=== PATIENT | male | born 1945 | race Caucasian/White ===

== ENCOUNTER → 2018-02-16 09:12 | Outpatient (CLI) | payer MEDICARE, OTHER, SELFPAY ==
[2018-02-16 11:01] LABS: HEMOLYSIS < 15 (0-50)
[2018-02-16 11:15] LABS: Alanine Aminotransferase 35 IU/L (21-72); Albumin 4.1 g/dL (3.5-5.0); Albumin Globulin Ratio 1.5 (1.0-2.8); Alkaline Phosphatase 58 U/L (38-126); Aspartate Aminotransferase 28 IU/L (17-59); BUN Creatinine Ratio 22.2 (6-22); Bilirubin Total 0.6 mg/dL (0.2-1.3); Blood Urea Nitrogen 20 mg/dL (9-20); Calcium 9.2 mg/dL (8.4-10.2); Carbon Dioxide 35 mmol/L (22-32); Chloride 102 mmol/L (98-107); Cholesterol 158 mg/dL (140-199); Estimated Glomerular Filt Rate > 60.0 mL/min (>60); Globulin 2.7 g/dL (1.7-4.1); Glucose 96 mg/dL (80-110); HDL Cholesterol 54 mg/dL (40-60); LDL Cholesterol Calculated 85 mg/dL (<100); Potassium 4.1 mmol/L (3.4-5.1); Sodium 144 mmol/L (137-145); Total Protein 6.8 g/dL (6.3-8.2); Triglycerides 93 mg/dL (35-150)
[2018-02-16 11:41] LABS: Thyroid Stimulating Hormone 1.47 uIU/mL (0.47-4.68)
[2018-02-16 11:48] LABS: Prostate Specific Antigen Scrn 6.06 ng/mL (0.1-4.0)
== END ==
PROVIDERS: Visit Provider Internal Medicine
DX: E78.00 Pure hypercholesterolemia, unspecified (principal); G89.4 Chronic pain syndrome
CPT/HCPCS: 36415; 80053; 80061; 84443; G0103

== ENCOUNTER → 2018-03-08 14:29 | Outpatient (CLI) | payer MEDICARE, OTHER, SELFPAY ==
--- NOTE | 2018-03-08 14:32 | DI.RAD.S_ITS ---
PROCEDURE: XR SHOULDER RT MIN 2V INDICATIONS: SHOULDER PAIN TECHNIQUE: 3 views of the shoulder were acquired. COMPARISON: None. FINDINGS: Bones: No fractures or dislocations. No suspicious bony lesions. Visualized ribs appear intact. Mild joint narrowing with periarticular osteophyte formation. Soft tissues: No suspicious soft tissue calcifications. IMPRESSION: Mild acromioclavicular and glenohumeral joint degeneration. Dictated by: Shamar Fairbanks [facility] Interpreted: Sandy Boswell MD on 03/08/2018 at 17:22 Approved by: Sandy Boswell MD, PhD on 03/09/2018 at 11:01
--- NOTE | 2018-03-08 14:32 | DI.RAD.S_ITS ---
PROCEDURE: XR SHOULDER LT MIN 2V INDICATIONS: SHOULDER PAIN TECHNIQUE: 3 views of the shoulder were acquired. COMPARISON: None. FINDINGS: Bones: No fractures or dislocations. No suspicious bony lesions. Visualized ribs appear intact. Mild joint narrowing with periarticular osteophyte formation of the acromioclavicular and glenohumeral joints. Soft tissues: No suspicious soft tissue calcifications. Surgical clips project over the left upper quadrant. IMPRESSION: Mild acromioclavicular and glenohumeral joint degeneration. Dictated by: Shamar Fairbanks [facility] Interpreted: Sandy Boswell MD on 03/08/2018 at 17:21 Approved by: Sandy Boswell MD, PhD on 03/09/2018 at 11:01
== END ==
PROVIDERS: Visit Provider Internal Medicine
DX: M25.511 Pain in right shoulder (principal); M25.512 Pain in left shoulder; M19.012 Primary osteoarthritis, left shoulder; M19.011 Primary osteoarthritis, right shoulder
CPT/HCPCS: 73030

== ENCOUNTER 2019-01-31 09:00 | Outpatient (RCR) | payer MEDICARE, OTHER, SELFPAY ==
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
== END 2019-02-23 16:56 ==
LOC: PHYS 09:00
PROVIDERS: PCP Family Medicine; Visit Provider Family Medicine
DX: G89.29 Other chronic pain (principal); V89.2XXA Person injured in unspecified motor-vehicle accident, traffic, initial encounter
CPT/HCPCS: 97014; 97110; 97140; 97161; 97535; G0283

== ENCOUNTER → 2019-04-10 09:32 | Outpatient (CLI) | payer MEDICARE, OTHER, SELFPAY ==
[2019-04-10 10:27] LABS: Alanine Aminotransferase 35 IU/L (21-72); Albumin 4.3 g/dL (3.5-5.0); Albumin Globulin Ratio 1.4 (1.0-2.8); Alkaline Phosphatase 65 U/L (38-126); Aspartate Aminotransferase 27 IU/L (17-59); BUN Creatinine Ratio 17.8 (6-22); Bilirubin Total 0.7 mg/dL (0.2-1.3); Blood Urea Nitrogen 16 mg/dL (9-20); Calcium 9.4 mg/dL (8.4-10.2); Carbon Dioxide 30 mmol/L (22-32); Chloride 103 mmol/L (98-107); Cholesterol 206 mg/dL (140-199); Estimated Glomerular Filt Rate > 60.0 mL/min (>60); Glucose 104 mg/dL (80-110); HDL Cholesterol 50 mg/dL (40-60); HEMOLYSIS < 15 (0-50); LDL Cholesterol Calculated 134 mg/dL (<100); Potassium 4.6 mmol/L (3.4-5.1); Sodium 141 mmol/L (137-145); Total Protein 7.3 g/dL (6.3-8.2); Triglycerides 111 mg/dL (35-150)
[2019-04-10 10:44] LABS: Creatinine Urine Random 145.6 mg/dL
[2019-04-10 10:48] LABS: Microalbumi Creatinin Ratio Ur 17.1 ug/mg CR (<30); Microalbumin Urine Random 2.5 mg/dL (0-1.6)
== END ==
PROVIDERS: PCP Family Medicine; Visit Provider Family Medicine
DX: I10 Essential (primary) hypertension (principal)
CPT/HCPCS: 36415; 80053; 80061; 82043; 82570

== ENCOUNTER 2019-06-01 11:46 | Emergency (ER) | payer MEDICARE, OTHER, SELFPAY ==
[2019-06-01 12:03] VITALS: BP 123/88; PULSE 51; RESP 20; TEMP 36.4; O2SAT 97; BMI 34.0
[2019-06-01 13:00] VITALS: BP 155/76; PULSE 53; RESP 9; O2SAT 96
[2019-06-01 13:02] LABS: Add Manual Diff / Slide Review NO; Basophils Absolute Auto 100 /uL (0-100); Basophils Percent Auto 0.7 % (0-2); Eosinophils Absolute Auto 300 /uL (0-450); Eosinophils Percent Auto 3.8 % (2-4); Hematocrit 41.5 % (41-53); Hemoglobin 14.2 g/dL (13.5-17.5); Lymphocytes Absolute Auto 1900 /uL (1100-4500); Mean Corpuscular HGB Conc 34.2 % (30-36); Mean Corpuscular Hemoglobin 31.1 PG (26-34); Mean Corpuscular Volume 91.1 fL (80-100); Monocytes Absolute Auto 1000 /uL (0-900); Monocytes Percent Auto 10.8 % (3-14); Neutrophils Absolute Auto 5600 /uL (1500-7000); Neutrophils Percent Auto 63.7 % (50-75); Platelet Count 244 X10^3/uL (150-400); Red Blood Cell Count 4.56 X10^6/uL (4.5-5.9); Red Cell Distribution Width 13.4 % (11.6-14.8); White Blood Cell Count 8.8 X10^3/uL (4.5-11.0)
[2019-06-01] MEDS: SODIUM CHLORIDE 0.9% 1,000 ML 1000 ML IV (13:02)
[2019-06-01] MEDS: diazePAM 10 MG/2 ML SYRINGE 5 MG IV (13:02)
[2019-06-01] MEDS: ONDANSETRON 4 MG/2 ML INJ IV (13:02)
[2019-06-01 13:20] LABS: Alanine Aminotransferase 25 IU/L (<50); Albumin 4.1 g/dL (3.5-5.0); Albumin Globulin Ratio 1.6 (1.0-2.8); Alkaline Phosphatase 65 U/L (38-126); Aspartate Aminotransferase 27 IU/L (17-59); Bilirubin Total 0.7 mg/dL (0.2-1.3); Blood Urea Nitrogen 18 mg/dL (9-20); Calcium 9.5 mg/dL (8.4-10.2); Carbon Dioxide 28 mmol/L (22-32); Chloride 104 mmol/L (98-107); Estimated Glomerular Filt Rate > 60.0 mL/min (>60); Globulin 2.6 g/dL (1.7-4.1); Glucose 106 mg/dL (80-110); HEMOLYSIS < 15 (0-50); Potassium 3.7 mmol/L (3.4-5.1); Sodium 139 mmol/L (137-145); Total Protein 6.7 g/dL (6.3-8.2)
--- NOTE | 2019-06-01 14:41 | ED_ITS ---
HPI - Dizziness General Chief Complaint: Dizziness Stated Complaint: dizzy, dehyrdration Time Seen by Provider: 06/01/19 11:49 Source: patient Mode of arrival: Wheelchair Limitations: no limitations History of Present Illness HPI Narrative: Patient comes emergency department complaining of vertigo for the last 3 days. He states that it is the worst when he tries to stand up, but also occurs when he turns his head certain ways. Patient states that in between, the degree of vertigo will go down to 1/10, but when his doctor did the Farwell-Hallpike maneuver in the office today, it went up to ?11/10?. Patient states that he has not had any neurologic deficits otherwise. He states that if he is not trying to walk, he is coordinated in the use of his extremities. He states that he has been able to walk, but sometimes he stumbles around due to the dizzy sensation in his head. Patient states that he has been nauseated only since seen his doctor this afternoon. He denies any chest pain, shortness breath, or palpitations. He denies any headache. He has not been ill with anything recently. Patient states that he is not known to have ever had a stroke. No other complaints at this time. Related Data Home Medications Medication Instructions Recorded Confirmed TENS unit electrodes #0 05/19/17 06/01/19 albuterol sulfate [Ventolin HFA] #0 05/19/17 06/01/19 aspirin 81 mg PO QDAY #0 05/19/17 06/01/19 cholecalciferol (vitamin D3) 2,500 iu #0 05/19/17 06/01/19 [Vitamin D3] desonide [DesOwen] #0 05/19/17 06/01/19 diclofenac sodium [Voltaren] #0 05/19/17 06/01/19 fluticasone propionate [Flonase #0 05/19/17 06/01/19 Allergy Relief] ibuprofen #0 05/19/17 06/01/19 multivitamin [Multiple Vitamins] #0 05/19/17 06/01/19 atorvastatin [Lipitor] 40 mg PO BEDTIME 06/01/19 06/01/19 bupropion HCl 150 mg PO DAILY 06/01/19 06/01/19 Previous Rx's Medication Instructions Recorded hydrochlorothiazide 12.5 mg capsule 12.5 mg PO DAILY #90 cap 01/31/19 budesonide-formoterol HFA 80 2 puff INHALATION BID #10.2 gram 04/26/19 mcg-4.5 mcg/actuation aerosol inhaler meclizine 25 mg PO TID PRN #30 tab 06/01/19 Allergies Allergy/AdvReac Type Severity Reaction Status Date / Time Penicillins [PENICILLINS] Allergy Intermediate rash, Verified 06/01/19 10:44 blows up Review of Systems Review of Systems ROS Unobtainable: All systems reviewed & are unremarkable except as noted in HPI and below Constitutional Constitutional: Denies chills, Denies fatigue, Denies fever(s), Denies frequent falls, Denies lethargy and Denies weakness Eyes Eyes: Denies change in vision, Denies eye discharge, Denies irritation and Denies loss of vision ENT Ears, Nose, Mouth, and Throat: Denies change in voice, Reports dizziness, Denies neck pain, Denies sore throat and Denies throat swelling Cardiovascular Cardiovascular: Denies chest pain, Denies irregular heart rhythm, Denies lightheadedness, Denies palpitations, Denies dyspnea, Denies dyspnea on exertion and Denies orthopnea Respiratory Respiratory: Denies cough, Denies dyspnea, Denies dyspnea on exertion and Denies wheezing Gastrointestinal Gastrointestinal: Denies abdominal pain, Denies change in bowel habits, Denies diarrhea, Reports nausea and Denies vomiting Genitourinary Genitourinary: Denies hematuria, Denies flank pain, Denies urinary incontinence and Denies urinary urgency Musculoskeletal Musculoskeletal: Denies back pain, Denies muscle weakness, Denies neck pain, Denies numbness and Denies tingling Integumentary/Breasts Skin/Breast: Denies pruritus, Denies erythema, Denies rash and Denies wounds Neurologic Neurologic: Denies behavioral changes, Denies confusion, Reports dizziness, Denies frequent falls, Denies loss of vision, Denies numbness, Denies tingling and Denies weakness Psychiatric Psychiatric: Denies anxiety, Denies behavioral changes, Denies confusion, Denies depression, Denies homicidal ideation and Denies suicidal ideation Endocrine Endocrine: Denies fatigue, Denies flushing and Denies palpitations Hematologic/Lymphatic Hematologic/Lymphatic: Denies easy bruising Allergic/Immunologic Allergic/Immunologic: Denies urticaria, Denies throat swelling and Denies wheezing Patient History Medical History Asthma (Chronic ~1999) BPPV (benign paroxysmal positional vertigo) (Acute) Cataracts, bilateral (Chronic ~2017) Chicken pox (Resolved) Chronic back pain (Chronic ~2011) Chronic pain (Chronic) Colon polyps (Chronic ~1994) Dehydration determined by examination (Acute) Essential hypertension (Chronic) Foot pain (Chronic) Gastric ulcer (Chronic ~1969) Hyperlipidemia (Chronic) Measles (Resolved) Mumps (Resolved) Retinal detachment (Chronic) Seasonal allergies (Chronic ~1987) Shoulder pain (Chronic ~2011) Tinnitus (Chronic) Surgical History Anesthesia (Resolved) History of appendectomy (Resolved ~1953) History of cataract removal with insertion of prosthetic lens (Resolved) History of gastric bypass (Resolved ~1977) Family History Grandmother Stroke Father High cholesterol Mother Breast cancer Sister Hyperlipidemia Grandmother No problems noted. Grandfather No problems noted. Social History marital status: number of children: 0 household members: spouse lives independently: Yes caregiver/support person: No housing: house education level: college occupational status: employed Smoking Status: Never smoker second hand exposure: No alcohol intake: current substance use type: does not use Smoking Status: Never smoker Substance Use Type: does not use Exam Initial Vital Signs Initial Vital Signs: Vital Signs Temperature 97.6 F 06/01/19 12:03 Pulse Rate 51 L 06/01/19 12:03 Respiratory Rate 20 06/01/19 12:03 Blood Pressure 123/88 06/01/19 12:03 Pulse Oximetry 97 06/01/19 12:03 Const General: cooperative and well developed Nutritional Appearance: well nourished Orientation: alert, awake, oriented x3 and not confused [facility] Head: normocephalic and atraumatic Ears: external ears normal Nose: external nose normal and No nasal discharge Face and sinus: face symmetric and No dry mucous membranes Mouth: oral mucosae normal and moist mucous membranes Teeth and gingiva: dentition normal Eyes General: appearance normal, both eyes and all related structures Eyelids: eyelids normal Conjunctivae: conjunctivae normal Sclera: sclerae normal Pupils: PERRL EOM: EOM intact bilaterally Neck Neck: normal visual inspection, trachea midline, No lymphadenopathy, No midline deformity and No JVD Lymphatic: No lymphedema Chest Chest: normal inspection of the chest Resp Effort & Inspection: normal respiratory effort, able to speak in complete sentences, no respiratory distress and no use of accessory muscles Auscultation: clear to auscultation bilaterally, no rales, no rhonchi and no wheezes Cardio Rate: regular rate Rhythm: regular rhythm Heart Sounds: no click, no gallops, no murmurs and no rubs Pulses: normal peripheral pulses GI Inspection: non-distended Palpation: soft, no hepatosplenomegaly, No guarding, No pulsatile mass and No tender Auscultation: normal bowel sounds Back/Spine/Pelvis Back: No CVA tenderness Cervical Spine: cervical ROM normal and No pain with cervical ROM Thoracic/Lumbar Spine: thoracic and lumbar spine normal to inspection Skin General: no rashes or lesions noted, No jaundice and No petechiae Neuro General: alert, oriented x3, gait normal and no focal motor deficits Speech: speech normal Extrem General: full ROM, no clubbing, cyanosis or edema, no pedal edema and no calf tenderness Psych Appearance: well kempt Mental Status: mental status grossly normal Attitude: cooperative Thought Content: normal and suicidality Judgment: judgment good Course Course Course Narrative: Patient was worked up with labs, EKG, and CT scan of the head, all which were unremarkable. The patient was given a L 0.9 normal saline and doses of Zofran and Valium, and was found to be feeling much better on re- evaluation. His symptoms sounded most consistent with peripheral etiology of vertigo. He was given a prescription for meclizine and advised to follow-up his primary care physician for further evaluation, should his symptoms continue for more than a week. We've discussed the usual indications for return. Orders Ordered: ED Orders 06/01/19 12:14 EKG-12 Lead Routine 06/01/19 12:56 Complete Blood Count AUTO DIFF Stat Comprehensive Metabolic Panel Stat 06/01/19 14:47 CT head/brain wo con Stat Discontinued Medications Diazepam (Valium) 5 mg IV NOW ONE Stop: 06/01/19 12:09 Last Admin: 06/01/19 13:02 Dose: 5 mg Documented by: GHADA Sodium Chloride (Normal Saline 0.9%) 1,000 mls @ 1,000 mls/hr IV BOLUS ONE Stop: 06/01/19 13:07 Last Infusion: 06/01/19 14:16 Dose: 0 mls/hr Documented by: Admin: 06/01/19 13:02 Dose: 1,000 mls/hr Documented by: GHADA Ondansetron HCl (Zofran) 4 mg IV NOW ONE Stop: 06/01/19 12:09 Last Admin: 06/01/19 13:02 Dose: 4 mg Documented by: GHADA Vital Signs Vital signs: Vital Signs - 8 hr 06/01/19 13:00 06/01/19 14:45 06/01/19 15:15 Pulse Rate 53 L 64 53 L Respiratory Rate 9 L 21 16 Blood Pressure [Right Arm] 155/76 H 163/84 H 152/78 H Pulse Oximetry 96 96 97 MDM - Dizziness Medical Records Attestation: I reviewed the patient's medical records. Lab Data Attestation: I reviewed the patient's lab results. Result diagrams: 06/01/19 12:56 06/01/19 12:56 Labs: Lab Results 06/01/19 06/01/19 Range/Units 12:56 12:56 WBC 8.8 (4.5-11.0) X10^3/uL RBC 4.56 (4.5-5.9) X10^6/uL Hgb 14.2 (13.5-17.5) g/dL Hct 41.5 (41-53) % MCV 91.1 (80-100) fL MCH 31.1 (26-34) PG MCHC 34.2 (30-36) % RDW 13.4 (11.6-14.8) % Plt Count 244 (150-400) X10^3/uL Neut % (Auto) 63.7 (50-75) % Lymph % (Auto) 21.0 L (25-40) % Karnes % (Auto) 10.8 (3-14) % Eos % (Auto) 3.8 (2-4) % Baso % (Auto) 0.7 (0-2) % Neut # (Auto) 5600 (3036-0154) /uL Lymph # (Auto) 1900 (7268-9534) /uL Karnes # (Auto) 1000 H (0-900) /uL Eos # (Auto) 300 (0-450) /uL Baso # (Auto) 100 (0-100) /uL Sodium 139 (137-145) mmol/L Potassium 3.7 (3.4-5.1) mmol/L Chloride 104 (98-107) mmol/L Carbon Dioxide 28 (22-32) mmol/L BUN 18 (9-20) mg/dL Creatinine 0.90 (0.66-1.25) mg/dL Estimated GFR > 60.0 (>60) mL/min BUN/Creatinine Ratio 20.0 (6-22) Glucose 106 (80-110) mg/dL Calcium 9.5 (8.4-10.2) mg/dL Total Bilirubin 0.7 (0.2-1.3) mg/dL AST 27 (17-59) IU/L ALT 25 (<50) IU/L Alkaline Phosphatase 65 (38-126) U/L Total Protein 6.7 (6.3-8.2) g/dL Albumin 4.1 (3.5-5.0) g/dL Globulin 2.6 (1.7-4.1) g/dL Albumin/Globulin Ratio 1.6 (1.0-2.8) Imaging Data CT scan - head: Radiologist's impression: PROCEDURE: CT HEAD/BRAIN WO CON INDICATIONS: vertigo TECHNIQUE: Noncontrast 4.5 mm thick angled axial sections acquired from the foramen magnum to the vertex, with coronal and sagittal reformats. For radiation dose reduction, the following was used: automated exposure control, adjustment of mA and/or kV according to patient size. COMPARISON: None. FINDINGS: Image quality: Excellent. CSF spaces: Basal cisterns are patent. No extra-axial fluid collections. The ventricles are symmetric in size and shape. Brain: No intracranial bleeds or masses. There is cerebral volume loss for age, with resultant ventricular and sulcal prominence. There are periventricular and deep white matter chronic small vessel ischemic changes. There is intracranial internal carotid artery atherosclerosis. Skull and face: Calvarium and visualized facial bones appear intact, without suspicious lesions. Sinuses: Visualized sinuses and mastoids are clear. IMPRESSION: Source of vertigo is not found. Dictated by: Pravin Chan M.D. on 06/01/2019 at 15:10 Approved by: Pravin Chan M.D. on 06/01/2019 at 15:11 ECG Data Attestation: I personally reviewed and interpreted this ECG as follows: (See below) Interpretation: Twelve lead EKG performed June 01, 2019 at 12:14 p.m., as follows: Regular ventricular rhythm with a rate of 46 beats per minute OK intervals 167 milliseconds QRS duration 116 milliseconds QTC interval [address] T wave changes Interpretation: Sinus bradycardia; moderate intraventricular conduction delay; moderate voltage criteria for LVH, consider normal variant; nonspecific T-wave abnormality; no signs of acute ischemia; borderline EKG as interpreted by ED MD. Discharge Plan Departure Patient Disposition: Home Clinical Impression: Vertigo Discharge Date/Time: 06/01/19 16:21 Instructions: DI for Vertigo Activity Restrictions/Additional Instructions: Your labs and CT scan look good. There is no evidence on EKG of a contributing cause of your vertigo. Please take the anti-vertigo medicine, as needed. Please follow up with your primary care physician if your vertigo continues for more than the next week. Prescriptions: New meclizine 25 mg tablet 25 mg PO TID PRN (Reason: dizziness) Qty: 30 RF: 0 No Action aspirin 81 MG tablet,chewable 81 mg PO QDAY Qty: 0 RF: 0 albuterol sulfate [Ventolin HFA] 90 MCG/PUFF HFA aerosol inhaler Qty: 0 RF: 0 fluticasone propionate [Flonase Allergy Relief] 9.9 ML spray,suspension Qty: 0 RF: 0 diclofenac sodium [Voltaren] 1 % gel Qty: 0 RF: 0 desonide [DesOwen] 0.05 % cream Qty: 0 RF: 0 ibuprofen 200 MG capsule Qty: 0 RF: 0 cholecalciferol (vitamin D3) [Vitamin D3] 2,000 UNIT tablet 2,500 iu Qty: 0 RF: 0 (DME) TENS unit electrodes 1 EACH pad Qty: 0 RF: 0 multivitamin [Multiple Vitamins] 1 EACH tablet Qty: 0 RF: 0 hydrochlorothiazide 12.5 mg capsule 12.5 mg PO DAILY Qty: 90 RF: 0 Symbicort 80-4.5 mcg/actuation HFA aerosol inhaler 2 puff INHALATION BID Qty: 10.2 RF: 3 bupropion HCl 150 mg tablet sustained-release 12 hr 150 mg PO DAILY RF: 0 atorvastatin [Lipitor] 40 mg tablet 40 mg PO BEDTIME RF: 0 Referrals: Vikcy Whalen MD [Primary Care Provider] -
[2019-06-01 14:45] VITALS: BP 163/84; PULSE 64; RESP 21; O2SAT 96
--- NOTE | 2019-06-01 14:47 | DI.CT.S_ITS ---
PROCEDURE: CT HEAD/BRAIN WO CON INDICATIONS: vertigo TECHNIQUE: Noncontrast 4.5 mm thick angled axial sections acquired from the foramen magnum to the vertex, with coronal and sagittal reformats. For radiation dose reduction, the following was used: automated exposure control, adjustment of mA and/or kV according to patient size. COMPARISON: None. FINDINGS: Image quality: Excellent. CSF spaces: Basal cisterns are patent. No extra-axial fluid collections. The ventricles are symmetric in size and shape. Brain: No intracranial bleeds or masses. There is cerebral volume loss for age, with resultant ventricular and sulcal prominence. There are periventricular and deep white matter chronic small vessel ischemic changes. There is intracranial internal carotid artery atherosclerosis. Skull and face: Calvarium and visualized facial bones appear intact, without suspicious lesions. Sinuses: Visualized sinuses and mastoids are clear. IMPRESSION: Source of vertigo is not found. Dictated by: Pravin Chan M.D. on 06/01/2019 at 15:10 Approved by: Pravin Chan M.D. on 06/01/2019 at 15:11
--- NOTE | 2019-06-01 15:11 | PC.NURSE ---
Pt reports feeling much better post medications. was able to stand and ambulate to the bathroom with assistance. Taken to and from head CT. tolerated well. NAD
[2019-06-01 15:15] VITALS: BP 152/78; PULSE 53; RESP 16; O2SAT 97
--- NOTE | 2019-06-01 16:48 | PC.NURSE ---
Patient stated he felt safe to drive home after walking from the ER entrance to the other side of the hospital where his car was parked by ophthalmology. Patient acknowledged to stock puller if he had any issues while driving. He stated he felt lots better to drive now.
== END 2019-06-01 16:21 | disposition home or self-care (01) ==
PROVIDERS: Emergency Provider Emergency Medicine; PCP Family Medicine
DX: R42 Dizziness and giddiness (principal)
CPT/HCPCS: 36415; 70450; 80053; 85025; 93005; 93010; 93041; 96361; 96374; 96375; 99284; 99285; J2405; J3360

== ENCOUNTER → 2019-12-04 07:39 | Outpatient (CLI) | payer MEDICARE, OTHER, SELFPAY ==
[2019-12-04 08:25] LABS: Cholesterol 180 mg/dL (140-199); HDL Cholesterol 56 mg/dL (40-60); LDL Cholesterol Calculated 106 mg/dL (<100); Triglycerides 91 mg/dL (35-150)
== END ==
PROVIDERS: PCP Family Medicine; Referring Provider Family Medicine; Visit Provider Family Medicine
DX: E78.5 Hyperlipidemia, unspecified (principal)
CPT/HCPCS: 36415; 80061

== ENCOUNTER → 2020-01-18 08:15 | Outpatient (CLI) | payer MEDICARE, OTHER, SELFPAY ==
[2020-01-19 02:17] LABS: COVID19 Sendout Not Detected (Not Detect)
== END ==
PROVIDERS: PCP Family Medicine; Visit Provider Physician Assistant
DX: Z11.59 Encounter for screening for other viral diseases (principal)
CPT/HCPCS: 87635

== ENCOUNTER → 2020-03-21 07:58 | Outpatient (CLI) | payer MEDICARE, OTHER, SELFPAY ==
[2020-03-21 09:37] LABS: Alanine Aminotransferase 36 IU/L (<50); Albumin Globulin Ratio 1.5 (1.0-2.8); Alkaline Phosphatase 78 U/L (38-126); Aspartate Aminotransferase 31 IU/L (17-59); BUN Creatinine Ratio 15.4 (6-22); Bilirubin Total 0.9 mg/dL (0.2-1.3); Blood Urea Nitrogen 14 mg/dL (9-20); Calcium 9.2 mg/dL (8.4-10.2); Carbon Dioxide 29 mmol/L (22-32); Chloride 101 mmol/L (98-107); Estimated Glomerular Filt Rate > 60.0 mL/min (>60); Globulin 2.7 g/dL (1.7-4.1); Glucose 97 mg/dL (80-110); HEMOLYSIS < 15 (0-50); Potassium 4.5 mmol/L (3.4-5.1); Sodium 139 mmol/L (137-145); Total Protein 6.7 g/dL (6.3-8.2)
[2020-03-21 09:44] LABS: Creatinine Urine Random 224.3 mg/dL
[2020-03-21 09:52] LABS: Microalbumin Urine Random < 0.6 mg/dL (0-1.6)
== END ==
PROVIDERS: PCP Family Medicine; Referring Provider Family Medicine; Visit Provider Family Medicine
DX: I10 Essential (primary) hypertension (principal)
CPT/HCPCS: 36415; 80053; 82043; 82570

== ENCOUNTER 2020-04-29 07:30 | Outpatient (RCR) | payer MEDICARE, OTHER, SELFPAY ==
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
--- NOTE | 2020-04-29 12:15 | PT.OPPOC ---
Physical, Occupational & Speech Therapy At [facility] Current Diagnoses Other chronic pain (04/29/20) Dorsalgia, unspecified (04/29/20) Visit Care Team Role Provider Type Vicky Whalen MD Attending Provider Physician Primary Care Provider Referring Provider Specialty: Family Practice Address: [address] [place] [address], [id number] Email: [email or web address] Plan Of Care PT-OP-T Assessment and Plan Start: 04/01/20 13:06 Freq: Status: Active Protocol: Document 04/29/20 07:30 MB (Rec: 04/29/20 08:33 MB [id number]) Physical Therapy Assessment Rehab Potential Rehabilitation Potential Good Evaluation Complexity Number of Personal Factors/Comorbidities 1-2 Number of Body Systems Impaired 1-2 Goals 5 Petroleum Sampler Goal (LTG) Pt will report a 80% improvement in cervical, right UE, thoracic and LBP to improve quality of life and function by 06/13/2020. 04/29/2020: Pt reports an overall 60% improvement in pain since starting PT. LTG Duration 6 weeks 4 Pet[employer] Sampler Goal (LTG) Pt will perform progressive HEP with I including postural, flexibility, relaxation, alignment and strengthening to improve overall strength and to decrease pain by 06/13/2020 . 04/29/2020: Pt reports he likes several exercises and that the Buteyko exercises interfere with his current meditation practice. LTG Duration 6 weeks Three Petroleum Sampler Goal (LTG) Pt will report a 50% improvement in sleeping related to pain factor to improve parasympathetic response and recovery by 06/13. 04/29/2020: Pt reports a 30% improvement in sleeping since starting PT. LTG Duration 6 weeks Two Pen[facility]iary Goal (LTG) Pt will present with improved active right shoulder abduction to at least 140 deg to improve functional use by 06/02/2020. LTG Duration Met 04/29/2020 One Penitentiary Goal (LTG) Pt will present with improved right shoulder strength to at least 4/5 abduction, flexion, IR and ER to improve ability to perform IADLs by 06/13/2020 . 04/29/2020: Pt presents with 3 +/5 right shoulder abduction, ER and IR strength with quick muscle fatigue. LTG Duration 6 weeks Assessment Summary Assessment Pt has progressed towards all goals since starting PT. These include pain and sleep goals, HEP, strength and ROM goals. He con't with home stressors of taking care of his and doing all house hold chores and cooking. Pt does not like Buteyko breathing or upper traps MWM with racquet ball and so d/c today. Re-ed in pelvic realignment execises so that he can use if he has LBP . Standing scaption and thoracic walks wall with elbows also discontinued. Pt will benefit from ongoing PT to improve posture and core strengthening. Pt is concerned about governor's guidelines for staying at home. Encouraged pt about current guidelines used at clinic includuing distancing and cleaning. He would like to con 't with PT and will benefit from ongoing PT for thoracic and shoulder range and core, shoulder blade and shoulder strengthening. Barriers include home stressors. Physical Therapy Plan Frequency and Duration Frequency of Treatment 2x/Week Duration of Treatment 6 weeks Plan of Care Start Date 04/29/20 Plan of Care End Date 06/13/20 Therapeutic Interventions Therapeutic Interventions Balance Training,Canalithic Repositioning,Home Exercise Program,Joint Mobilizations, Manual Therapy,Neuromuscular Re-education,Patient/Caregiver Education,Self-Care/Home Management,Soft Tissue Mobilization,Taping, Therapeutic Activities, Therapeutic Exercises Modalities Cold Pack/Ice Massage,Electric Stimulation,Hot Packs, Ultrasound Next Visit Focus/Plan Next Note Type Treatment Note Next Visit Plan Continue per PT POC: initiate strengthening for core, intrascapular muscles and shoulders, diaphragm breathing and further manual work. Plan of Care Dates Plan of Care Start Date 04/29/20 Plan of Care End Date 06/13/20 Electronically Signed by: Tiana Clemens, PT 04/29/20 [id number] Please Sign and Return: I have reviewed this Plan of Care and certify that the skilled therapy services above are required to meet the patient?s needs. Physician Signature Date Printed Name and Credentials Clinical Instructor Signature Printed Name and Credentials
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
== END 2020-05-10 08:18 | disposition home or self-care (01) ==
LOC: PHYS 07:30
PROVIDERS: PCP Family Medicine; Referring Provider Family Medicine; Visit Provider Family Medicine
DX: M54.9 Dorsalgia, unspecified (principal); G89.29 Other chronic pain
CPT/HCPCS: 97110; 97140; 97162

== ENCOUNTER 2020-06-27 14:26 | Emergency (ER) | payer MEDICARE, OTHER, SELFPAY ==
[2020-06-27] VITALS (9 sets, daily range): BP systolic 160–210; BP diastolic 75–99; PULSE 51–58; RESP 16–60; TEMP 36.9; O2SAT 92–98; BMI 36.9
--- NOTE | 2020-06-27 14:41 | DI.RAD.S_ITS ---
PROCEDURE: XR CHEST 1V INDICATIONS: chest pain TECHNIQUE: One view of the chest was acquired. COMPARISON: None. FINDINGS: Surgical changes and devices: Multiple surgical clips in the left upper quadrant of the abdomen and at the gastroesophageal junction. Lungs and pleura: Lungs are clear. No pleural effusions or pneumothorax. Mediastinum: Mediastinal contours appear normal. Heart size is normal. Bones and chest wall: No suspicious bony lesions. Overlying soft tissues appear unremarkable. IMPRESSION: No acute cardiopulmonary disease process. Dictated by: Sandy Boswell MD, PhD on 06/27/2020 at 15:29 Approved by: Sandy Boswell MD, PhD on 06/27/2020 at 15:30
[2020-06-27 15:01] LABS: COVID19 -Nasal RAPID Negative (Negative)
[2020-06-27 15:22] LABS: Prothrombin Time 11.1 SECONDS (10.1-12.7)
--- NOTE | 2020-06-27 15:23 | ED.CHESTPAIN ---
HPI - Chest Pain General Chief Complaint: Chest Pain Stated Complaint: Asthma and allergies Time Seen by Provider: 06/27/20 14:57 Source: patient Mode of arrival: Wheelchair Limitations: no limitations History of Present Illness HPI narrative: Patient is a 75-year-old male with history of asthma and allergies presenting with ongoing cough and shortness of breath. He says he usually takes and Theresa and Advair inhaler daily. He says the last night his allergies were quite bed he took Benadryl as well. Every time he lays down he coughs. Also every time he takes a deep breath he coughs. He denies any fever or chills. He does have chest tightness the center of his chest that radiates out. MD complaint: chest pain Pain location: substernal Quality: tightness Pain radiation: none Related Data Home Medications Medication Instructions Recorded Confirmed aspirin 81 mg PO QDAY #0 05/19/17 06/27/20 cholecalciferol (vitamin D3) 2,500 iu #0 05/19/17 06/27/20 [Vitamin D3] desonide [DesOwen] #0 05/19/17 06/27/20 diclofenac sodium [Voltaren] #0 05/19/17 06/27/20 ibuprofen #0 05/19/17 06/27/20 multivitamin [Multiple Vitamins] #0 05/19/17 06/27/20 atorvastatin [Lipitor] 40 mg PO BEDTIME 06/01/19 06/27/20 fluticasone propionate 50 2 spray INTRANASAL BID day 03/20/20 06/27/20 mcg/actuation nasal spray,suspension fexofenadine 180 mg tablet 180 mg PO DAILY 05/24/20 06/27/20 fluticasone 500 mcg-salmeterol 50 1 inh INHALATION BID ea 05/24/20 06/27/20 mcg/dose blistr powdr for inhalation tizaniidine PO 06/12/20 06/27/20 Previous Rx's Medication Instructions Recorded albuterol sulfate 90 mcg/actuation 2 puff INHALATION Q4-6H PRN #18 09/12/19 aerosol inhaler gram olopatadine 0.7 % eye drops 1 drop EYE-BOTH DAILY #2.5 ml 11/27/19 hydrochlorothiazide 12.5 mg capsule 12.5 mg PO DAILY #90 cap 12/04/19 gabapentin 300 mg capsule See Rx Instructions .ROUTE 06/10/20 .COMPLEX #60 cap tizanidine 6 mg capsule 6 mg PO Q6-8H PRN #30 cap 06/11/20 prednisone 40 mg PO DAILY #10 tab 06/27/20 Allergies Allergy/AdvReac Type Severity Reaction Status Date / Time Penicillins [PENICILLINS] Allergy Intermediate rash, Verified 06/27/20 14:37 blows up Review of Systems Review of Systems Narrative: GENERAL: Denies chills, fatigue, malaise, fever, sweats, travel HEENT: Denies sinus pain, ear pain, sore throat, difficulty swallowing, neck pain RESPIRATORY: See HPI CARDIOVASCULAR: See HPI GASTROINTESTINAL: Denies nausea, vomiting, abdominal pain, diarrhea, constipation, melena. : Denies dysuria, frequency, incontinence, hematuria, urinary retention, flank pain. MUSCULOSKELETAL: Denies weakness, joint pain, or bony pain SKIN: No rash, no erythema, no pruritus NEUROLOGIC: Denies weakness, dizziness, headache, numbness, change in speech, confusion PSYCHIATRIC: No concerning psychosocial issues. 12 point review of systems is negative except for those stated above and HPI Patient History Medical History (Updated 06/27/20 @ 16:21 by Stephani Montgomery DO) Asthma (~1999) BPPV (benign paroxysmal positional vertigo) Cataracts, bilateral (~2017) Chicken pox Chronic back pain (~2011) Chronic pain Colon polyps (~1994) Dehydration determined by examination Essential hypertension Foot pain Gastric ulcer (~1969) Hyperlipidemia Measles Mumps Retinal detachment Seasonal allergies (~1987) Shoulder pain (~2011) Tinnitus Surgical History Anesthesia History of appendectomy (~1953) History of cataract removal with insertion of prosthetic lens History of gastric bypass (~1977) Family History Grandmother Stroke Father High cholesterol Mother Breast cancer Sister Hyperlipidemia Grandmother No problems noted. Grandfather No problems noted. Social History marital status: number of children: 0 household members: spouse lives independently: Yes caregiver/support person: No housing: house education level: college occupational status: employed Smoking Status: Never smoker second hand exposure: No alcohol intake: current substance use type: does not use Smoking Status: Never smoker alcohol intake frequency: a few times a week Substance Use Type: does not use Exam Initial Vital Signs Initial Vital Signs: Vital Signs Temperature 98.4 F 06/27/20 14:37 Pulse Rate 55 L 06/27/20 14:37 Respiratory Rate 20 06/27/20 14:37 Blood Pressure 160/75 H 06/27/20 14:37 Pulse Oximetry 98 06/27/20 14:37 GENERAL: Alert pleasant 75-year-old male and in no acute distress. HEENT: Head atraumatic,EOMI, pupils reactive, face symmetric, moist mucous membranes CARDIOVASCULAR: Regular rate and rhythm without murmurs, rubs or gallops. RESPIRATORY: Breath sounds equal bilaterally, no wheezes rales or rhonchi. Cough with deep breath ABDOMEN: Soft, nontender. Normoactive bowel sounds all 4 quadrants. No guarding or rebound. EXTREMITIES: Normal range of motion, no clubbing or edema. Neurovascularly intact NEUROLOGICAL: Alert and oriented x4.Normal gait and speech. Cranial nerves II through XII grossly intact. SKIN: Warm, dry, no laceration, no petechiae, no rashes or lesions. Course Orders Ordered: ED Orders 06/27/20 14:41 XR chest 1V Stat COVID19 Stat 06/27/20 14:48 EKG-12 Lead Stat 06/27/20 15:04 Complete Blood Count AUTO DIFF Stat Comprehensive Metabolic Panel Stat Lipase Stat Partial Thromboplastin Time Stat Prothrombin Time INR Stat Troponin & CK Cardiac Panel Stat Discontinued Medications Albuterol (Albuterol 2.5 Mg/3 Ml Neb (Adult)) 2.5 mg INH NOW ONE Stop: 06/27/20 15:23 Last Admin: 06/27/20 15:29 Dose: 2.5 mg Documented by: JOHN Methylprednisolone (Methylprednisolone 125 Mg/2 Ml Vial) 125 mg IV NOW ONE Stop: 06/27/20 15:23 Last Admin: 06/27/20 15:40 Dose: 125 mg Documented by: BONY Vital Signs Vital signs: Vital Signs - 8 hr 06/27/20 14:37 06/27/20 14:51 06/27/20 14:52 Temperature 98.4 F Pulse Rate 55 L 58 L 56 L Respiratory Rate 20 22 21 Blood Pressure 160/75 H 200/91 H Pulse Oximetry 98 97 92 06/27/20 15:00 06/27/20 15:04 06/27/20 15:30 Temperature Pulse Rate 53 L 52 L 51 L Respiratory Rate 29 H 32 H 20 Blood Pressure 181/89 H Pulse Oximetry 97 98 94 06/27/20 15:31 06/27/20 15:38 06/27/20 16:38 Temperature Pulse Rate 53 L 53 L Respiratory Rate 18 16 60 H Blood Pressure 210/99 H 175/84 H Pulse Oximetry 93 97 96 MDM - Chest Pain Lab Data Attestation: I reviewed the patient's lab results. Result diagrams: 06/27/20 15:04 06/27/20 15:04 Labs: Lab Results 06/27/20 06/27/20 06/27/20 Range/Units 14:41 15:04 15:04 WBC 8.1 (4.5-11.0) X10^3/uL RBC 4.55 (4.5-5.9) X10^6/uL Hgb 14.0 (13.5-17.5) g/dL Hct 41.1 (41-53) % MCV 90.3 (80-100) fL MCH 30.8 (26-34) PG MCHC 34.1 (30-36) % RDW 13.6 (11.6-14.8) % Plt Count 375 (150-400) X10^3/uL Neut % (Auto) 60.9 (50-75) % Lymph % (Auto) 23.7 L (25-40) % [place] % (Auto) 11.9 (3-14) % Eos % (Auto) 2.2 (2-4) % Baso % (Auto) 1.3 (0-2) % Neut # (Auto) 4900 (8609-4476) /uL Lymph # (Auto) 1900 (4419-8923) /uL [place] # (Auto) 1000 H (0-900) /uL Eos # (Auto) 200 (0-450) /uL Baso # (Auto) 100 (0-100) /uL PT 11.1 (10.1-12.7) SECONDS INR 1.0 (0.9-1.3) APTT 32 (26.4-36.2) SECONDS Sodium (137-145) mmol/L Potassium (3.4-5.1) mmol/L Chloride (98-107) mmol/L Carbon Dioxide (22-32) mmol/L BUN (9-20) mg/dL Creatinine (0.66-1.25) mg/dL Estimated GFR (>60) mL/min BUN/Creatinine Ratio (6-22) Glucose (80-110) mg/dL Calcium (8.4-10.2) mg/dL Total Bilirubin (0.2-1.3) mg/dL AST (17-59) IU/L ALT (<50) IU/L Alkaline Phosphatase (38-126) U/L Total Creatine Kinase (55-170) U/L CK-MB (CK-2) CK-MB (CK-2) Rel Index Troponin I (0.01-0.034) ng/mL Total Protein (6.3-8.2) g/dL Albumin (3.5-5.0) g/dL Globulin (1.7-4.1) g/dL Albumin/Globulin Ratio (1.0-2.8) Lipase (23-300) U/L SARS-CoV-2 (PCR) Negative (Negative) 06/27/20 Range/Units 15:04 WBC (4.5-11.0) X10^3/uL RBC (4.5-5.9) X10^6/uL Hgb (13.5-17.5) g/dL Hct (41-53) % MCV (80-100) fL MCH (26-34) PG MCHC (30-36) % RDW (11.6-14.8) % Plt Count (150-400) X10^3/uL Neut % (Auto) (50-75) % Lymph % (Auto) (25-40) % [place] % (Auto) (3-14) % Eos % (Auto) (2-4) % Baso % (Auto) (0-2) % Neut # (Auto) (2199-4611) /uL Lymph # (Auto) (6095-6769) /uL [place] # (Auto) (0-900) /uL Eos # (Auto) (0-450) /uL Baso # (Auto) (0-100) /uL PT (10.1-12.7) SECONDS INR (0.9-1.3) APTT (26.4-36.2) SECONDS Sodium 138 (137-145) mmol/L Potassium 3.9 (3.4-5.1) mmol/L Chloride 105 (98-107) mmol/L Carbon Dioxide 30 (22-32) mmol/L BUN 14 (9-20) mg/dL Creatinine 0.94 (0.66-1.25) mg/dL Estimated GFR > 60.0 (>60) mL/min BUN/Creatinine Ratio 14.9 (6-22) Glucose 114 H (80-110) mg/dL Calcium 9.2 (8.4-10.2) mg/dL Total Bilirubin 1.1 (0.2-1.3) mg/dL AST 212 H (17-59) IU/L ALT 300 H (<50) IU/L Alkaline Phosphatase 209 H (38-126) U/L Total Creatine Kinase 38 L (55-170) U/L CK-MB (CK-2) TNP CK-MB (CK-2) Rel Index TNP Troponin I < 0.012 (0.01-0.034) ng/mL Total Protein 7.2 (6.3-8.2) g/dL Albumin 3.9 (3.5-5.0) g/dL Globulin 3.3 (1.7-4.1) g/dL Albumin/Globulin Ratio 1.2 (1.0-2.8) Lipase 110 (23-300) U/L SARS-CoV-2 (PCR) (Negative) Imaging Data Chest x-ray: Radiologist's Impression: PROCEDURE: XR CHEST 1V INDICATIONS: chest pain TECHNIQUE: One view of the chest was acquired. COMPARISON: None. FINDINGS: Surgical changes and devices: Multiple surgical clips in the left upper quadrant of the abdomen and at the gastroesophageal junction. Lungs and pleura: Lungs are clear. No pleural effusions or pneumothorax. Mediastinum: Mediastinal contours appear normal. Heart size is normal. Bones and chest wall: No suspicious bony lesions. Overlying soft tissues appear unremarkable. IMPRESSION: No acute cardiopulmonary disease process. Dictated by: Sandy Boswell MD, PhD on 06/27/2020 at 15:29 ECG Data Attestation: I personally reviewed and interpreted this ECG as follows: Prior ECG tracings: available for review Interpretation: Normal sinus rhythm rate 52 p.r. interval 156 QRS [address] changes similar to previous EKG in 2019 MDM Narrative Medical decision making narrative: Patient feels immediately better after albuterol nebulized treatment and Solu-Medrol. Inside the dentist since to be more consistent with an asthma exacerbation. Blood work and x-ray are overall reassuring. He is given spacer teaching, and prescription for prednisone. He overall feels much better and ready and able to go home. Discharge Plan Departure Patient Disposition: Home Clinical Impression: Asthma Qualifiers: Asthma severity: moderate Asthma persistence: persistent Asthma complication type: unspecified Qualified Code(s): J45.40 - Moderate persistent asthma, uncomplicated Instructions: Asthma -- Adult Activity Restrictions/Additional Instructions: *You have been diagnosed with asthma exacerbation *What to do: At this time no antibiotics are indicated, likely combination of your allergies and asthma acting up. Continue taking your allergy medications *Continue to take medications as directed Prednisone 40 mg once daily for 5 days--> WENT TO [facility] [place] Albuterol inhaler 1-2 puffs every 4 hours if needed for cough or shortness of breath *Follow up with your primary care provider in 2-3 days *Return to ER if you should have increasing shortness of breath chest pain tightness, or any new, worsening or concerning symptoms Prescriptions: New prednisone 20 mg tablet 40 mg PO DAILY Qty: 10 RF: 0 No Action fluticasone propionate [Flonase Allergy Relief] 50 mcg/actuation spray,suspension 2 spray intranasal BID RF: 0 tizaniidine 6 mg PO RF: 0 aspirin 81 MG tablet,chewable 81 mg PO QDAY Qty: 0 RF: 0 diclofenac sodium [Voltaren] 1 % gel Qty: 0 RF: 0 desonide [DesOwen] 0.05 % cream Qty: 0 RF: 0 ibuprofen 200 MG capsule Qty: 0 RF: 0 cholecalciferol (vitamin D3) [Vitamin D3] 2,000 UNIT tablet 2,500 iu Qty: 0 RF: 0 multivitamin [Multiple Vitamins] 1 EACH tablet Qty: 0 RF: 0 albuterol sulfate [ProAir HFA] 90 mcg/actuation HFA aerosol inhaler 2 puff INHALATION Q4-6H PRN (Reason: shortness of breath or wheezing) Qty: 18 RF: 3 olopatadine 0.7 % drops 1 drop EYE-BOTH DAILY Qty: 2.5 RF: 0 hydrochlorothiazide 12.5 mg capsule 12.5 mg PO DAILY Qty: 90 RF: 0 fluticasone propion-salmeterol [Advair Diskus] 500-50 mcg/dose blister with device 1 inh INHALATION BID RF: 0 fexofenadine [Theresa Allergy] 180 mg tablet 180 mg PO DAILY RF: 0 gabapentin 300 mg capsule See Rx Instructions .ROUTE .COMPLEX Qty: 60 RF: 1 tizanidine 6 mg capsule 6 mg PO Q6-8H PRN (Reason: muscle spasticity) Qty: 30 RF: 0 atorvastatin [Lipitor] 40 mg tablet 40 mg PO BEDTIME RF: 0 Referrals: Vicky Whalen MD [Primary Care Provider] -
[2020-06-27 15:25] LABS: PTT Partial Thromboplastin Tim 32 SECONDS (26.4-36.2)
[2020-06-27 15:28] LABS: Alanine Aminotransferase 300 IU/L (<50); Albumin 3.9 g/dL (3.5-5.0); Albumin Globulin Ratio 1.2 (1.0-2.8); Alkaline Phosphatase 209 U/L (38-126); Aspartate Aminotransferase 212 IU/L (17-59); BUN Creatinine Ratio 14.9 (6-22); Bilirubin Total 1.1 mg/dL (0.2-1.3); Blood Urea Nitrogen 14 mg/dL (9-20); Calcium 9.2 mg/dL (8.4-10.2); Carbon Dioxide 30 mmol/L (22-32); Chloride 105 mmol/L (98-107); Creatine Kinase 38 U/L (55-170); Estimated Glomerular Filt Rate > 60.0 mL/min (>60); Globulin 3.3 g/dL (1.7-4.1); Glucose 114 mg/dL (80-110); HEMOLYSIS < 15 (0-50); Lipase 110 U/L (23-300); Potassium 3.9 mmol/L (3.4-5.1); Sodium 138 mmol/L (137-145); Total Protein 7.2 g/dL (6.3-8.2)
[2020-06-27] MEDS: ALBUTEROL 2.5 MG/3 ML NEB (ADULT) INH (15:29)
[2020-06-27 15:30] LABS: Add Manual Diff / Slide Review NO; Basophils Absolute Auto 100 /uL (0-100); Basophils Percent Auto 1.3 % (0-2); Eosinophils Absolute Auto 200 /uL (0-450); Eosinophils Percent Auto 2.2 % (2-4); Hematocrit 41.1 % (41-53); Lymphocytes Absolute Auto 1900 /uL (1100-4500); Lymphocytes Percent Auto 23.7 % (25-40); Mean Corpuscular HGB Conc 34.1 % (30-36); Mean Corpuscular Hemoglobin 30.8 PG (26-34); Mean Corpuscular Volume 90.3 fL (80-100); Monocytes Absolute Auto 1000 /uL (0-900); Monocytes Percent Auto 11.9 % (3-14); Neutrophils Absolute Auto 4900 /uL (1500-7000); Neutrophils Percent Auto 60.9 % (50-75); Platelet Count 375 X10^3/uL (150-400); Red Blood Cell Count 4.55 X10^6/uL (4.5-5.9); Red Cell Distribution Width 13.6 % (11.6-14.8); White Blood Cell Count 8.1 X10^3/uL (4.5-11.0)
[2020-06-27 15:39] LABS: Troponin I < 0.012 ng/mL (0.01-0.034)
[2020-06-27] MEDS: methylPREDNISolone 125 MG/2 ML VIAL IV (15:40)
--- NOTE | 2020-06-27 15:49 | PC.NURSE ---
Patient reports improvement in SOB. Resting comfortably.
== END 2020-06-27 16:38 | disposition home or self-care (01) ==
PROVIDERS: Emergency Provider Emergency Medicine; PCP Family Medicine
DX: J45.40 Moderate persistent asthma, uncomplicated (principal); R05 Cough; R07.9 Chest pain, unspecified; R06.02 Shortness of breath; I10 Essential (primary) hypertension; E78.5 Hyperlipidemia, unspecified; Z20.822 Contact with and (suspected) exposure to COVID-19
CPT/HCPCS: 36415; 71045; 80053; 82550; 83690; 84484; 85025; 85610; 85730; 87635; 93005; 93010; 94640; 96374; 99281; 99284; C9803; J2930; J7613

== ENCOUNTER → 2020-07-05 14:41 | Outpatient (CLI) | payer MEDICARE, OTHER, SELFPAY ==
[2020-07-05 15:33] LABS: Alanine Aminotransferase 61 IU/L (<50); Albumin Globulin Ratio 1.4 (1.0-2.8); Alkaline Phosphatase 109 U/L (38-126); Aspartate Aminotransferase 30 IU/L (17-59); BUN Creatinine Ratio 19.8 (6-22); Blood Urea Nitrogen 17 mg/dL (9-20); Calcium 9.6 mg/dL (8.4-10.2); Carbon Dioxide 32 mmol/L (22-32); Chloride 102 mmol/L (98-107); Estimated Glomerular Filt Rate > 60.0 mL/min (>60); Globulin 2.9 g/dL (1.7-4.1); Glucose 94 mg/dL (80-110); HEMOLYSIS 20 (0-50); Potassium 4.1 mmol/L (3.4-5.1); Sodium 137 mmol/L (137-145); Total Protein 6.9 g/dL (6.3-8.2)
== END ==
PROVIDERS: PCP Family Medicine; Referring Provider Family Medicine; Visit Provider Family Medicine
DX: R74.8 Abnormal levels of other serum enzymes (principal)
CPT/HCPCS: 36415; 80053

== ENCOUNTER → 2020-11-19 10:56 | Outpatient (CLI) | payer MEDICARE, OTHER, SELFPAY ==
--- NOTE | 2020-11-19 10:58 | DI.US.S_ITS ---
PROCEDURE: US CAROTID DOPPLER BI INDICATIONS: TIA TECHNIQUE: Color and pulse Doppler interrogation was performed of both carotid systems, with image documentation and velocity measurements. COMPARISON: [facility], CT, CT HEAD/BRAIN WO CON, 06/01/2019, 14:44. FINDINGS: Stenosis calculations are based on SRU (Society of Radiologists in Ultrasound) criteria. The flow velocities and the arterial waveforms are normal within both carotid arterial systems. Atherosclerotic plaque is seen on both sides. The estimated degree of internal carotid artery stenosis is less than 50%. Antegrade flow is confirmed within both vertebral arteries. IMPRESSION: No hemodynamically significant stenosis is seen. Atherosclerotic plaque is noted bilaterally. Dictated by: Bernard Okeefe M.D. on 11/19/2020 at 11:50 Approved by: Bernard Okeefe M.D. on 11/19/2020 at 11:50
== END ==
PROVIDERS: PCP Family Medicine; Referring Provider Family Medicine; Visit Provider Family Medicine
DX: G45.9 Transient cerebral ischemic attack, unspecified (principal)
CPT/HCPCS: 93880

== ENCOUNTER → 2020-11-25 08:56 | Outpatient (CLI) | payer MEDICARE, OTHER, SELFPAY ==
--- NOTE | 2020-11-25 08:58 | DI.MRI.S_ITS ---
PROCEDURE: MR STROKE Pre- and post-contrast brain MRI, non-contrast brain MR angiogram, pre- and postcontrast neck MR angiogram INDICATIONS: TIA TECHNIQUE: Brain: Noncontrast axial T1 spin echo, axial T2 fast spin echo, sagittal and axial FLAIR, coronal T2 fast spin echo, axial gradient echo, axial diffusion and ADC through the brain. After the administration of contrast, axial 3D VIBE of the cranial vasculature and brain. Brain MRA: Non-contrast 3-D time of flight MR angiogram, with multiple jlshbny-ygiegzilf-tjcaawefhp (MIP) reformats performed. Neck MRA: Axial and sagittal TruFISP through the neck. Coronal dynamic MR angiogram during administration of contrast in the arterial and venous phases, with 3-dimenstional jvbybcp-fnhgupgzj-joatnidrpj (MIP) reformats constructed from subtraction images. COMPARISON: None. FINDINGS: BRAIN: CSF spaces: Ventricles are grossly unremarkable. Basal cisterns are patent. No extra-axial fluid collections. Brain: No midline shift. Scattered small white matter changes, probably represent chronic microvascular ischemic disease, versus statistically less likely demyelination or other infectious, inflammatory, neurodegenerative etiology, technically nonspecific. No intracranial bleeds or masses. Kim-white matter interface appears intact. No acute ischemia. No abnormal enhancement. Skull and face: Calvarium and facial bones appear intact. 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 Recommend correlation with ophthalmological examination findings. Sinuses: Sinuses and mastoids are clear. HEAD MR ANGIOGRAPHY: Anterior circulation: Intracranial internal carotid arteries (ICA): Patent. Anterior cerebral arteries (MARTINA): Patent. Diffuse red multilevel spondylosis/endplate changes. Diffuse facet arthropathy. Diffuse atretic appearance of the right A1 segment. Middle cerebral arteries (MCA): Patent. No aneurysms are seen. Posterior circulation: Visualized portions of the vertebral arteries: Patent. Basilar artery: Patent. Posterior cerebral arteries (CRM COORDINATOR): Patent. No aneurysms are seen. Incidentally noted origin of the right CRM COORDINATOR. NECK MR ANGIOGRAPHY: Carotid system: Incidentally noted bovine anatomy. Origins of the common carotid arteries (CCA) appear patent. Common carotid arteries (CCA): Patent. Internal carotid arteries (ICA): Patent. Posterior circulation: The origins of the vertebral arteries both appear widely patent. Extracranial portions of both vertebral arteries: Patent. Basilar artery: Patent. Soft tissues: Visualized neck soft tissues demonstrate no suspicious abnormalities. Bones: No suspicious bony lesions. Cervical spondylosis and facet arthropathy. IMPRESSION: BRAIN MRI: No evidence of acute ischemia. Prominent bilateral deformity of the globes, presumably incidentally noted coloboma although recommend correlation with ophthalmological examination findings as above. BRAIN MR ANGIOGRAM: No focal stenosis or occlusion identified. NECK MR ANGIOGRAM: No hemodynamically significant ICA stenosis. Dictated by: Hugh Palmer M.D. on 11/25/2020 at 11:21 Approved by: Hugh Palmer M.D. on 11/25/2020 at 11:33
== END ==
PROVIDERS: PCP Family Medicine; Referring Provider Family Medicine; Visit Provider Family Medicine
DX: G45.9 Transient cerebral ischemic attack, unspecified (principal)
CPT/HCPCS: 70548; 70553

== ENCOUNTER → 2021-07-07 11:09 | Outpatient (CLI) | payer MEDICARE, OTHER, SELFPAY ==
--- NOTE | 2021-07-07 11:10 | DI.RAD.S_ITS ---
PROCEDURE: XR KNEE LT 3V INDICATIONS: worsening left knee pain TECHNIQUE: 3 views of the knee were acquired. COMPARISON: None. FINDINGS: Bones: No fractures or dislocations. No suspicious bony lesions. Mild narrowing of the medial femorotibial joint. Sclerotic focus is present involving the medial distal femoral epicondyle with chondroid matrix, intact adjacent bony cortex and no periosteal reaction or associated soft tissue mass. Soft tissues: No joint effusion. No suspicious soft tissue calcifications. Vascular calcifications indicate atherosclerosis. IMPRESSION: 1. Mild early medial femoral tibial joint degeneration. 2. Distal femoral medial epicondylar sclerotic focus with appearance suggesting enchondroma. Recommend comparison with remote imaging studies if available and if not, follow-up plain film in 6 months is recommended. Dictated by: Shamar ARITA Interpreted: Abelardo Raymond MD on 07/07/2021 at 11:42 Transcribed by: PADMINI on 07/07/2021 at 11:44 Approved by: Abelardo Raymond M.D. on 07/07/2021 at 13:59
== END ==
PROVIDERS: PCP Family Medicine; Referring Provider Family Medicine; Visit Provider Family Medicine
DX: M25.562 Pain in left knee (principal); M17.12 Unilateral primary osteoarthritis, left knee
CPT/HCPCS: 73562

== ENCOUNTER → 2021-08-09 08:26 | Outpatient (CLI) | payer MEDICARE, OTHER, SELFPAY ==
--- NOTE | 2021-08-09 08:28 | DI.MRI.S_ITS ---
PROCEDURE: MR KNEE LT WO CON INDICATIONS: Left Knee pain, traumatic injury, and difficulty walking TECHNIQUE: Noncontrast sagittal PD fast spin echo and T2 fast spin echo with fat saturation, sagittal 3-D FLASH with fat saturation; coronal T1 spin echo and PD fast spin echo with fat saturation, and axial PD fast spin echo with fat saturation through the knee. COMPARISON: [facility], CR, XR KNEE LT 3V, 07/07/2021, 11:14. FINDINGS: Image quality: Excellent. Menisci: There is tear of the anterior root of the lateral meniscus and a meniscal cyst measuring 1.0 x 0.7 x 0.8 cm (series 10, image 15). There is tear in the peripheral aspect of the posterior horn of the medial meniscus (series 7 image 6; series 10, image 23). The meniscal root ligaments appear intact. Cruciate ligaments: The anterior cruciate ligament appears mildly thickened with striated appearance, probably secondary to mild sprain. The posterior cruciate ligament is intact. Medial structures: The medial collateral ligament appears intact. The semimembranosus tendon insertions and meniscocapsular junction appear intact. Visualized portions of the pes anserinus tendons appear normal. No abnormal bursal fluid. Lateral structures: The lateral collateral ligament, long and short heads of the biceps femoris tendon appear intact. The popliteus tendon appears normal. Iliotibial band appears normal. Anterior structures: The quadriceps and patellar tendons appear intact. Patellar alignment is normal. No femoral trochlear dysplasia or ventral trochlear prominence. No edema in the infrapatellar fat pad. Bones and cartilage: No bone marrow contusions or fractures. There is a 1.4 x 1.7 x 2.0 cm mass with chondroid matrix consistent with and enchondroma in the medial aspect of the femoral metaphysis. Tricompartmental chondral malacia. Joint space: There is fgugk-yx-fjexuolg knee joint effusion. There is trace Murphy's cyst. A 1.4 x 1.1 x 1.8 cm multilocular cyst is noted in the posterior superior knee joint at midline, probably a synovial cyst or ganglion cyst. Normal appearing synovial plicae are incidentally noted. IMPRESSION: 1. Tear of the anterior root of the lateral meniscus with a meniscal cyst. 2. Tear of the posterior horns of the medial meniscus. 3. Suspect mild sprain of ACL, uncertain chronicity. 4. Tricompartmental chondral malacia. 5. 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 6. Lbwvd-fz-umqetcur knee joint effusion. Dictated by: Levi Alvarenga M.D. on 08/11/2021 at 8:07 Approved by: Levi Alvarenga M.D. on 08/11/2021 at 9:08
== END ==
PROVIDERS: PCP Family Medicine; Referring Provider Family Medicine; Visit Provider Family Medicine
DX: S83.282A Other tear of lateral meniscus, current injury, left knee, initial encounter (principal); S83.242A Other tear of medial meniscus, current injury, left knee, initial encounter; M94.262 Chondromalacia, left knee; M25.462 Effusion, left knee; D16.22 Benign neoplasm of long bones of left lower limb; X58.XXXA Exposure to other specified factors, initial encounter; M25.562 Pain in left knee; R26.2 Difficulty in walking, not elsewhere classified
CPT/HCPCS: 73721

== ENCOUNTER → 2021-10-14 09:12 | Outpatient (CLI) | payer MEDICARE, OTHER, SELFPAY ==
[2021-10-14 10:45] LABS: Creatinine Urine Random 67.3 mg/dL
[2021-10-14 10:48] LABS: Microalbumin Urine Random < 0.6 mg/dL (0-1.6)
[2021-10-14 11:12] LABS: Add Manual Diff / Slide Review NO; Basophils Absolute Auto 100 /uL (0-100); Basophils Percent Auto 0.7 % (0-2); Eosinophils Absolute Auto 200 /uL (0-450); Eosinophils Percent Auto 2.3 % (2-4); Hematocrit 39.1 % (41-53); Hemoglobin 13.5 g/dL (13.5-17.5); Lymphocytes Absolute Auto 1800 /uL (1100-4500); Lymphocytes Percent Auto 20.1 % (25-40); Mean Corpuscular HGB Conc 34.5 % (30-36); Mean Corpuscular Hemoglobin 31.5 PG (26-34); Monocytes Absolute Auto 900 /uL (0-900); Monocytes Percent Auto 9.6 % (3-14); Neutrophils Absolute Auto 6000 /uL (1500-7000); Neutrophils Percent Auto 67.3 % (50-75); Platelet Count 211 X10^3/uL (150-400); Red Blood Cell Count 4.29 X10^6/uL (4.5-5.9); Red Cell Distribution Width 14.3 % (11.6-14.8)
[2021-10-14 11:33] LABS: Hemoglobin A1C% w Est Avg Glu 5.6 % (4.0-6.0)
[2021-10-14 11:48] LABS: Alanine Aminotransferase 22 IU/L (<50); Albumin 3.8 g/dL (3.5-5.0); Albumin Globulin Ratio 1.5 (1.0-2.8); Alkaline Phosphatase 53 U/L (38-126); Aspartate Aminotransferase 24 IU/L (17-59); BUN Creatinine Ratio 19.2 (6-22); Bilirubin Total 0.9 mg/dL (0.2-1.3); Blood Urea Nitrogen 15 mg/dL (9-20); Calcium 8.8 mg/dL (8.4-10.2); Carbon Dioxide 25 mmol/L (22-32); Chloride 104 mmol/L (98-107); Cholesterol 151 mg/dL (140-199); Estimated Glomerular Filt Rate > 60 mL/min (>60); Globulin 2.6 g/dL (1.7-4.1); Glucose 92 mg/dL (80-110); HDL Cholesterol 54 mg/dL (40-60); HEMOLYSIS < 15 (0-50); LDL Cholesterol Calculated 81 mg/dL (<100); Potassium 4.1 mmol/L (3.4-5.1); Sodium 139 mmol/L (137-145); Total Protein 6.4 g/dL (6.3-8.2); Triglycerides 82 mg/dL (35-150)
== END ==
PROVIDERS: PCP Family Medicine; Referring Provider Family Medicine; Visit Provider Family Medicine
DX: I10 Essential (primary) hypertension (principal); E66.9 Obesity, unspecified
CPT/HCPCS: 36415; 80053; 80061; 82043; 82570; 83036; 85025

== ENCOUNTER 2022-06-10 13:38 | Inpatient (IN) | payer MEDICARE, OTHER, SELFPAY ==
[2022-06-10] VITALS (22 sets, daily range): BP systolic 122–191; BP diastolic 61–86; PULSE 54–94; RESP 21–24; TEMP 38.4; O2SAT 91–98; BMI 43.7
--- NOTE | 2022-06-10 13:54 | DI.RAD.S_ITS ---
PROCEDURE: XR CHEST 1V INDICATIONS: Shortness of breath TECHNIQUE: One view of the chest was acquired. COMPARISON: [facility], CR, XR CHEST 1V, 06/27/2020, 15:12. FINDINGS: Surgical changes and devices: None. Lungs and pleura: Lungs are clear. No pleural effusions or pneumothorax. Mediastinum: Mediastinal contours appear normal. Heart size is normal. Bones and chest wall: No suspicious bony lesions. Overlying soft tissues appear unremarkable. IMPRESSION: No acute cardiopulmonary findings. Dictated by: Suzanna Alcantara M.D. on 06/10/2022 at 15:30 Approved by: Suzanna Alcantara M.D. on 06/10/2022 at 15:31
[2022-06-10 14:42] LABS: Influenza A - CEPHEID Flu A NEGATIVE (NEGATIVE); Influenza B - CEPHEID Flu B NEGATIVE (NEGATIVE); Respiratory Syncytial Virus Negative (Negative)
[2022-06-10 14:51] LABS: COVID-19 CEPHEID 4-PLEX PCR Negative (Negative)
[2022-06-10 15:02] LABS: Add Manual Diff / Slide Review NO; Basophils Absolute Auto 0 /uL (0-100); Basophils Percent Auto 0.4 % (0-2); Eosinophils Absolute Auto 100 /uL (0-450); Eosinophils Percent Auto 0.6 % (2-4); Hematocrit 41.4 % (41-53); Hemoglobin 13.9 g/dL (13.5-17.5); Lymphocytes Absolute Auto 500 /uL (1100-4500); Lymphocytes Percent Auto 6.3 % (25-40); Mean Corpuscular HGB Conc 33.5 % (30-36); Mean Corpuscular Hemoglobin 30.5 PG (26-34); Mean Corpuscular Volume 91.1 fL (80-100); Monocytes Absolute Auto 700 /uL (0-900); Monocytes Percent Auto 9.1 % (3-14); Neutrophils Absolute Auto 6500 /uL (1500-7000); Neutrophils Percent Auto 83.6 % (50-75); Platelet Count 190 X10^3/uL (150-400); Red Blood Cell Count 4.54 X10^6/uL (4.5-5.9); Red Cell Distribution Width 13.9 % (11.6-14.8); White Blood Cell Count 7.8 X10^3/uL (4.5-11.0)
[2022-06-10 15:11] LABS: INR 1.2 (0.9-1.3); Prothrombin Time 13.8 SECONDS (10.1-12.7)
[2022-06-10 15:25] LABS: Lactate (Lactic Acid) 1.7 mmol/L (0.7-2.1)
[2022-06-10 15:26] LABS: Alanine Aminotransferase 530 IU/L (<50); Albumin 4.1 g/dL (3.5-5.0); Albumin Globulin Ratio 1.2 (1.0-2.8); Alkaline Phosphatase 323 U/L (38-126); Aspartate Aminotransferase 284 IU/L (17-59); BUN Creatinine Ratio 22.1 (6-22); Bilirubin Total 4.3 mg/dL (0.2-1.3); Blood Urea Nitrogen 17 mg/dL (9-20); Calcium 9.2 mg/dL (8.4-10.2); Carbon Dioxide 25 mmol/L (22-32); Chloride 100 mmol/L (98-107); Estimated Glomerular Filt Rate > 60 mL/min (>60); Globulin 3.3 g/dL (1.7-4.1); Glucose 129 mg/dL (80-110); HEMOLYSIS < 15 (0-50); Potassium 4.1 mmol/L (3.4-5.1); Sodium 137 mmol/L (137-145); Total Protein 7.4 g/dL (6.3-8.2)
[2022-06-10 15:37] LABS: NT-proBNP (BNP-Adult 18+) 154 pg/mL (<450); Troponin I < 0.012 ng/mL (0.01-0.034)
--- NOTE | 2022-06-10 16:10 | PC.NURSE ---
patient called asking about update. Advised patient to stay to complete evaluation.
--- NOTE | 2022-06-10 16:54 | DI.US.S_ITS ---
PROCEDURE: US ABDOMEN LIMITED INDICATIONS: ELEVATED BILIRUBIN TECHNIQUE: Real-time focused scanning was performed of the abdomen, with image documentation. COMPARISON: None. FINDINGS: Examination is limited by body habitus. Liver is grossly unremarkable. Multiple calculi within the gallbladder lumen. No gallbladder wall thickening. Gallbladder is distended measuring 13.8 cm. Pancreas is not well seen. Biliary tree is not well seen. IMPRESSION: 1. Cholelithiasis. 2. Marked gallbladder distension. No evidence of gallbladder wall thickening to indicate cholecystitis. Dictated by: Abelardo Raymond M.D. on 06/10/2022 at 18:04 Approved by: Abelardo Raymond M.D. on 06/10/2022 at 18:05
[2022-06-10 19:10] LABS: Lipase 60 U/L (23-300)
[2022-06-10] MEDS: ALBUTEROL/IPRATROPIUM 3 ML AMPUL INH (19:18)
[2022-06-10] MEDS: SODIUM CHLORIDE 0.9% 1,000 ML 1000 ML IV (19:33)
[2022-06-10] MEDS: cefTRIAXone 1,000 MG in SODIUM CHLORIDE 0.9% 100 ML 200 MG IV (19:34)
[2022-06-10] MEDS: metroNIDAZOLE 500 MG/100 ML PIGGYBACK 100 MG IV (19:34)
--- NOTE | 2022-06-10 19:38 | ED_ITS ---
HPI - General Adult <Ricardo Barry DO - Last Filed: 06/13/22 21:14> General Chief complaint: Shortness of Breath/Dyspnea Stated complaint: Extreme chills Time Seen by Provider: 06/10/22 18:05 Source: patient Mode of arrival: Wheelchair History of Present Illness HPI narrative: 77-year-old male who is here for evaluation of an episode that occurred this morning where he states that he had a fairly sudden onset of chills and body aches. He denies chest pain. No shortness of breath. No abdominal pain. No urinary symptoms. No rashes. No headache. No upper respiratory tract infection like symptoms. No nausea or vomiting. No skin rashes. Currently. He states yesterday he did have a cough and some shortness of breath but that is resolved. He also had a headache earlier today but that is better. He did take some ibuprofen. He did have a gastric bypass many years ago. Related Data Home Medications Medication Instructions Recorded Confirmed aspirin 81 mg chewable tablet 81 mg PO QDAY ##0 05/19/17 06/13/22 cholecalciferol (vitamin D3) 50 2,500 iu PO DAILY ##0 05/19/17 06/13/22 mcg (2,000 unit) tablet (Vitamin D3) diclofenac sodium 1 % topical gel 1 ea topical PRN PRN Pain (Scale 05/19/17 06/13/22 (Voltaren) Score 1-3) ##0 ibuprofen 200 mg capsule 200 mg PO Q4-6H PRN Pain (Scale 05/19/17 06/13/22 Score 1-3) ##0 multivitamin (Multiple Vitamins 1 tab PO DAILY ##0 05/19/17 06/13/22 tablet) fexofenadine 180 mg tablet 180 mg PO DAILY 05/24/20 06/13/22 (Theresa Allergy) montelukast 10 mg tablet 10 mg PO DAILY 11/18/20 06/13/22 (Singulair) Previous Rx's Medication Instructions Recorded olopatadine 0.7 % eye drops 1 drop EYE-BOTH DAILY #2.5 mL 11/27/19 fluticasone propionate 50 See Rx Instructions .Route 10/23/20 mcg/actuation nasal .COMPLEX #1,440 grams spray,suspension disabled parking permit #1 ea 12/21/21 atorvastatin 40 mg tablet See Rx Instructions .Route 08/18/21 .COMPLEX #90 tabs gabapentin 300 mg capsule See Rx Instructions .Route 08/18/21 .COMPLEX #180 caps tizanidine 4 mg tablet See Rx Instructions .Route 08/18/21 .COMPLEX #90 tabs hydrochlorothiazide 12.5 mg capsule See Rx Instructions .Route 10/07/21 .COMPLEX #90 caps albuterol sulfate 90 mcg/actuation See Rx Instructions .Route 03/09/22 aerosol inhaler .COMPLEX #17 grams Allergies Allergy/AdvReac Type Severity Reaction Status Date / Time Penicillins [PENICILLINS] Allergy Intermediate rash, Verified 06/15/22 12:30 blows up Review of Systems <Ricardo Barry DO - Last Filed: 06/13/22 21:14> Review of Systems ROS Unobtainable: All systems reviewed & are unremarkable except as noted in HPI and below Patient History <Ricardo Barry DO - Last Filed: 06/13/22 21:14> Medical History Asthma (~1999) BPPV (benign paroxysmal positional vertigo) Cataracts, bilateral (~2017) Chicken pox Chronic back pain (~2011) Chronic pain Colon polyps (~1994) Essential hypertension Foot pain Gastric ulcer (~1969) Hyperlipidemia Measles Mumps Retinal detachment Seasonal allergies (~1987) Shoulder pain (~2011) Tinnitus Surgical History Anesthesia History of appendectomy (~1953) History of cataract removal with insertion of prosthetic lens History of gastric bypass (~1977) Family History Grandmother Stroke Father High cholesterol Mother Breast cancer Sister Hyperlipidemia Grandmother No problems noted. Grandfather No problems noted. Social History marital status: number of children: 0 household members: spouse lives independently: Yes caregiver/support person: No housing: house education level: college occupational status: employed Smoking Status: Never smoker second hand exposure: No alcohol intake: current substance use type: does not use Smoking Status: Never smoker alcohol intake frequency: a few times a week Substance Use Type: does not use Exam <Ricardo Barry, DO - Last Filed: 06/13/22 21:14> Initial Vital Signs Initial Vital Signs: Vital Signs Temperature 101.2 F H 06/10/22 13:43 Pulse Rate 85 06/10/22 13:43 Respiratory Rate 24 06/10/22 13:43 Blood Pressure 162/76 H 06/10/22 13:43 Pulse Oximetry 95 06/10/22 13:43 Oxygen Delivery Method 06/10/22 13:43 Const General: cooperative, comfortable and No ill appearing HENMT Head: normal to inspection and normocephalic Chest Chest: No crepitus Resp Effort & Inspection: normal respiratory effort Auscultation: clear to auscultation bilaterally Cardio Rate: regular rate Rhythm: regular rhythm GI Inspection: normal to inspection Palpation: soft and No tender Skin General: no rashes or lesions noted Neuro General: patient alert, patient awake, patient oriented x3 and moves all extremities Speech: speech normal Extrem General: normal to inspection and capillary refill normal Psych Appearance: grossly normal and well kempt <Shelli Berkowitz, DO - Last Filed: 06/15/22 00:09> Initial Vital Signs Initial Vital Signs: Vital Signs Temperature 101.2 F H 06/10/22 13:43 Pulse Rate 85 06/10/22 13:43 Respiratory Rate 24 06/10/22 13:43 Blood Pressure 162/76 H 06/10/22 13:43 Pulse Oximetry 95 06/10/22 13:43 Oxygen Delivery Method 06/10/22 13:43 <Selvin Andrade, DO - Last Filed: 06/16/22 09:15> Initial Vital Signs Initial Vital Signs: Vital Signs Temperature 101.2 F H 06/10/22 13:43 Pulse Rate 85 06/10/22 13:43 Respiratory Rate 24 06/10/22 13:43 Blood Pressure 162/76 H 06/10/22 13:43 Pulse Oximetry 95 06/10/22 13:43 Oxygen Delivery Method 06/10/22 13:43 <Stephani Montgomery, DO - Last Filed: 06/13/22 19:37> Initial Vital Signs Initial Vital Signs: Vital Signs Temperature 101.2 F H 06/10/22 13:43 Pulse Rate 85 06/10/22 13:43 Respiratory Rate 24 06/10/22 13:43 Blood Pressure 162/76 H 06/10/22 13:43 Pulse Oximetry 95 06/10/22 13:43 Oxygen Delivery Method 06/10/22 13:43 Scores <Ricardo Barry, DO - Last Filed: 06/13/22 21:14> GCS Angélica coma scale eye opening: Spontaneous Angélica coma scale verbal response: Orientated [place] coma scale motor response: Obey commands Angélica coma scale total score: 15 <Shelli Berkowitz, DO - Last Filed: 06/15/22 00:09> GCS Angélica coma scale total score: 15 <Selvin Raymond, DO - Last Filed: 06/16/22 09:15> GCS [place] coma scale total score: 15 <Stephani Montgomery, DO - Last Filed: 06/13/22 19:37> GCS [place] coma scale total score: 15 Course <Ricardo Barry, DO - Last Filed: 06/13/22 21:14> Orders Ordered: Albuterol (Albuterol 2.5 Mg/3 Ml Neb (Adult)) 2.5 mg INH Q4H PRN PRN Reason: Shortness Of Breath Or Wheezing Gabapentin (Gabapentin 300 Mg Capsule) 900 mg PO TID PRN PRN Reason: Pain, Moderate (4-6) Last Admin: 06/16/22 04:11 Dose: 900 mg Documented By: Admin: 06/14/22 21:37 Dose: 900 mg Documented By: Admin: 06/14/22 00:50 Dose: 900 mg Documented By: Hydromorphone HCl (Hydromorphone 0.5 Mg Inj) 0.5 mg IV Q3H PRN PRN Reason: Pain, Moderate (4-6) Last Admin: 06/16/22 05:07 Dose: 0.5 mg Documented By: Admin: 06/16/22 01:54 Dose: 0.5 mg Documented By: Admin: 06/15/22 21:36 Dose: 0.5 mg Documented By: Metronidazole (Flagyl) 500 mg in 100 mls @ 100 mls/hr IV Q8H DANIEL Last Admin: 06/16/22 06:33 Dose: 100 mls/hr Documented By: Infusion: 06/15/22 23:29 Dose: 0 mls/hr Documented By: Admin: 06/15/22 22:29 Dose: 100 mls/hr Documented By: Admin: 06/15/22 18:33 Dose: Not Given Documented By: Infusion: 06/15/22 06:05 Dose: 100 mls/hr Documented By: Admin: 06/15/22 05:05 Dose: 100 mls/hr Documented By: Infusion: 06/14/22 22:36 Dose: 0 mls/hr Documented By: Admin: 06/14/22 21:36 Dose: 100 mls/hr Documented By: Infusion: 06/14/22 15:20 Dose: 100 mls/hr Documented By: Admin: 06/14/22 14:20 Dose: 100 mls/hr Documented By: Infusion: 06/14/22 06:55 Dose: 100 mls/hr Documented By: Admin: 06/14/22 05:55 Dose: 100 mls/hr Documented By: Infusion: 06/14/22 05:55 Dose: 0 mls/hr Documented By: Infusion: 06/13/22 22:41 Dose: 0 mls/hr Documented By: Infusion: 06/13/22 21:42 Dose: 0 mls/hr Documented By: Admin: 06/13/22 21:42 Dose: 100 mls/hr Documented By: SANDRA Ceftriaxone Sodium 2,000 mg/ (Sodium Chloride) 100 mls @ 200 mls/hr IV DAILY DANIEL Last Infusion: 06/15/22 10:08 Dose: 0 mls/hr Documented By: Admin: 06/15/22 09:08 Dose: 100 mls/hr Documented By: Infusion: 06/14/22 09:20 Dose: 0 mls/hr Documented By: Admin: 06/14/22 08:50 Dose: 200 mls/hr Documented By: BR Lactated Ringer's (Lactated Ringers) 1,000 mls @ 100 mls/hr IV CONT DANIEL Last Admin: 06/15/22 19:54 Dose: 100 mls/hr Documented By: Infusion: 06/15/22 19:54 Dose: 100 mls/hr Documented By: Admin: 06/15/22 18:46 Dose: 100 mls/hr Documented By: Infusion: 06/15/22 18:46 Dose: 100 mls/hr Documented By: Admin: 06/15/22 14:04 Dose: 100 mls/hr Documented By: Infusion: 06/15/22 14:04 Dose: 100 mls/hr Documented By: Admin: 06/15/22 12:43 Dose: 100 mls/hr Documented By: Infusion: 06/15/22 12:43 Dose: 100 mls/hr Documented By: Admin: 06/15/22 05:06 Dose: 100 mls/hr Documented By: Infusion: 06/15/22 00:24 Dose: 100 mls/hr Documented By: Admin: 06/14/22 14:24 Dose: 100 mls/hr Documented By: Infusion: 06/14/22 07:08 Dose: 100 mls/hr Documented By: Admin: 06/13/22 21:08 Dose: 100 mls/hr Documented By: SANDRA Lorazepam (Lorazepam 2 Mg/Ml Inj) 0.5 mg IV Q4HR PRN PRN Reason: Anxiety Last Admin: 06/14/22 22:43 Dose: 0.5 mg Documented By: Admin: 06/14/22 01:32 Dose: 0.5 mg Documented By: Ondansetron HCl (Ondansetron 4 Mg/2 Ml Inj) 4 mg IV Q4HR PRN PRN Reason: Nausea And Vomiting Last Admin: 06/16/22 05:07 Dose: 4 mg Documented By: Admin: 06/15/22 21:36 Dose: 4 mg Documented By: Ondansetron HCl (Ondansetron 4 Mg/2 Ml Inj) 4 mg IV NOW PRN PRN Reason: Nausea And Vomiting Last Admin: 06/15/22 18:49 Dose: 4 mg Documented By: PAU Tizanidine HCl (Tizanidine 4 Mg Tablet) 4 mg PO BEDTIME PRN PRN Reason: Muscle Spasm Trazodone HCl (Trazodone 50 Mg Tablet) 25 mg PO BEDTIME PRN PRN Reason: Insomnia Last Admin: 06/14/22 21:37 Dose: 25 mg Documented By: Admin: 06/14/22 00:50 Dose: 25 mg Documented By: Discontinued Medications Acetaminophen (Acetaminophen 325 Mg Tablet) 650 mg PO NOW ONE Stop: 06/10/22 22:51 Last Admin: 06/10/22 22:56 Dose: 650 mg Documented By: RB Acetaminophen (Acetaminophen 325 Mg Tablet) 650 mg PO Q6H PRN PRN Reason: Fever/Mild Pain (1-3) Hydrocodone Bitart/Acetaminophen (Hydrocodone/Acet 5/325 Tablet) 1 tab PO Q4H PRN PRN Reason: Pain, Moderate (4-6) Albuterol (Albuterol 2.5 Mg/3 Ml Neb (Adult)) 2.5 mg INH [id number] [facility] Last Admin: 06/11/22 10:02 Dose: 2.5 mg Documented By: CARLA Albuterol (Albuterol 2.5 Mg/3 Ml Neb (Adult)) 2.5 mg INH [id number] PRN PRN Reason: Shortness Of Breath Or Wheezing Albuterol/Ipratropium (Albuterol/Ipratropium 3 Ml Ampul) 3 ml INH NOW ONE Stop: 06/10/22 19:15 Last Admin: 06/10/22 19:18 Dose: 3 ml Documented By: BRI Budesonide (Budesonide 0.5 Mg/2 Ml Neb) 0.5 mg INH RTBID [facility] Last Admin: 06/13/22 09:31 Dose: 0.5 mg Documented By: Admin: 06/12/22 19:19 Dose: 0.5 mg Documented By: Admin: 06/12/22 09:21 Dose: 0.5 mg Documented By: Admin: 06/11/22 10:02 Dose: 0.5 mg Documented By: CARLA Bupivacaine HCl/Epinephrine Bitart (Bupivacaine 0.5% W/ Epi (Pf) 30 Ml Vial) 30 ml INJ NOW ONE Stop: 06/15/22 13:34 Last Admin: 06/15/22 13:33 Dose: 30 ml Documented By: Diphenhydramine HCl (Diphenhydramine 25 Mg Tablet) 25 mg PO NOW ONE Stop: 06/10/22 22:51 Last Admin: 06/10/22 22:56 Dose: 25 mg Documented By: JOAQUINA Fentanyl (Fentanyl 100 Mcg/2 Ml Inj) 0 mcg IV Q5M PRN PRN Reason: Pain, Moderate (4-6) Gabapentin (Gabapentin 300 Mg Capsule) 900 mg PO TID PRN PRN Reason: Pain, Mild (1-3) Last Admin: 06/12/22 21:53 Dose: 900 mg Documented By: Admin: 06/11/22 20:54 Dose: 900 mg Documented By: JORGE Gabapentin (Gabapentin 300 Mg Capsule) 900 mg PO TID [facility] Last Admin: 06/14/22 02:16 Dose: Not Given Documented By: Glucagon (Glucagon,Human Recombinant 1 Mg/Ml Vial) 1 mg IV NOW ONE Stop: 06/15/22 16:26 Last Admin: 06/15/22 16:25 Dose: 1 mg Documented By: Hydrochlorothiazide (Hydrochlorothiazide 25 Mg Tablet) 12.5 mg PO DAILY [facility] Last Admin: 06/13/22 09:39 Dose: 12.5 mg Documented By: Admin: 06/12/22 09:25 Dose: 12.5 mg Documented By: Admin: 06/11/22 20:56 Dose: 12.5 mg Documented By: JORGE Hydromorphone HCl (Hydromorphone 1 Mg Inj) 0.5 mg IV Q3HR PRN PRN Reason: Pain, Severe (7-10) Hydromorphone HCl (Hydromorphone 2 Mg Inj) 0 mg IV Q5M PRN PRN Reason: Pain, Moderate (4-6) Last Admin: 06/15/22 18:49 Dose: 0.5 mg Documented By: PAU Sodium Chloride (Normal Saline 0.9%) 1,000 mls @ 1,000 mls/hr IV BOLUS ONE Stop: 06/10/22 19:04 Last Infusion: 06/10/22 21:00 Dose: 0 mls/hr Documented By: Admin: 06/10/22 19:33 Dose: 1,000 mls/hr Documented By: RB Ceftriaxone Sodium 1,000 mg/ (Sodium Chloride) 100 mls @ 200 mls/hr IV NOW ONE Stop: 06/10/22 18:06 Last Infusion: 06/10/22 20:35 Dose: 0 mls/hr Documented By: Admin: 06/10/22 19:34 Dose: 200 mls/hr Documented By: RB Metronidazole (Flagyl) 500 mg in 100 mls @ 100 mls/hr IV NOW ONE Stop: 06/10/22 19:04 Last Infusion: 06/10/22 20:45 Dose: 0 mls/hr Documented By: Admin: 06/10/22 19:34 Dose: 100 mls/hr Documented By: RB Metronidazole (Flagyl) 500 mg in 100 mls @ 100 mls/hr IV Q8H DANIEL Last Infusion: 06/13/22 15:25 Dose: 0 mls/hr Documented By: Admin: 06/13/22 14:22 Dose: 100 mls/hr Documented By: Infusion: 06/13/22 06:50 Dose: 0 mls/hr Documented By: Admin: 06/13/22 05:45 Dose: 100 mls/hr Documented By: Infusion: 06/12/22 23:06 Dose: 0 mls/hr Documented By: Admin: 06/12/22 22:04 Dose: 100 mls/hr Documented By: Infusion: 06/12/22 15:22 Dose: 0 mls/hr Documented By: Admin: 06/12/22 14:05 Dose: 100 mls/hr Documented By: Infusion: 06/12/22 07:26 Dose: 0 mls/hr Documented By: JULIO CESAR Admin: 06/12/22 06:24 Dose: 100 mls/hr Documented By: Infusion: 06/11/22 23:35 Dose: 0 mls/hr Documented By: Admin: 06/11/22 22:36 Dose: 100 mls/hr Documented By: Infusion: 06/11/22 15:20 Dose: 0 mls/hr Documented By: Admin: 06/11/22 14:18 Dose: 100 mls/hr Documented By: Infusion: 06/11/22 08:58 Dose: 0 mls/hr Documented By: JUAN JOSE Admin: 06/11/22 06:15 Dose: 100 mls/hr Documented By: ALAINA Sodium Chloride (Normal Saline 0.9%) 1,000 mls @ 125 mls/hr IV CONT DANIEL Last Admin: 06/13/22 14:24 Dose: 125 mls/hr Documented By: Infusion: 06/13/22 00:28 Dose: 0 mls/hr Documented By: Admin: 06/12/22 14:59 Dose: 125 mls/hr Documented By: Infusion: 06/12/22 14:58 Dose: 0 mls/hr Documented By: Admin: 06/12/22 06:24 Dose: 125 mls/hr Documented By: Infusion: 06/12/22 05:54 Dose: 125 mls/hr Documented By: Infusion: 06/11/22 23:35 Dose: 125 mls/hr Documented By: Infusion: 06/11/22 22:35 Dose: 0 mls/hr Documented By: Admin: 06/11/22 20:54 Dose: 125 mls/hr Documented By: Infusion: 06/11/22 14:13 Dose: 125 mls/hr Documented By: Admin: 06/11/22 06:13 Dose: 125 mls/hr Documented By: ALAINA Ceftriaxone Sodium 1,000 mg/ (Sodium Chloride) 100 mls @ 200 mls/hr IV DAILY DANIEL Ceftriaxone Sodium 2,000 mg/ (Sodium Chloride) 100 mls @ 200 mls/hr IV DAILY DANIEL Last Infusion: 06/13/22 10:40 Dose: 0 mls/hr Documented By: Admin: 06/13/22 09:32 Dose: 100 mls/hr Documented By: Infusion: 06/12/22 10:32 Dose: 0 mls/hr Documented By: Admin: 06/12/22 09:26 Dose: 200 mls/hr Documented By: Infusion: 06/11/22 11:27 Dose: 0 mls/hr Documented By: JUAN JOSE(2) Admin: 06/11/22 10:24 Dose: 200 mls/hr Documented By: JUAN JOSE(2) Lactated Ringer's (Lactated Ringers) 1,000 mls @ 100 mls/hr IV CONT DANIEL Last Admin: 06/13/22 21:37 Dose: Not Given Documented By: SANDRA POTASSIUM CHLORIDE IN WATER (Potassium Cl 10 Meq/100 Ml Yana) 10 meq in 100 mls @ 100 mls/hr IV Q1H DANIEL Stop: 06/15/22 01:14 Last Admin: 06/15/22 00:40 Dose: 100 mls/hr Documented By: Infusion: 06/15/22 00:40 Dose: 100 mls/hr Documented By: Admin: 06/14/22 23:56 Dose: 100 mls/hr Documented By: Infusion: 06/14/22 23:44 Dose: 100 mls/hr Documented By: Admin: 06/14/22 22:44 Dose: 100 mls/hr Documented By: Clindamycin Phosphate (Cleocin) 900 mg in 50 mls @ 50 mls/hr IV NOW ONE Stop: 06/15/22 14:30 Last Infusion: 06/15/22 13:05 Dose: 0 mls/hr Documented By: Admin: 06/15/22 12:55 Dose: 50 mls/hr Documented By: POTASSIUM CHLORIDE IN WATER (Potassium Cl 10 Meq/100 Ml Yana) 10 meq in 100 mls @ 100 mls/hr IV Q1H DANIEL Stop: 06/16/22 00:14 Last Admin: 06/16/22 05:14 Dose: Not Given Documented By: Admin: 06/16/22 01:57 Dose: 50 mls/hr Documented By: Infusion: 06/16/22 01:41 Dose: 50 mls/hr Documented By: Admin: 06/15/22 23:41 Dose: 50 mls/hr Documented By: Infusion: 06/15/22 21:39 Dose: 100 mls/hr Documented By: Admin: 06/15/22 20:39 Dose: 100 mls/hr Documented By: POTASSIUM CHLORIDE IN WATER (Potassium Cl 10 Meq/100 Ml Yana) 10 meq in 100 mls @ 50 mls/hr IV Q1H DANIEL Stop: 06/16/22 05:59 Last Admin: 06/16/22 05:00 Dose: 50 mls/hr Documented By: Ibuprofen (Ibuprofen 400 Mg Tablet) 800 mg PO TID PRN PRN Reason: Pain, Mild (1-3) Last Admin: 06/12/22 21:54 Dose: 800 mg Documented By: Admin: 06/11/22 20:55 Dose: 800 mg Documented By: JORGE Ibuprofen (Ibuprofen 600 Mg Tablet) 600 mg PO Q6H PRN PRN Reason: Fever/Mild Pain (1-3) Iopamidol (Iopamidol 50 Ml Vial) 50 ml INJ NOW ONE Stop: 06/15/22 13:34 Last Admin: 06/15/22 16:09 Dose: 50 ml Documented By: Admin: 06/15/22 13:34 Dose: 50 ml Documented By: Lisinopril (Lisinopril 10 Mg Tablet) 10 mg PO NOW ONE Stop: 06/14/22 22:05 Last Admin: 06/14/22 22:43 Dose: 10 mg Documented By: Lorazepam (Lorazepam 2 Mg/Ml Inj) 0.5 mg IV NOW ONE Stop: 06/12/22 14:43 Last Admin: 06/12/22 14:51 Dose: 0.5 mg Documented By: MARSHALL Lorazepam (Lorazepam 2 Mg/Ml Inj) 1 mg IV NOW ONE Stop: 06/12/22 21:52 Last Admin: 06/12/22 22:00 Dose: 1 mg Documented By: JORGE Lorazepam (Lorazepam 2 Mg/Ml Inj) 0.5 mg IV Q6H [facility] Last Admin: 06/14/22 02:16 Dose: Not Given Documented By: Morphine Sulfate (Morphine 4 Mg/Ml Inj) 4 mg IV NOW ONE Stop: 06/12/22 18:18 Last Admin: 06/12/22 18:26 Dose: 4 mg Documented By: VIPIN Naloxone HCl (Naloxone 0.4 Mg/Ml Vial) 0.2 mg IV Q2MIN PRN PRN Reason: Opiate Reversal Ondansetron HCl (Ondansetron 4 Mg/2 Ml Inj) 4 mg IV NOW ONE Stop: 06/12/22 12:06 Last Admin: 06/12/22 12:12 Dose: 4 mg Documented By: MARSHALL Ondansetron HCl (Ondansetron 4 Mg/2 Ml Inj) 4 mg IV Q8HR PRN PRN Reason: Nausea And Vomiting Oxycodone/Acetaminophen (Oxycodone/Acetaminophen 5/325 Tablet) 1 tab PO PACUNOW PRN PRN Reason: Mild or Moderate Pain Potassium Chloride (Potassium Chloride 20 Meq Tab) 40 meq PO Q6H [facility] Stop: 06/15/22 18:01 Last Admin: 06/15/22 20:54 Dose: Not Given Documented By: Admin: 06/15/22 12:22 Dose: Not Given Documented By: HEBER Trazodone HCl (Trazodone 50 Mg Tablet) 25 mg PO BEDTIME PRN PRN Reason: Insomnia Last Admin: 06/12/22 21:54 Dose: 25 mg Documented By: Admin: 06/11/22 20:55 Dose: 25 mg Documented By: JORGE Trazodone HCl (Trazodone 50 Mg Tablet) 25 mg PO BEDTIME [facility] Last Admin: 06/14/22 02:16 Dose: Not Given Documented By: Vital Signs Vital signs: Vital Signs - 8 hr 06/13/22 13:30 06/13/22 14:00 06/13/22 14:30 Pulse Rate 55 L 46 L 45 L Blood Pressure Pulse Oximetry 95 96 96 06/13/22 15:00 06/13/22 15:30 06/13/22 16:00 Pulse Rate 47 L 46 L 45 L Blood Pressure Pulse Oximetry 96 96 96 06/13/22 16:01 06/13/22 16:01 06/13/22 16:30 Pulse Rate 44 L 47 L Blood Pressure 189/81 H Pulse Oximetry 96 94 06/13/22 17:14 06/13/22 17:30 06/13/22 18:00 Pulse Rate 60 54 L 51 L Blood Pressure Pulse Oximetry 98 96 95 06/13/22 18:01 06/13/22 18:01 Pulse Rate 51 L Blood Pressure 185/81 H Pulse Oximetry 96 <Shelli Berkowitz DO - Last Filed: 06/15/22 00:09> Orders Ordered: Albuterol (Albuterol 2.5 Mg/3 Ml Neb (Adult)) 2.5 mg INH Q4H PRN PRN Reason: Shortness Of Breath Or Wheezing Gabapentin (Gabapentin 300 Mg Capsule) 900 mg PO TID PRN PRN Reason: Pain, Moderate (4-6) Last Admin: 06/16/22 04:11 Dose: 900 mg Documented By: Admin: 06/14/22 21:37 Dose: 900 mg Documented By: Admin: 06/14/22 00:50 Dose: 900 mg Documented By: Hydromorphone HCl (Hydromorphone 0.5 Mg Inj) 0.5 mg IV Q3H PRN PRN Reason: Pain, Moderate (4-6) Last Admin: 06/16/22 05:07 Dose: 0.5 mg Documented By: Admin: 06/16/22 01:54 Dose: 0.5 mg Documented By: Admin: 06/15/22 21:36 Dose: 0.5 mg Documented By: Metronidazole (Flagyl) 500 mg in 100 mls @ 100 mls/hr IV Q8H DANIEL Last Admin: 06/16/22 06:33 Dose: 100 mls/hr Documented By: Infusion: 06/15/22 23:29 Dose: 0 mls/hr Documented By: Admin: 06/15/22 22:29 Dose: 100 mls/hr Documented By: Admin: 06/15/22 18:33 Dose: Not Given Documented By: Infusion: 06/15/22 06:05 Dose: 100 mls/hr Documented By: Admin: 06/15/22 05:05 Dose: 100 mls/hr Documented By: Infusion: 06/14/22 22:36 Dose: 0 mls/hr Documented By: Admin: 06/14/22 21:36 Dose: 100 mls/hr Documented By: Infusion: 06/14/22 15:20 Dose: 100 mls/hr Documented By: Admin: 06/14/22 14:20 Dose: 100 mls/hr Documented By: Infusion: 06/14/22 06:55 Dose: 100 mls/hr Documented By: Admin: 06/14/22 05:55 Dose: 100 mls/hr Documented By: Infusion: 06/14/22 05:55 Dose: 0 mls/hr Documented By: Infusion: 06/13/22 22:41 Dose: 0 mls/hr Documented By: Infusion: 06/13/22 21:42 Dose: 0 mls/hr Documented By: Admin: 06/13/22 21:42 Dose: 100 mls/hr Documented By: SANDRA Ceftriaxone Sodium 2,000 mg/ (Sodium Chloride) 100 mls @ 200 mls/hr IV DAILY DANIEL Last Infusion: 06/15/22 10:08 Dose: 0 mls/hr Documented By: Admin: 06/15/22 09:08 Dose: 100 mls/hr Documented By: Infusion: 06/14/22 09:20 Dose: 0 mls/hr Documented By: Admin: 06/14/22 08:50 Dose: 200 mls/hr Documented By: BR Lactated Ringer's (Lactated Ringers) 1,000 mls @ 100 mls/hr IV CONT DANIEL Last Admin: 06/15/22 19:54 Dose: 100 mls/hr Documented By: Infusion: 06/15/22 19:54 Dose: 100 mls/hr Documented By: Admin: 06/15/22 18:46 Dose: 100 mls/hr Documented By: Infusion: 06/15/22 18:46 Dose: 100 mls/hr Documented By: Admin: 06/15/22 14:04 Dose: 100 mls/hr Documented By: Infusion: 06/15/22 14:04 Dose: 100 mls/hr Documented By: Admin: 06/15/22 12:43 Dose: 100 mls/hr Documented By: Infusion: 06/15/22 12:43 Dose: 100 mls/hr Documented By: Admin: 06/15/22 05:06 Dose: 100 mls/hr Documented By: Infusion: 06/15/22 00:24 Dose: 100 mls/hr Documented By: Admin: 06/14/22 14:24 Dose: 100 mls/hr Documented By: Infusion: 06/14/22 07:08 Dose: 100 mls/hr Documented By: Admin: 06/13/22 21:08 Dose: 100 mls/hr Documented By: SANDRA Lorazepam (Lorazepam 2 Mg/Ml Inj) 0.5 mg IV Q4HR PRN PRN Reason: Anxiety Last Admin: 06/14/22 22:43 Dose: 0.5 mg Documented By: Admin: 06/14/22 01:32 Dose: 0.5 mg Documented By: Ondansetron HCl (Ondansetron 4 Mg/2 Ml Inj) 4 mg IV Q4HR PRN PRN Reason: Nausea And Vomiting Last Admin: 06/16/22 05:07 Dose: 4 mg Documented By: Admin: 06/15/22 21:36 Dose: 4 mg Documented By: Ondansetron HCl (Ondansetron 4 Mg/2 Ml Inj) 4 mg IV NOW PRN PRN Reason: Nausea And Vomiting Last Admin: 06/15/22 18:49 Dose: 4 mg Documented By: PAU Tizanidine HCl (Tizanidine 4 Mg Tablet) 4 mg PO BEDTIME PRN PRN Reason: Muscle Spasm Trazodone HCl (Trazodone 50 Mg Tablet) 25 mg PO BEDTIME PRN PRN Reason: Insomnia Last Admin: 06/14/22 21:37 Dose: 25 mg Documented By: Admin: 06/14/22 00:50 Dose: 25 mg Documented By: Discontinued Medications Acetaminophen (Acetaminophen 325 Mg Tablet) 650 mg PO NOW ONE Stop: 06/10/22 22:51 Last Admin: 12/28/22 22:56 Dose: 650 mg Documented By: RB Acetaminophen (Acetaminophen 325 Mg Tablet) 650 mg PO Q6H PRN PRN Reason: Fever/Mild Pain (1-3) Hydrocodone Bitart/Acetaminophen (Hydrocodone/Acet 5/325 Tablet) 1 tab PO Q4H PRN PRN Reason: Pain, Moderate (4-6) Albuterol (Albuterol 2.5 Mg/3 Ml Neb (Adult)) 2.5 mg INH [id number] [facility] Last Admin: 06/11/22 10:02 Dose: 2.5 mg Documented By: CARLA Albuterol (Albuterol 2.5 Mg/3 Ml Neb (Adult)) 2.5 mg INH [id number] PRN PRN Reason: Shortness Of Breath Or Wheezing Albuterol/Ipratropium (Albuterol/Ipratropium 3 Ml Ampul) 3 ml INH NOW ONE Stop: 06/10/22 19:15 Last Admin: 06/10/22 19:18 Dose: 3 ml Documented By: BRI Budesonide (Budesonide 0.5 Mg/2 Ml Neb) 0.5 mg INH RTBID [facility] Last Admin: 06/13/22 09:31 Dose: 0.5 mg Documented By: Admin: 06/12/22 19:19 Dose: 0.5 mg Documented By: Admin: 06/12/22 09:21 Dose: 0.5 mg Documented By: Admin: 06/11/22 10:02 Dose: 0.5 mg Documented By: CARLA Bupivacaine HCl/Epinephrine Bitart (Bupivacaine 0.5% W/ Epi (Pf) 30 Ml Vial) 30 ml INJ NOW ONE Stop: 06/15/22 13:34 Last Admin: 06/15/22 13:33 Dose: 30 ml Documented By: Diphenhydramine HCl (Diphenhydramine 25 Mg Tablet) 25 mg PO NOW ONE Stop: 06/10/22 22:51 Last Admin: 06/10/22 22:56 Dose: 25 mg Documented By: RB Fentanyl (Fentanyl 100 Mcg/2 Ml Inj) 0 mcg IV Q5M PRN PRN Reason: Pain, Moderate (4-6) Gabapentin (Gabapentin 300 Mg Capsule) 900 mg PO TID PRN PRN Reason: Pain, Mild (1-3) Last Admin: 06/12/22 21:53 Dose: 900 mg Documented By: Admin: 06/11/22 20:54 Dose: 900 mg Documented By: JORGE Gabapentin (Gabapentin 300 Mg Capsule) 900 mg PO TID [facility] Last Admin: 06/14/22 02:16 Dose: Not Given Documented By: Glucagon (Glucagon,Human Recombinant 1 Mg/Ml Vial) 1 mg IV NOW ONE Stop: 06/15/22 16:26 Last Admin: 06/15/22 16:25 Dose: 1 mg Documented By: Hydrochlorothiazide (Hydrochlorothiazide 25 Mg Tablet) 12.5 mg PO DAILY [facility] Last Admin: 06/13/22 09:39 Dose: 12.5 mg Documented By: Admin: 06/12/22 09:25 Dose: 12.5 mg Documented By: Admin: 06/11/22 20:56 Dose: 12.5 mg Documented By: JORGE Hydromorphone HCl (Hydromorphone 1 Mg Inj) 0.5 mg IV Q3HR PRN PRN Reason: Pain, Severe (7-10) Hydromorphone HCl (Hydromorphone 2 Mg Inj) 0 mg IV Q5M PRN PRN Reason: Pain, Moderate (4-6) Last Admin: 06/15/22 18:49 Dose: 0.5 mg Documented By: PAU Sodium Chloride (Normal Saline 0.9%) 1,000 mls @ 1,000 mls/hr IV BOLUS ONE Stop: 06/10/22 19:04 Last Infusion: 06/10/22 21:00 Dose: 0 mls/hr Documented By: Admin: 06/10/22 19:33 Dose: 1,000 mls/hr Documented By: RB Ceftriaxone Sodium 1,000 mg/ (Sodium Chloride) 100 mls @ 200 mls/hr IV NOW ONE Stop: 06/10/22 18:06 Last Infusion: 06/10/22 20:35 Dose: 0 mls/hr Documented By: Admin: 06/10/22 19:34 Dose: 200 mls/hr Documented By: RB Metronidazole (Flagyl) 500 mg in 100 mls @ 100 mls/hr IV NOW ONE Stop: 06/10/22 19:04 Last Infusion: 06/10/22 20:45 Dose: 0 mls/hr Documented By: Admin: 06/10/22 19:34 Dose: 100 mls/hr Documented By: RB Metronidazole (Flagyl) 500 mg in 100 mls @ 100 mls/hr IV Q8H DANIEL Last Infusion: 06/13/22 15:25 Dose: 0 mls/hr Documented By: Admin: 06/13/22 14:22 Dose: 100 mls/hr Documented By: Infusion: 06/13/22 06:50 Dose: 0 mls/hr Documented By: Admin: 06/13/22 05:45 Dose: 100 mls/hr Documented By: Infusion: 06/12/22 23:06 Dose: 0 mls/hr Documented By: Admin: 06/12/22 22:04 Dose: 100 mls/hr Documented By: Infusion: 06/12/22 15:22 Dose: 0 mls/hr Documented By: Admin: 06/12/22 14:05 Dose: 100 mls/hr Documented By: Infusion: 06/12/22 07:26 Dose: 0 mls/hr Documented By: JULIO CESAR Admin: 06/12/22 06:24 Dose: 100 mls/hr Documented By: Infusion: 06/11/22 23:35 Dose: 0 mls/hr Documented By: Admin: 06/11/22 22:36 Dose: 100 mls/hr Documented By: Infusion: 06/11/22 15:20 Dose: 0 mls/hr Documented By: Admin: 06/11/22 14:18 Dose: 100 mls/hr Documented By: Infusion: 06/11/22 08:58 Dose: 0 mls/hr Documented By: JUAN JOSE Admin: 06/11/22 06:15 Dose: 100 mls/hr Documented By: ALAINA Sodium Chloride (Normal Saline 0.9%) 1,000 mls @ 125 mls/hr IV CONT DANIEL Last Admin: 06/13/22 14:24 Dose: 125 mls/hr Documented By: Infusion: 06/13/22 00:28 Dose: 0 mls/hr Documented By: Admin: 06/12/22 14:59 Dose: 125 mls/hr Documented By: Infusion: 06/12/22 14:58 Dose: 0 mls/hr Documented By: Admin: 06/12/22 06:24 Dose: 125 mls/hr Documented By: Infusion: 06/12/22 05:54 Dose: 125 mls/hr Documented By: Infusion: 06/11/22 23:35 Dose: 125 mls/hr Documented By: Infusion: 06/11/22 22:35 Dose: 0 mls/hr Documented By: Admin: 06/11/22 20:54 Dose: 125 mls/hr Documented By: Infusion: 06/11/22 14:13 Dose: 125 mls/hr Documented By: Admin: 06/11/22 06:13 Dose: 125 mls/hr Documented By: ALAINA Ceftriaxone Sodium 1,000 mg/ (Sodium Chloride) 100 mls @ 200 mls/hr IV DAILY DANIEL Ceftriaxone Sodium 2,000 mg/ (Sodium Chloride) 100 mls @ 200 mls/hr IV DAILY DANIEL Last Infusion: 06/13/22 10:40 Dose: 0 mls/hr Documented By: Admin: 06/13/22 09:32 Dose: 100 mls/hr Documented By: Infusion: 06/12/22 10:32 Dose: 0 mls/hr Documented By: Admin: 06/12/22 09:26 Dose: 200 mls/hr Documented By: Infusion: 06/11/22 11:27 Dose: 0 mls/hr Documented By: JUAN JOSE(2) Admin: 06/11/22 10:24 Dose: 200 mls/hr Documented By: JUAN JOSE(2) Lactated Ringer's (Lactated Ringers) 1,000 mls @ 100 mls/hr IV CONT DANIEL Last Admin: 06/13/22 21:37 Dose: Not Given Documented By: SANDRA POTASSIUM CHLORIDE IN WATER (Potassium Cl 10 Meq/100 Ml Yana) 10 meq in 100 mls @ 100 mls/hr IV Q1H [facility]ANIEL Stop: 06/15/22 01:14 Last Admin: 06/15/22 00:40 Dose: 100 mls/hr Documented By: Infusion: 06/15/22 00:40 Dose: 100 mls/hr Documented By: Admin: 06/14/22 23:56 Dose: 100 mls/hr Documented By: Infusion: 06/14/22 23:44 Dose: 100 mls/hr Documented By: Admin: 06/14/22 22:44 Dose: 100 mls/hr Documented By: Clindamycin Phosphate (Cleocin) 900 mg in 50 mls @ 50 mls/hr IV NOW ONE Stop: 06/15/22 14:30 Last Infusion: 06/15/22 13:05 Dose: 0 mls/hr Documented By: Admin: 06/15/22 12:55 Dose: 50 mls/hr Documented By: POTASSIUM CHLORIDE IN WATER (Potassium Cl 10 Meq/100 Ml Yana) 10 meq in 100 mls @ 100 mls/hr IV Q1H [facility]ANIEL Stop: 06/16/22 00:14 Last Admin: 06/16/22 05:14 Dose: Not Given Documented By: Admin: 06/16/22 01:57 Dose: 50 mls/hr Documented By: Infusion: 06/16/22 01:41 Dose: 50 mls/hr Documented By: Admin: 06/15/22 23:41 Dose: 50 mls/hr Documented By: Infusion: 06/15/22 21:39 Dose: 100 mls/hr Documented By: Admin: 06/15/22 20:39 Dose: 100 mls/hr Documented By: POTASSIUM CHLORIDE IN WATER (Potassium Cl 10 Meq/100 Ml Yana) 10 meq in 100 mls @ 50 mls/hr IV Q1H [facility] Stop: 06/16/22 05:59 Last Admin: 06/16/22 05:00 Dose: 50 mls/hr Documented By: Ibuprofen (Ibuprofen 400 Mg Tablet) 800 mg PO TID PRN PRN Reason: Pain, Mild (1-3) Last Admin: 06/12/22 21:54 Dose: 800 mg Documented By: Admin: 06/11/22 20:55 Dose: 800 mg Documented By: JORGE Ibuprofen (Ibuprofen 600 Mg Tablet) 600 mg PO Q6H PRN PRN Reason: Fever/Mild Pain (1-3) Iopamidol (Iopamidol 50 Ml Vial) 50 ml INJ NOW ONE Stop: 06/15/22 13:34 Last Admin: 06/15/22 16:09 Dose: 50 ml Documented By: Admin: 06/15/22 13:34 Dose: 50 ml Documented By: Lisinopril (Lisinopril 10 Mg Tablet) 10 mg PO NOW ONE Stop: 06/14/22 22:05 Last Admin: 06/14/22 22:43 Dose: 10 mg Documented By: Lorazepam (Lorazepam 2 Mg/Ml Inj) 0.5 mg IV NOW ONE Stop: 06/12/22 14:43 Last Admin: 06/12/22 14:51 Dose: 0.5 mg Documented By: MARSHALL Lorazepam (Lorazepam 2 Mg/Ml Inj) 1 mg IV NOW ONE Stop: 06/12/22 21:52 Last Admin: 06/12/22 22:00 Dose: 1 mg Documented By: JORGE Lorazepam (Lorazepam 2 Mg/Ml Inj) 0.5 mg IV Q6H [facility] Last Admin: 06/14/22 02:16 Dose: Not Given Documented By: Morphine Sulfate (Morphine 4 Mg/Ml Inj) 4 mg IV NOW ONE Stop: 06/12/22 18:18 Last Admin: 06/12/22 18:26 Dose: 4 mg Documented By: VIPIN Naloxone HCl (Naloxone 0.4 Mg/Ml Vial) 0.2 mg IV Q2MIN PRN PRN Reason: Opiate Reversal Ondansetron HCl (Ondansetron 4 Mg/2 Ml Inj) 4 mg IV NOW ONE Stop: 06/12/22 12:06 Last Admin: 06/12/22 12:12 Dose: 4 mg Documented By: MARSHALL Ondansetron HCl (Ondansetron 4 Mg/2 Ml Inj) 4 mg IV Q8HR PRN PRN Reason: Nausea And Vomiting Oxycodone/Acetaminophen (Oxycodone/Acetaminophen 5/325 Tablet) 1 tab PO PACUNOW PRN PRN Reason: Mild or Moderate Pain Potassium Chloride (Potassium Chloride 20 Meq Tab) 40 meq PO Q6H [facility] Stop: 06/15/22 18:01 Last Admin: 06/15/22 20:54 Dose: Not Given Documented By: Admin: 06/15/22 12:22 Dose: Not Given Documented By: HEBER Trazodone HCl (Trazodone 50 Mg Tablet) 25 mg PO BEDTIME PRN PRN Reason: Insomnia Last Admin: 06/12/22 21:54 Dose: 25 mg Documented By: Admin: 06/11/22 20:55 Dose: 25 mg Documented By: JORGE Trazodone HCl (Trazodone 50 Mg Tablet) 25 mg PO BEDTIME [facility] Last Admin: 06/14/22 02:16 Dose: Not Given Documented By: Vital Signs Vital signs: Vital Signs - 8 hr 06/13/22 13:30 06/13/22 14:00 06/13/22 14:30 Pulse Rate 55 L 46 L 45 L Blood Pressure Pulse Oximetry 95 96 96 06/13/22 15:00 06/13/22 15:30 06/13/22 16:00 Pulse Rate 47 L 46 L 45 L Blood Pressure Pulse Oximetry 96 96 96 06/13/22 16:01 06/13/22 16:01 06/13/22 16:30 Pulse Rate 44 L 47 L Blood Pressure 189/81 H Pulse Oximetry 96 94 06/13/22 17:14 06/13/22 17:30 06/13/22 18:00 Pulse Rate 60 54 L 51 L Blood Pressure Pulse Oximetry 98 96 95 06/13/22 18:01 06/13/22 18:01 Pulse Rate 51 L Blood Pressure 185/81 H Pulse Oximetry 96 <Selvin Andrade DO - Last Filed: 06/16/22 09:15> Orders Ordered: Albuterol (Albuterol 2.5 Mg/3 Ml Neb (Adult)) 2.5 mg INH Q4H PRN PRN Reason: Shortness Of Breath Or Wheezing Gabapentin (Gabapentin 300 Mg Capsule) 900 mg PO TID PRN PRN Reason: Pain, Moderate (4-6) Last Admin: 06/16/22 04:11 Dose: 900 mg Documented By: Admin: 06/14/22 21:37 Dose: 900 mg Documented By: Admin: 06/14/22 00:50 Dose: 900 mg Documented By: Hydromorphone HCl (Hydromorphone 0.5 Mg Inj) 0.5 mg IV Q3H PRN PRN Reason: Pain, Moderate (4-6) Last Admin: 06/16/22 05:07 Dose: 0.5 mg Documented By: Admin: 06/16/22 01:54 Dose: 0.5 mg Documented By: Admin: 06/15/22 21:36 Dose: 0.5 mg Documented By: MS Metronidazole (Flagyl) 500 mg in 100 mls @ 100 mls/hr IV Q8H DANIEL Last Admin: 06/16/22 06:33 Dose: 100 mls/hr Documented By: Infusion: 06/15/22 23:29 Dose: 0 mls/hr Documented By: Admin: 06/15/22 22:29 Dose: 100 mls/hr Documented By: Admin: 06/15/22 18:33 Dose: Not Given Documented By: Infusion: 06/15/22 06:05 Dose: 100 mls/hr Documented By: Admin: 06/15/22 05:05 Dose: 100 mls/hr Documented By: Infusion: 06/14/22 22:36 Dose: 0 mls/hr Documented By: Admin: 06/14/22 21:36 Dose: 100 mls/hr Documented By: Infusion: 06/14/22 15:20 Dose: 100 mls/hr Documented By: Admin: 06/14/22 14:20 Dose: 100 mls/hr Documented By: Infusion: 06/14/22 06:55 Dose: 100 mls/hr Documented By: Admin: 06/14/22 05:55 Dose: 100 mls/hr Documented By: Infusion: 06/14/22 05:55 Dose: 0 mls/hr Documented By: Infusion: 06/13/22 22:41 Dose: 0 mls/hr Documented By: Infusion: 06/13/22 21:42 Dose: 0 mls/hr Documented By: Admin: 06/13/22 21:42 Dose: 100 mls/hr Documented By: SANDRA Ceftriaxone Sodium 2,000 mg/ (Sodium Chloride) 100 mls @ 200 mls/hr IV DAILY DANIEL Last Infusion: 06/15/22 10:08 Dose: 0 mls/hr Documented By: Admin: 06/15/22 09:08 Dose: 100 mls/hr Documented By: Infusion: 06/14/22 09:20 Dose: 0 mls/hr Documented By: Admin: 06/14/22 08:50 Dose: 200 mls/hr Documented By: BR Lactated Ringer's (Lactated Ringers) 1,000 mls @ 100 mls/hr IV CONT DANIEL Last Admin: 06/15/22 19:54 Dose: 100 mls/hr Documented By: Infusion: 06/15/22 19:54 Dose: 100 mls/hr Documented By: Admin: 06/15/22 18:46 Dose: 100 mls/hr Documented By: Infusion: 06/15/22 18:46 Dose: 100 mls/hr Documented By: Admin: 06/15/22 14:04 Dose: 100 mls/hr Documented By: Infusion: 06/15/22 14:04 Dose: 100 mls/hr Documented By: Admin: 06/15/22 12:43 Dose: 100 mls/hr Documented By: Infusion: 06/15/22 12:43 Dose: 100 mls/hr Documented By: Admin: 06/15/22 05:06 Dose: 100 mls/hr Documented By: Infusion: 06/15/22 00:24 Dose: 100 mls/hr Documented By: Admin: 06/14/22 14:24 Dose: 100 mls/hr Documented By: Infusion: 06/14/22 07:08 Dose: 100 mls/hr Documented By: Admin: 06/13/22 21:08 Dose: 100 mls/hr Documented By: SANDRA Lorazepam (Lorazepam 2 Mg/Ml Inj) 0.5 mg IV Q4HR PRN PRN Reason: Anxiety Last Admin: 06/14/22 22:43 Dose: 0.5 mg Documented By: Admin: 06/14/22 01:32 Dose: 0.5 mg Documented By: Ondansetron HCl (Ondansetron 4 Mg/2 Ml Inj) 4 mg IV Q4HR PRN PRN Reason: Nausea And Vomiting Last Admin: 06/16/22 05:07 Dose: 4 mg Documented By: Admin: 06/15/22 21:36 Dose: 4 mg Documented By: Ondansetron HCl (Ondansetron 4 Mg/2 Ml Inj) 4 mg IV NOW PRN PRN Reason: Nausea And Vomiting Last Admin: 06/15/22 18:49 Dose: 4 mg Documented By: PAU Tizanidine HCl (Tizanidine 4 Mg Tablet) 4 mg PO BEDTIME PRN PRN Reason: Muscle Spasm Trazodone HCl (Trazodone 50 Mg Tablet) 25 mg PO BEDTIME PRN PRN Reason: Insomnia Last Admin: 06/14/22 21:37 Dose: 25 mg Documented By: Admin: 06/14/22 00:50 Dose: 25 mg Documented By: Discontinued Medications Acetaminophen (Acetaminophen 325 Mg Tablet) 650 mg PO NOW ONE Stop: 06/10/22 22:51 Last Admin: 06/10/22 22:56 Dose: 650 mg Documented By: RB Acetaminophen (Acetaminophen 325 Mg Tablet) 650 mg PO Q6H PRN PRN Reason: Fever/Mild Pain (1-3) Hydrocodone Bitart/Acetaminophen (Hydrocodone/Acet 5/325 Tablet) 1 tab PO Q4H PRN PRN Reason: Pain, Moderate (4-6) Albuterol (Albuterol 2.5 Mg/3 Ml Neb (Adult)) 2.5 mg INH [id number] [facility] Last Admin: 06/11/22 10:02 Dose: 2.5 mg Documented By: CARLA Albuterol (Albuterol 2.5 Mg/3 Ml Neb (Adult)) 2.5 mg INH [id number] PRN PRN Reason: Shortness Of Breath Or Wheezing Albuterol/Ipratropium (Albuterol/Ipratropium 3 Ml Ampul) 3 ml INH NOW ONE Stop: 06/10/22 19:15 Last Admin: 06/10/22 19:18 Dose: 3 ml Documented By: BRI Budesonide (Budesonide 0.5 Mg/2 Ml Neb) 0.5 mg INH RTBID [facility] Last Admin: 06/13/22 09:31 Dose: 0.5 mg Documented By: Admin: 06/12/22 19:19 Dose: 0.5 mg Documented By: Admin: 06/12/22 09:21 Dose: 0.5 mg Documented By: Admin: 06/11/22 10:02 Dose: 0.5 mg Documented By: CARLA Bupivacaine HCl/Epinephrine Bitart (Bupivacaine 0.5% W/ Epi (Pf) 30 Ml Vial) 30 ml INJ NOW ONE Stop: 06/15/22 13:34 Last Admin: 06/15/22 13:33 Dose: 30 ml Documented By: Diphenhydramine HCl (Diphenhydramine 25 Mg Tablet) 25 mg PO NOW ONE Stop: 06/10/22 22:51 Last Admin: 06/10/22 22:56 Dose: 25 mg Documented By: JOAQUINA Fentanyl (Fentanyl 100 Mcg/2 Ml Inj) 0 mcg IV Q5M PRN PRN Reason: Pain, Moderate (4-6) Gabapentin (Gabapentin 300 Mg Capsule) 900 mg PO TID PRN PRN Reason: Pain, Mild (1-3) Last Admin: 06/12/22 21:53 Dose: 900 mg Documented By: Admin: 06/11/22 20:54 Dose: 900 mg Documented By: JORGE Gabapentin (Gabapentin 300 Mg Capsule) 900 mg PO TID [facility] Last Admin: 06/14/22 02:16 Dose: Not Given Documented By: Glucagon (Glucagon,Human Recombinant 1 Mg/Ml Vial) 1 mg IV NOW ONE Stop: 06/15/22 16:26 Last Admin: 06/15/22 16:25 Dose: 1 mg Documented By: Hydrochlorothiazide (Hydrochlorothiazide 25 Mg Tablet) 12.5 mg PO DAILY [facility] Last Admin: 06/13/22 09:39 Dose: 12.5 mg Documented By: Admin: 06/12/22 09:25 Dose: 12.5 mg Documented By: Admin: 06/11/22 20:56 Dose: 12.5 mg Documented By: JORGE Hydromorphone HCl (Hydromorphone 1 Mg Inj) 0.5 mg IV Q3HR PRN PRN Reason: Pain, Severe (7-10) Hydromorphone HCl (Hydromorphone 2 Mg Inj) 0 mg IV Q5M PRN PRN Reason: Pain, Moderate (4-6) Last Admin: 06/15/22 18:49 Dose: 0.5 mg Documented By: PAU Sodium Chloride (Normal Saline 0.9%) 1,000 mls @ 1,000 mls/hr IV BOLUS ONE Stop: 06/10/22 19:04 Last Infusion: 06/10/22 21:00 Dose: 0 mls/hr Documented By: Admin: 06/10/22 19:33 Dose: 1,000 mls/hr Documented By: RB Ceftriaxone Sodium 1,000 mg/ (Sodium Chloride) 100 mls @ 200 mls/hr IV NOW ONE Stop: 06/10/22 18:06 Last Infusion: 06/10/22 20:35 Dose: 0 mls/hr Documented By: Admin: 06/10/22 19:34 Dose: 200 mls/hr Documented By: RB Metronidazole (Flagyl) 500 mg in 100 mls @ 100 mls/hr IV NOW ONE Stop: 06/10/22 19:04 Last Infusion: 06/10/22 20:45 Dose: 0 mls/hr Documented By: Admin: 06/10/22 19:34 Dose: 100 mls/hr Documented By: RB Metronidazole (Flagyl) 500 mg in 100 mls @ 100 mls/hr IV Q8H DANIEL Last Infusion: 06/13/22 15:25 Dose: 0 mls/hr Documented By: Admin: 06/13/22 14:22 Dose: 100 mls/hr Documented By: Infusion: 06/13/22 06:50 Dose: 0 mls/hr Documented By: Admin: 06/13/22 05:45 Dose: 100 mls/hr Documented By: Infusion: 06/12/22 23:06 Dose: 0 mls/hr Documented By: Admin: 06/12/22 22:04 Dose: 100 mls/hr Documented By: Infusion: 06/12/22 15:22 Dose: 0 mls/hr Documented By: Admin: 06/12/22 14:05 Dose: 100 mls/hr Documented By: Infusion: 06/12/22 07:26 Dose: 0 mls/hr Documented By: JULIO CESAR Admin: 06/12/22 06:24 Dose: 100 mls/hr Documented By: Infusion: 06/11/22 23:35 Dose: 0 mls/hr Documented By: Admin: 06/11/22 22:36 Dose: 100 mls/hr Documented By: Infusion: 06/11/22 15:20 Dose: 0 mls/hr Documented By: Admin: 06/11/22 14:18 Dose: 100 mls/hr Documented By: Infusion: 06/11/22 08:58 Dose: 0 mls/hr Documented By: JUAN JOSE Admin: 06/11/22 06:15 Dose: 100 mls/hr Documented By: ALAINA Sodium Chloride (Normal Saline 0.9%) 1,000 mls @ 125 mls/hr IV CONT DANIEL Last Admin: 06/13/22 14:24 Dose: 125 mls/hr Documented By: Infusion: 06/13/22 00:28 Dose: 0 mls/hr Documented By: Admin: 06/12/22 14:59 Dose: 125 mls/hr Documented By: Infusion: 06/12/22 14:58 Dose: 0 mls/hr Documented By: Admin: 06/12/22 06:24 Dose: 125 mls/hr Documented By: Infusion: 06/12/22 05:54 Dose: 125 mls/hr Documented By: Infusion: 06/11/22 23:35 Dose: 125 mls/hr Documented By: Infusion: 06/11/22 22:35 Dose: 0 mls/hr Documented By: Admin: 06/11/22 20:54 Dose: 125 mls/hr Documented By: Infusion: 06/11/22 14:13 Dose: 125 mls/hr Documented By: Admin: 06/11/22 06:13 Dose: 125 mls/hr Documented By: ALAINA Ceftriaxone Sodium 1,000 mg/ (Sodium Chloride) 100 mls @ 200 mls/hr IV DAILY DANIEL Ceftriaxone Sodium 2,000 mg/ (Sodium Chloride) 100 mls @ 200 mls/hr IV DAILY DANIEL Last Infusion: 06/13/22 10:40 Dose: 0 mls/hr Documented By: Admin: 06/13/22 09:32 Dose: 100 mls/hr Documented By: Infusion: 06/12/22 10:32 Dose: 0 mls/hr Documented By: Admin: 06/12/22 09:26 Dose: 200 mls/hr Documented By: Infusion: 06/11/22 11:27 Dose: 0 mls/hr Documented By: JUAN JOSE(2) Admin: 06/11/22 10:24 Dose: 200 mls/hr Documented By: JUAN JOSE(2) Lactated Ringer's (Lactated Ringers) 1,000 mls @ 100 mls/hr IV CONT DANIEL Last Admin: 06/13/22 21:37 Dose: Not Given Documented By: SANDRA POTASSIUM CHLORIDE IN WATER (Potassium Cl 10 Meq/100 Ml Yana) 10 meq in 100 mls @ 100 mls/hr IV Q1H [facility] Stop: 06/15/22 01:14 Last Admin: 06/15/22 00:40 Dose: 100 mls/hr Documented By: Infusion: 06/15/22 00:40 Dose: 100 mls/hr Documented By: Admin: 06/14/22 23:56 Dose: 100 mls/hr Documented By: Infusion: 06/14/22 23:44 Dose: 100 mls/hr Documented By: Admin: 06/14/22 22:44 Dose: 100 mls/hr Documented By: Clindamycin Phosphate (Cleocin) 900 mg in 50 mls @ 50 mls/hr IV NOW ONE Stop: 06/15/22 14:30 Last Infusion: 06/15/22 13:05 Dose: 0 mls/hr Documented By: Admin: 06/15/22 12:55 Dose: 50 mls/hr Documented By: POTASSIUM CHLORIDE IN WATER (Potassium Cl 10 Meq/100 Ml Yana) 10 meq in 100 mls @ 100 mls/hr IV Q1H [facility] Stop: 06/16/22 00:14 Last Admin: 06/16/22 05:14 Dose: Not Given Documented By: Admin: 06/16/22 01:57 Dose: 50 mls/hr Documented By: Infusion: 06/16/22 01:41 Dose: 50 mls/hr Documented By: Admin: 06/15/22 23:41 Dose: 50 mls/hr Documented By: Infusion: 06/15/22 21:39 Dose: 100 mls/hr Documented By: Admin: 06/15/22 20:39 Dose: 100 mls/hr Documented By: POTASSIUM CHLORIDE IN WATER (Potassium Cl 10 Meq/100 Ml Yana) 10 meq in 100 mls @ 50 mls/hr IV Q1H [facility] Stop: 06/16/22 05:59 Last Admin: 06/16/22 05:00 Dose: 50 mls/hr Documented By: Ibuprofen (Ibuprofen 400 Mg Tablet) 800 mg PO TID PRN PRN Reason: Pain, Mild (1-3) Last Admin: 06/12/22 21:54 Dose: 800 mg Documented By: Admin: 06/11/22 20:55 Dose: 800 mg Documented By: JORGE Ibuprofen (Ibuprofen 600 Mg Tablet) 600 mg PO Q6H PRN PRN Reason: Fever/Mild Pain (1-3) Iopamidol (Iopamidol 50 Ml Vial) 50 ml INJ NOW ONE Stop: 06/15/22 13:34 Last Admin: 06/15/22 16:09 Dose: 50 ml Documented By: Admin: 06/15/22 13:34 Dose: 50 ml Documented By: Lisinopril (Lisinopril 10 Mg Tablet) 10 mg PO NOW ONE Stop: 06/14/22 22:05 Last Admin: 06/14/22 22:43 Dose: 10 mg Documented By: Lorazepam (Lorazepam 2 Mg/Ml Inj) 0.5 mg IV NOW ONE Stop: 06/12/22 14:43 Last Admin: 06/12/22 14:51 Dose: 0.5 mg Documented By: MARSHALL Lorazepam (Lorazepam 2 Mg/Ml Inj) 1 mg IV NOW ONE Stop: 06/12/22 21:52 Last Admin: 06/12/22 22:00 Dose: 1 mg Documented By: JORGE Lorazepam (Lorazepam 2 Mg/Ml Inj) 0.5 mg IV Q6H [facility] Last Admin: 06/14/22 02:16 Dose: Not Given Documented By: Morphine Sulfate (Morphine 4 Mg/Ml Inj) 4 mg IV NOW ONE Stop: 06/12/22 18:18 Last Admin: 06/12/22 18:26 Dose: 4 mg Documented By: VIPIN Naloxone HCl (Naloxone 0.4 Mg/Ml Vial) 0.2 mg IV Q2MIN PRN PRN Reason: Opiate Reversal Ondansetron HCl (Ondansetron 4 Mg/2 Ml Inj) 4 mg IV NOW ONE Stop: 06/12/22 12:06 Last Admin: 06/12/22 12:12 Dose: 4 mg Documented By: MARSHALL Ondansetron HCl (Ondansetron 4 Mg/2 Ml Inj) 4 mg IV Q8HR PRN PRN Reason: Nausea And Vomiting Oxycodone/Acetaminophen (Oxycodone/Acetaminophen 5/325 Tablet) 1 tab PO PACUNOW PRN PRN Reason: Mild or Moderate Pain Potassium Chloride (Potassium Chloride 20 Meq Tab) 40 meq PO Q6H [facility] Stop: 06/15/22 18:01 Last Admin: 06/15/22 20:54 Dose: Not Given Documented By: Admin: 06/15/22 12:22 Dose: Not Given Documented By: HEBER Trazodone HCl (Trazodone 50 Mg Tablet) 25 mg PO BEDTIME PRN PRN Reason: Insomnia Last Admin: 06/12/22 21:54 Dose: 25 mg Documented By: Admin: 06/11/22 20:55 Dose: 25 mg Documented By: JORGE Trazodone HCl (Trazodone 50 Mg Tablet) 25 mg PO BEDTIME [facility] Last Admin: 06/14/22 02:16 Dose: Not Given Documented By: Vital Signs Vital signs: Vital Signs - 8 hr 06/13/22 13:30 06/13/22 14:00 06/13/22 14:30 Pulse Rate 55 L 46 L 45 L Blood Pressure Pulse Oximetry 95 96 96 06/13/22 15:00 06/13/22 15:30 06/13/22 16:00 Pulse Rate 47 L 46 L 45 L Blood Pressure Pulse Oximetry 96 96 96 06/13/22 16:01 06/13/22 16:01 06/13/22 16:30 Pulse Rate 44 L 47 L Blood Pressure 189/81 H Pulse Oximetry 96 94 06/13/22 17:14 06/13/22 17:30 06/13/22 18:00 Pulse Rate 60 54 L 51 L Blood Pressure Pulse Oximetry 98 96 95 06/13/22 18:01 06/13/22 18:01 Pulse Rate 51 L Blood Pressure 185/81 H Pulse Oximetry 96 <Stephani Montgomery DO - Last Filed: 06/13/22 19:37> Orders Ordered: Albuterol (Albuterol 2.5 Mg/3 Ml Neb (Adult)) 2.5 mg INH Q4H PRN PRN Reason: Shortness Of Breath Or Wheezing Gabapentin (Gabapentin 300 Mg Capsule) 900 mg PO TID PRN PRN Reason: Pain, Moderate (4-6) Last Admin: 06/16/22 04:11 Dose: 900 mg Documented By: Admin: 06/14/22 21:37 Dose: 900 mg Documented By: Admin: 06/14/22 00:50 Dose: 900 mg Documented By: Hydromorphone HCl (Hydromorphone 0.5 Mg Inj) 0.5 mg IV Q3H PRN PRN Reason: Pain, Moderate (4-6) Last Admin: 06/16/22 05:07 Dose: 0.5 mg Documented By: Admin: 06/16/22 01:54 Dose: 0.5 mg Documented By: Admin: 06/15/22 21:36 Dose: 0.5 mg Documented By: Metronidazole (Flagyl) 500 mg in 100 mls @ 100 mls/hr IV Q8H DANIEL Last Admin: 06/16/22 06:33 Dose: 100 mls/hr Documented By: Infusion: 06/15/22 23:29 Dose: 0 mls/hr Documented By: Admin: 06/15/22 22:29 Dose: 100 mls/hr Documented By: Admin: 06/15/22 18:33 Dose: Not Given Documented By: Infusion: 06/15/22 06:05 Dose: 100 mls/hr Documented By: Admin: 06/15/22 05:05 Dose: 100 mls/hr Documented By: Infusion: 06/14/22 22:36 Dose: 0 mls/hr Documented By: Admin: 06/14/22 21:36 Dose: 100 mls/hr Documented By: Infusion: 06/14/22 15:20 Dose: 100 mls/hr Documented By: Admin: 06/14/22 14:20 Dose: 100 mls/hr Documented By: Infusion: 06/14/22 06:55 Dose: 100 mls/hr Documented By: Admin: 06/14/22 05:55 Dose: 100 mls/hr Documented By: Infusion: 06/14/22 05:55 Dose: 0 mls/hr Documented By: Infusion: 06/13/22 22:41 Dose: 0 mls/hr Documented By: Infusion: 06/13/22 21:42 Dose: 0 mls/hr Documented By: Admin: 06/13/22 21:42 Dose: 100 mls/hr Documented By: SANDRA Ceftriaxone Sodium 2,000 mg/ (Sodium Chloride) 100 mls @ 200 mls/hr IV DAILY DANIEL Last Infusion: 06/15/22 10:08 Dose: 0 mls/hr Documented By: Admin: 06/15/22 09:08 Dose: 100 mls/hr Documented By: Infusion: 06/14/22 09:20 Dose: 0 mls/hr Documented By: Admin: 06/14/22 08:50 Dose: 200 mls/hr Documented By: BR Lactated Ringer's (Lactated Ringers) 1,000 mls @ 100 mls/hr IV CONT DANIEL Last Admin: 06/15/22 19:54 Dose: 100 mls/hr Documented By: Infusion: 06/15/22 19:54 Dose: 100 mls/hr Documented By: Admin: 06/15/22 18:46 Dose: 100 mls/hr Documented By: Infusion: 06/15/22 18:46 Dose: 100 mls/hr Documented By: Admin: 06/15/22 14:04 Dose: 100 mls/hr Documented By: Infusion: 06/15/22 14:04 Dose: 100 mls/hr Documented By: Admin: 06/15/22 12:43 Dose: 100 mls/hr Documented By: Infusion: 06/15/22 12:43 Dose: 100 mls/hr Documented By: Admin: 06/15/22 05:06 Dose: 100 mls/hr Documented By: Infusion: 06/15/22 00:24 Dose: 100 mls/hr Documented By: Admin: 06/14/22 14:24 Dose: 100 mls/hr Documented By: Infusion: 06/14/22 07:08 Dose: 100 mls/hr Documented By: Admin: 06/13/22 21:08 Dose: 100 mls/hr Documented By: SANDRA Lorazepam (Lorazepam 2 Mg/Ml Inj) 0.5 mg IV Q4HR PRN PRN Reason: Anxiety Last Admin: 06/14/22 22:43 Dose: 0.5 mg Documented By: Admin: 06/14/22 01:32 Dose: 0.5 mg Documented By: Ondansetron HCl (Ondansetron 4 Mg/2 Ml Inj) 4 mg IV Q4HR PRN PRN Reason: Nausea And Vomiting Last Admin: 06/16/22 05:07 Dose: 4 mg Documented By: Admin: 06/15/22 21:36 Dose: 4 mg Documented By: Ondansetron HCl (Ondansetron 4 Mg/2 Ml Inj) 4 mg IV NOW PRN PRN Reason: Nausea And Vomiting Last Admin: 06/15/22 18:49 Dose: 4 mg Documented By: PAU Tizanidine HCl (Tizanidine 4 Mg Tablet) 4 mg PO BEDTIME PRN PRN Reason: Muscle Spasm Trazodone HCl (Trazodone 50 Mg Tablet) 25 mg PO BEDTIME PRN PRN Reason: Insomnia Last Admin: 06/14/22 21:37 Dose: 25 mg Documented By: Admin: 06/14/22 00:50 Dose: 25 mg Documented By: Discontinued Medications Acetaminophen (Acetaminophen 325 Mg Tablet) 650 mg PO NOW ONE Stop: 06/10/22 22:51 Last Admin: 06/10/22 22:56 Dose: 650 mg Documented By: RB Acetaminophen (Acetaminophen 325 Mg Tablet) 650 mg PO Q6H PRN PRN Reason: Fever/Mild Pain (1-3) Hydrocodone Bitart/Acetaminophen (Hydrocodone/Acet 5/325 Tablet) 1 tab PO Q4H PRN PRN Reason: Pain, Moderate (4-6) Albuterol (Albuterol 2.5 Mg/3 Ml Neb (Adult)) 2.5 mg INH [id number] [facility] Last Admin: 06/11/22 10:02 Dose: 2.5 mg Documented By: NL Albuterol (Albuterol 2.5 Mg/3 Ml Neb (Adult)) 2.5 mg INH [id number] PRN PRN Reason: Shortness Of Breath Or Wheezing Albuterol/Ipratropium (Albuterol/Ipratropium 3 Ml Ampul) 3 ml INH NOW ONE Stop: 06/10/22 19:15 Last Admin: 06/10/22 19:18 Dose: 3 ml Documented By: BRI Budesonide (Budesonide 0.5 Mg/2 Ml Neb) 0.5 mg INH RTBID [facility] Last Admin: 06/13/22 09:31 Dose: 0.5 mg Documented By: Admin: 06/12/22 19:19 Dose: 0.5 mg Documented By: Admin: 06/12/22 09:21 Dose: 0.5 mg Documented By: Admin: 06/11/22 10:02 Dose: 0.5 mg Documented By: CARLA Bupivacaine HCl/Epinephrine Bitart (Bupivacaine 0.5% W/ Epi (Pf) 30 Ml Vial) 30 ml INJ NOW ONE Stop: 06/15/22 13:34 Last Admin: 06/15/22 13:33 Dose: 30 ml Documented By: Diphenhydramine HCl (Diphenhydramine 25 Mg Tablet) 25 mg PO NOW ONE Stop: 06/10/22 22:51 Last Admin: 06/10/22 22:56 Dose: 25 mg Documented By: RB Fentanyl (Fentanyl 100 Mcg/2 Ml Inj) 0 mcg IV Q5M PRN PRN Reason: Pain, Moderate (4-6) Gabapentin (Gabapentin 300 Mg Capsule) 900 mg PO TID PRN PRN Reason: Pain, Mild (1-3) Last Admin: 06/12/22 21:53 Dose: 900 mg Documented By: Admin: 06/11/22 20:54 Dose: 900 mg Documented By: JORGE Gabapentin (Gabapentin 300 Mg Capsule) 900 mg PO TID [facility] Last Admin: 06/14/22 02:16 Dose: Not Given Documented By: Glucagon (Glucagon,Human Recombinant 1 Mg/Ml Vial) 1 mg IV NOW ONE Stop: 06/15/22 16:26 Last Admin: 06/15/22 16:25 Dose: 1 mg Documented By: Hydrochlorothiazide (Hydrochlorothiazide 25 Mg Tablet) 12.5 mg PO DAILY [facility] Last Admin: 06/13/22 09:39 Dose: 12.5 mg Documented By: Admin: 06/12/22 09:25 Dose: 12.5 mg Documented By: Admin: 06/11/22 20:56 Dose: 12.5 mg Documented By: JORGE Hydromorphone HCl (Hydromorphone 1 Mg Inj) 0.5 mg IV Q3HR PRN PRN Reason: Pain, Severe (7-10) Hydromorphone HCl (Hydromorphone 2 Mg Inj) 0 mg IV Q5M PRN PRN Reason: Pain, Moderate (4-6) Last Admin: 06/15/22 18:49 Dose: 0.5 mg Documented By: PAU Sodium Chloride (Normal Saline 0.9%) 1,000 mls @ 1,000 mls/hr IV BOLUS ONE Stop: 06/10/22 19:04 Last Infusion: 06/10/22 21:00 Dose: 0 mls/hr Documented By: Admin: 06/10/22 19:33 Dose: 1,000 mls/hr Documented By: RB Ceftriaxone Sodium 1,000 mg/ (Sodium Chloride) 100 mls @ 200 mls/hr IV NOW ONE Stop: 06/10/22 18:06 Last Infusion: 06/10/22 20:35 Dose: 0 mls/hr Documented By: Admin: 06/10/22 19:34 Dose: 200 mls/hr Documented By: RB Metronidazole (Flagyl) 500 mg in 100 mls @ 100 mls/hr IV NOW ONE Stop: 06/10/22 19:04 Last Infusion: 06/10/22 20:45 Dose: 0 mls/hr Documented By: Admin: 06/10/22 19:34 Dose: 100 mls/hr Documented By: RB Metronidazole (Flagyl) 500 mg in 100 mls @ 100 mls/hr IV Q8H DANIEL Last Infusion: 06/13/22 15:25 Dose: 0 mls/hr Documented By: Admin: 06/13/22 14:22 Dose: 100 mls/hr Documented By: Infusion: 06/13/22 06:50 Dose: 0 mls/hr Documented By: Admin: 06/13/22 05:45 Dose: 100 mls/hr Documented By: Infusion: 06/12/22 23:06 Dose: 0 mls/hr Documented By: Admin: 06/12/22 22:04 Dose: 100 mls/hr Documented By: Infusion: 06/12/22 15:22 Dose: 0 mls/hr Documented By: Admin: 06/12/22 14:05 Dose: 100 mls/hr Documented By: Infusion: 06/12/22 07:26 Dose: 0 mls/hr Documented By: JULIO CESAR Admin: 06/12/22 06:24 Dose: 100 mls/hr Documented By: Infusion: 06/11/22 23:35 Dose: 0 mls/hr Documented By: Admin: 06/11/22 22:36 Dose: 100 mls/hr Documented By: Infusion: 06/11/22 15:20 Dose: 0 mls/hr Documented By: Admin: 06/11/22 14:18 Dose: 100 mls/hr Documented By: Infusion: 06/11/22 08:58 Dose: 0 mls/hr Documented By: JUAN JOSE Admin: 06/11/22 06:15 Dose: 100 mls/hr Documented By: ALAINA Sodium Chloride (Normal Saline 0.9%) 1,000 mls @ 125 mls/hr IV CONT DANIEL Last Admin: 06/13/22 14:24 Dose: 125 mls/hr Documented By: Infusion: 06/13/22 00:28 Dose: 0 mls/hr Documented By: Admin: 06/12/22 14:59 Dose: 125 mls/hr Documented By: Infusion: 06/12/22 14:58 Dose: 0 mls/hr Documented By: Admin: 06/12/22 06:24 Dose: 125 mls/hr Documented By: Infusion: 06/12/22 05:54 Dose: 125 mls/hr Documented By: Infusion: 06/11/22 23:35 Dose: 125 mls/hr Documented By: Infusion: 06/11/22 22:35 Dose: 0 mls/hr Documented By: Admin: 06/11/22 20:54 Dose: 125 mls/hr Documented By: Infusion: 06/11/22 14:13 Dose: 125 mls/hr Documented By: Admin: 06/11/22 06:13 Dose: 125 mls/hr Documented By: ALAINA Ceftriaxone Sodium 1,000 mg/ (Sodium Chloride) 100 mls @ 200 mls/hr IV DAILY DANIEL Ceftriaxone Sodium 2,000 mg/ (Sodium Chloride) 100 mls @ 200 mls/hr IV DAILY DANIEL Last Infusion: 06/13/22 10:40 Dose: 0 mls/hr Documented By: Admin: 06/13/22 09:32 Dose: 100 mls/hr Documented By: Infusion: 06/12/22 10:32 Dose: 0 mls/hr Documented By: Admin: 06/12/22 09:26 Dose: 200 mls/hr Documented By: Infusion: 06/11/22 11:27 Dose: 0 mls/hr Documented By: JUAN JOSE(2) Admin: 06/11/22 10:24 Dose: 200 mls/hr Documented By: JUAN JOSE(2) Lactated Ringer's (Lactated Ringers) 1,000 mls @ 100 mls/hr IV CONT DANIEL Last Admin: 06/13/22 21:37 Dose: Not Given Documented By: SANDRA POTASSIUM CHLORIDE IN WATER (Potassium Cl 10 Meq/100 Ml Yana) 10 meq in 100 mls @ 100 mls/hr IV Q1H DANIEL Stop: 06/15/22 01:14 Last Admin: 06/15/22 00:40 Dose: 100 mls/hr Documented By: Infusion: 06/15/22 00:40 Dose: 100 mls/hr Documented By: Admin: 06/14/22 23:56 Dose: 100 mls/hr Documented By: Infusion: 06/14/22 23:44 Dose: 100 mls/hr Documented By: Admin: 06/14/22 22:44 Dose: 100 mls/hr Documented By: Clindamycin Phosphate (Cleocin) 900 mg in 50 mls @ 50 mls/hr IV NOW ONE Stop: 06/15/22 14:30 Last Infusion: 06/15/22 13:05 Dose: 0 mls/hr Documented By: Admin: 06/15/22 12:55 Dose: 50 mls/hr Documented By: POTASSIUM CHLORIDE IN WATER (Potassium Cl 10 Meq/100 Ml Yana) 10 meq in 100 mls @ 100 mls/hr IV Q1H DANIEL Stop: 06/16/22 00:14 Last Admin: 06/16/22 05:14 Dose: Not Given Documented By: Admin: 06/16/22 01:57 Dose: 50 mls/hr Documented By: Infusion: 06/16/22 01:41 Dose: 50 mls/hr Documented By: Admin: 06/15/22 23:41 Dose: 50 mls/hr Documented By: Infusion: 06/15/22 21:39 Dose: 100 mls/hr Documented By: Admin: 06/15/22 20:39 Dose: 100 mls/hr Documented By: POTASSIUM CHLORIDE IN WATER (Potassium Cl 10 Meq/100 Ml Yana) 10 meq in 100 mls @ 50 mls/hr IV Q1H DANIEL Stop: 06/16/22 05:59 Last Admin: 06/16/22 05:00 Dose: 50 mls/hr Documented By: Ibuprofen (Ibuprofen 400 Mg Tablet) 800 mg PO TID PRN PRN Reason: Pain, Mild (1-3) Last Admin: 06/12/22 21:54 Dose: 800 mg Documented By: Admin: 06/11/22 20:55 Dose: 800 mg Documented By: JORGE Ibuprofen (Ibuprofen 600 Mg Tablet) 600 mg PO Q6H PRN PRN Reason: Fever/Mild Pain (1-3) Iopamidol (Iopamidol 50 Ml Vial) 50 ml INJ NOW ONE Stop: 06/15/22 13:34 Last Admin: 06/15/22 16:09 Dose: 50 ml Documented By: Admin: 06/15/22 13:34 Dose: 50 ml Documented By: Lisinopril (Lisinopril 10 Mg Tablet) 10 mg PO NOW ONE Stop: 06/14/22 22:05 Last Admin: 06/14/22 22:43 Dose: 10 mg Documented By: MS Lorazepam (Lorazepam 2 Mg/Ml Inj) 0.5 mg IV NOW ONE Stop: 06/12/22 14:43 Last Admin: 06/12/22 14:51 Dose: 0.5 mg Documented By: MARSHALL Lorazepam (Lorazepam 2 Mg/Ml Inj) 1 mg IV NOW ONE Stop: 06/12/22 21:52 Last Admin: 06/12/22 22:00 Dose: 1 mg Documented By: JORGE Lorazepam (Lorazepam 2 Mg/Ml Inj) 0.5 mg IV Q6H [facility] Last Admin: 06/14/22 02:16 Dose: Not Given Documented By: Morphine Sulfate (Morphine 4 Mg/Ml Inj) 4 mg IV NOW ONE Stop: 06/12/22 18:18 Last Admin: 06/12/22 18:26 Dose: 4 mg Documented By: VIPIN Naloxone HCl (Naloxone 0.4 Mg/Ml Vial) 0.2 mg IV Q2MIN PRN PRN Reason: Opiate Reversal Ondansetron HCl (Ondansetron 4 Mg/2 Ml Inj) 4 mg IV NOW ONE Stop: 06/12/22 12:06 Last Admin: 06/12/22 12:12 Dose: 4 mg Documented By: MARSHALL Ondansetron HCl (Ondansetron 4 Mg/2 Ml Inj) 4 mg IV Q8HR PRN PRN Reason: Nausea And Vomiting Oxycodone/Acetaminophen (Oxycodone/Acetaminophen 5/325 Tablet) 1 tab PO PACUNOW PRN PRN Reason: Mild or Moderate Pain Potassium Chloride (Potassium Chloride 20 Meq Tab) 40 meq PO Q6H [facility] Stop: 06/15/22 18:01 Last Admin: 06/15/22 20:54 Dose: Not Given Documented By: Admin: 06/15/22 12:22 Dose: Not Given Documented By: HEBER Trazodone HCl (Trazodone 50 Mg Tablet) 25 mg PO BEDTIME PRN PRN Reason: Insomnia Last Admin: 06/12/22 21:54 Dose: 25 mg Documented By: Admin: 06/11/22 20:55 Dose: 25 mg Documented By: JORGE Trazodone HCl (Trazodone 50 Mg Tablet) 25 mg PO BEDTIME [facility] Last Admin: 06/14/22 02:16 Dose: Not Given Documented By: Vital Signs Vital signs: Vital Signs - 8 hr 06/13/22 13:30 06/13/22 14:00 06/13/22 14:30 Pulse Rate 55 L 46 L 45 L Blood Pressure Pulse Oximetry 95 96 96 06/13/22 15:00 06/13/22 15:30 06/13/22 16:00 Pulse Rate 47 L 46 L 45 L Blood Pressure Pulse Oximetry 96 96 96 06/13/22 16:01 06/13/22 16:01 06/13/22 16:30 Pulse Rate 44 L 47 L Blood Pressure 189/81 H Pulse Oximetry 96 94 06/13/22 17:14 06/13/22 17:30 06/13/22 18:00 Pulse Rate 60 54 L 51 L Blood Pressure Pulse Oximetry 98 96 95 06/13/22 18:01 06/13/22 18:01 Pulse Rate 51 L Blood Pressure 185/81 H Pulse Oximetry 96 Medical Decision Making <Ricardo Barry DO - Last Filed: 06/13/22 21:14> Lab Data Lab results reviewed: Yes I reviewed the patient's lab results. Result diagrams: 06/16/22 05:50 06/16/22 05:50 Labs: Lab Results 06/10/22 06/10/22 06/10/22 Range/Units 13:55 14:45 14:45 WBC 7.8 (4.5-11.0) X10^3/uL RBC 4.54 (4.5-5.9) X10^6/uL Hgb 13.9 (13.5-17.5) g/dL Hct 41.4 (41-53) % MCV 91.1 (80-100) fL MCH 30.5 (26-34) PG MCHC 33.5 (30-36) % RDW 13.9 (11.6-14.8) % Plt Count 190 (150-400) X10^3/uL Neut % (Auto) 83.6 H (50-75) % Lymph % (Auto) 6.3 L (25-40) % Crook % (Auto) 9.1 (3-14) % Eos % (Auto) 0.6 L (2-4) % Baso % (Auto) 0.4 (0-2) % Neut # (Auto) 6500 (4387-8959) /uL Lymph # (Auto) 500 L (1274-0804) /uL Crook # (Auto) 700 (0-900) /uL Eos # (Auto) 100 (0-450) /uL Baso # (Auto) 0 (0-100) /uL PT 13.8 H (10.1-12.7) SECONDS INR 1.2 (0.9-1.3) Sodium (137-145) mmol/L Potassium (3.4-5.1) mmol/L Chloride (98-107) mmol/L Carbon Dioxide (22-32) mmol/L BUN (9-20) mg/dL Creatinine (0.66-1.25) mg/dL Estimated GFR (>60) mL/min BUN/Creatinine Ratio (6-22) Glucose (80-110) mg/dL Lactate (0.7-2.1) mmol/L Calcium (8.4-10.2) mg/dL Total Bilirubin (0.2-1.3) mg/dL AST (17-59) IU/L ALT (<50) IU/L Alkaline Phosphatase (38-126) U/L Total Creatine Kinase (55-170) U/L CK-MB (CK-2) CK-MB (CK-2) Rel Index Troponin I (0.01-0.034) ng/mL NT-Pro-B Natriuret Pep (<450) pg/mL Total Protein (6.3-8.2) g/dL Albumin (3.5-5.0) g/dL Globulin (1.7-4.1) g/dL Albumin/Globulin Ratio (1.0-2.8) Lipase (23-300) U/L SARS-CoV-2 (PCR) Negative (Negative) Influenza A (RT-PCR) Flu a negative (NEGATIVE) Influenza B (RT-PCR) Flu b negative (NEGATIVE) RSV (PCR) Negative (Negative) 06/10/22 06/10/22 06/10/22 Range/Units 14:45 14:45 14:45 WBC (4.5-11.0) X10^3/uL RBC (4.5-5.9) X10^6/uL Hgb (13.5-17.5) g/dL Hct (41-53) % MCV (80-100) fL MCH (26-34) PG MCHC (30-36) % RDW (11.6-14.8) % Plt Count (150-400) X10^3/uL Neut % (Auto) (50-75) % Lymph % (Auto) (25-40) % Crook % (Auto) (3-14) % Eos % (Auto) (2-4) % Baso % (Auto) (0-2) % Neut # (Auto) (3400-4876) /uL Lymph # (Auto) (9491-1219) /uL Crook # (Auto) (0-900) /uL Eos # (Auto) (0-450) /uL Baso # (Auto) (0-100) /uL PT (10.1-12.7) SECONDS INR (0.9-1.3) Sodium 137 (137-145) mmol/L Potassium 4.1 (3.4-5.1) mmol/L Chloride 100 (98-107) mmol/L Carbon Dioxide 25 (22-32) mmol/L BUN 17 (9-20) mg/dL Creatinine 0.77 (0.66-1.25) mg/dL Estimated GFR > 60 (>60) mL/min BUN/Creatinine Ratio 22.1 H (6-22) Glucose 129 H (80-110) mg/dL Lactate 1.7 (0.7-2.1) mmol/L Calcium 9.2 (8.4-10.2) mg/dL Total Bilirubin 4.3 H (0.2-1.3) mg/dL AST 284 H (17-59) IU/L ALT 530 H (<50) IU/L Alkaline Phosphatase 323 H (38-126) U/L Total Creatine Kinase (55-170) U/L CK-MB (CK-2) CK-MB (CK-2) Rel Index Troponin I < 0.012 (0.01-0.034) ng/mL NT-Pro-B Natriuret Pep 154 (<450) pg/mL Total Protein 7.4 (6.3-8.2) g/dL Albumin 4.1 (3.5-5.0) g/dL Globulin 3.3 (1.7-4.1) g/dL Albumin/Globulin Ratio 1.2 (1.0-2.8) Lipase 60 (23-300) U/L SARS-CoV-2 (PCR) (Negative) Influenza A (RT-PCR) (NEGATIVE) Influenza B (RT-PCR) (NEGATIVE) RSV (PCR) (Negative) 06/11/22 06/11/22 06/12/22 Range/Units 06:25 06:25 06:53 WBC 8.4 7.0 (4.5-11.0) X10^3/uL RBC 4.03 L 4.06 L (4.5-5.9) X10^6/uL Hgb 12.6 L 12.4 L (13.5-17.5) g/dL Hct 36.4 L 36.8 L (41-53) % MCV 90.4 90.7 (80-100) fL MCH 31.3 30.6 (26-34) PG MCHC 34.6 33.8 (30-36) % RDW 14.0 13.7 (11.6-14.8) % Plt Count 185 192 (150-400) X10^3/uL Neut % (Auto) 77.1 H 72.3 (50-75) % Lymph % (Auto) 10.1 L 12.1 L (25-40) % Crook % (Auto) 12.1 12.7 (3-14) % Eos % (Auto) 0.5 L 2.4 (2-4) % Baso % (Auto) 0.2 0.5 (0-2) % Neut # (Auto) 6500 5100 (9357-3765) /uL Lymph # (Auto) 900 L 900 L (2627-6452) /uL Crook # (Auto) 1000 H 900 (0-900) /uL Eos # (Auto) 0 200 (0-450) /uL Baso # (Auto) 0 0 (0-100) /uL PT (10.1-12.7) SECONDS INR (0.9-1.3) Sodium 137 (137-145) mmol/L Potassium 3.6 (3.4-5.1) mmol/L Chloride 102 (98-107) mmol/L Carbon Dioxide 24 (22-32) mmol/L BUN 14 (9-20) mg/dL Creatinine 0.81 (0.66-1.25) mg/dL Estimated GFR > 60 (>60) mL/min BUN/Creatinine Ratio 17.3 (6-22) Glucose 96 (80-110) mg/dL Lactate (0.7-2.1) mmol/L Calcium 8.7 (8.4-10.2) mg/dL Total Bilirubin 4.5 H (0.2-1.3) mg/dL AST 134 H (17-59) IU/L ALT 372 H (<50) IU/L Alkaline Phosphatase 276 H (38-126) U/L Total Creatine Kinase (55-170) U/L CK-MB (CK-2) CK-MB (CK-2) Rel Index Troponin I (0.01-0.034) ng/mL NT-Pro-B Natriuret Pep (<450) pg/mL Total Protein 6.7 (6.3-8.2) g/dL Albumin 3.6 (3.5-5.0) g/dL Globulin 3.1 (1.7-4.1) g/dL Albumin/Globulin Ratio 1.2 (1.0-2.8) Lipase 37 (23-300) U/L SARS-CoV-2 (PCR) (Negative) Influenza A (RT-PCR) (NEGATIVE) Influenza B (RT-PCR) (NEGATIVE) RSV (PCR) (Negative) 06/12/22 06/12/22 06/12/22 Range/Units 06:53 16:10 16:10 WBC 9.4 (4.5-11.0) X10^3/uL RBC 4.22 L (4.5-5.9) X10^6/uL Hgb 13.0 L (13.5-17.5) g/dL Hct 38.5 L (41-53) % MCV 91.2 (80-100) fL MCH 30.9 (26-34) PG MCHC 33.8 (30-36) % RDW 13.9 (11.6-14.8) % Plt Count 198 (150-400) X10^3/uL Neut % (Auto) 77.8 H (50-75) % Lymph % (Auto) 8.3 L (25-40) % Crook % (Auto) 12.0 (3-14) % Eos % (Auto) 1.6 L (2-4) % Baso % (Auto) 0.3 (0-2) % Neut # (Auto) 7300 H (1825-0822) /uL Lymph # (Auto) 800 L (9030-7216) /uL Crook # (Auto) 1100 H (0-900) /uL Eos # (Auto) 200 (0-450) /uL Baso # (Auto) 0 (0-100) /uL PT (10.1-12.7) SECONDS INR (0.9-1.3) Sodium 141 139 (137-145) mmol/L Potassium 3.5 3.4 (3.4-5.1) mmol/L Chloride 106 107 (98-107) mmol/L Carbon Dioxide 22 23 (22-32) mmol/L BUN 15 14 (9-20) mg/dL Creatinine 0.70 0.64 L (0.66-1.25) mg/dL Estimated GFR > 60 > 60 (>60) mL/min BUN/Creatinine Ratio 21.4 21.9 (6-22) Glucose 80 95 (80-110) mg/dL Lactate (0.7-2.1) mmol/L Calcium 8.2 L 8.5 (8.4-10.2) mg/dL Total Bilirubin 2.4 H 3.7 H (0.2-1.3) mg/dL AST 66 H 90 H (17-59) IU/L ALT 261 H 260 H (<50) IU/L Alkaline Phosphatase 280 H 346 H (38-126) U/L Total Creatine Kinase 83 (55-170) U/L CK-MB (CK-2) TNP CK-MB (CK-2) Rel Index TNP Troponin I < 0.012 (0.01-0.034) ng/mL NT-Pro-B Natriuret Pep (<450) pg/mL Total Protein 6.4 6.7 (6.3-8.2) g/dL Albumin 3.3 L 3.5 (3.5-5.0) g/dL Globulin 3.1 3.2 (1.7-4.1) g/dL Albumin/Globulin Ratio 1.1 1.1 (1.0-2.8) Lipase 33 (23-300) U/L SARS-CoV-2 (PCR) (Negative) Influenza A (RT-PCR) (NEGATIVE) Influenza B (RT-PCR) (NEGATIVE) RSV (PCR) (Negative) 06/12/22 06/12/22 06/13/22 Range/Units 16:10 16:10 08:45 WBC 6.2 (4.5-11.0) X10^3/uL RBC 3.87 L (4.5-5.9) X10^6/uL Hgb 12.0 L (13.5-17.5) g/dL Hct 35.1 L (41-53) % MCV 90.7 (80-100) fL MCH 30.9 (26-34) PG MCHC 34.1 (30-36) % RDW 14.2 (11.6-14.8) % Plt Count 203 (150-400) X10^3/uL Neut % (Auto) 69.0 (50-75) % Lymph % (Auto) 14.6 L (25-40) % Crook % (Auto) 13.5 (3-14) % Eos % (Auto) 2.2 (2-4) % Baso % (Auto) 0.7 (0-2) % Neut # (Auto) 4300 (3981-3635) /uL Lymph # (Auto) 900 L (3219-3388) /uL Crook # (Auto) 800 (0-900) /uL Eos # (Auto) 100 (0-450) /uL Baso # (Auto) 0 (0-100) /uL PT (10.1-12.7) SECONDS INR (0.9-1.3) Sodium (137-145) mmol/L Potassium (3.4-5.1) mmol/L Chloride (98-107) mmol/L Carbon Dioxide (22-32) mmol/L BUN (9-20) mg/dL Creatinine (0.66-1.25) mg/dL Estimated GFR (>60) mL/min BUN/Creatinine Ratio (6-22) Glucose (80-110) mg/dL Lactate 0.9 (0.7-2.1) mmol/L Calcium (8.4-10.2) mg/dL Total Bilirubin (0.2-1.3) mg/dL AST (17-59) IU/L ALT (<50) IU/L Alkaline Phosphatase (38-126) U/L Total Creatine Kinase (55-170) U/L CK-MB (CK-2) CK-MB (CK-2) Rel Index Troponin I (0.01-0.034) ng/mL NT-Pro-B Natriuret Pep (<450) pg/mL Total Protein (6.3-8.2) g/dL Albumin (3.5-5.0) g/dL Globulin (1.7-4.1) g/dL Albumin/Globulin Ratio (1.0-2.8) Lipase 96 D (23-300) U/L SARS-CoV-2 (PCR) (Negative) Influenza A (RT-PCR) (NEGATIVE) Influenza B (RT-PCR) (NEGATIVE) RSV (PCR) (Negative) 06/13/22 Range/Units 08:45 WBC (4.5-11.0) X10^3/uL RBC (4.5-5.9) X10^6/uL Hgb (13.5-17.5) g/dL Hct (41-53) % MCV (80-100) fL MCH (26-34) PG MCHC (30-36) % RDW (11.6-14.8) % Plt Count (150-400) X10^3/uL Neut % (Auto) (50-75) % Lymph % (Auto) (25-40) % Crook % (Auto) (3-14) % Eos % (Auto) (2-4) % Baso % (Auto) (0-2) % Neut # (Auto) (0749-1108) /uL Lymph # (Auto) (9818-0996) /uL Crook # (Auto) (0-900) /uL Eos # (Auto) (0-450) /uL Baso # (Auto) (0-100) /uL PT (10.1-12.7) SECONDS INR (0.9-1.3) Sodium 138 (137-145) mmol/L Potassium 3.2 L (3.4-5.1) mmol/L Chloride 104 (98-107) mmol/L Carbon Dioxide 23 (22-32) mmol/L BUN 12 (9-20) mg/dL Creatinine 0.64 L (0.66-1.25) mg/dL Estimated GFR > 60 (>60) mL/min BUN/Creatinine Ratio 18.8 (6-22) Glucose 87 (80-110) mg/dL Lactate (0.7-2.1) mmol/L Calcium 8.2 L (8.4-10.2) mg/dL Total Bilirubin 4.6 H (0.2-1.3) mg/dL AST 113 H (17-59) IU/L ALT 230 H (<50) IU/L Alkaline Phosphatase 385 H (38-126) U/L Total Creatine Kinase (55-170) U/L CK-MB (CK-2) CK-MB (CK-2) Rel Index Troponin I (0.01-0.034) ng/mL NT-Pro-B Natriuret Pep (<450) pg/mL Total Protein 6.0 L (6.3-8.2) g/dL Albumin 3.0 L (3.5-5.0) g/dL Globulin 3.0 (1.7-4.1) g/dL Albumin/Globulin Ratio 1.0 (1.0-2.8) Lipase 40 D (23-300) U/L SARS-CoV-2 (PCR) (Negative) Influenza A (RT-PCR) (NEGATIVE) Influenza B (RT-PCR) (NEGATIVE) RSV (PCR) (Negative) Point of Care Testing Glucose POC 90 Urine Dip Bedside Urine Glucose Negative Bedside Urine Bilirubin - Negative Bedside Urine Ketone - Negative Urine Specific [place] 1.015 Bedside Urine Occult Blood - Negative Bedside Urine pH 6.0 Bedside Urine Protein - Negative Bedside Urine Urobilinogen 2+ 4mg Bedside Urine Nitrite - Negative Bedside Urine Leukocytes - Negative Esterase Point of care testing: Point of Care Testing Glucose POC 90 Urine Dip Bedside Urine Glucose Negative Bedside Urine Bilirubin - Negative Bedside Urine Ketone - Negative Urine Specific [place] 1.015 Bedside Urine Occult Blood - Negative Bedside Urine pH 6.0 Bedside Urine Protein - Negative Bedside Urine Urobilinogen 2+ 4mg Bedside Urine Nitrite - Negative Bedside Urine Leukocytes - Negative Esterase Imaging Data Chest x-ray: Radiologist's Impression: [address] [address] XRay Report Signed Patient: Jasmeet Inman MR#: [id number] : 1945 Acct:[id number] Age/Sex: 77 / M Date of Service: 06/10/22 Loc: ED Accession Number: [id number] ?? Procedure: XR chest 1V Ordering Provider: Stephani Montgomery D.O. PROCEDURE:? XR CHEST 1V ? INDICATIONS:? Shortness of breath ? TECHNIQUE:? One view of the chest was acquired.? ? COMPARISON:? [facility], CR, XR CHEST 1V, 06/27/2020, 15:12. ? FINDINGS:? ? Surgical changes and devices:? None.? ? Lungs and pleura:? Lungs are clear.? No pleural effusions or pneumothorax.? ? Mediastinum:? Mediastinal contours appear normal.? Heart size is normal.? ? Bones and chest wall:? No suspicious bony lesions.? Overlying soft tissues appear unremarkable.? ? IMPRESSION:? No acute cardiopulmonary findings. ? ? Dictated by: Suzanna Alcantara M.D. on 06/10/2022 at 15:30 ? ? Approved by: Suzanna Alcantara M.D. on 06/10/2022 at 15:31?? US - abdomen: Radiologist's Impression: [place] [address] Ultrasound Report Signed Patient: Jasmeet Inman MR#: [id number] : 1945 Acct:[id number] Age/Sex: 77 / M Date of Service: 06/10/22 Loc: ED Accession Number: [id number] ?? Procedure: US abdomen limited Ordering Provider: Stephani Montgomery D.O. PROCEDURE: US ABDOMEN LIMITED ? INDICATIONS:? ELEVATED BILIRUBIN ? TECHNIQUE:? Real-time focused scanning was performed of the abdomen, with image documentation.? ? COMPARISON:? None. ? FINDINGS:? Examination is limited by body habitus.? Liver is grossly unremarkable.? Multiple calculi within the gallbladder lumen.? No gallbladder wall thickening.? Gallbladder is distended measuring 13.8 cm. Pancreas is not well seen.? Biliary tree is not well seen. ? IMPRESSION:? 1. Cholelithiasis. 2. Marked gallbladder distension.? No evidence of gallbladder wall thickening to indicate cholecystitis.? ? ? Dictated by: Abelardo Raymond M.D. on 06/10/2022 at 18:04 ? ? Approved by: Abelardo Raymond M.D. on 06/10/2022 at 18:05?? MDM Narrative Medical decision making narrative: Antibiotics were ordered upon my assumption of care which was several hours after the patient had checked into the emergency department. Was febrile. Was not tachycardic. Does not have a leukocytosis. Lactate negative. Sudden onset of chills this have some concern about bacteremia. No signs of pneumonia. No signs of urinary tract infection. He is no abdominal pain. No skin changes concerning for shingles. Low suspicion for central nervous system infection given his presentation is he is no meningeal signs. He does have an elevation in his LFTs and also elevation in his bilirubin. He is no right upper quadrant tenderness. Right upper quadrant ultrasound does have concern for gallbladder pathology. I did discuss the case with Dr. Zamarripa on-call for General surgery. Given his elevated bilirubin there is concern about CBD stone. She recommended MRCP which we are unable to get at this time of day/night. He was given antibiotics. Blood cultures were obtained. Will stay in the emergency department overnight and obtain an MRCP in the morning and then disposition following. Care turned over to Dr. Berkowitz to follow-up with MRCP and disposition. 06/11/22 Woo: Patient signed out to myself by Dr. Barry, seen and apparently evaluated by myself. Patient has history of asthma, BPPV, chronic back pain, hypertension, prior gastric ulcer and dyslipidemia with prior gastric bypass, appendectomy and cataract removal, no tobacco, alcohol or illicit. 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 Patient was scheduled to have MRCP this morning was obtained he does have elevation in bilirubin, AST ALT and alk-phos febrile last night and is receiving IV antibiotics in the form of Rocephin and Flagyl MRCP does show a distal common bile duct stone, stone is relatively small and does not show any biliary ductal dilation, gallbladder is distended contains multiple stones which were free layering no thickening of the wall, spleen, kidneys are normal with no other changes besides a focal wedge- shaped infiltrate in the right lung at the level of the right main pulmonary artery, no pancreatic mass appreciated. Patient labs were repeated today white count is 8.4, hemoglobin is 12, leftward shift no bandemia. Patient's CMP shows persistently elevated bilirubin and LFTs, renal function normal normal electrolytes, lipase is negative. Patient is influenza, covid and RSV negative. General surgery had been consulted and asked for callback with results. They do recommend transfer for ERCP patient does not have white count but very suspicious for ascending cholangitis, continuing antibiotics if patient becomes unstable these recontact our general surgery service for possible open common bile duct exploration. Patient states he feels little short of breath he states it is not any worse than his typical asthma flares. He is on Advair daily, was noted to have a little bit of focal infiltrate on his imaging as well but less likely the source of his infection today with his sudden change in LFTs. On exa m, lungs are clear no tachycardia, some mild tachypnea but patient speaks easily and states his breathing is not any worse than his normal. Abdominal exam patient is nontender, currently afebrile. Not hypotensive in the room, heart rate is in the 40s. 0916 Dr. Vasquez, general surgery recommends transfer for ERCP. If patient becomes acutely unstable and unable to transfer please call back as they could potentially take for open common bile duct exploration although this is not something that is commonly done these days. Patient today has been stable. Patient signed out to Dr. Barry. Dr barry: 06/11-06/12 assumed care. Reviewed patient's events of the day. He continues to be stable. Is continuing to receive antibiotics. MRCP does show common bile duct stone. General surgery recommends transfer for ERCP. Patient is aware this. Care turned over to Dr. Andrade to continue to observe until disposition. [0700] (Raymond) Patient received in sign out from [Jhonny]. I have reviewed the clinical course and performed an independent history and physical exam. Patient currently resting relatively comfortably, he understands diagnosis and plan, no current questions or requests Dr barry: overnight 06/12-06/13 received sign-out from Dr. Andrade. Assumed care of patient. Reviewed patient's daily events. He continues to be stable. We are still waiting for transfer for ERCP. Still receiving antibiotics. Morning labs ordered. SCD devices ordered. Care turned over to Dr. Montgomery to continue to observe until disposition can be made. <Shelli Berkowitz, DO - Last Filed: 06/15/22 00:09> Lab Data Labs: Lab Results 06/10/22 06/10/22 06/10/22 Range/Units 13:55 14:45 14:45 WBC 7.8 (4.5-11.0) X10^3/uL RBC 4.54 (4.5-5.9) X10^6/uL Hgb 13.9 (13.5-17.5) g/dL Hct 41.4 (41-53) % MCV 91.1 (80-100) fL MCH 30.5 (26-34) PG MCHC 33.5 (30-36) % RDW 13.9 (11.6-14.8) % Plt Count 190 (150-400) X10^3/uL Neut % (Auto) 83.6 H (50-75) % Lymph % (Auto) 6.3 L (25-40) % Crook % (Auto) 9.1 (3-14) % Eos % (Auto) 0.6 L (2-4) % Baso % (Auto) 0.4 (0-2) % Neut # (Auto) 6500 (1636-2212) /uL Lymph # (Auto) 500 L (1220-6845) /uL Crook # (Auto) 700 (0-900) /uL Eos # (Auto) 100 (0-450) /uL Baso # (Auto) 0 (0-100) /uL PT 13.8 H (10.1-12.7) SECONDS INR 1.2 (0.9-1.3) Sodium (137-145) mmol/L Potassium (3.4-5.1) mmol/L Chloride (98-107) mmol/L Carbon Dioxide (22-32) mmol/L BUN (9-20) mg/dL Creatinine (0.66-1.25) mg/dL Estimated GFR (>60) mL/min BUN/Creatinine Ratio (6-22) Glucose (80-110) mg/dL Lactate (0.7-2.1) mmol/L Calcium (8.4-10.2) mg/dL Total Bilirubin (0.2-1.3) mg/dL AST (17-59) IU/L ALT (<50) IU/L Alkaline Phosphatase (38-126) U/L Total Creatine Kinase (55-170) U/L CK-MB (CK-2) CK-MB (CK-2) Rel Index Troponin I (0.01-0.034) ng/mL NT-Pro-B Natriuret Pep (<450) pg/mL Total Protein (6.3-8.2) g/dL Albumin (3.5-5.0) g/dL Globulin (1.7-4.1) g/dL Albumin/Globulin Ratio (1.0-2.8) Lipase (23-300) U/L SARS-CoV-2 (PCR) Negative (Negative) Influenza A (RT-PCR) Flu a negative (NEGATIVE) Influenza B (RT-PCR) Flu b negative (NEGATIVE) RSV (PCR) Negative (Negative) 06/10/22 06/10/22 06/10/22 Range/Units 14:45 14:45 14:45 WBC (4.5-11.0) X10^3/uL RBC (4.5-5.9) X10^6/uL Hgb (13.5-17.5) g/dL Hct (41-53) % MCV (80-100) fL MCH (26-34) PG MCHC (30-36) % RDW (11.6-14.8) % Plt Count (150-400) X10^3/uL Neut % (Auto) (50-75) % Lymph % (Auto) (25-40) % Crook % (Auto) (3-14) % Eos % (Auto) (2-4) % Baso % (Auto) (0-2) % Neut # (Auto) (8446-3913) /uL Lymph # (Auto) (3469-7266) /uL Crook # (Auto) (0-900) /uL Eos # (Auto) (0-450) /uL Baso # (Auto) (0-100) /uL PT (10.1-12.7) SECONDS INR (0.9-1.3) Sodium 137 (137-145) mmol/L Potassium 4.1 (3.4-5.1) mmol/L Chloride 100 (98-107) mmol/L Carbon Dioxide 25 (22-32) mmol/L BUN 17 (9-20) mg/dL Creatinine 0.77 (0.66-1.25) mg/dL Estimated GFR > 60 (>60) mL/min BUN/Creatinine Ratio 22.1 H (6-22) Glucose 129 H (80-110) mg/dL Lactate 1.7 (0.7-2.1) mmol/L Calcium 9.2 (8.4-10.2) mg/dL Total Bilirubin 4.3 H (0.2-1.3) mg/dL AST 284 H (17-59) IU/L ALT 530 H (<50) IU/L Alkaline Phosphatase 323 H (38-126) U/L Total Creatine Kinase (55-170) U/L CK-MB (CK-2) CK-MB (CK-2) Rel Index Troponin I < 0.012 (0.01-0.034) ng/mL NT-Pro-B Natriuret Pep 154 (<450) pg/mL Total Protein 7.4 (6.3-8.2) g/dL Albumin 4.1 (3.5-5.0) g/dL Globulin 3.3 (1.7-4.1) g/dL Albumin/Globulin Ratio 1.2 (1.0-2.8) Lipase 60 (23-300) U/L SARS-CoV-2 (PCR) (Negative) Influenza A (RT-PCR) (NEGATIVE) Influenza B (RT-PCR) (NEGATIVE) RSV (PCR) (Negative) 06/11/22 06/11/22 06/12/22 Range/Units 06:25 06:25 06:53 WBC 8.4 7.0 (4.5-11.0) X10^3/uL RBC 4.03 L 4.06 L (4.5-5.9) X10^6/uL Hgb 12.6 L 12.4 L (13.5-17.5) g/dL Hct 36.4 L 36.8 L (41-53) % MCV 90.4 90.7 (80-100) fL MCH 31.3 30.6 (26-34) PG MCHC 34.6 33.8 (30-36) % RDW 14.0 13.7 (11.6-14.8) % Plt Count 185 192 (150-400) X10^3/uL Neut % (Auto) 77.1 H 72.3 (50-75) % Lymph % (Auto) 10.1 L 12.1 L (25-40) % Crook % (Auto) 12.1 12.7 (3-14) % Eos % (Auto) 0.5 L 2.4 (2-4) % Baso % (Auto) 0.2 0.5 (0-2) % Neut # (Auto) 6500 5100 (4342-0174) /uL Lymph # (Auto) 900 L 900 L (9152-3102) /uL Crook # (Auto) 1000 H 900 (0-900) /uL Eos # (Auto) 0 200 (0-450) /uL Baso # (Auto) 0 0 (0-100) /uL PT (10.1-12.7) SECONDS INR (0.9-1.3) Sodium 137 (137-145) mmol/L Potassium 3.6 (3.4-5.1) mmol/L Chloride 102 (98-107) mmol/L Carbon Dioxide 24 (22-32) mmol/L BUN 14 (9-20) mg/dL Creatinine 0.81 (0.66-1.25) mg/dL Estimated GFR > 60 (>60) mL/min BUN/Creatinine Ratio 17.3 (6-22) Glucose 96 (80-110) mg/dL Lactate (0.7-2.1) mmol/L Calcium 8.7 (8.4-10.2) mg/dL Total Bilirubin 4.5 H (0.2-1.3) mg/dL AST 134 H (17-59) IU/L ALT 372 H (<50) IU/L Alkaline Phosphatase 276 H (38-126) U/L Total Creatine Kinase (55-170) U/L CK-MB (CK-2) CK-MB (CK-2) Rel Index Troponin I (0.01-0.034) ng/mL NT-Pro-B Natriuret Pep (<450) pg/mL Total Protein 6.7 (6.3-8.2) g/dL Albumin 3.6 (3.5-5.0) g/dL Globulin 3.1 (1.7-4.1) g/dL Albumin/Globulin Ratio 1.2 (1.0-2.8) Lipase 37 (23-300) U/L SARS-CoV-2 (PCR) (Negative) Influenza A (RT-PCR) (NEGATIVE) Influenza B (RT-PCR) (NEGATIVE) RSV (PCR) (Negative) 06/12/22 06/12/22 06/12/22 Range/Units 06:53 16:10 16:10 WBC 9.4 (4.5-11.0) X10^3/uL RBC 4.22 L (4.5-5.9) X10^6/uL Hgb 13.0 L (13.5-17.5) g/dL Hct 38.5 L (41-53) % MCV 91.2 (80-100) fL MCH 30.9 (26-34) PG MCHC 33.8 (30-36) % RDW 13.9 (11.6-14.8) % Plt Count 198 (150-400) X10^3/uL Neut % (Auto) 77.8 H (50-75) % Lymph % (Auto) 8.3 L (25-40) % Crook % (Auto) 12.0 (3-14) % Eos % (Auto) 1.6 L (2-4) % Baso % (Auto) 0.3 (0-2) % Neut # (Auto) 7300 H (1572-5786) /uL Lymph # (Auto) 800 L (5002-7231) /uL Crook # (Auto) 1100 H (0-900) /uL Eos # (Auto) 200 (0-450) /uL Baso # (Auto) 0 (0-100) /uL PT (10.1-12.7) SECONDS INR (0.9-1.3) Sodium 141 139 (137-145) mmol/L Potassium 3.5 3.4 (3.4-5.1) mmol/L Chloride 106 107 (98-107) mmol/L Carbon Dioxide 22 23 (22-32) mmol/L BUN 15 14 (9-20) mg/dL Creatinine 0.70 0.64 L (0.66-1.25) mg/dL Estimated GFR > 60 > 60 (>60) mL/min BUN/Creatinine Ratio 21.4 21.9 (6-22) Glucose 80 95 (80-110) mg/dL Lactate (0.7-2.1) mmol/L Calcium 8.2 L 8.5 (8.4-10.2) mg/dL Total Bilirubin 2.4 H 3.7 H (0.2-1.3) mg/dL AST 66 H 90 H (17-59) IU/L ALT 261 H 260 H (<50) IU/L Alkaline Phosphatase 280 H 346 H (38-126) U/L Total Creatine Kinase 83 (55-170) U/L CK-MB (CK-2) TNP CK-MB (CK-2) Rel Index TNP Troponin I < 0.012 (0.01-0.034) ng/mL NT-Pro-B Natriuret Pep (<450) pg/mL Total Protein 6.4 6.7 (6.3-8.2) g/dL Albumin 3.3 L 3.5 (3.5-5.0) g/dL Globulin 3.1 3.2 (1.7-4.1) g/dL Albumin/Globulin Ratio 1.1 1.1 (1.0-2.8) Lipase 33 (23-300) U/L SARS-CoV-2 (PCR) (Negative) Influenza A (RT-PCR) (NEGATIVE) Influenza B (RT-PCR) (NEGATIVE) RSV (PCR) (Negative) 06/12/22 06/12/22 06/13/22 Range/Units 16:10 16:10 08:45 WBC 6.2 (4.5-11.0) X10^3/uL RBC 3.87 L (4.5-5.9) X10^6/uL Hgb 12.0 L (13.5-17.5) g/dL Hct 35.1 L (41-53) % MCV 90.7 (80-100) fL MCH 30.9 (26-34) PG MCHC 34.1 (30-36) % RDW 14.2 (11.6-14.8) % Plt Count 203 (150-400) X10^3/uL Neut % (Auto) 69.0 (50-75) % Lymph % (Auto) 14.6 L (25-40) % Crook % (Auto) 13.5 (3-14) % Eos % (Auto) 2.2 (2-4) % Baso % (Auto) 0.7 (0-2) % Neut # (Auto) 4300 (6631-7665) /uL Lymph # (Auto) 900 L (5225-5060) /uL Crook # (Auto) 800 (0-900) /uL Eos # (Auto) 100 (0-450) /uL Baso # (Auto) 0 (0-100) /uL PT (10.1-12.7) SECONDS INR (0.9-1.3) Sodium (137-145) mmol/L Potassium (3.4-5.1) mmol/L Chloride (98-107) mmol/L Carbon Dioxide (22-32) mmol/L BUN (9-20) mg/dL Creatinine (0.66-1.25) mg/dL Estimated GFR (>60) mL/min BUN/Creatinine Ratio (6-22) Glucose (80-110) mg/dL Lactate 0.9 (0.7-2.1) mmol/L Calcium (8.4-10.2) mg/dL Total Bilirubin (0.2-1.3) mg/dL AST (17-59) IU/L ALT (<50) IU/L Alkaline Phosphatase (38-126) U/L Total Creatine Kinase (55-170) U/L CK-MB (CK-2) CK-MB (CK-2) Rel Index Troponin I (0.01-0.034) ng/mL NT-Pro-B Natriuret Pep (<450) pg/mL Total Protein (6.3-8.2) g/dL Albumin (3.5-5.0) g/dL Globulin (1.7-4.1) g/dL Albumin/Globulin Ratio (1.0-2.8) Lipase 96 D (23-300) U/L SARS-CoV-2 (PCR) (Negative) Influenza A (RT-PCR) (NEGATIVE) Influenza B (RT-PCR) (NEGATIVE) RSV (PCR) (Negative) 06/13/22 Range/Units 08:45 WBC (4.5-11.0) X10^3/uL RBC (4.5-5.9) X10^6/uL Hgb (13.5-17.5) g/dL Hct (41-53) % MCV (80-100) fL MCH (26-34) PG MCHC (30-36) % RDW (11.6-14.8) % Plt Count (150-400) X10^3/uL Neut % (Auto) (50-75) % Lymph % (Auto) (25-40) % Crook % (Auto) (3-14) % Eos % (Auto) (2-4) % Baso % (Auto) (0-2) % Neut # (Auto) (1186-2429) /uL Lymph # (Auto) (1011-7162) /uL Crook # (Auto) (0-900) /uL Eos # (Auto) (0-450) /uL Baso # (Auto) (0-100) /uL PT (10.1-12.7) SECONDS INR (0.9-1.3) Sodium 138 (137-145) mmol/L Potassium 3.2 L (3.4-5.1) mmol/L Chloride 104 (98-107) mmol/L Carbon Dioxide 23 (22-32) mmol/L BUN 12 (9-20) mg/dL Creatinine 0.64 L (0.66-1.25) mg/dL Estimated GFR > 60 (>60) mL/min BUN/Creatinine Ratio 18.8 (6-22) Glucose 87 (80-110) mg/dL Lactate (0.7-2.1) mmol/L Calcium 8.2 L (8.4-10.2) mg/dL Total Bilirubin 4.6 H (0.2-1.3) mg/dL AST 113 H (17-59) IU/L ALT 230 H (<50) IU/L Alkaline Phosphatase 385 H (38-126) U/L Total Creatine Kinase (55-170) U/L CK-MB (CK-2) CK-MB (CK-2) Rel Index Troponin I (0.01-0.034) ng/mL NT-Pro-B Natriuret Pep (<450) pg/mL Total Protein 6.0 L (6.3-8.2) g/dL Albumin 3.0 L (3.5-5.0) g/dL Globulin 3.0 (1.7-4.1) g/dL Albumin/Globulin Ratio 1.0 (1.0-2.8) Lipase 40 D (23-300) U/L SARS-CoV-2 (PCR) (Negative) Influenza A (RT-PCR) (NEGATIVE) Influenza B (RT-PCR) (NEGATIVE) RSV (PCR) (Negative) Point of Care Testing Glucose POC 90 Urine Dip Bedside Urine Glucose Negative Bedside Urine Bilirubin - Negative Bedside Urine Ketone - Negative Urine Specific [place] 1.015 Bedside Urine Occult Blood - Negative Bedside Urine pH 6.0 Bedside Urine Protein - Negative Bedside Urine Urobilinogen 2+ 4mg Bedside Urine Nitrite - Negative Bedside Urine Leukocytes - Negative Esterase Point of care testing: Point of Care Testing Glucose POC 90 Urine Dip Bedside Urine Glucose Negative Bedside Urine Bilirubin - Negative Bedside Urine Ketone - Negative Urine Specific [place] 1.015 Bedside Urine Occult Blood - Negative Bedside Urine pH 6.0 Bedside Urine Protein - Negative Bedside Urine Urobilinogen 2+ 4mg Bedside Urine Nitrite - Negative Bedside Urine Leukocytes - Negative Esterase Imaging Data MRCP: Radiologist's Impression: Close Abdomen MRI (Signed) Riaz Kaur - 06/10/22 Abdomen Ultrasound (Signed) Abelardo Raymond - 06/10/22 Chest X-Ray (Signed) Suzanna Alcantara - 06/10/22 Knee MRI (Signed) Jeannette Alvarenga - 08/09/21 Knee X-Ray (Signed) Abelardo Raymond - 07/07/21 Brain MRI (Signed) Hugh Palmer - 11/25/20 Carotid Doppler Study (Signed) Bernard Okeefe - 11/19/20 Chest X-Ray (Signed) Sandy Boswell - 06/27/[address] (Signed) Pravin Chan - 06/01/19 Shoulder X-Ray (Signed) Sandy Boswell - 03/08/18 Shoulder X-Ray (Signed) Sandy Boswell - 03/08/18 Launch?[place] [id number] Magnetic Resonance Report Signed Patient: Jasmeet Inman MR#: [id number] : 1945 Acct:[id number] Age/Sex: 77 / M Date of Service: 06/10/22 Loc: ED Accession Number: [id number] ?? Procedure: MR abdomen wo/w con Ordering Provider: Ricardo Barry D.O. PROCEDURE:? MR ABDOMEN WO/W CON ? INDICATIONS:? eval for CBD stone ? TECHNIQUE:? Coronal HASTE, axial 2D FLASH in- and [id number]; axial breath-hold T2 FSE with fat saturation from the hepatic dome to the iliac crests.? Oblique coronal thin- slice and radial thick slab HASTE through the biliary system.? Dynamic axial VIBE during administration of contrast.? Post-contrast coronal VIBE or 2D FLASH with fat saturation from the hepatic dome to the iliac crests.? Optional diffusion weighted imaging and ADC may be performed.? ? COMPARISON:? [facility], , US ABDOMEN LIMITED, 06/10/2022, 17:19. ? FINDINGS:? Image quality:? Excellent.? ? Pancreas and biliary system:? No pancreatic masses.? There is a distal common duct stone present.? This stone is rather small, and does not resultant biliary ductal dilatation. ? Solid organs:? Liver is normal in size and enhancement.? Gallbladder is distended.? It contains multiple stones which are freely layering.? No gallbladder wall thickening.? Spleen is normal in size and enhancement.? No adrenal nodules.? Kidneys are normal in size and enhancement, without hydronephrosis.? ? Nodes and vessels:? No retroperitoneal or mesenteric adenopathy by size criteria.? Aorta and inferior vena cava are normal in size.? ? Bowel and peritoneum:? Unenhanced bowel loops are normal in caliber throughout.? No free fluid.? ? Lung bases:? No basal pleural effusions.? There is a focal wedge-shaped infiltrate present in the right lung at the level of the right main pulmonary artery.? Heart size is normal.? ? Bones and soft tissues:? No ventral hernias.? Bone marrow is normal in overall signal.? ? ? IMPRESSION:? ? 1. There is a distal common duct stone which does not result in biliary ductal dilatation. ? 2. Distended gallbladder with stones.? No gallbladder wall thickening or fluid around the gallbladder. ? 3. Focal small infiltrate, right lung. ? 4. No pancreatic mass.? Dictated by: Riaz Kaur M.D. on 06/11/2022 at 8:37 ? ? Approved by: Riaz Kaur M.D. on 06/11/2022 at 8:44?? [facility] Narrative Medical decision making narrative: Antibiotics were ordered upon my assumption of care which was several hours after the patient had checked into the emergency department. Was febrile. Was not tachycardic. Does not have a leukocytosis. Lactate negative. Sudden onset of chills this have some concern about bacteremia. No signs of pneumonia. No signs of urinary tract infection. He is no abdominal pain. No skin changes concerning for shingles. Low suspicion for central nervous system infection given his presentation is he is no meningeal signs. He does have an elevation in his LFTs and also elevation in his bilirubin. He is no right upper quadrant tenderness. Right upper quadrant ultrasound does have concern for gallbladder pathology. I did discuss the case with Dr. Zamarripa on-call for General surgery. Given his elevated bilirubin there is concern about CBD stone. She recommended MRCP which we are unable to get at this time of day/night. He was given antibiotics. Blood cultures were obtained. Will stay in the emergency department overnight and obtain an MRCP in the morning and then disposition following. Care turned over to Dr. Berkowitz to follow-up with MRCP and disposition. 06/11/22 Woo: Patient signed out to myself by Dr. Barry, seen and apparently evaluated by myself. Patient has history of asthma, BPPV, chronic back pain, hypertension, prior gastric ulcer and dyslipidemia with prior gastric bypass, appendectomy and cataract removal, no tobacco, alcohol or illicit. 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 Patient was scheduled to have MRCP this morning was obtained he does have elevation in bilirubin, AST ALT and alk-phos febrile last night and is receiving IV antibiotics in the form of Rocephin and Flagyl MRCP does show a distal common bile duct stone, stone is relatively small and does not show any biliary ductal dilation, gallbladder is distended contains multiple stones which were free layering no thickening of the wall, spleen, kidneys are normal with no other changes besides a focal wedge- shaped infiltrate in the right lung at the level of the right main pulmonary artery, no pancreatic mass appreciated. Patient labs were repeated today white count is 8.4, hemoglobin is 12, leftward shift no bandemia. Patient's CMP shows persistently elevated bilirubin and LFTs, renal function normal normal electro lytes, lipase is negative. Patient is influenza, covid and RSV negative. General surgery had been consulted and asked for callback with results. They do recommend transfer for ERCP patient does not have white count but very suspicious for ascending cholangitis, continuing antibiotics if patient becomes unstable these recontact our general surgery service for possible open common bile duct exploration. Patient states he feels little short of breath he states it is not any worse than his typical asthma flares. He is on Advair daily, was noted to have a little bit of focal infiltrate on his imaging as well but less likely the source of his infection today with his sudden change in LFTs. On exam, lungs are clear no tachycardia, some mild tachypnea but patient speaks easily and states his breathing is not any worse than his normal. Abdominal exam patient is nontender, currently afebrile. Not hypotensive in the room, heart rate is in the 40s. 0916 Dr. Vasquez, general surgery recommends transfer for ERCP. If patient becomes acutely unstable and unable to transfer please call back as they could potentially take for open common bile duct exploration although this is not something that is commonly done these days. Patient today has been stable. Patient signed out to Dr. Barry. Dr barry: 06/11-06/12 assumed care. Reviewed patient's events of the day. He continues to be stable. Is continuing to receive antibiotics. MRCP does show common bile duct stone. General surgery recommends transfer for ERCP. Patient is aware this. Care turned over to Dr. Andrade to continue to observe until disposition. [0700] (Raymond) Patient received in sign out from [Jhonny]. I have reviewed the clinical course and performed an independent history and physical exam. Patient currently resting relatively comfortably, he understands diagnosis and plan, no current questions or requests Dr barry: overnight 06/12-06/13 received sign-out from Dr. Andrade. Assumed care of patient. Reviewed patient's daily events. He continues to be stable. We are still waiting for transfer for ERCP. Still receiving antibiotics. Morning labs ordered. SCD devices ordered. Care turned over to Dr. Montgomery to continue to observe until disposition can be made. 06/13/22 Ulises-patient seen evaluated by myself this morning. Awake alert oriented talking on the phone appears well. He is absolutely no pain. Confirmed common bile duct stone needing transfer for ERCP. Presented with chills only. Blood work today appears stable. Persistently elevated and rising bilirubin 4.6 and elevated AST ALT. He is tolerating clear liquids. He has been getting Rocephin and Flagyl. Dr. Vasquez call to check on patient. At this time he kindly accepts patient, request that patient be kept on all list in case if surgery is unsuccessful. But is happy to try. <Selvin Andrade, DO - Last Filed: 06/16/22 09:15> Lab Data Labs: Lab Results 06/10/22 06/10/22 06/10/22 Range/Units 13:55 14:45 14:45 WBC 7.8 (4.5-11.0) X10^3/uL RBC 4.54 (4.5-5.9) X10^6/uL Hgb 13.9 (13.5-17.5) g/dL Hct 41.4 (41-53) % MCV 91.1 (80-100) fL MCH 30.5 (26-34) PG MCHC 33.5 (30-36) % RDW 13.9 (11.6-14.8) % Plt Count 190 (150-400) X10^3/uL Neut % (Auto) 83.6 H (50-75) % Lymph % (Auto) 6.3 L (25-40) % Crook % (Auto) 9.1 (3-14) % Eos % (Auto) 0.6 L (2-4) % Baso % (Auto) 0.4 (0-2) % Neut # (Auto) 6500 (9084-7467) /uL Lymph # (Auto) 500 L (5410-1612) /uL Crook # (Auto) 700 (0-900) /uL Eos # (Auto) 100 (0-450) /uL Baso # (Auto) 0 (0-100) /uL PT 13.8 H (10.1-12.7) SECONDS INR 1.2 (0.9-1.3) Sodium (137-145) mmol/L Potassium (3.4-5.1) mmol/L Chloride (98-107) mmol/L Carbon Dioxide (22-32) mmol/L BUN (9-20) mg/dL Creatinine (0.66-1.25) mg/dL Estimated GFR (>60) mL/min BUN/Creatinine Ratio (6-22) Glucose (80-110) mg/dL Lactate (0.7-2.1) mmol/L Calcium (8.4-10.2) mg/dL Total Bilirubin (0.2-1.3) mg/dL AST (17-59) IU/L ALT (<50) IU/L Alkaline Phosphatase (38-126) U/L Total Creatine Kinase (55-170) U/L CK-MB (CK-2) CK-MB (CK-2) Rel Index Troponin I (0.01-0.034) ng/mL NT-Pro-B Natriuret Pep (<450) pg/mL Total Protein (6.3-8.2) g/dL Albumin (3.5-5.0) g/dL Globulin (1.7-4.1) g/dL Albumin/Globulin Ratio (1.0-2.8) Lipase (23-300) U/L SARS-CoV-2 (PCR) Negative (Negative) Influenza A (RT-PCR) Flu a negative (NEGATIVE) Influenza B (RT-PCR) Flu b negative (NEGATIVE) RSV (PCR) Negative (Negative) 06/10/22 06/10/22 06/10/22 Range/Units 14:45 14:45 14:45 WBC (4.5-11.0) X10^3/uL RBC (4.5-5.9) X10^6/uL Hgb (13.5-17.5) g/dL Hct (41-53) % MCV (80-100) fL MCH (26-34) PG MCHC (30-36) % RDW (11.6-14.8) % Plt Count (150-400) X10^3/uL Neut % (Auto) (50-75) % Lymph % (Auto) (25-40) % [place] % (Auto) (3-14) % Eos % (Auto) (2-4) % Baso % (Auto) (0-2) % Neut # (Auto) (0014-3807) /uL Lymph # (Auto) (0501-3546) /uL [place] # (Auto) (0-900) /uL Eos # (Auto) (0-450) /uL Baso # (Auto) (0-100) /uL PT (10.1-12.7) SECONDS INR (0.9-1.3) Sodium 137 (137-145) mmol/L Potassium 4.1 (3.4-5.1) mmol/L Chloride 100 (98-107) mmol/L Carbon Dioxide 25 (22-32) mmol/L BUN 17 (9-20) mg/dL Creatinine 0.77 (0.66-1.25) mg/dL Estimated GFR > 60 (>60) mL/min BUN/Creatinine Ratio 22.1 H (6-22) Glucose 129 H (80-110) mg/dL Lactate 1.7 (0.7-2.1) mmol/L Calcium 9.2 (8.4-10.2) mg/dL Total Bilirubin 4.3 H (0.2-1.3) mg/dL AST 284 H (17-59) IU/L ALT 530 H (<50) IU/L Alkaline Phosphatase 323 H (38-126) U/L Total Creatine Kinase (55-170) U/L CK-MB (CK-2) CK-MB (CK-2) Rel Index Troponin I < 0.012 (0.01-0.034) ng/mL NT-Pro-B Natriuret Pep 154 (<450) pg/mL Total Protein 7.4 (6.3-8.2) g/dL Albumin 4.1 (3.5-5.0) g/dL Globulin 3.3 (1.7-4.1) g/dL Albumin/Globulin Ratio 1.2 (1.0-2.8) Lipase 60 (23-300) U/L SARS-CoV-2 (PCR) (Negative) Influenza A (RT-PCR) (NEGATIVE) Influenza B (RT-PCR) (NEGATIVE) RSV (PCR) (Negative) 06/11/22 06/11/22 06/12/22 Range/Units 06:25 06:25 06:53 WBC 8.4 7.0 (4.5-11.0) X10^3/uL RBC 4.03 L 4.06 L (4.5-5.9) X10^6/uL Hgb 12.6 L 12.4 L (13.5-17.5) g/dL Hct 36.4 L 36.8 L (41-53) % MCV 90.4 90.7 (80-100) fL MCH 31.3 30.6 (26-34) PG MCHC 34.6 33.8 (30-36) % RDW 14.0 13.7 (11.6-14.8) % Plt Count 185 192 (150-400) X10^3/uL Neut % (Auto) 77.1 H 72.3 (50-75) % Lymph % (Auto) 10.1 L 12.1 L (25-40) % Crook % (Auto) 12.1 12.7 (3-14) % Eos % (Auto) 0.5 L 2.4 (2-4) % Baso % (Auto) 0.2 0.5 (0-2) % Neut # (Auto) 6500 5100 (9937-0435) /uL Lymph # (Auto) 900 L 900 L (0469-2939) /uL Crook # (Auto) 1000 H 900 (0-900) /uL Eos # (Auto) 0 200 (0-450) /uL Baso # (Auto) 0 0 (0-100) /uL PT (10.1-12.7) SECONDS INR (0.9-1.3) Sodium 137 (137-145) mmol/L Potassium 3.6 (3.4-5.1) mmol/L Chloride 102 (98-107) mmol/L Carbon Dioxide 24 (22-32) mmol/L BUN 14 (9-20) mg/dL Creatinine 0.81 (0.66-1.25) mg/dL Estimated GFR > 60 (>60) mL/min BUN/Creatinine Ratio 17.3 (6-22) Glucose 96 (80-110) mg/dL Lactate (0.7-2.1) mmol/L Calcium 8.7 (8.4-10.2) mg/dL Total Bilirubin 4.5 H (0.2-1.3) mg/dL AST 134 H (17-59) IU/L ALT 372 H (<50) IU/L Alkaline Phosphatase 276 H (38-126) U/L Total Creatine Kinase (55-170) U/L CK-MB (CK-2) CK-MB (CK-2) Rel Index Troponin I (0.01-0.034) ng/mL NT-Pro-B Natriuret Pep (<450) pg/mL Total Protein 6.7 (6.3-8.2) g/dL Albumin 3.6 (3.5-5.0) g/dL Globulin 3.1 (1.7-4.1) g/dL Albumin/Globulin Ratio 1.2 (1.0-2.8) Lipase 37 (23-300) U/L SARS-CoV-2 (PCR) (Negative) Influenza A (RT-PCR) (NEGATIVE) Influenza B (RT-PCR) (NEGATIVE) RSV (PCR) (Negative) 06/12/22 06/12/22 06/12/22 Range/Units 06:53 16:10 16:10 WBC 9.4 (4.5-11.0) X10^3/uL RBC 4.22 L (4.5-5.9) X10^6/uL Hgb 13.0 L (13.5-17.5) g/dL Hct 38.5 L (41-53) % MCV 91.2 (80-100) fL MCH 30.9 (26-34) PG MCHC 33.8 (30-36) % RDW 13.9 (11.6-14.8) % Plt Count 198 (150-400) X10^3/uL Neut % (Auto) 77.8 H (50-75) % Lymph % (Auto) 8.3 L (25-40) % Crook % (Auto) 12.0 (3-14) % Eos % (Auto) 1.6 L (2-4) % Baso % (Auto) 0.3 (0-2) % Neut # (Auto) 7300 H (3699-9841) /uL Lymph # (Auto) 800 L (9656-9039) /uL Crook # (Auto) 1100 H (0-900) /uL Eos # (Auto) 200 (0-450) /uL Baso # (Auto) 0 (0-100) /uL PT (10.1-12.7) SECONDS INR (0.9-1.3) Sodium 141 139 (137-145) mmol/L Potassium 3.5 3.4 (3.4-5.1) mmol/L Chloride 106 107 (98-107) mmol/L Carbon Dioxide 22 23 (22-32) mmol/L BUN 15 14 (9-20) mg/dL Creatinine 0.70 0.64 L (0.66-1.25) mg/dL Estimated GFR > 60 > 60 (>60) mL/min BUN/Creatinine Ratio 21.4 21.9 (6-22) Glucose 80 95 (80-110) mg/dL Lactate (0.7-2.1) mmol/L Calcium 8.2 L 8.5 (8.4-10.2) mg/dL Total Bilirubin 2.4 H 3.7 H (0.2-1.3) mg/dL AST 66 H 90 H (17-59) IU/L ALT 261 H 260 H (<50) IU/L Alkaline Phosphatase 280 H 346 H (38-126) U/L Total Creatine Kinase 83 (55-170) U/L CK-MB (CK-2) TNP CK-MB (CK-2) Rel Index TNP Troponin I < 0.012 (0.01-0.034) ng/mL NT-Pro-B Natriuret Pep (<450) pg/mL Total Protein 6.4 6.7 (6.3-8.2) g/dL Albumin 3.3 L 3.5 (3.5-5.0) g/dL Globulin 3.1 3.2 (1.7-4.1) g/dL Albumin/Globulin Ratio 1.1 1.1 (1.0-2.8) Lipase 33 (23-300) U/L SARS-CoV-2 (PCR) (Negative) Influenza A (RT-PCR) (NEGATIVE) Influenza B (RT-PCR) (NEGATIVE) RSV (PCR) (Negative) 06/12/22 06/12/22 06/13/22 Range/Units 16:10 16:10 08:45 WBC 6.2 (4.5-11.0) X10^3/uL RBC 3.87 L (4.5-5.9) X10^6/uL Hgb 12.0 L (13.5-17.5) g/dL Hct 35.1 L (41-53) % MCV 90.7 (80-100) fL MCH 30.9 (26-34) PG MCHC 34.1 (30-36) % RDW 14.2 (11.6-14.8) % Plt Count 203 (150-400) X10^3/uL Neut % (Auto) 69.0 (50-75) % Lymph % (Auto) 14.6 L (25-40) % Crook % (Auto) 13.5 (3-14) % Eos % (Auto) 2.2 (2-4) % Baso % (Auto) 0.7 (0-2) % Neut # (Auto) 4300 (2156-1384) /uL Lymph # (Auto) 900 L (0929-7757) /uL Cro[place] # (Auto) 800 (0-900) /uL Eos # (Auto) 100 (0-450) /uL Baso # (Auto) 0 (0-100) /uL PT (10.1-12.7) SECONDS INR (0.9-1.3) Sodium (137-145) mmol/L Potassium (3.4-5.1) mmol/L Chloride (98-107) mmol/L Carbon Dioxide (22-32) mmol/L BUN (9-20) mg/dL Creatinine (0.66-1.25) mg/dL Estimated GFR (>60) mL/min BUN/Creatinine Ratio (6-22) Glucose (80-110) mg/dL Lactate 0.9 (0.7-2.1) mmol/L Calcium (8.4-10.2) mg/dL Total Bilirubin (0.2-1.3) mg/dL AST (17-59) IU/L ALT (<50) IU/L Alkaline Phosphatase (38-126) U/L Total Creatine Kinase (55-170) U/L CK-MB (CK-2) CK-MB (CK-2) Rel Index Troponin I (0.01-0.034) ng/mL NT-Pro-B Natriuret Pep (<450) pg/mL Total Protein (6.3-8.2) g/dL Albumin (3.5-5.0) g/dL Globulin (1.7-4.1) g/dL Albumin/Globulin Ratio (1.0-2.8) Lipase 96 D (23-300) U/L SARS-CoV-2 (PCR) (Negative) Influenza A (RT-PCR) (NEGATIVE) Influenza B (RT-PCR) (NEGATIVE) RSV (PCR) (Negative) 06/13/22 Range/Units 08:45 WBC (4.5-11.0) X10^3/uL RBC (4.5-5.9) X10^6/uL Hgb (13.5-17.5) g/dL Hct (41-53) % MCV (80-100) fL MCH (26-34) PG MCHC (30-36) % RDW (11.6-14.8) % Plt Count (150-400) X10^3/uL Neut % (Auto) (50-75) % Lymph % (Auto) (25-40) % Crook % (Auto) (3-14) % Eos % (Auto) (2-4) % Baso % (Auto) (0-2) % Neut # (Auto) (9217-0260) /uL Lymph # (Auto) (7380-4140) /uL Crook # (Auto) (0-900) /uL Eos # (Auto) (0-450) /uL Baso # (Auto) (0-100) /uL PT (10.1-12.7) SECONDS INR (0.9-1.3) Sodium 138 (137-145) mmol/L Potassium 3.2 L (3.4-5.1) mmol/L Chloride 104 (98-107) mmol/L Carbon Dioxide 23 (22-32) mmol/L BUN 12 (9-20) mg/dL Creatinine 0.64 L (0.66-1.25) mg/dL Estimated GFR > 60 (>60) mL/min BUN/Creatinine Ratio 18.8 (6-22) Glucose 87 (80-110) mg/dL Lactate (0.7-2.1) mmol/L Calcium 8.2 L (8.4-10.2) mg/dL Total Bilirubin 4.6 H (0.2-1.3) mg/dL AST 113 H (17-59) IU/L ALT 230 H (<50) IU/L Alkaline Phosphatase 385 H (38-126) U/L Total Creatine Kinase (55-170) U/L CK-MB (CK-2) CK-MB (CK-2) Rel Index Troponin I (0.01-0.034) ng/mL NT-Pro-B Natriuret Pep (<450) pg/mL Total Protein 6.0 L (6.3-8.2) g/dL Albumin 3.0 L (3.5-5.0) g/dL Globulin 3.0 (1.7-4.1) g/dL Albumin/Globulin Ratio 1.0 (1.0-2.8) Lipase 40 D (23-300) U/L SARS-CoV-2 (PCR) (Negative) Influenza A (RT-PCR) (NEGATIVE) Influenza B (RT-PCR) (NEGATIVE) RSV (PCR) (Negative) Point of Care Testing Glucose POC 90 Urine Dip Bedside Urine Glucose Negative Bedside Urine Bilirubin - Negative Bedside Urine Ketone - Negative Urine Specific [place] 1.015 Bedside Urine Occult Blood - Negative Bedside Urine pH 6.0 Bedside Urine Protein - Negative Bedside Urine Urobilinogen 2+ 4mg Bedside Urine Nitrite - Negative Bedside Urine Leukocytes - Negative Esterase Point of care testing: Point of Care Testing Glucose POC 90 Urine Dip Bedside Urine Glucose Negative Bedside Urine Bilirubin - Negative Bedside Urine Ketone - Negative Urine Specific [place] 1.015 Bedside Urine Occult Blood - Negative Bedside Urine pH 6.0 Bedside Urine Protein - Negative Bedside Urine Urobilinogen 2+ 4mg Bedside Urine Nitrite - Negative Bedside Urine Leukocytes - Negative Esterase MDM Narrative Medical decision making narrative: Antibiotics were ordered upon my assumption of care which was several hours after the patient had checked into the emergency department. Was febrile. Was not tachycardic. Does not have a leukocytosis. Lactate negative. Sudden onset of chills this have some concern about bacteremia. No signs of pneumonia. No signs of urinary tract infection. He is no abdominal pain. No skin changes concerning for shingles. Low suspicion for central nervous system infection given his presentation is he is no meningeal signs. He does have an elevation in his LFTs and also elevation in his bilirubin. He is no right upper quadrant tenderness. Right upper quadrant ultrasound does have concern for gallbladder pathology. I did discuss the case with Dr. Zamarripa on-call for General surgery. Given his elevated bilirubin there is concern about CBD stone. She recommended MRCP which we are unable to get at this time of day/night. He was given antibiotics. Blood cultures were obtained. Will stay in the emergency department overnight and obtain an MRCP in the morning and then disposition following. Care turned over to Dr. Berkowitz to follow-up with MRCP and disposition. 06/11/22 Woo: Patient signed out to myself by Dr. Barry, seen and apparently evaluated by myself. Patient has history of asthma, BPPV, chronic back pain, hypertension, prior gastric ulcer and dyslipidemia with prior gastric bypass, appendectomy and cataract removal, no tobacco, alcohol or illicit. 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 Patient was scheduled to have MRCP this morning was obtained he does have elevation in bilirubin, AST ALT and alk-phos febrile last night and is receiving IV antibiotics in the form of Rocephin and Flagyl MRCP does show a distal common bile duct stone, stone is relatively small and does not show any biliary ductal dilation, gallbladder is distended contains multiple stones which were free layering no thickening of the wall, spleen, kidneys are normal with no other changes besides a focal wedge- shaped infiltrate in the right lung at the level of the right main pulmonary artery, no pancreatic mass appreciated. Patient labs were repeated today white count is 8.4, hemoglobin is 12, leftward shift no bandemia. Patient's CMP shows persistently elevated bilirubin and LFTs, renal function normal normal electrolytes, lipase is negative. Patient is influenza, covid and RSV negative. General surgery had been consulted and asked for callback with results. They do recommend transfer for ERCP patient does not have white count but very suspicious for ascending cholangitis, continuing antibiotics if patient becomes unstable these recontact our general surgery service for possible open common bile duct exploration. Patient states he feels little short of breath he states it is not any worse than his typical asthma flares. He is on Advair daily, was noted to have a little bit of focal infiltrate on his imaging as well but less likely the source of his infection today with his sudden change in LFTs. On exam, lungs are clear no tachycardia, some mild tachypnea but patient speaks easily and states his breathing is not any worse than his normal. Abdominal exam patient is nontender, currently afebrile. Not hypotensive in the room, heart rate is in the 40s. 0916 Dr. Vasquez, general surgery recommends transfer for ERCP. If patient becomes acutely unstable and unable to transfer please call back as they could potentially take for open common bile duct exploration although this is not something that is commonly done these days. Patient today has been stable. Pablito murdock signed out to Dr. Barry. Dr barry: 06/11-06/12 assumed care. Reviewed patient's events of the day. He continues to be stable. Is continuing to receive antibiotics. MRCP does show common bile duct stone. General surgery recommends transfer for ERCP. Patient is aware this. Care turned over to Dr. Andrade to continue to observe until disposition. [0700] (Raymond) Patient received in sign out from [Jhonny]. I have reviewed the clinical course and performed an independent history and physical exam. Patient currently resting relatively comfortably, he understands diagnosis and plan, no current questions or requests <Stephani Montgomery, - Last Filed: 06/13/22 19:37> Lab Data Labs: Lab Results 06/10/22 06/10/22 06/10/22 Range/Units 13:55 14:45 14:45 WBC 7.8 (4.5-11.0) X10^3/uL RBC 4.54 (4.5-5.9) X10^6/uL Hgb 13.9 (13.5-17.5) g/dL Hct 41.4 (41-53) % MCV 91.1 (80-100) fL MCH 30.5 (26-34) PG MCHC 33.5 (30-36) % RDW 13.9 (11.6-14.8) % Plt Count 190 (150-400) X10^3/uL Neut % (Auto) 83.6 H (50-75) % Lymph % (Auto) 6.3 L (25-40) % Crook % (Auto) 9.1 (3-14) % Eos % (Auto) 0.6 L (2-4) % Baso % (Auto) 0.4 (0-2) % Neut # (Auto) 6500 (8282-1415) /uL Lymph # (Auto) 500 L (4729-8255) /uL Crook # (Auto) 700 (0-900) /uL Eos # (Auto) 100 (0-450) /uL Baso # (Auto) 0 (0-100) /uL PT 13.8 H (10.1-12.7) SECONDS INR 1.2 (0.9-1.3) Sodium (137-145) mmol/L Potassium (3.4-5.1) mmol/L Chloride (98-107) mmol/L Carbon Dioxide (22-32) mmol/L BUN (9-20) mg/dL Creatinine (0.66-1.25) mg/dL Estimated GFR (>60) mL/min BUN/Creatinine Ratio (6-22) Glucose (80-110) mg/dL Lactate (0.7-2.1) mmol/L Calcium (8.4-10.2) mg/dL Total Bilirubin (0.2-1.3) mg/dL AST (17-59) IU/L ALT (<50) IU/L Alkaline Phosphatase (38-126) U/L Total Creatine Kinase (55-170) U/L CK-MB (CK-2) CK-MB (CK-2) Rel Index Troponin I (0.01-0.034) ng/mL NT-Pro-B Natriuret Pep (<450) pg/mL Total Protein (6.3-8.2) g/dL Albumin (3.5-5.0) g/dL Globulin (1.7-4.1) g/dL Albumin/Globulin Ratio (1.0-2.8) Lipase (23-300) U/L SARS-CoV-2 (PCR) Negative (Negative) Influenza A (RT-PCR) Flu a negative (NEGATIVE) Influenza B (RT-PCR) Flu b negative (NEGATIVE) RSV (PCR) Negative (Negative) 06/10/22 06/10/22 06/10/22 Range/Units 14:45 14:45 14:45 WBC (4.5-11.0) X10^3/uL RBC (4.5-5.9) X10^6/uL Hgb (13.5-17.5) g/dL Hct (41-53) % MCV (80-100) fL MCH (26-34) PG MCHC (30-36) % RDW (11.6-14.8) % Plt Count (150-400) X10^3/uL Neut % (Auto) (50-75) % Lymph % (Auto) (25-40) % Crook % (Auto) (3-14) % Eos % (Auto) (2-4) % Baso % (Auto) (0-2) % Neut # (Auto) (5482-2332) /uL Lymph # (Auto) (0242-8999) /uL [place] # (Auto) (0-900) /uL Eos # (Auto) (0-450) /uL Baso # (Auto) (0-100) /uL PT (10.1-12.7) SECONDS INR (0.9-1.3) Sodium 137 (137-145) mmol/L Potassium 4.1 (3.4-5.1) mmol/L Chloride 100 (98-107) mmol/L Carbon Dioxide 25 (22-32) mmol/L BUN 17 (9-20) mg/dL Creatinine 0.77 (0.66-1.25) mg/dL Estimated GFR > 60 (>60) mL/min BUN/Creatinine Ratio 22.1 H (6-22) Glucose 129 H (80-110) mg/dL Lactate 1.7 (0.7-2.1) mmol/L Calcium 9.2 (8.4-10.2) mg/dL Total Bilirubin 4.3 H (0.2-1.3) mg/dL AST 284 H (17-59) IU/L ALT 530 H (<50) IU/L Alkaline Phosphatase 323 H (38-126) U/L Total Creatine Kinase (55-170) U/L CK-MB (CK-2) CK-MB (CK-2) Rel Index Troponin I < 0.012 (0.01-0.034) ng/mL NT-Pro-B Natriuret Pep 154 (<450) pg/mL Total Protein 7.4 (6.3-8.2) g/dL Albumin 4.1 (3.5-5.0) g/dL Globulin 3.3 (1.7-4.1) g/dL Albumin/Globulin Ratio 1.2 (1.0-2.8) Lipase 60 (23-300) U/L SARS-CoV-2 (PCR) (Negative) Influenza A (RT-PCR) (NEGATIVE) Influenza B (RT-PCR) (NEGATIVE) RSV (PCR) (Negative) 06/11/22 06/11/22 06/12/22 Range/Units 06:25 06:25 06:53 WBC 8.4 7.0 (4.5-11.0) X10^3/uL RBC 4.03 L 4.06 L (4.5-5.9) X10^6/uL Hgb 12.6 L 12.4 L (13.5-17.5) g/dL Hct 36.4 L 36.8 L (41-53) % MCV 90.4 90.7 (80-100) fL MCH 31.3 30.6 (26-34) PG MCHC 34.6 33.8 (30-36) % RDW 14.0 13.7 (11.6-14.8) % Plt Count 185 192 (150-400) X10^3/uL Neut % (Auto) 77.1 H 72.3 (50-75) % Lymph % (Auto) 10.1 L 12.1 L (25-40) % [place] % (Auto) 12.1 12.7 (3-14) % Eos % (Auto) 0.5 L 2.4 (2-4) % Baso % (Auto) 0.2 0.5 (0-2) % Neut # (Auto) 6500 5100 (4751-7863) /uL Lymph # (Auto) 900 L 900 L (8053-0182) /uL [place] # (Auto) 1000 H 900 (0-900) /uL Eos # (Auto) 0 200 (0-450) /uL Baso # (Auto) 0 0 (0-100) /uL PT (10.1-12.7) SECONDS INR (0.9-1.3) Sodium 137 (137-145) mmol/L Potassium 3.6 (3.4-5.1) mmol/L Chloride 102 (98-107) mmol/L Carbon Dioxide 24 (22-32) mmol/L BUN 14 (9-20) mg/dL Creatinine 0.81 (0.66-1.25) mg/dL Estimated GFR > 60 (>60) mL/min BUN/Creatinine Ratio 17.3 (6-22) Glucose 96 (80-110) mg/dL Lactate (0.7-2.1) mmol/L Calcium 8.7 (8.4-10.2) mg/dL Total Bilirubin 4.5 H (0.2-1.3) mg/dL AST 134 H (17-59) IU/L ALT 372 H (<50) IU/L Alkaline Phosphatase 276 H (38-126) U/L Total Creatine Kinase (55-170) U/L CK-MB (CK-2) CK-MB (CK-2) Rel Index Troponin I (0.01-0.034) ng/mL NT-Pro-B Natriuret Pep (<450) pg/mL Total Protein 6.7 (6.3-8.2) g/dL Albumin 3.6 (3.5-5.0) g/dL Globulin 3.1 (1.7-4.1) g/dL Albumin/Globulin Ratio 1.2 (1.0-2.8) Lipase 37 (23-300) U/L SARS-CoV-2 (PCR) (Negative) Influenza A (RT-PCR) (NEGATIVE) Influenza B (RT-PCR) (NEGATIVE) RSV (PCR) (Negative) 06/12/22 06/12/22 06/12/22 Range/Units 06:53 16:10 16:10 WBC 9.4 (4.5-11.0) X10^3/uL RBC 4.22 L (4.5-5.9) X10^6/uL Hgb 13.0 L (13.5-17.5) g/dL Hct 38.5 L (41-53) % MCV 91.2 (80-100) fL MCH 30.9 (26-34) PG MCHC 33.8 (30-36) % RDW 13.9 (11.6-14.8) % Plt Count 198 (150-400) X10^3/uL Neut % (Auto) 77.8 H (50-75) % Lymph % (Auto) 8.3 L (25-40) % [place] % (Auto) 12.0 (3-14) % Eos % (Auto) 1.6 L (2-4) % Baso % (Auto) 0.3 (0-2) % Neut # (Auto) 7300 H (7205-1126) /uL Lymph # (Auto) 800 L (5227-4284) /uL [place] # (Auto) 1100 H (0-900) /uL Eos # (Auto) 200 (0-450) /uL Baso # (Auto) 0 (0-100) /uL PT (10.1-12.7) SECONDS INR (0.9-1.3) Sodium 141 139 (137-145) mmol/L Potassium 3.5 3.4 (3.4-5.1) mmol/L Chloride 106 107 (98-107) mmol/L Carbon Dioxide 22 23 (22-32) mmol/L BUN 15 14 (9-20) mg/dL Creatinine 0.70 0.64 L (0.66-1.25) mg/dL Estimated GFR > 60 > 60 (>60) mL/min BUN/Creatinine Ratio 21.4 21.9 (6-22) Glucose 80 95 (80-110) mg/dL Lactate (0.7-2.1) mmol/L Calcium 8.2 L 8.5 (8.4-10.2) mg/dL Total Bilirubin 2.4 H 3.7 H (0.2-1.3) mg/dL AST 66 H 90 H (17-59) IU/L ALT 261 H 260 H (<50) IU/L Alkaline Phosphatase 280 H 346 H (38-126) U/L Total Creatine Kinase 83 (55-170) U/L CK-MB (CK-2) TNP CK-MB (CK-2) Rel Index TNP Troponin I < 0.012 (0.01-0.034) ng/mL NT-Pro-B Natriuret Pep (<450) pg/mL Total Protein 6.4 6.7 (6.3-8.2) g/dL Albumin 3.3 L 3.5 (3.5-5.0) g/dL Globulin 3.1 3.2 (1.7-4.1) g/dL Albumin/Globulin Ratio 1.1 1.1 (1.0-2.8) Lipase 33 (23-300) U/L SARS-CoV-2 (PCR) (Negative) Influenza A (RT-PCR) (NEGATIVE) Influenza B (RT-PCR) (NEGATIVE) RSV (PCR) (Negative) 06/12/22 06/12/22 06/13/22 Range/Units 16:10 16:10 08:45 WBC 6.2 (4.5-11.0) X10^3/uL RBC 3.87 L (4.5-5.9) X10^6/uL Hgb 12.0 L (13.5-17.5) g/dL Hct 35.1 L (41-53) % MCV 90.7 (80-100) fL MCH 30.9 (26-34) PG MCHC 34.1 (30-36) % RDW 14.2 (11.6-14.8) % Plt Count 203 (150-400) X10^3/uL Neut % (Auto) 69.0 (50-75) % Lymph % (Auto) 14.6 L (25-40) % [place] % (Auto) 13.5 (3-14) % Eos % (Auto) 2.2 (2-4) % Baso % (Auto) 0.7 (0-2) % Neut # (Auto) 4300 (2499-0638) /uL Lymph # (Auto) 900 L (0397-0976) /uL [place] # (Auto) 800 (0-900) /uL Eos # (Auto) 100 (0-450) /uL Baso # (Auto) 0 (0-100) /uL PT (10.1-12.7) SECONDS INR (0.9-1.3) Sodium (137-145) mmol/L Potassium (3.4-5.1) mmol/L Chloride (98-107) mmol/L Carbon Dioxide (22-32) mmol/L BUN (9-20) mg/dL Creatinine (0.66-1.25) mg/dL Estimated GFR (>60) mL/min BUN/Creatinine Ratio (6-22) Glucose (80-110) mg/dL Lactate 0.9 (0.7-2.1) mmol/L Calcium (8.4-10.2) mg/dL Total Bilirubin (0.2-1.3) mg/dL AST (17-59) IU/L ALT (<50) IU/L Alkaline Phosphatase (38-126) U/L Total Creatine Kinase (55-170) U/L CK-MB (CK-2) CK-MB (CK-2) Rel Index Troponin I (0.01-0.034) ng/mL NT-Pro-B Natriuret Pep (<450) pg/mL Total Protein (6.3-8.2) g/dL Albumin (3.5-5.0) g/dL Globulin (1.7-4.1) g/dL Albumin/Globulin Ratio (1.0-2.8) Lipase 96 D (23-300) U/L SARS-CoV-2 (PCR) (Negative) Influenza A (RT-PCR) (NEGATIVE) Influenza B (RT-PCR) (NEGATIVE) RSV (PCR) (Negative) 06/13/22 Range/Units 08:45 WBC (4.5-11.0) X10^3/uL RBC (4.5-5.9) X10^6/uL Hgb (13.5-17.5) g/dL Hct (41-53) % MCV (80-100) fL MCH (26-34) PG MCHC (30-36) % RDW (11.6-14.8) % Plt Count (150-400) X10^3/uL Neut % (Auto) (50-75) % Lymph % (Auto) (25-40) % [place] % (Auto) (3-14) % Eos % (Auto) (2-4) % Baso % (Auto) (0-2) % Neut # (Auto) (3874-9503) /uL Lymph # (Auto) (6172-8362) /uL [place] # (Auto) (0-900) /uL Eos # (Auto) (0-450) /uL Baso # (Auto) (0-100) /uL PT (10.1-12.7) SECONDS INR (0.9-1.3) Sodium 138 (137-145) mmol/L Potassium 3.2 L (3.4-5.1) mmol/L Chloride 104 (98-107) mmol/L Carbon Dioxide 23 (22-32) mmol/L BUN 12 (9-20) mg/dL Creatinine 0.64 L (0.66-1.25) mg/dL Estimated GFR > 60 (>60) mL/min BUN/Creatinine Ratio 18.8 (6-22) Glucose 87 (80-110) mg/dL Lactate (0.7-2.1) mmol/L Calcium 8.2 L (8.4-10.2) mg/dL Total Bilirubin 4.6 H (0.2-1.3) mg/dL AST 113 H (17-59) IU/L ALT 230 H (<50) IU/L Alkaline Phosphatase 385 H (38-126) U/L Total Creatine Kinase (55-170) U/L CK-MB (CK-2) CK-MB (CK-2) Rel Index Troponin I (0.01-0.034) ng/mL NT-Pro-B Natriuret Pep (<450) pg/mL Total Protein 6.0 L (6.3-8.2) g/dL Albumin 3.0 L (3.5-5.0) g/dL Globulin 3.0 (1.7-4.1) g/dL Albumin/Globulin Ratio 1.0 (1.0-2.8) Lipase 40 D (23-300) U/L SARS-CoV-2 (PCR) (Negative) Influenza A (RT-PCR) (NEGATIVE) Influenza B (RT-PCR) (NEGATIVE) RSV (PCR) (Negative) Point of Care Testing Glucose POC 90 Urine Dip Bedside Urine Glucose Negative Bedside Urine Bilirubin - Negative Bedside Urine Ketone - Negative Urine Specific [place] 1.015 Bedside Urine Occult Blood - Negative Bedside Urine pH 6.0 Bedside Urine Protein - Negative Bedside Urine Urobilinogen 2+ 4mg Bedside Urine Nitrite - Negative Bedside Urine Leukocytes - Negative Esterase Point of care testing: Point of Care Testing Glucose POC 90 Urine Dip Bedside Urine Glucose Negative Bedside Urine Bilirubin - Negative Bedside Urine Ketone - Negative Urine Specific [place] 1.015 Bedside Urine Occult Blood - Negative Bedside Urine pH 6.0 Bedside Urine Protein - Negative Bedside Urine Urobilinogen 2+ 4mg Bedside Urine Nitrite - Negative Bedside Urine Leukocytes - Negative Esterase MDM Narrative Medical decision making narrative: Antibiotics were ordered upon my assumption of care which was several hours after the patient had checked into the emergency department. Was febrile. Was not tachycardic. Does not have a leukocytosis. Lactate negative. Sudden onset of chills this have some concern about bacteremia. No signs of pneumonia. No signs of urinary tract infection. He is no abdominal pain. No skin changes concerning for shingles. Low suspicion for central nervous system infection given his presentation is he is no meningeal signs. He does have an elevation in his LFTs and also elevation in his bilirubin. He is no right upper quadrant tenderness. Right upper quadrant ultrasound does have concern for gallbladder pathology. I did discuss the case with Dr. Zamarripa on-call for General surgery. Given his elevated bilirubin there is concern about CBD stone. She recommended MRCP which we are unable to get at this time of day/night. He was given antibiotics. Blood cultures were obtained. Will stay in the emergency department overnight and obtain an MRCP in the morning and then disposition following. Care turned over to Dr. Berkowitz to follow-up with MRCP and disposition. 06/11/22 Woo: Patient signed out to myself by Dr. Barry, seen and apparently evaluated by myself. Patient has history of asthma, BPPV, chronic back pain, hypertension, prior gastric ulcer and dyslipidemia with prior gastric bypass, appendectomy and cataract removal, no tobacco, alcohol or illicit. 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 Patient was scheduled to have MRCP this morning was obtained he does have elevation in bilirubin, AST ALT and alk-phos febrile last night and is receiving IV antibiotics in the form of Rocephin and Flagyl MRCP does show a distal common bile duct stone, stone is relatively small and does not show any biliary ductal dilation, gallbladder is distended contains multiple stones which were free layering no thickening of the wall, spleen, kidneys are normal with no other changes besides a focal wedge- shaped infiltrate in the right lung at the level of the right main pulmonary artery, no pancreatic mass appreciated. Patient labs were repeated today white count is 8.4, hemoglobin is 12, leftward shift no bandemia. Patient's CMP shows persistently elevated bilirubin and LFTs, renal function normal normal electrolytes, lipase is negative. Patient is influenza, covid and RSV negative. General surgery had been consulted and asked for callback with results. They do recommend transfer for ERCP patient does not have white count but very suspicious for ascending cholangitis, continuing antibiotics if patient becomes unstable these recontact our general surgery service for possible open common bile duct exploration. Patient states he feels little short of breath he states it is not any worse than his typical asthma flares. He is on Advair daily, was noted to have a little bit of focal infiltrate on his imaging as well but less likely the source of his infection today with his sudden change in LFTs. On exam, lungs are clear no tachycardia, some mild tachypnea but patient speaks easily and states his breathing is not any worse than his normal. Abdominal exam patient is nontender, currently afebrile. Not hypotensive in the room, heart rate is in the 40s. 0916 Dr. Vasquez, general surgery recommends transfer for ERCP. If patient becomes acutely unstable and unable to transfer please call back as they could potentially take for open common bile duct exploration although this is not something that is commonly done these days. Patient today has been stable. Patient signed out to Dr. Barry. Dr barry: 06/11-06/12 assumed care. Reviewed patient's events of the day. He continues to be stable. Is continuing to receive antibiotics. MRCP does show common bile duct stone. General surgery recommends transfer for ERCP. Patient is aware this. Care turned over to Dr. Andrade to continue to observe until disposition. [0700] (Raymond) Patient received in sign out from Dr. Burris]. I have reviewed the clinical course and performed an independent history and physical exam. Patient currently resting relatively comfortably, he understands diagnosis and plan, no current questions or requests Dr barry: overnight 06/12-06/13 received sign-out from Dr. Andrade. Assumed care of patient. Reviewed patient's daily events. He continues to be stable. We are still waiting for transfer for ERCP. Still receiving antibiotics. Morning labs ordered. SCD devices ordered. Care turned over to Dr. Montgomery to continue to observe until disposition can be made. 06/13/22 Ulises-patient seen evaluated by myself this morning. Awake alert oriented talking on the phone appears well. He is absolutely no pain. Confirmed common bile duct stone needing transfer for ERCP. Presented with ch ills only. Blood work today appears stable. Persistently elevated and rising bilirubin 4.6 and elevated AST ALT. He is tolerating clear liquids. He has been getting Rocephin and Flagyl. Dr. Vasquez call to check on patient. At this time he kindly accepts patient, request that patient be kept on all list in case if surgery is unsuccessful. But is happy to try <Shelli Berkowitz, - Last Filed: 06/15/22 00:09> Critical Care Time Attestation: The high probability of a clinically significant, sudden or life threatening deterioration of the [cardiac,pulm, infectious] system(s) required my full and direct attention, intervention and personal management. The aggregate critical care time was [] minutes. This time is in addition to time spent performing reported procedures but includes the following: [x] Data Review and interpretation [x] Patient assessment and monitoring of vital signs [x] Documentation [x] Medication orders and management Discharge Plan Departure Patient Disposition: Admitted As Inpatient Clinical Impression: Biliary calculi, common bile duct, Fever, Hepatitis, Cholangitis Admit Date/Time: 06/13/22 18:27 Admit Provider: Vasyl Vasquez
--- NOTE | 2022-06-10 20:45 | DI.MRI.S_ITS ---
PROCEDURE: MR ABDOMEN WO/W CON INDICATIONS: eval for CBD stone TECHNIQUE: Coronal HASTE, axial 2D FLASH in- and [id number]; axial breath-hold T2 FSE with fat saturation from the hepatic dome to the iliac crests. Oblique coronal thin-slice and radial thick slab HASTE through the biliary system. Dynamic axial VIBE during administration of contrast. Post-contrast coronal VIBE or 2D FLASH with fat saturation from the hepatic dome to the iliac crests. Optional diffusion weighted imaging and ADC may be performed. COMPARISON: [facility], US, US ABDOMEN LIMITED, 06/10/2022, 17:19. FINDINGS: Image quality: Excellent. Pancreas and biliary system: No pancreatic masses. There is a distal common duct stone present. This stone is rather small, and does not resultant biliary ductal dilatation. Solid organs: Liver is normal in size and enhancement. Gallbladder is distended. It contains multiple stones which are freely layering. No gallbladder wall thickening. Spleen is normal in size and enhancement. No adrenal nodules. Kidneys are normal in size and enhancement, without hydronephrosis. Nodes and vessels: No retroperitoneal or mesenteric adenopathy by size criteria. Aorta and inferior vena cava are normal in size. Bowel and peritoneum: Unenhanced bowel loops are normal in caliber throughout. No free fluid. Lung bases: No basal pleural effusions. There is a focal wedge-shaped infiltrate present in the right lung at the level of the right main pulmonary artery. Heart size is normal. Bones and soft tissues: No ventral hernias. Bone marrow is normal in overall signal. IMPRESSION: 1. There is a distal common duct stone which does not result in biliary ductal dilatation. 2. Distended gallbladder with stones. No gallbladder wall thickening or fluid around the gallbladder. 3. Focal small infiltrate, right lung. 4. No pancreatic mass. Dictated by: Riaz Kaur M.D. on 06/11/2022 at 8:37 Approved by: Riaz Kaur M.D. on 06/11/2022 at 8:44
[2022-06-10] MEDS: diphenhydrAMINE 25 MG TABLET PO (22:56)
[2022-06-10] MEDS: ACETAMINOPHEN 325 MG TABLET 650 MG PO (22:56)
[2022-06-11] VITALS (83 sets, daily range): BP systolic 132–218; BP diastolic 66–137; PULSE 44–68; RESP 15–33; TEMP 36.7; O2SAT 91–99
[2022-06-11] MEDS: SODIUM CHLORIDE 0.9% 1,000 ML 125 ML IV ×2 (06:13→20:54)
[2022-06-11] MEDS: metroNIDAZOLE 500 MG/100 ML PIGGYBACK 100 MG IV ×3 (06:15→22:36)
[2022-06-11 06:43] LABS: Add Manual Diff / Slide Review NO; Basophils Absolute Auto 0 /uL (0-100); Basophils Percent Auto 0.2 % (0-2); Eosinophils Absolute Auto 0 /uL (0-450); Eosinophils Percent Auto 0.5 % (2-4); Hematocrit 36.4 % (41-53); Hemoglobin 12.6 g/dL (13.5-17.5); Lymphocytes Absolute Auto 900 /uL (1100-4500); Lymphocytes Percent Auto 10.1 % (25-40); Mean Corpuscular HGB Conc 34.6 % (30-36); Mean Corpuscular Hemoglobin 31.3 PG (26-34); Mean Corpuscular Volume 90.4 fL (80-100); Monocytes Absolute Auto 1000 /uL (0-900); Monocytes Percent Auto 12.1 % (3-14); Neutrophils Absolute Auto 6500 /uL (1500-7000); Neutrophils Percent Auto 77.1 % (50-75); Platelet Count 185 X10^3/uL (150-400); Red Blood Cell Count 4.03 X10^6/uL (4.5-5.9); White Blood Cell Count 8.4 X10^3/uL (4.5-11.0)
[2022-06-11 06:57] LABS: Alanine Aminotransferase 372 IU/L (<50); Albumin 3.6 g/dL (3.5-5.0); Albumin Globulin Ratio 1.2 (1.0-2.8); Alkaline Phosphatase 276 U/L (38-126); Aspartate Aminotransferase 134 IU/L (17-59); BUN Creatinine Ratio 17.3 (6-22); Bilirubin Total 4.5 mg/dL (0.2-1.3); Blood Urea Nitrogen 14 mg/dL (9-20); Calcium 8.7 mg/dL (8.4-10.2); Carbon Dioxide 24 mmol/L (22-32); Chloride 102 mmol/L (98-107); Estimated Glomerular Filt Rate > 60 mL/min (>60); Globulin 3.1 g/dL (1.7-4.1); Glucose 96 mg/dL (80-110); HEMOLYSIS < 15 (0-50); Lipase 37 U/L (23-300); Potassium 3.6 mmol/L (3.4-5.1); Sodium 137 mmol/L (137-145); Total Protein 6.7 g/dL (6.3-8.2)
[2022-06-11] MEDS: BUDESONIDE 0.5 MG/2 ML NEB INH (10:02)
[2022-06-11] MEDS: ALBUTEROL 2.5 MG/3 ML NEB (ADULT) INH (10:02)
--- NOTE | 2022-06-11 10:07 | RT ---
pt erick burk well, on room air with no distress noted
[2022-06-11] MEDS: cefTRIAXone 2,000 MG in SODIUM CHLORIDE 0.9% 100 ML 200 MG IV (10:24)
--- NOTE | 2022-06-11 13:51 | PC.NURSE ---
Patient resting in room reading on cell phone, breathing even and unlabored. Alert and oriented x4. Capillary refill <2, skin warm and dry. Patient moving all extremities without difficulty or restriction. Denies pain at this time. Call light in reach.
--- NOTE | 2022-06-11 16:27 | PC.NURSE ---
Assisted pt to use saline eye drops per request. Pt states he feels shakey, slight tremors felt in hands. Dr. Berkowitz notified and glucose obtained.
--- NOTE | 2022-06-11 18:21 | CM.SWNOTE ---
DCP/BIBLICAL LANGUAGES PROFESSOR Note Patient is 77 y/o male who presents to due to concern for Biliary calculi. Patient is in need of transfer to another hospital for surgery with possible surgery consult from Surgeon Dr. Vasquez if appropriate. Patient's PCP is Dr. Whalen, Patient has [facility]. ED provider requests BIBLICAL LANGUAGES PROFESSOR consult as patient is the primary caregiver for his who is disabled, patient is concerned for his spouses care while he is in the hospital. BIBLICAL LANGUAGES PROFESSOR meets with patient who reports concern for his spouse due to her loss of balance, short term memory loss, need for FWW, & assistance with ADLs. BIBLICAL LANGUAGES PROFESSOR encourages patient to reach out to natural supports to see if they are able to be with spouse during this time. Patient reports that he has found friends that can be with her through Wednesday. BIBLICAL LANGUAGES PROFESSOR discusses community hospital admissions officer Kirill Maldonado and patient reports that he is familiar with services and support from [facility] and Kirill Maldonado and provides consent for referral. BIBLICAL LANGUAGES PROFESSOR calls Kirill and leaves requesting referral for community hospital admissions officer services. Kirill comes to ED and meets with patient and provides list of local private pay caregivers in [facility]. BIBLICAL LANGUAGES PROFESSOR provides patient with Senior resource guide and shows lists of caregivers in booklet. BIBLICAL LANGUAGES PROFESSOR discusses that patient will need to provide information about how long caregiver will be needed, patient endorses need for caregiving at night for his spouse. Plan: Patient awaiting transfer for surgery vs. Surgery performed by Dr. Vasquez. Patient setting up natural supports and caregiver for spouse. BIBLICAL LANGUAGES PROFESSOR to continue to assist as needed. REENA GuerraSW
[2022-06-11] MEDS: GABAPENTIN 300 MG CAPSULE 900 MG PO (20:54)
[2022-06-11] MEDS: TRAZODONE 50 MG TABLET 25 MG PO (20:55)
[2022-06-11] MEDS: IBUPROFEN 400 MG TABLET 800 MG PO (20:55)
[2022-06-11] MEDS: hydroCHLOROthiazide 25 MG TABLET 12.5 MG PO (20:56)
--- NOTE | 2022-06-11 21:09 | PC.NURSE ---
Addendum entered by Racquel Garsia CNA 06/11/22 22:39: JAVA SOFTWARE ENGINEER note: updated patient about how I'm trying to find him a hospital bed at another hospital and a more comfortable bed. We also talked baking. Original Note: KP note: Attempting to find placement for patient. Called the following places w/ the following responses: [facility]: 2005- [facility]- no beds. 50 patients in their ER. Call back in AM. [facility]: 2009- Renny. No beds. 8 pts boarding. Very long waiting list. [place]: 2011- Анна- Wait list, but with a slim chance. [facility]: 2018- Ronal will reopen case. They called back. Can't safely accommodate pt at this time. [facility]: 2020- Gwend[facility]yn. At capacity. Very long wait list. Call back in the morning. [facility]: 2045- Geno- at capacity [facility]: 2047- Valeriano- 0 beds. [facility]- 2051- left a message- 2104 Irene called. Wait listed everywhere.
[2022-06-12] VITALS (74 sets, daily range): BP systolic 129–198; BP diastolic 63–93; PULSE 43–122; RESP 15–37; TEMP 36.7–37.5; O2SAT 93–98
[2022-06-12] MEDS: metroNIDAZOLE 500 MG/100 ML PIGGYBACK 100 MG IV ×3 (06:24→22:04)
[2022-06-12] MEDS: SODIUM CHLORIDE 0.9% 1,000 ML 125 ML IV ×2 (06:24→14:59)
[2022-06-12 07:07] LABS: Add Manual Diff / Slide Review NO; Basophils Absolute Auto 0 /uL (0-100); Basophils Percent Auto 0.5 % (0-2); Eosinophils Absolute Auto 200 /uL (0-450); Eosinophils Percent Auto 2.4 % (2-4); Hematocrit 36.8 % (41-53); Hemoglobin 12.4 g/dL (13.5-17.5); Lymphocytes Absolute Auto 900 /uL (1100-4500); Lymphocytes Percent Auto 12.1 % (25-40); Mean Corpuscular HGB Conc 33.8 % (30-36); Mean Corpuscular Hemoglobin 30.6 PG (26-34); Mean Corpuscular Volume 90.7 fL (80-100); Monocytes Absolute Auto 900 /uL (0-900); Monocytes Percent Auto 12.7 % (3-14); Neutrophils Absolute Auto 5100 /uL (1500-7000); Neutrophils Percent Auto 72.3 % (50-75); Platelet Count 192 X10^3/uL (150-400); Red Blood Cell Count 4.06 X10^6/uL (4.5-5.9); Red Cell Distribution Width 13.7 % (11.6-14.8)
[2022-06-12 07:26] LABS: Alanine Aminotransferase 261 IU/L (<50); Albumin 3.3 g/dL (3.5-5.0); Albumin Globulin Ratio 1.1 (1.0-2.8); Alkaline Phosphatase 280 U/L (38-126); Aspartate Aminotransferase 66 IU/L (17-59); BUN Creatinine Ratio 21.4 (6-22); Bilirubin Total 2.4 mg/dL (0.2-1.3); Blood Urea Nitrogen 15 mg/dL (9-20); Calcium 8.2 mg/dL (8.4-10.2); Carbon Dioxide 22 mmol/L (22-32); Chloride 106 mmol/L (98-107); Estimated Glomerular Filt Rate > 60 mL/min (>60); Globulin 3.1 g/dL (1.7-4.1); Glucose 80 mg/dL (80-110); HEMOLYSIS < 15 (0-50); Lipase 33 U/L (23-300); Potassium 3.5 mmol/L (3.4-5.1); Sodium 141 mmol/L (137-145); Total Protein 6.4 g/dL (6.3-8.2)
[2022-06-12] MEDS: BUDESONIDE 0.5 MG/2 ML NEB INH ×2 (09:21→19:19)
[2022-06-12] MEDS: hydroCHLOROthiazide 25 MG TABLET 12.5 MG PO (09:25)
--- NOTE | 2022-06-12 09:25 | RT ---
pt erick lisa tx well, no distress noted and on room air
[2022-06-12] MEDS: cefTRIAXone 2,000 MG in SODIUM CHLORIDE 0.9% 100 ML 200 MG IV (09:26)
[2022-06-12] MEDS: ONDANSETRON 4 MG/2 ML INJ IV (12:12)
--- NOTE | 2022-06-12 13:45 | PC.NURSE ---
Patient c/o dizziness, belching I just don't feel right Patient reports some visual hallucinations on the wall. At time of complaints patient NSR at 41-44. Dr Andrade notified of change in patient. Repeat EKG ordered. Patient baseline heart rate in 50's.
--- NOTE | 2022-06-12 14:08 | PC.NURSE ---
Patient requesting to get up to bedside. Increase belching but reports more comfortable position.
[2022-06-12] MEDS: LORazepam 2 MG/ML INJ 0.5 MG IV (14:51)
[2022-06-12 16:17] LABS: Add Manual Diff / Slide Review NO; Basophils Absolute Auto 0 /uL (0-100); Basophils Percent Auto 0.3 % (0-2); Eosinophils Absolute Auto 200 /uL (0-450); Eosinophils Percent Auto 1.6 % (2-4); Hematocrit 38.5 % (41-53); Lymphocytes Absolute Auto 800 /uL (1100-4500); Lymphocytes Percent Auto 8.3 % (25-40); Mean Corpuscular HGB Conc 33.8 % (30-36); Mean Corpuscular Hemoglobin 30.9 PG (26-34); Mean Corpuscular Volume 91.2 fL (80-100); Monocytes Absolute Auto 1100 /uL (0-900); Neutrophils Absolute Auto 7300 /uL (1500-7000); Neutrophils Percent Auto 77.8 % (50-75); Platelet Count 198 X10^3/uL (150-400); Red Blood Cell Count 4.22 X10^6/uL (4.5-5.9); Red Cell Distribution Width 13.9 % (11.6-14.8); White Blood Cell Count 9.4 X10^3/uL (4.5-11.0)
[2022-06-12 16:36] LABS: Lactate (Lactic Acid) 0.9 mmol/L (0.7-2.1)
[2022-06-12 16:40] LABS: Alanine Aminotransferase 260 IU/L (<50); Albumin 3.5 g/dL (3.5-5.0); Albumin Globulin Ratio 1.1 (1.0-2.8); Alkaline Phosphatase 346 U/L (38-126); Aspartate Aminotransferase 90 IU/L (17-59); BUN Creatinine Ratio 21.9 (6-22); Bilirubin Total 3.7 mg/dL (0.2-1.3); Blood Urea Nitrogen 14 mg/dL (9-20); Calcium 8.5 mg/dL (8.4-10.2); Carbon Dioxide 23 mmol/L (22-32); Chloride 107 mmol/L (98-107); Creatine Kinase 83 U/L (55-170); Estimated Glomerular Filt Rate > 60 mL/min (>60); Globulin 3.2 g/dL (1.7-4.1); Glucose 95 mg/dL (80-110); HEMOLYSIS < 15 (0-50); Lipase 96 U/L (23-300); Potassium 3.4 mmol/L (3.4-5.1); Sodium 139 mmol/L (137-145); Total Protein 6.7 g/dL (6.3-8.2)
[2022-06-12 16:49] LABS: Troponin I < 0.012 ng/mL (0.01-0.034)
[2022-06-12] MEDS: MORPHINE 4 MG/ML INJ IV (18:26)
--- NOTE | 2022-06-12 18:29 | PC.NURSE ---
patient chilled, temp 99.5 oral.
[2022-06-12] MEDS: GABAPENTIN 300 MG CAPSULE 900 MG PO (21:53)
[2022-06-12] MEDS: IBUPROFEN 400 MG TABLET 800 MG PO (21:54)
[2022-06-12] MEDS: TRAZODONE 50 MG TABLET 25 MG PO (21:54)
[2022-06-12] MEDS: LORazepam 2 MG/ML INJ 1 MG IV (22:00)
--- NOTE | 2022-06-12 22:55 | PC.NURSE ---
Addendum entered by Racquel Garsia CNA 06/12/22 23:40: [place]: 2324- spoke to a male salt operator. He gave a message to the enginehouse brakeman. Ketty called back approximately 10 minutes later. They have 18 boarding in their ER. [place]: 0 spoke to Margot, who spoke to their nursing supervisor counseling and guidance, Sully. Sully said they are over full, and couldn't take patients. But wished us luck. Original Note: STAMP CLASSIFIER note: Attempting to transfer patient. Called the following places with the following response: [facility]: 2053- [facility]- No beds. Slammed. Sent over facesheet for waitlist [facility]'s: 2099- Анна called us. They have no beds. Still on waitlist. [place]: 2102- Edwina- still on wait list. [facility]- 2126- Keith and then [facility]- No space [facility]: 2148- left message- [facility] called me back at 2218- they called back and are at capacity. [facility]: 2226 Reg[facility]- at capacity. [facility]: 2239 rang 10 times. Zero pickling grader. Will call back.
[2022-06-13] VITALS (52 sets, daily range): BP systolic 108–189; BP diastolic 56–84; PULSE 42–61; RESP 14–32; TEMP 36.4–37.1; O2SAT 92–98; BMI 43.7
[2022-06-13] MEDS: metroNIDAZOLE 500 MG/100 ML PIGGYBACK 100 MG IV ×3 (05:45→21:42)
[2022-06-13 09:04] LABS: Add Manual Diff / Slide Review NO; Basophils Absolute Auto 0 /uL (0-100); Basophils Percent Auto 0.7 % (0-2); Eosinophils Absolute Auto 100 /uL (0-450); Eosinophils Percent Auto 2.2 % (2-4); Hematocrit 35.1 % (41-53); Lymphocytes Absolute Auto 900 /uL (1100-4500); Lymphocytes Percent Auto 14.6 % (25-40); Mean Corpuscular HGB Conc 34.1 % (30-36); Mean Corpuscular Hemoglobin 30.9 PG (26-34); Mean Corpuscular Volume 90.7 fL (80-100); Monocytes Absolute Auto 800 /uL (0-900); Monocytes Percent Auto 13.5 % (3-14); Neutrophils Absolute Auto 4300 /uL (1500-7000); Platelet Count 203 X10^3/uL (150-400); Red Blood Cell Count 3.87 X10^6/uL (4.5-5.9); Red Cell Distribution Width 14.2 % (11.6-14.8); White Blood Cell Count 6.2 X10^3/uL (4.5-11.0)
[2022-06-13 09:15] LABS: Alanine Aminotransferase 230 IU/L (<50); Alkaline Phosphatase 385 U/L (38-126); Aspartate Aminotransferase 113 IU/L (17-59); BUN Creatinine Ratio 18.8 (6-22); Bilirubin Total 4.6 mg/dL (0.2-1.3); Blood Urea Nitrogen 12 mg/dL (9-20); Calcium 8.2 mg/dL (8.4-10.2); Carbon Dioxide 23 mmol/L (22-32); Chloride 104 mmol/L (98-107); Estimated Glomerular Filt Rate > 60 mL/min (>60); Glucose 87 mg/dL (80-110); HEMOLYSIS < 15 (0-50); Lipase 40 U/L (23-300); Potassium 3.2 mmol/L (3.4-5.1); Sodium 138 mmol/L (137-145)
[2022-06-13] MEDS: BUDESONIDE 0.5 MG/2 ML NEB INH (09:31)
[2022-06-13] MEDS: cefTRIAXone 2,000 MG in SODIUM CHLORIDE 0.9% 100 ML 100 MG IV (09:32)
[2022-06-13] MEDS: hydroCHLOROthiazide 25 MG TABLET 12.5 MG PO (09:39)
--- NOTE | 2022-06-13 10:43 | PC.NURSE ---
pt was given a shower by eduardo mccarty pt tolerated shower well pt happy in bed
--- NOTE | 2022-06-13 12:36 | PC.NURSE ---
pt used a walker and ambulated to bathroom. brushed teeth in his room. pt was able to take a shower. feels better. pt a little weak walking. standby assist
[2022-06-13] MEDS: SODIUM CHLORIDE 0.9% 1,000 ML 125 ML IV (14:24)
--- NOTE | 2022-06-13 14:55 | PC.NURSE ---
Assisted pt to stand and use urinal, steady on feet. SCD's placed on pt bilaterally with education provided.
--- NOTE | 2022-06-13 15:11 | PC.NURSE ---
Pt alert and oriented x4, speaking in clear and coherent sentences. Breathing even and unlabored, no acute distress noted, breath sounds clear in all lobes. Denies abdominal pain at this time, reports poor tolerance of PO intake, educated on small sips with time in between. Skin pink, warm, and dry. Face symmetric, upper and lower extremities equal strength and movement bilaterally.
--- NOTE | 2022-06-13 18:20 | P.HP_ITS ---
History of Present Illness History of Present Illness Date Patient Seen: 06/13/22 Time Patient Seen: 18:20 Chief complaint: Extreme chills Narrative: Jasmeet is a 77-year-old man who presented to the emergency department about 3 days ago for chills and was found to have a distended gallbladder and elevated LFTs. He underwent an MRCP which showed a common bile duct stone in the distal CBD. His bilirubin has remained relatively flat at around 4 since he has been here. He is a past history of a open gastric bypass with some sort of complication that required a return to the operating room for what sounds like a bowel obstruction. He denies right upper quadrant pain. He has received antibiotics since he has been here in the ER. He has been on the wait list for transfer to a facility that can perform a laparoscopically assisted ERCP however no beds are available at any facility with this capability at this time. Patient History Medical History Asthma (~1999) BPPV (benign paroxysmal positional vertigo) Cataracts, bilateral (~2017) Chicken pox Chronic back pain (~2011) Chronic pain Colon polyps (~1994) Essential hypertension Foot pain Gastric ulcer (~1969) Hyperlipidemia Measles Mumps Retinal detachment Seasonal allergies (~1987) Shoulder pain (~2011) Tinnitus Surgical History Anesthesia History of appendectomy (~1953) History of cataract removal with insertion of prosthetic lens History of gastric bypass (~1977) Family & Social History Family History Grandmother Stroke Father High cholesterol Mother Breast cancer Sister Hyperlipidemia Grandmother No problems noted. Grandfather No problems noted. Social History: household members spouse lives independently Yes caregiver/support person No Safety & Behavioral: Feels Safe in Current Yes Environment Been Physically Hurt or No Threatened By a Person Tobacco & Substance use: Smoking Status Never smoker alcohol intake current alcohol intake frequency a few times a week Substance Use Type does not use Meds Home Medications and Allergies Home Medications Medication Instructions Recorded Confirmed Type aspirin 81 mg chewable tablet 81 mg PO QDAY ##0 05/19/17 10/06/21 History cholecalciferol (vitamin D3) 50 2,500 iu ##0 05/19/17 10/06/21 History mcg (2,000 unit) tablet (Vitamin D3) desonide 0.05 % topical cream ##0 05/19/17 10/06/21 History (DesOwen) diclofenac sodium 1 % topical gel ##0 05/19/17 10/06/21 History (Voltaren) ibuprofen 200 mg capsule ##0 05/19/17 10/06/21 History multivitamin (Multiple Vitamins ##0 05/19/17 10/06/21 History tablet) olopatadine 0.7 % eye drops 1 drop EYE-BOTH DAILY #2.5 mL 11/27/19 10/06/21 Rx fexofenadine 180 mg tablet 180 mg PO DAILY 05/24/20 10/06/21 History (Theresa Allergy) fluticasone 500 mcg-salmeterol 50 1 inh inhalation BID 05/24/20 10/06/21 History mcg/dose blistr powdr for inhalation (Advair Diskus) fluticasone propionate 50 See Rx Instructions .Route 10/23/20 10/06/21 Rx mcg/actuation nasal .COMPLEX #1,440 grams spray,suspension montelukast 10 mg tablet 10 mg PO DAILY 11/18/20 10/06/21 History (Singulair) disabled parking permit #1 ea 06/03/21 10/06/21 Rx atorvastatin 40 mg tablet See Rx Instructions .Route 08/18/21 10/06/21 Rx .COMPLEX #90 tabs gabapentin 300 mg capsule See Rx Instructions .Route 08/18/21 10/06/21 Rx .COMPLEX #180 caps tizanidine 4 mg tablet See Rx Instructions .Route 08/18/21 10/06/21 Rx .COMPLEX #90 tabs hydrochlorothiazide 12.5 mg capsule See Rx Instructions .Route 10/07/21 Rx .COMPLEX #90 caps albuterol sulfate 90 mcg/actuation See Rx Instructions .Route 03/09/22 Rx aerosol inhaler .COMPLEX #17 grams Allergies Allergy/AdvReac Type Severity Reaction Status Date / Time Penicillins [PENICILLINS] Allergy Intermediate rash, Verified 10/06/21 10:59 blows up Exam Vital Signs (past 8 hours): - 06/13/22 10:36 06/13/22 10:38 06/13/22 10:38 Pulse Rate 59 L Blood Pressure 165/72 H Pulse Oximetry 92 98 Oxygen Delivery Method 06/13/22 11:00 06/13/22 11:30 06/13/22 12:00 Pulse Rate 48 L 48 L 48 L Blood Pressure Pulse Oximetry 97 95 95 Oxygen Delivery Method 06/13/22 12:01 06/13/22 12:01 06/13/22 12:30 Pulse Rate 48 L 48 L Blood Pressure 154/83 H Pulse Oximetry 96 95 Oxygen Delivery Method Room Air Room Air Fraction of Inspired Oxygen 21 SaO2/FiO2 Ratio 466 Oxygen Delivery Method Room Air Oxygen Flow Rate 0 Narrative Exam Narrative: Abdomen soft, nontender There is an upper midline surgical scar Objective Labs Result Diagrams: 06/13/22 08:45 06/13/22 08:45 Labs: Laboratory Results - last 24 hr 06/13/22 06/13/22 08:45 08:45 WBC 6.2 RBC 3.87 L Hgb 12.0 L Hct 35.1 L MCV 90.7 MCH 30.9 MCHC 34.1 RDW 14.2 Plt Count 203 Neut % (Auto) 69.0 Lymph % (Auto) 14.6 L [place] % (Auto) 13.5 Eos % (Auto) 2.2 Baso % (Auto) 0.7 Neut # (Auto) 4300 Lymph # (Auto) 900 L [place] # (Auto) 800 Eos # (Auto) 100 Baso # (Auto) 0 Sodium 138 Potassium 3.2 L Chloride 104 Carbon Dioxide 23 BUN 12 Creatinine 0.64 L Estimated GFR > 60 BUN/Creatinine Ratio 18.8 Glucose 87 Calcium 8.2 L Total Bilirubin 4.6 H AST 113 H ALT 230 H Alkaline Phosphatase 385 H Total Protein 6.0 L Albumin 3.0 L Globulin 3.0 Albumin/Globulin Ratio 1.0 Lipase 40 D Assessment & Plan Assessment and plan (1) Biliary calculi, common bile duct: Status: Acute Plan I discussed the possibility of performing a laparoscopic cholecystectomy with intraoperative cholangiogram and laparoscopic common bile duct exploration tomorrow. I told Jasmeet there is a reasonable chance that I would be able to extract the common bile duct stone using a ureteroscope through his gallbladder. If I was unable to remove the common bile duct stone we would have 2 options. One option would be to complete the cholecystectomy and continue to attempt to transfer him to another facility that can perform the laparoscopically assisted ERCP or we could perform an open common bile duct exploration through a right upper quadrant subcostal incision. He would like to avoid the open incision if possible and would rather we continue to try to transfer him to another facility with ERCP capabilities. He understands that there is still a risk of requiring a an open incision when we perform the laparoscopic cholecystectomy with laparoscopic common bile duct exploration if he has significant adhesions or if there is another complication that comes up from the laparoscopic portion of the procedure. He would like to proceed with plan for laparoscopic cholecystectomy with intraoperative cholangiogram and laparoscopic common bile duct exploration tomorrow but we will not perform an open common bile duct exploration if the laparoscopic common bile duct exploration is unsuccessful. I will place orders for him to go upstairs for tonight and be NPO at midnight. Time Spent With Patient Critical Care time: I spent a total of [] minutes of critical care time on this patient's care today; this time is exclusive of procedural time.
[2022-06-13] MEDS: LACTATED RINGERS 1,000 ML 100 ML IV (21:08)
[2022-06-14] MEDS: GABAPENTIN 300 MG CAPSULE 900 MG PO ×2 (00:50→21:37)
[2022-06-14] MEDS: TRAZODONE 50 MG TABLET 25 MG PO ×2 (00:50→21:37)
[2022-06-14] MEDS: LORazepam 2 MG/ML INJ 0.5 MG IV ×2 (01:32→22:43)
[2022-06-14 04:40] VITALS: BP 166/75; PULSE 54; RESP 18; TEMP 36.9; O2SAT 96
[2022-06-14] MEDS: metroNIDAZOLE 500 MG/100 ML PIGGYBACK 100 MG IV ×3 (05:55→21:36)
[2022-06-14 06:27] LABS: Add Manual Diff / Slide Review NO; Basophils Absolute Auto 100 /uL (0-100); Basophils Percent Auto 0.9 % (0-2); Eosinophils Absolute Auto 200 /uL (0-450); Eosinophils Percent Auto 3.7 % (2-4); Hematocrit 34.9 % (41-53); Lymphocytes Absolute Auto 1000 /uL (1100-4500); Lymphocytes Percent Auto 17.3 % (25-40); Mean Corpuscular HGB Conc 34.3 % (30-36); Mean Corpuscular Hemoglobin 30.9 PG (26-34); Mean Corpuscular Volume 90.3 fL (80-100); Monocytes Absolute Auto 800 /uL (0-900); Neutrophils Absolute Auto 3900 /uL (1500-7000); Neutrophils Percent Auto 65.1 % (50-75); Platelet Count 213 X10^3/uL (150-400); Red Blood Cell Count 3.87 X10^6/uL (4.5-5.9); Red Cell Distribution Width 13.9 % (11.6-14.8)
[2022-06-14 06:38] LABS: Alanine Aminotransferase 211 IU/L (<50); Alkaline Phosphatase 404 U/L (38-126); Aspartate Aminotransferase 106 IU/L (17-59); BUN Creatinine Ratio 14.3 (6-22); Bilirubin Total 3.9 mg/dL (0.2-1.3); Blood Urea Nitrogen 9 mg/dL (9-20); Calcium 8.3 mg/dL (8.4-10.2); Carbon Dioxide 25 mmol/L (22-32); Chloride 104 mmol/L (98-107); Estimated Glomerular Filt Rate > 60 mL/min (>60); Globulin 2.9 g/dL (1.7-4.1); Glucose 90 mg/dL (80-110); HEMOLYSIS < 15 (0-50); Potassium 3.1 mmol/L (3.4-5.1); Sodium 139 mmol/L (137-145); Total Protein 5.9 g/dL (6.3-8.2)
[2022-06-14 08:00] VITALS: BP 156/67; PULSE 55; RESP 16; TEMP 36.8; O2SAT 94
[2022-06-14] MEDS: cefTRIAXone 2,000 MG in SODIUM CHLORIDE 0.9% 100 ML 200 MG IV (08:50)
--- NOTE | 2022-06-14 08:59 | CM.DANOTE ---
Addendum entered by LIZ Ravi 06/14/22 09:00: ADD: Initial encounter and narrative below completed by ER LIZ Miner. Patient is scheduled for lap hyacinth with intraoperative cholangiogram and lap common bile duct exploration w/ Dr Vasquez today. Attempted bedside visit with patient this morning and he was speaking w/spouse by phone. Friends available to disabled spouse as needed CM team following closely as medical POC unfolds. Likely return home, r/o JW Original Note: DCP/COMMUNICATIONS CLERK Note Patient is 77 y/o male who presents to due to concern for Biliary calculi. Patient is in need of transfer to another hospital for surgery with possible surgery consult from Surgeon Dr. Vasquez if appropriate. Patient's PCP is Dr. Whalen, Patient has [facility]. ED provider requests COMMUNICATIONS CLERK consult as patient is the primary caregiver for his who is disabled, patient is concerned for his spouses care while he is in the hospital. COMMUNICATIONS CLERK meets with patient who reports concern for his spouse due to her loss of balance, short term memory loss, need for FWW, & assistance with ADLs. COMMUNICATIONS CLERK encourages patient to reach out to natural supports to see if they are able to be with spouse during this time. Patient reports that he has found friends that can be with her through Wednesday. COMMUNICATIONS CLERK discusses community hog room supervisor Kirill Maldonado and patient reports that he is familiar with services and support from [facility] and Kirill Maldonado and provides consent for referral. COMMUNICATIONS CLERK calls Kirill and leaves requesting referral for community hog room supervisor services. Kirill comes to ED and meets with patient and provides list of local private pay caregivers in [facility]. COMMUNICATIONS CLERK provides patient with Senior resource guide and shows lists of caregivers in booklet. COMMUNICATIONS CLERK discusses that patient will need to provide information about how long caregiver will be needed, patient endorses need for caregiving at night for his spouse. Plan: Patient awaiting transfer for surgery vs. Surgery performed by Dr. Vasquez. Patient setting up natural supports and caregiver for spouse. COMMUNICATIONS CLERK to continue to assist as needed. Isidra Brannon [facility] Discharge Planning/Care Management CM Discharge Assessment Start: 06/14/22 08:51 Freq: Status: Active Protocol: Document 06/14/22 08:51 PRO (Rec: 06/14/22 08:59 PRO [id number]) Discharge Planning Assessment Assigned Harvest Worker Field Crop LIZ Epps DPOA/Assigned Designee Name Cyndi Inman, spouse Contact Information [phone], Advance Directives? No History Provided By Patient,Medical Record Has Patient been admitted in last 30 No days? Comment Patient seen by the ER provider [id number] Prior Living Arrangements House Household Members spouse Type of transporation used prior to Drives own vehicle admit Comment Spouse is disabled and patient is her primary caregiver Independent with ADL's Yes Is patient alert and oriented? Yes Caregiver for Another Yes: Spouse Cyndi Barriers to Discharge No Comment Anticipate patient will return home upon discharge, r/o need for HH Transportation Arrangement Family or friend Additional Comment CM team following closely as medical POC unfolds
[2022-06-14 12:00] VITALS: BP 164/80; PULSE 50; RESP 16; TEMP 36.8; O2SAT 96
[2022-06-14] MEDS: LACTATED RINGERS 1,000 ML 100 ML IV (14:24)
[2022-06-14 16:00] VITALS: BP 177/71; PULSE 52; RESP 18; TEMP 36.9; O2SAT 97
--- NOTE | 2022-06-14 17:54 | PM.PN.1 ---
Subjective Subjective Date Patient Seen: 06/14/22 Time Patient Seen: 17:54 Interval history: No changes today. Exam Vital Signs (past 8 hours): - 06/14/22 12:00 Temperature 98.2 F Pulse Rate 50 L Respiratory Rate 16 Blood Pressure 164/80 H Pulse Oximetry 96 Oxygen Flow Rate 0 Fraction of Inspired Oxygen 21 SaO2/FiO2 Ratio 466 Oxygen Delivery Method Room Air Oxygen Flow Rate 0 Resp Effort & Inspection: normal respiratory effort GI Palpation: soft Objective Labs Result Diagrams: 06/14/22 06:07 06/14/22 06:07 Labs: Laboratory Results - last 24 hr 06/14/22 06/14/22 06:07 06:07 WBC 6.0 RBC 3.87 L Hgb 12.0 L Hct 34.9 L MCV 90.3 MCH 30.9 MCHC 34.3 RDW 13.9 Plt Count 213 Neut % (Auto) 65.1 Lymph % (Auto) 17.3 L [place] % (Auto) 13.0 Eos % (Auto) 3.7 Baso % (Auto) 0.9 Neut # (Auto) 3900 Lymph # (Auto) 1000 L [place] # (Auto) 800 Eos # (Auto) 200 Baso # (Auto) 100 Sodium 139 Potassium 3.1 L Chloride 104 Carbon Dioxide 25 BUN 9 Creatinine 0.63 L Estimated GFR > 60 BUN/Creatinine Ratio 14.3 Glucose 90 Calcium 8.3 L Total Bilirubin 3.9 H AST 106 H ALT 211 H Alkaline Phosphatase 404 H Total Protein 5.9 L Albumin 3.0 L Globulin 2.9 Albumin/Globulin Ratio 1.0 PFSH Medical History Asthma (~1999) BPPV (benign paroxysmal positional vertigo) Cataracts, bilateral (~2017) Chicken pox Chronic back pain (~2011) Chronic pain Colon polyps (~1994) Essential hypertension Foot pain Gastric ulcer (~1969) Hyperlipidemia Measles Mumps Retinal detachment Seasonal allergies (~1987) Shoulder pain (~2011) Tinnitus Surgical History Anesthesia History of appendectomy (~1953) History of cataract removal with insertion of prosthetic lens History of gastric bypass (~1977) Family History Grandmother Stroke Father High cholesterol Mother Breast cancer Sister Hyperlipidemia Grandmother No problems noted. Grandfather No problems noted. Social History marital status: number of children: 0 household members: spouse lives independently: Yes caregiver/support person: No housing: house education level: college occupational status: employed Smoking Status: Never smoker second hand exposure: No alcohol intake: current substance use type: does not use Assessment & Plan Assessment and plan (1) Biliary calculi, common bile duct: Status: Acute Plan To OR tomorrow for lap hyacinth with IOC and common duct exploration Time Spent With Patient Critical Care time: I spent a total of [] minutes of critical care time on this patient's care today; this time is exclusive of procedural time. Quality VTE Deep Vein Thrombosis/Pulmonary Embolism Present on Admission: No
[2022-06-14 19:45] VITALS: BP 180/85; PULSE 55; RESP 17; TEMP 37; O2SAT 97
[2022-06-14 22:43] VITALS: BP 180/85; PULSE 55
[2022-06-14] MEDS: lisinopriL 10 MG TABLET PO (22:43)
[2022-06-14] MEDS: POTASSIUM CHLORIDE IN WATER 10 MEQ/100 ML PIGGYBACK 100 MEQ IV ×2 (22:44→23:56)
[2022-06-15] VITALS (16 sets, daily range): BP systolic 110–165; BP diastolic 48–79; PULSE 48–96; RESP 12–26; TEMP 36.1–37.2; O2SAT 91–100
--- NOTE | 2022-06-15 | PATH_ITS ---
[facility] Accession Number: [id number] . 01 Material submitted: . gallbladder - GALLBLADDER . 01 Diagnosis: Gallbladder, Cholecystectomy: Chronic active cholecystitis. No calculi identified. Negative for dysplasia and malignancy. MRV 06/17/2022 1318 Local . 01 Electronically signed: . Luz Maria Dave MD, Pathologist NPI- [id number] . 01 Gross description: . The specimen is received in formalin labeled with the patient's name, , and gallbladder, and consists of a disrupted gallbladder measuring 8.2 x 4.3 x 3.2 cm. The serosa is red-brown and roughened, and the hepatic surface is rough and insignificant for a full-thickness defect measuring 2.4 cm in greatest dimension. The cystic duct is received closed with a clamp, is inked blue, and no pericystic lymph node is identified. Opening the specimen reveals the lumen to contain a small amount of red hemorrhagic material with no calculi identified in the lumen or the container. The mucosa is red and velvety with no pinpoint yellow areas of discoloration, polyps or lesions identified. The armando range from 0.3 to 0.7 cm thick and are diffusely garcia and firm. No discrete lesions are identified. Warehouse Delivery Manager sections to include the cystic duct margin and full-thickness with area of defect are submitted in cassette A1. ([id number]) /MRV 06/16/2022 1902 Local . 01 Pathologist provided ICD-10: K81.9 . 01 CPT . 127074 Specimen Comment: A courtesy copy of this report has been sent to [phone] Specimen Comment: A duplicate report has been generated due to demographic updates. Performed at: 01 [facility] [address], [place], [place] [id number] MD Fransisco Blanco MD Phone: [phone]
[2022-06-15] MEDS: POTASSIUM CHLORIDE IN WATER 10 MEQ/100 ML PIGGYBACK 100 MEQ IV ×2 (00:40→20:39)
--- NOTE | 2022-06-15 01:20 | PC.NURSE ---
Pt has been hypertensive with systolic b/p greater than 154 and up to 180 and HR 45-55. According to pt he doesn't take anything at home for high bp but on his medication list there is hydrochlorothiazide listed. Pt kcl was 3.1. Dr. Vasquez notified and received orders for 3 k riders and a one dose of lisinopril 10 mg and am labs. pt states he has seasonal allergies and would like to take alegra. He also has nasal spray included in his medication list.
[2022-06-15] MEDS: metroNIDAZOLE 500 MG/100 ML PIGGYBACK 100 MG IV ×2 (05:05→22:29)
[2022-06-15] MEDS: LACTATED RINGERS 1,000 ML 100 ML IV ×5 (05:06→19:54)
[2022-06-15 06:34] LABS: Add Manual Diff / Slide Review NO; Basophils Absolute Auto 100 /uL (0-100); Eosinophils Absolute Auto 200 /uL (0-450); Eosinophils Percent Auto 3.3 % (2-4); Hematocrit 35.9 % (41-53); Hemoglobin 12.2 g/dL (13.5-17.5); Lymphocytes Absolute Auto 1200 /uL (1100-4500); Lymphocytes Percent Auto 18.8 % (25-40); Mean Corpuscular Hemoglobin 30.9 PG (26-34); Mean Corpuscular Volume 90.8 fL (80-100); Monocytes Absolute Auto 800 /uL (0-900); Monocytes Percent Auto 11.8 % (3-14); Neutrophils Absolute Auto 4300 /uL (1500-7000); Neutrophils Percent Auto 65.1 % (50-75); Platelet Count 248 X10^3/uL (150-400); Red Blood Cell Count 3.96 X10^6/uL (4.5-5.9); Red Cell Distribution Width 13.8 % (11.6-14.8); White Blood Cell Count 6.6 X10^3/uL (4.5-11.0)
[2022-06-15 06:44] LABS: Alanine Aminotransferase 197 IU/L (<50); Albumin 3.1 g/dL (3.5-5.0); Albumin Globulin Ratio 1.1 (1.0-2.8); Alkaline Phosphatase 363 U/L (38-126); Aspartate Aminotransferase 98 IU/L (17-59); BUN Creatinine Ratio 18.5 (6-22); Bilirubin Total 1.7 mg/dL (0.2-1.3); Blood Urea Nitrogen 12 mg/dL (9-20); Calcium 8.3 mg/dL (8.4-10.2); Carbon Dioxide 23 mmol/L (22-32); Chloride 104 mmol/L (98-107); Estimated Glomerular Filt Rate > 60 mL/min (>60); Globulin 2.9 g/dL (1.7-4.1); Glucose 81 mg/dL (80-110); HEMOLYSIS < 15 (0-50); Potassium 3.3 mmol/L (3.4-5.1); Sodium 137 mmol/L (137-145)
[2022-06-15] MEDS: cefTRIAXone 2,000 MG in SODIUM CHLORIDE 0.9% 100 ML 100 MG IV (09:08)
--- NOTE | 2022-06-15 09:31 | CM.DPNOTE ---
Discharge Planning Note: Per nurse, plan is for patient to go for lap exploration surgery at 10 am today. 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 Apparently friends are assisting the spouse. Plan: Home when medically stable, r/o need for HH. Stephanie Haskins RN/DCP
--- NOTE | 2022-06-15 12:22 | PC.NURSE ---
12:19 Pt off unit with LABOR REPRESENTATIVE.
[2022-06-15 12:43] LABS: COVID19 -Nasal RAPID Negative (Negative)
[2022-06-15] MEDS: CLINDAMYCIN 900 MG/50 ML PIGGYBACK 50 MG IV (12:55)
--- NOTE | 2022-06-15 13:21 | SUR.OPER ---
Supine on padded OR bed, head on pillow, safety belt at thigh, left arm padded and tucked at side. Right arm secured on padded arm board <90 degrees abduction. Legs uncrossed. Padded footboard in place. Tape over blanket to secure lower legs.
[2022-06-15] MEDS: BUPIVACAINE 0.5% W/ EPI (PF) 30 ML VIAL INJ (13:33)
[2022-06-15] MEDS: IOPAMIDOL 50 ML VIAL INJ ×2 (13:34→16:09)
[2022-06-15] MEDS: GLUCAGON,HUMAN RECOMBINANT 1 MG/ML VIAL IV (16:25)
--- NOTE | 2022-06-15 18:26 | PM.OP.1 ---
Operative Date/Time/Diagnoses Date of procedure: 06/15/22 Time of procedure: 18:26 Pre-op diagnosis: Cholelithiasis and choledocholithiasis Post-op diagnosis: same Procedure & Clinicians Same procedure as scheduled: Yes Operative Notes Procedure in detail: Procedure & Clinicians Procedure: 1. Laparoscopic cholecystectomy 2. Intraoperative cholangiogrm 3. Common bile duct exploration 4. Extensive lysis of adhesions Same procedure as scheduled: Yes Surgeon: Vasyl Vasquez Wearing Apparel Assembler: Tameka Maki Operative Notes Procedure in detail: The patient was on preoperative antibiotic.? The patient was brought to the operating room, placed on the table in the supine position.? General endotracheal anesthesia was induced.? The abdomen was prepped and draped.? A time-out was performed.? We made a 1 cm infraumbilical incision.? We dissected down to the base of the umbilical stalk using cautery.? We grasped the umbilical stalk with a Roxie clamp to elevate the abdominal wall.? We scored the fascia in the midline with cautery 1 cm.? We pierced the peritoneum with a Peon clamp.? A finger was inserted and swept normal directions.? There were adhesions palpated.? The Rhonda port was placed and the abdomen was insufflated on low-flow the pressure was high indicating that not in the peritoneal cavity.? We then moved over to the right upper quadrant and performed a cut down.? We scored the anterior sheath and divided the rectus muscle fibers with a beyond clamp.? The posterior sheath was grasped, elevated between clamps and divided with Metzenbaum scissors.? A 5 mm port was placed and the abdomen was insufflated.? A camera was inserted.? We could see adhesions including loops of small bowel near the umbilicus.? We then added 2 additional 5 mm ports in the right side and started to perform a lysis of adhesions to take down the loops of bowel around the umbilical incision.? There was no evidence of any bowel injury.? We also took down loops of bowel in the subxiphoid position to create space for a subxiphoid port. The patient was then positioned in reverse Trendelenburg and the table was tilted to the left.? The gallbladder was encased in dense adhesions of omentum.? We slowly started to dissect the omentum off the gallbladder dome.? We never encountered a clean plane of dissection around the gallbladder but we could still visualize the size and shape of the gallbladder.? We then dissected the cystic structures with a combination of hook cautery and blunt dissection.? A cholangiogram was performed using the 6 [place] ureteral catheter.? Cholangiogram demonstrated good flow down the cystic duct into the common and hepatic ducts however there was a cutoff in the distal common bile duct with no flow into the duodenum.? We then attempted common bile duct exploration.? We could not advance the wire beyond the obstruction however we were able to advance the catheter with the wire inside beyond the obstruction and into the duodenum.? We hoped at this point that we had pushed the stone into the duodenum however when we performed a completion cholangiogram there was still a complete obstruction in the distal common bile duct.? We reinserted the catheter and wire beyond the obstruction and in to the duodenum and removed the catheter.? We attempted to insert a flexible ureteroscope over the wire however we were unable to obtain a split screen view and camera could not be adequately guided into the common bile duct visualize the obstruction.? At this point we aborted and removed the camera and wire.? We then clipped the cystic duct stump with 2 clips.? Next, we clipped the cystic artery and dissected the gallbladder off the liver bed.? Again, the tissue planes were essentially obliterated due to the dense adhesions.? The gallbladder and a few large stones were placed in an Endo-Catch bag and the right upper quadrant was irrigated until it was dry.? There was some oozing in the gallbladder fossa and Surgicel was applied with good effect. We then removed the 5 mm ports under direct vision we removed the Rhonda port.? Because there were many loops of small bowel adherent to the umbilical scar and there was a risk of a bowel injury we extended the umbilical incision to about 10 cm and exposed the loops of bowel that were adherent to the abdominal wall around the umbilicus.? There was no obvious bowel injury however there were 2 superficial serosal tears which were closed with? interrupted 2-0 silk sutures in a seromuscular fashion.? The skin incisions were closed with 4 Monocryl and Steri-Strips were applied.? Band-Aids were applied over the Steri-Strips. Dr. Maki provided assistance with retraction and intraoperative decision-making that was essential for the safe completion of the case. EBL: 100 mL Specimen: Gallbladder Post-operative Condition: stable Post-operative Disposition: PACU
--- NOTE | 2022-06-15 18:45 | SUR.PHASEI ---
Patient drowsy but arousable to verbal commands; c/o mild pain but no nausea; states that his lower back hurts; Repositioned patient to left side for comfort and placed pillows between legs and behind lower back area. VSS.
[2022-06-15] MEDS: HYDROMORPHONE 2 MG INJ IV (18:49)
[2022-06-15] MEDS: ONDANSETRON 4 MG/2 ML INJ IV ×2 (18:49→21:36)
--- NOTE | 2022-06-15 20:01 | PC.NURSE ---
pt came back from surgery around 1940. pt alert and oriented but still a bit drowsy, laying on the left side of the bed. pt has 3 stab wounds to the right side of the abdomen and another one by his umbilicus.pt resting.
[2022-06-15] MEDS: HYDROMORPHONE 0.5 MG INJ IV (21:36)
[2022-06-15] MEDS: POTASSIUM CHLORIDE IN WATER 10 MEQ/100 ML PIGGYBACK 50 MEQ IV (23:41)
[2022-06-16] MEDS: HYDROMORPHONE 0.5 MG INJ IV ×5 (01:54→23:33)
[2022-06-16] MEDS: POTASSIUM CHLORIDE IN WATER 10 MEQ/100 ML PIGGYBACK 50 MEQ IV ×2 (01:57→05:00)
[2022-06-16 01:59] VITALS: BP 172/79; PULSE 65; RESP 20; TEMP 36.9; O2SAT 96
[2022-06-16] MEDS: GABAPENTIN 300 MG CAPSULE 900 MG PO ×3 (04:11→21:29)
[2022-06-16] MEDS: ONDANSETRON 4 MG/2 ML INJ IV (05:07)
[2022-06-16 06:30] LABS: Hematocrit 38.1 % (41-53); Hemoglobin 12.7 g/dL (13.5-17.5); Mean Corpuscular HGB Conc 33.5 % (30-36); Mean Corpuscular Hemoglobin 30.5 PG (26-34); Mean Corpuscular Volume 91.1 fL (80-100); Platelet Count 270 X10^3/uL (150-400); Red Blood Cell Count 4.18 X10^6/uL (4.5-5.9); Red Cell Distribution Width 14.2 % (11.6-14.8); White Blood Cell Count 16.5 X10^3/uL (4.5-11.0)
[2022-06-16] MEDS: metroNIDAZOLE 500 MG/100 ML PIGGYBACK 100 MG IV ×3 (06:33→21:28)
[2022-06-16 06:43] LABS: Alanine Aminotransferase 239 IU/L (<50); Albumin 3.2 g/dL (3.5-5.0); Alkaline Phosphatase 318 U/L (38-126); Aspartate Aminotransferase 184 IU/L (17-59); BUN Creatinine Ratio 24.3 (6-22); Bilirubin Total 1.4 mg/dL (0.2-1.3); Blood Urea Nitrogen 17 mg/dL (9-20); Calcium 8.2 mg/dL (8.4-10.2); Carbon Dioxide 22 mmol/L (22-32); Chloride 105 mmol/L (98-107); Estimated Glomerular Filt Rate > 60 mL/min (>60); Globulin 3.1 g/dL (1.7-4.1); Glucose 122 mg/dL (80-110); HEMOLYSIS 16 (0-50); Potassium 4.4 mmol/L (3.4-5.1); Sodium 137 mmol/L (137-145); Total Protein 6.3 g/dL (6.3-8.2)
[2022-06-16 07:15] LABS: Neutrophils Absolute Manual 14850 /uL (3000-5900); RBC Morphology Normal Morphology; Total Cells Counted 100
[2022-06-16 08:01] VITALS: BP 147/64; PULSE 56; RESP 18; TEMP 36.9; O2SAT 97
[2022-06-16] MEDS: cefTRIAXone 2,000 MG in SODIUM CHLORIDE 0.9% 100 ML 200 MG IV (10:14)
[2022-06-16 12:30] VITALS: BP 144/88; PULSE 66; RESP 18; TEMP 36.4; O2SAT 96
--- NOTE | 2022-06-16 15:37 | P.PN_ITS ---
Subjective Subjective Date Patient Seen: 06/16/22 Time Patient Seen: 15:37 Exam Vital Signs (past 8 hours): - 06/16/22 08:01 06/16/22 12:30 Temperature 98.5 F 97.5 F L Pulse Rate 56 L 66 Respiratory Rate 18 18 Blood Pressure 147/64 H 144/88 H Pulse Oximetry 97 96 Oxygen Flow Rate 0 0 Fraction of Inspired Oxygen 21 SaO2/FiO2 Ratio 466 Oxygen Delivery Method Nasal Cannula Oxygen Flow Rate 0 Narrative Exam Narrative: Jasmeet complaints of right upper quadrant discomfort and nausea Resp Effort & Inspection: normal respiratory effort GI Palpation: soft Objective Labs Result Diagrams: 06/16/22 05:50 06/16/22 05:50 Labs: Laboratory Results - last 24 hr 06/16/22 06/16/22 05:50 05:50 WBC 16.5 H D RBC 4.18 L Hgb 12.7 L Hct 38.1 L MCV 91.1 MCH 30.5 MCHC 33.5 RDW 14.2 Plt Count 270 Total Counted 100 Seg Neutrophils % 89.0 H Band Neutrophils % 1.0 L Lymphocytes % (Manual) 6.0 L Monocytes % (Manual) 4.0 Neutrophils # (Manual) 25475 H RBC Morphology Normal morphology Sodium 137 Potassium 4.4 Chloride 105 Carbon Dioxide 22 BUN 17 Creatinine 0.70 Estimated GFR > 60 BUN/Creatinine Ratio 24.3 H Glucose 122 H Calcium 8.2 L Total Bilirubin 1.4 H AST 184 H ALT 239 H Alkaline Phosphatase 318 H Total Protein 6.3 Albumin 3.2 L Globulin 3.1 Albumin/Globulin Ratio 1.0 PFSH Medical History Asthma (~1999) BPPV (benign paroxysmal positional vertigo) Cataracts, bilateral (~2017) Chicken pox Chronic back pain (~2011) Chronic pain Colon polyps (~1994) Essential hypertension Foot pain Gastric ulcer (~1969) Hyperlipidemia Measles Mumps Retinal detachment Seasonal allergies (~1987) Shoulder pain (~2011) Tinnitus Surgical History Anesthesia History of appendectomy (~1953) History of cataract removal with insertion of prosthetic lens History of gastric bypass (~1977) Family History Grandmother Stroke Father High cholesterol Mother Breast cancer Sister Hyperlipidemia Grandmother No problems noted. Grandfather No problems noted. Social History marital status: number of children: 0 household members: spouse lives independently: Yes caregiver/support person: No housing: house education level: college occupational status: employed Smoking Status: Never smoker second hand exposure: No alcohol intake: current substance use type: does not use Assessment & Plan Assessment and plan (1) Biliary calculi, common bile duct: Status: Acute Plan 77-year-old man who is postop day 1 following laparoscopic cholecystectomy, intraoperative cholangiogram and common bile duct exploration with attempted rem oval of common duct stone. We did not definitively remove the common duct stone however his bilirubin is down this morning, almost normal. We will wait for him to be able to tolerate a diet and check labs again tomorrow morning. If his bilirubin is normal we could recheck an MRCP to see if the stone has passed. If the stone has not passed we will need to work on getting him to a facility that can perform ERCP. Time Spent With Patient Critical Care time: I spent a total of [] minutes of critical care time on this patient's care today; this time is exclusive of procedural time. Quality VTE Deep Vein Thrombosis/Pulmonary Embolism Present on Admission: No
[2022-06-16 16:00] VITALS: BP 144/67; PULSE 56; RESP 18; TEMP 36.7; O2SAT 97
[2022-06-16] MEDS: LACTATED RINGERS 1,000 ML 100 ML IV (16:51)
--- NOTE | 2022-06-16 18:41 | PC.NURSE ---
Pt alert and oriented. sleeping well off and on throughout the shift. Pain management of good effect. Pt able to make needs known. Conversant. Voiding.
[2022-06-16 20:00] VITALS: BP 149/67; PULSE 68; RESP 18; TEMP 36.9; O2SAT 96
[2022-06-16] MEDS: TIZANIDINE 4 MG TABLET PO (20:09)
[2022-06-17] VITALS (8 sets, daily range): BP systolic 122–153; BP diastolic 59–74; PULSE 57–68; RESP 16–21; TEMP 36.6–37.1; O2SAT 94–98
[2022-06-17] MEDS: LORazepam 2 MG/ML INJ 0.5 MG IV ×2 (00:32→22:20)
[2022-06-17] MEDS: LACTATED RINGERS 1,000 ML 100 ML IV ×2 (02:56→14:10)
[2022-06-17] MEDS: HYDROMORPHONE 0.5 MG INJ IV ×5 (03:01→20:58)
[2022-06-17] MEDS: metroNIDAZOLE 500 MG/100 ML PIGGYBACK 100 MG IV ×3 (05:23→20:58)
[2022-06-17 06:09] LABS: Add Manual Diff / Slide Review NO; Basophils Absolute Auto 100 /uL (0-100); Basophils Percent Auto 0.4 % (0-2); Eosinophils Absolute Auto 100 /uL (0-450); Eosinophils Percent Auto 0.7 % (2-4); Hematocrit 33.4 % (41-53); Hemoglobin 11.1 g/dL (13.5-17.5); Lymphocytes Absolute Auto 1200 /uL (1100-4500); Lymphocytes Percent Auto 9.3 % (25-40); Mean Corpuscular HGB Conc 33.3 % (30-36); Mean Corpuscular Hemoglobin 30.4 PG (26-34); Mean Corpuscular Volume 91.2 fL (80-100); Monocytes Absolute Auto 1400 /uL (0-900); Neutrophils Absolute Auto 10000 /uL (1500-7000); Neutrophils Percent Auto 78.6 % (50-75); Platelet Count 246 X10^3/uL (150-400); Red Blood Cell Count 3.66 X10^6/uL (4.5-5.9); White Blood Cell Count 12.8 X10^3/uL (4.5-11.0)
[2022-06-17] MEDS: ENOXAPARIN 40 MG/0.4 ML SYRINGE SUBCUT ×2 (08:39→20:57)
[2022-06-17] MEDS: cefTRIAXone 2,000 MG in SODIUM CHLORIDE 0.9% 100 ML 200 MG IV (08:39)
--- NOTE | 2022-06-17 11:01 | P.PN_ITS ---
Subjective Subjective Date Patient Seen: 06/17/22 Time Patient Seen: 11:01 Interval history: Jasmeet feels quite fatigued today. He is had some pain in the right upper quadrant at times and it radiates to his right shoulder. White blood cell count is down today. Comprehensive metabolic panel was not drawn this morning and has been reordered Exam Vital Signs (past 8 hours): - 06/17/22 03:56 06/17/22 08:00 06/17/22 10:20 Temperature 97.8 F 97.8 F Pulse Rate 65 57 L Respiratory Rate 18 18 Blood Pressure 122/59 L 132/66 Pulse Oximetry 96 97 96 Oxygen Flow Rate 4 4 4 Fraction of Inspired Oxygen 21 SaO2/FiO2 Ratio 466 Oxygen Delivery Method Nasal Cannula Oxygen Flow Rate 4 Const General: frail appearing Resp Effort & Inspection: normal respiratory effort Objective Labs Result Diagrams: 06/17/22 05:45 06/16/22 05:50 Labs: Laboratory Results - last 24 hr 06/17/22 05:45 WBC 12.8 H RBC 3.66 L Hgb 11.1 L Hct 33.4 L MCV 91.2 MCH 30.4 MCHC 33.3 RDW 14.0 Plt Count 246 Neut % (Auto) 78.6 H Lymph % (Auto) 9.3 L [place] % (Auto) 11.0 Eos % (Auto) 0.7 L Baso % (Auto) 0.4 Neut # (Auto) 58619 H Lymph # (Auto) 1200 [place] # (Auto) 1400 H Eos # (Auto) 100 Baso # (Auto) 100 PFSH Medical History Asthma (~1999) BPPV (benign paroxysmal positional vertigo) Cataracts, bilateral (~2017) Chicken pox Chronic back pain (~2011) Chronic pain Colon polyps (~1994) Essential hypertension Foot pain Gastric ulcer (~1969) Hyperlipidemia Measles Mumps Retinal detachment Seasonal allergies (~1987) Shoulder pain (~2011) Tinnitus Surgical History Anesthesia History of appendectomy (~1953) History of cataract removal with insertion of prosthetic lens History of gastric bypass (~1977) Family History Grandmother Stroke Father High cholesterol Mother Breast cancer Sister Hyperlipidemia Grandmother No problems noted. Grandfather No problems noted. Social History marital status: number of children: 0 household members: spouse lives independently: Yes caregiver/support person: No housing: house education level: college occupational status: employed Smoking Status: Never smoker second hand exposure: No alcohol intake: current substance use type: does not use Assessment & Plan Assessment and plan (1) Biliary calculi, common bile duct: Status: Acute Plan We will recheck CMP today and will repeat MRI to see if he still has any common bile duct obstruction Time Spent With Patient Critical Care time: I spent a total of [] minutes of critical care time on this patient's care today; this time is exclusive of procedural time. Quality VTE Deep Vein Thrombosis/Pulmonary Embolism Present on Admission: No
[2022-06-17 12:28] LABS: Alanine Aminotransferase 171 IU/L (<50); Albumin 2.6 g/dL (3.5-5.0); Albumin Globulin Ratio 1.1 (1.0-2.8); Alkaline Phosphatase 240 U/L (38-126); Aspartate Aminotransferase 88 IU/L (17-59); BUN Creatinine Ratio 24.2 (6-22); Bilirubin Total 1.2 mg/dL (0.2-1.3); Blood Urea Nitrogen 15 mg/dL (9-20); Carbon Dioxide 27 mmol/L (22-32); Chloride 104 mmol/L (98-107); Estimated Glomerular Filt Rate > 60 mL/min (>60); Globulin 2.3 g/dL (1.7-4.1); Glucose 90 mg/dL (80-110); HEMOLYSIS < 15 (0-50); Potassium 3.9 mmol/L (3.4-5.1); Sodium 136 mmol/L (137-145); Total Protein 4.9 g/dL (6.3-8.2)
[2022-06-17] MEDS: GABAPENTIN 300 MG CAPSULE 900 MG PO ×2 (14:11→20:59)
--- NOTE | 2022-06-17 14:31 | PC.NURSE ---
Assumed care of pt at 1330, A&Ox4, c/o 10 pain to R shoulder and abdomen. 4 bandaids to abdomen c/d/i, gauze dressing to mid abdomen with small amount of dry drainage. C/o SOB, saturating well on 3L O2, lung sounds diminished. CMS intact, bowel sounds present, passing flatus. Painful IV to R wrist: removed. LR to IV ioL forearm at 100mL/hr
--- NOTE | 2022-06-17 16:09 | DI.MRI.S_ITS ---
PROCEDURE: MR ABDOMEN WO/W CON INDICATIONS: common bile duct stone TECHNIQUE: Coronal HASTE, axial 2D FLASH in- and [id number]; axial breath-hold T2 FSE with fat saturation from the hepatic dome to the iliac crests. Oblique coronal thin-slice and radial thick slab HASTE through the biliary system. Dynamic axial VIBE during administration of contrast. Post-contrast coronal VIBE or 2D FLASH with fat saturation from the hepatic dome to the iliac crests. Optional diffusion weighted imaging and ADC may be performed. COMPARISON: [facility], CR, XR CHOLANGIOGRAM OPERATIVE, 06/15/2022, 16:38. [facility], MR, MR ABDOMEN WO/W CON, 06/11/2022, 7:50. FINDINGS: Image quality: Excellent. Pancreas and biliary system: Fluid collection in the gallbladder fossa measuring 8.9 x 4.8 x 4.4 cm, estimated volume of 98 cc. (11/19 and 10/31). There are is heterogeneous T2 signal. Punctate focus of signal dropout which likely represent gas. Contrast is seen at this site on the intraoperative cholangiogram 06/15/2022. It is uncertain if this collection is due to leakage of contrast at the time of injection or if there is ongoing bile leak. There is an obstructing calculus in the distal CBD measuring 0.4 cm, (3/15), unchanged. CBD measures 0.5 cm. Minimal prominence of the intrahepatic biliary ducts. No pancreatic ductal dilatation. Solid organs: Liver is normal in size and enhancement. Small amount of fluid tracking along the inferior liver margin. Spleen is normal in size and enhancement. No adrenal nodules. Kidneys are normal in size and enhancement, without hydronephrosis. Small T2 hyperintense renal cysts. Nodes and vessels: No retroperitoneal or mesenteric adenopathy by size criteria. Aorta and inferior vena cava are normal in size. Bowel and peritoneum: Unenhanced bowel loops are normal in caliber throughout. No free fluid. Lung bases: Trace pleural effusions. Right basilar atelectasis. Bones and soft tissues: No ventral hernias. Bone marrow is normal in overall signal. Susceptibility artifact at the abdominal wall. IMPRESSION: 1. Choledocholithiasis. Stone in the distal CBD measuring 0.4 cm is unchanged in position. 2. Post cholecystectomy. Fluid collection in the gallbladder fossa measuring 8.9 cm and approximately 98 cc. Contrast is seen at this site in the intraoperative cholangiogram. It is uncertain if this collection is due to leakage of contrast at the time of injection or if there is ongoing bile leak. HIDA scan may be helpful for further evaluation. 3. Trace pleural effusions. Right basilar atelectasis. Comment: Findings were discussed with Dr. Garcia at 4:44 p.m. Dictated by: Yanick Baxter M.D. on 06/17/2022 at 16:29 Approved by: Yanick Baxter M.D. on 06/17/2022 at 16:51
--- NOTE | 2022-06-17 16:41 | PC.NURSE ---
Received phone call from Dr. Baxter @ [facility] [phone] w/ stat results for Dr. Vasquez. Dr. Bravo is not automation consultant so I confirmed that Dr. Garcia would take the call via his cell.
[2022-06-18] MEDS: LACTATED RINGERS 1,000 ML 100 ML IV ×2 (02:31→18:56)
[2022-06-18 02:51] VITALS: BP 154/73; PULSE 63; RESP 16; TEMP 36.9; O2SAT 96
[2022-06-18] MEDS: metroNIDAZOLE 500 MG/100 ML PIGGYBACK 100 MG IV ×3 (06:01→21:57)
[2022-06-18 07:40] VITALS: BP 139/68; PULSE 69; RESP 18; TEMP 37.4; O2SAT 95
[2022-06-18] MEDS: cefTRIAXone 2,000 MG in SODIUM CHLORIDE 0.9% 100 ML 200 MG IV (08:29)
[2022-06-18] MEDS: ENOXAPARIN 40 MG/0.4 ML SYRINGE SUBCUT ×2 (08:32→20:06)
[2022-06-18] MEDS: HYDROMORPHONE 0.5 MG INJ IV ×4 (08:32→21:57)
--- NOTE | 2022-06-18 11:08 | DIET.CONS2 ---
Dietary Inpatient Consultation Note Admission Date: 06/13/2022 18:27 Pt started on clear liquid diet today by Dr. Vasquez. Kitchen sending ONS Ensure Clear on all meal trays to better support nutrition status. Diet: 06/18/22 Lunch Clear Liquid Diet Diet Modifications: Nutrition Percent Meal Consumed 0% 06/17/22 18:00 Electronically Signed by: Margot Ashley 06/18/22 11:08 Clinical Dietitian [address] [address]
[2022-06-18 12:00] VITALS: BP 161/75; PULSE 64; RESP 18; TEMP 36.8; O2SAT 98
[2022-06-18] MEDS: HYDROCODONE/ACET 5/325 TABLET 1 TAB PO (12:40)
--- NOTE | 2022-06-18 12:54 | P.PN_ITS ---
Subjective Subjective Date Patient Seen: 06/18/22 Time Patient Seen: 12:54 Interval history: Jasmeet feels somewhat better today. He has passed some gas but he is still burping. Today was a lab holiday. He had an MRCP yesterday which confirmed a still has a common bile duct stone. Exam Vital Signs (past 8 hours): - 06/18/22 07:40 06/18/22 12:00 Temperature 99.3 F 98.3 F Pulse Rate 69 64 Respiratory Rate 18 18 Blood Pressure 139/68 161/75 H Pulse Oximetry 95 98 Oxygen Flow Rate 3 3 Fraction of Inspired Oxygen 32 SaO2/FiO2 Ratio 306 Oxygen Delivery Method Nasal Cannula Oxygen Flow Rate 3 Const General: No acute distress Resp Effort & Inspection: normal respiratory effort GI Palpation: soft Objective Labs Result Diagrams: 06/17/22 05:45 06/17/22 05:45 [facility] Medical History Asthma (~1999) BPPV (benign paroxysmal positional vertigo) Cataracts, bilateral (~2017) Chicken pox Chronic back pain (~2011) Chronic pain Colon polyps (~1994) Essential hypertension Foot pain Gastric ulcer (~1969) Hyperlipidemia Measles Mumps Retinal detachment Seasonal allergies (~1987) Shoulder pain (~2011) Tinnitus Surgical History Anesthesia History of appendectomy (~1953) History of cataract removal with insertion of prosthetic lens History of gastric bypass (~1977) Family History Grandmother Stroke Father High cholesterol Mother Breast cancer Sister Hyperlipidemia Grandmother No problems noted. Grandfather No problems noted. Social History marital status: number of children: 0 household members: spouse lives independently: Yes caregiver/support person: No housing: house education level: college occupational status: employed Smoking Status: Never smoker second hand exposure: No alcohol intake: current substance use type: does not use Assessment & Plan Assessment and plan (1) Biliary calculi, common bile duct: Status: Acute Plan I informed Jasmeet that he still has a common bile duct stone despite his improving labs. We again discussed the possibility of performing an open common bile duct exploration but he would prefer to keep trying to get transferred to a facility where he can have a minimally invasive procedure. We will continue to attempt a transfer to a facility that can perform a combined laparoscopic assisted ERCP or Interventional Radiology. Time Spent With Patient Critical Care time: I spent a total of [] minutes of critical care time on this patient's care today; this time is exclusive of procedural time. Quality VTE Deep Vein Thrombosis/Pulmonary Embolism Present on Admission: No
--- NOTE | 2022-06-18 13:55 | PT.IIE ---
Current Diagnoses Insomnia, unspecified (06/13/22) Other chronic pain (06/13/22) Calculus of bile duct without cholangitis or cholecystitis without obstruction (06/13/22) Retention of urine, unspecified (06/13/22) Surgery Performed Operation Date: 06/14/22 14:30 <No data on this case meets the specified criteria> Operation Date: 06/15/22 14:00 Actual Procedures p Laparoscopic Cholecystectomy(Not Applicable) - Vasyl Vasquez MD Surgical History (Last Reviewed 01/13/22 @ 08:49 by Aspen Silva PA-C) Anesthesia History of appendectomy (~1953) History of cataract removal with insertion of prosthetic lens History of gastric bypass (~1977) Medical History (Last Reviewed 06/11/22 @ 02:53 by Ricardo Barry DO) Asthma (~1999) BPPV (benign paroxysmal positional vertigo) Cataracts, bilateral (~2017) Chicken pox Chronic back pain (~2011) Chronic pain Colon polyps (~1994) Essential hypertension Foot pain Gastric ulcer (~1969) Hyperlipidemia Measles Mumps Retinal detachment Seasonal allergies (~1987) Shoulder pain (~2011) Tinnitus Physical Therapy Inpatient Evaluation/Re-Eval M1 PT/OT-IP Prior Functional Status Start: 06/18/22 13:41 Freq: Status: Active Protocol: Document 06/18/22 13:41 (Rec: 06/18/22 13:55 [id number]) Medical Review Prior Functional Status Medical History Reviewed Yes Mobility and Gait Independent Activities of Daily Living and IADL's Independent Prior Functional Level (Other details) Exercises 3x/wk; 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 Home is two story with gym/office upstairs, able to live on main floor. M2 PT-IP Current Condition Start: 06/18/22 13:41 Freq: Status: Active Protocol: Document 06/18/22 13:41 BC (Rec: 06/18/22 13:55 [id number]) Physical Therapy Current Condition Current Condition Evaluation Date 06/18/22 Treatment Diagnosis S/P cholecystectomy; difficulty with ambulation Onset Date 06/16/22 M3 PT-IP Subjective Start: 06/18/22 13:41 Freq: Status: Active Protocol: Document 06/18/22 13:41 BC (Rec: 06/18/22 13:55 [id number]) Subjective Physical Therapy Visit Type Type Initial Evaluation Visit Start Time 13:10 Visit Stop Time 13:40 Total Visit Minutes 30 Physical Therapy Visit Comments Patient Comments I can't get over how weak I am . Patient Goals To get his strength back Therapy Pain Assessment Pain When Pain Assessed At Rest Pain Present Pain Present Pain Reported Location abdomen Intensity 5 Scale Used Numeric (0 - 10) Description Acute Pain Management Techniques Re-positioning,Timing of Activity with Medications M4 PT-IP Mobility and Gait Start: 06/18/22 13:41 Freq: Status: Active Protocol: Document 06/18/22 13:41 BC (Rec: 06/18/22 13:55 [id number]) PT-Bed Mobility Assessment Rolling Type of Rolling Log Rolling,Roll to Left Level of Assist Standby Assistance Supine to Sit Supine to Sit Standby Assistance,Bedrails Sit to Supine Sit to Supine Minimal Assistance,Bedrails Scooting Scooting to Edge of Bed Standby Assistance PT-Transfer Assessment Sit to and From Stand Sit to and from Stand Standby Assistance,Contact Guard Assistance Equipment Transfer Assistive Device Gait Belt,Front Wheeled Walker Transfers Transfer Destination Bed Transfer Technique Stand Pivot Transfer Ability Level of Assist Standby Assistance Comments Mobility Comments Pt reports dizziness upon sitting up. BP seated at EOB was 164/80, HR 65 bpm, O2 on room air 99% Gait Assessment Gait Gait Assistance Required: Standby Assistance,Contact Guard Assist Distance (Feet) 30 Assistive Devices Assistive Device Gait Belt,Front Wheeled Walker Gait Deviations General Gait Pattern Decreased Stride Length,Flexed Trunk Factors Limiting Gait Function Factors Limiting Gait Function Decreased Strength,Pain,Poor Balance Comments Gait Comments Pt continues to have dizziness with ambulation. Denies feelings of passing out. Gait is slow and guarded due to pain and dizziness per Pt report. Ambulating with forward flexed trunk. Two standing rest breaks with ~35' of gait. No physical support for ambulation needed, just SBA to CGA for safety. Stair Climbing Assessment Comments Stair Climbing Comments Not assessed due to pain/ weakness PT-Balance Assessment Sitting Balance and Reactions Static Sitting Balance Ability Good Dynamic Sitting Balance Ability Good Standing Balance and Reactions Static Standing Balance Ability Fair Dynamic Standing Balance Ability Fair Device Used FWW M5 PT-IP Objective Assessments Start: 06/18/22 13:41 Freq: Status: Active Protocol: Document 06/18/22 13:41 BC (Rec: 06/18/22 13:55 [id number]) Orientation Orientation/Cognition Level of Alertness Alert Orientation Name,Date,Place,Situation Language Function Ability No Deficits Noted Safety Awareness Understands Safety Issues Gross Range of Motion Upper Extremity ROM Assessment Within Functional Limits Lower Extremity ROM Assessment Within Functional Limits Strength Upper Extremity Strength Assessment Within Functional Limits Lower Extremity Strength Assessment Within Functional Limits Comments Strength Comments Pt demonstrates with functional strength for basic transfers/ambulation. He fatigues quickly, needing frequent rest breaks. Sensation Assessment Sensation Gross Sensation WNL Light Touch Intact Proprioception (Position) Intact M6 PT-IP Treatment Start: 06/18/22 13:41 Freq: Status: Active Protocol: Document 06/18/22 13:41 BC (Rec: 06/18/22 13:55 [id number]) Physical Therapy Treatment Education Education Provided Safety Other Treatments Other Treatment Performed Discussed role of PT in acute care setting, including d/c recommendations. M7 PT-IP Assessment and Plan Start: 06/18/22 13:41 Freq: Status: Active Protocol: Document 06/18/22 13:41 BC (Rec: 06/18/22 13:55 [id number]) PT Summary Assessment and Plan Potential Rehabilitation Potential Excellent Status of Condition at Evaluation Evolving Summary Impairments Pain,Strength,Bed Mobility, Transfers,Gait,Activity Tolerance Progress Towards Goals Progressing Toward Goals Assessment Summary Pt admitted with fever/chills diagnosed with distended gallbladder and stones. He is s/p laproscopic cholecystectomy. Pt states they are still waiting for placement at a hospital to perform laproscopic ERCP. He reports not being OOB for ~1 week. Pt's PLOF is fully independent and caregiver to his spouse. CLOF: He is requiring close SBA to CGA for mobility. All mobility is slow and guarded due to pain and fatigue. He does report dizziness upon sitting EOB ( vitals stable) and dizziness that continued with ambulation . Does not appear to be orthostatic. No noticeable nystagmus at rest or with transfers; regardless he could not tolerate BPPV testing at this juncture. IPPT to progress mobility and strength for return to PLOF. D/C recommendations are TBD given he is likely transferring for further surgery. Goals Bed Mobility Goal Independent Transfer Goal Independent Gait Goal Standby Assistance Gait Distance 150 Other Goals Ascend/descend 2 steps with SBA Days to Meet Goals 3 Frequency of Treatment Frequency Of Treatment Once a Day Treatment Plan Physical Therapy Treatment Plan Bed Mobility Training,Transfer Training,Gait Training, Therapeutic Exercise,Balance Retraining,Discharge Planning, Neuromuscular Re-ed Discharge Recommendations PT Discharge Recommendations Home vs SNF Other Discharge Recommendations D/C plan to be further determined given he is likely pending additional surgeries.
--- NOTE | 2022-06-18 14:07 | CM.DPNOTE ---
DCP Note According to conversation in multidisciplinary rounds; patient awaiting transfer for ERCP PT states home vs SNF, recs pending based on patient's need for transfer Patient is cg to his spouse and plans to return home when medically stable CM team will continue to follow closely as medical POC unfolds JW
[2022-06-18 16:00] VITALS: BP 157/70; PULSE 61; RESP 18; TEMP 36.6; O2SAT 97
[2022-06-18 20:00] VITALS: BP 161/71; PULSE 70; RESP 21; TEMP 37.1; O2SAT 94
[2022-06-18] MEDS: GABAPENTIN 300 MG CAPSULE 900 MG PO (23:57)
[2022-06-18] MEDS: LORazepam 2 MG/ML INJ 0.5 MG IV (23:57)
[2022-06-19] VITALS (8 sets, daily range): BP systolic 149–186; BP diastolic 66–86; PULSE 57–71; RESP 17–18; TEMP 36.8–38.1; O2SAT 91–95
[2022-06-19] MEDS: TRAZODONE 50 MG TABLET 25 MG PO ×2 (00:02→21:37)
[2022-06-19] MEDS: HYDROMORPHONE 0.5 MG INJ IV ×4 (02:38→22:52)
[2022-06-19] MEDS: LACTATED RINGERS 1,000 ML 100 ML IV ×2 (05:36→14:47)
[2022-06-19] MEDS: metroNIDAZOLE 500 MG/100 ML PIGGYBACK 100 MG IV ×3 (05:37→21:37)
[2022-06-19 06:32] LABS: Alanine Aminotransferase 165 IU/L (<50); Albumin 2.8 g/dL (3.5-5.0); Alkaline Phosphatase 706 U/L (38-126); Aspartate Aminotransferase 105 IU/L (17-59); BUN Creatinine Ratio 16.9 (6-22); Bilirubin Total 1.2 mg/dL (0.2-1.3); Blood Urea Nitrogen 10 mg/dL (9-20); Carbon Dioxide 28 mmol/L (22-32); Chloride 101 mmol/L (98-107); Estimated Glomerular Filt Rate > 60 mL/min (>60); Globulin 2.9 g/dL (1.7-4.1); Glucose 87 mg/dL (80-110); HEMOLYSIS < 15 (0-50); Potassium 3.4 mmol/L (3.4-5.1); Sodium 134 mmol/L (137-145); Total Protein 5.7 g/dL (6.3-8.2)
[2022-06-19 06:34] LABS: Add Manual Diff / Slide Review NO; Basophils Absolute Auto 100 /uL (0-100); Basophils Percent Auto 0.9 % (0-2); Eosinophils Absolute Auto 200 /uL (0-450); Eosinophils Percent Auto 2.7 % (2-4); Hematocrit 32.5 % (41-53); Lymphocytes Absolute Auto 1200 /uL (1100-4500); Lymphocytes Percent Auto 13.7 % (25-40); Mean Corpuscular HGB Conc 33.9 % (30-36); Mean Corpuscular Volume 91.5 fL (80-100); Monocytes Absolute Auto 900 /uL (0-900); Monocytes Percent Auto 10.7 % (3-14); Neutrophils Absolute Auto 6300 /uL (1500-7000); Platelet Count 319 X10^3/uL (150-400); Red Blood Cell Count 3.55 X10^6/uL (4.5-5.9); Red Cell Distribution Width 14.1 % (11.6-14.8); White Blood Cell Count 8.8 X10^3/uL (4.5-11.0)
[2022-06-19] MEDS: ENOXAPARIN 40 MG/0.4 ML SYRINGE SUBCUT ×2 (08:36→19:51)
[2022-06-19] MEDS: cefTRIAXone 2,000 MG in SODIUM CHLORIDE 0.9% 100 ML 200 MG IV (08:36)
--- NOTE | 2022-06-19 10:14 | PT.IPTN ---
Current Diagnoses Insomnia, unspecified (06/13/22) Other chronic pain (06/13/22) Calculus of bile duct without cholangitis or cholecystitis without obstruction (06/13/22) Retention of urine, unspecified (06/13/22) Surgery Performed Operation Date: 06/14/22 14:30 <No data on this case meets the specified criteria> Operation Date: 06/15/22 14:00 Actual Procedures p Laparoscopic Cholecystectomy(Not Applicable) - Vasyl Vasquez MD Physical Therapy Treatment Note M2 PT-IP Current Condition Start: 06/18/22 13:41 Freq: Status: Active Protocol: Document 06/19/22 09:50 DCW (Rec: 06/19/22 10:29 [id number] [id number]) Physical Therapy Current Condition Current Condition Evaluation Date 06/18/22 Treatment Diagnosis S/P cholecystectomy; difficulty with ambulation Onset Date 06/16/22 M3 PT-IP Subjective Start: 06/18/22 13:41 Freq: Status: Active Protocol: Document 06/19/22 09:50 DCW (Rec: 06/19/22 10:29 [email or web address] [id number]) Subjective Physical Therapy Visit Type Type Treatment Note Visit Start Time 09:50 Visit Stop Time 10:14 Total Visit Minutes 24 Physical Therapy Visit Comments Patient Comments I think I'm doing better this morning. Therapy Pain Assessment Pain When Pain Assessed At Rest Pain Present Pain Present Pain Reported Location abdomen Intensity 3 Scale Used Numeric (0 - 10) Description Acute Pain Management Techniques Re-positioning M4 PT-IP Mobility and Gait Start: 06/18/22 13:41 Freq: Status: Active Protocol: Document 06/19/22 09:50 DCW (Rec: 06/19/22 10:29 [id number] [id number]) PT-Bed Mobility Assessment Rolling Type of Rolling Log Rolling,Roll to Left Level of Assist Standby Assistance Supine to Sit Supine to Sit Standby Assistance,Bedrails PT-Transfer Assessment Sit to and From Stand Sit to and from Stand Standby Assistance,Contact Guard Assistance Equipment Transfer Assistive Device Gait Belt,Front Wheeled Walker Transfers Transfer Destination Bed Transfer Technique Stand Pivot Transfer Ability Level of Assist Standby Assistance Comments Mobility Comments Pt continues to report light- headedness sitting up, felt somewhat better after sitting for ~5 minutes, but still slight symptoms after standing Gait Assessment Gait Gait Assistance Required: Standby Assistance Distance (Feet) 25 Assistive Devices Assistive Device Gait Belt,Front Wheeled Walker Comments Gait Comments Therapist required for line management. Pt continues to fatigue very quickly, sat in recliner after 25' amb with FWW around room. Pt admitted he thought he would do better today, but just does not have any energy yet and feels very weak. Pt lerft in recliner with call button within reach. Stair Climbing Assessment Comments Stair Climbing Comments Not assessed due to pain/ weakness M5 PT-IP Objective Assessments Start: 06/18/22 13:41 Freq: Status: Active Protocol: Document 06/18/22 13:41 BC (Rec: 06/18/22 13:55 [id number]) Orientation Orientation/Cognition Level of Alertness Alert Orientation Name,Date,Place,Situation Language Function Ability No Deficits Noted Safety Awareness Understands Safety Issues Gross Range of Motion Upper Extremity ROM Assessment Within Functional Limits Lower Extremity ROM Assessment Within Functional Limits Strength Upper Extremity Strength Assessment Within Functional Limits Lower Extremity Strength Assessment Within Functional Limits Comments Strength Comments Pt demonstrates with functional strength for basic transfers/ambulation. He fatigues quickly, needing frequent rest breaks. Sensation Assessment Sensation Gross Sensation WNL Light Touch Intact Proprioception (Position) Intact M6 PT-IP Treatment Start: 06/18/22 13:41 Freq: Status: Active Protocol: Document 06/18/22 13:41 BC (Rec: 06/18/22 13:55 [id number]) Physical Therapy Treatment Education Education Provided Safety Other Treatments Other Treatment Performed Discussed role of PT in acute care setting, including d/c recommendations. M7 PT-IP Assessment and Plan Start: 06/18/22 13:41 Freq: Status: Active Protocol: Document 06/19/22 09:50 DCW (Rec: 06/19/22 10:29 [email or web address] [id number]) PT Summary Assessment and Plan Summary Impairments Pain,Strength,Bed Mobility, Transfers,Gait,Activity Tolerance Progress Towards Goals Progressing Toward Goals Assessment Summary Pt presenting today with minimal change in functional movement and mobility compared to yesterday. Limited with ambulation due to weakness, fatigue, and light-headedness. Pt still not able to test stairs. Ambulates with a very slow jadiel and small step length, forward flexion at trunk due to abdominal pain post-surgery. Pt still planning to transfer from in-patient to another hospital for further surgical intervention/ERCP, waiting for placement. At this time, if he were to discharge, would likely require SNF placement. Goals Bed Mobility Goal Independent Transfer Goal Independent Gait Goal Standby Assistance Gait Distance 150 Other Goals Ascend/descend 2 steps with SBA Days to Meet Goals 3 Frequency of Treatment Frequency Of Treatment Once a Day Treatment Plan Physical Therapy Treatment Plan Bed Mobility Training,Transfer Training,Gait Training, Therapeutic Exercise,Balance Retraining,Discharge Planning, Neuromuscular Re-ed Discharge Recommendations PT Discharge Recommendations Home vs SNF Other Discharge Recommendations D/C plan to be further determined given he is likely pending additional surgeries.
--- NOTE | 2022-06-19 10:22 | PC.NURSE ---
Addendum entered by Jair Craft R.N. 06/19/22 15:31: Spoke with Dr. Maki about Pt concerns. will see Pt and assess needs. Original Note: Pt A&O offers no overt complaint. Visitor in bringing some Pt items and visiting.
[2022-06-19] MEDS: GABAPENTIN 300 MG CAPSULE 900 MG PO (19:51)
--- NOTE | 2022-06-19 20:22 | PM.PN.1 ---
Subjective Subjective Interval history: Mr. Inman is feeling very painful. Every time he eats he has sharp pains in his abdomen. He really feels miserable. He is not as much nauseous as painful. He is having difficulty with sleeping and feeling anxious. 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 She has some people with her but she is anxious about him as well. Exam Vital Signs (past 8 hours): - 06/19/22 16:00 06/19/22 17:40 Temperature 100 F H 100.5 F H Pulse Rate 69 63 Respiratory Rate 18 17 Blood Pressure 180/79 H 152/77 H Pulse Oximetry 91 94 Oxygen Flow Rate 0 0 Fraction of Inspired Oxygen 28 SaO2/FiO2 Ratio 306 Oxygen Delivery Method Room Air,Nasal Cannula Oxygen Flow Rate 0 Narrative Exam Narrative: Patient is ill-appearing lying down in bed in mild distress. Oral mucous membranes are moist; breathing is nonlabored on room air His abdomen is markedly tender in all 4 quadrants the tenderness is not really localized. The wounds are clean dry and intact with billie in place Objective Labs Result Diagrams: 06/19/22 05:43 06/19/22 05:43 Labs: Laboratory Results - last 24 hr 06/19/22 06/19/22 05:43 05:43 WBC 8.8 RBC 3.55 L Hgb 11.0 L Hct 32.5 L MCV 91.5 MCH 31.0 MCHC 33.9 RDW 14.1 Plt Count 319 Neut % (Auto) 72.0 Lymph % (Auto) 13.7 L Sullivan % (Auto) 10.7 Eos % (Auto) 2.7 Baso % (Auto) 0.9 Neut # (Auto) 6300 Lymph # (Auto) 1200 Sullivan # (Auto) 900 Eos # (Auto) 200 Baso # (Auto) 100 Sodium 134 L Potassium 3.4 Chloride 101 Carbon Dioxide 28 BUN 10 Creatinine 0.59 L Estimated GFR > 60 BUN/Creatinine Ratio 16.9 Glucose 87 Calcium 8.0 L Total Bilirubin 1.2 AST 105 H ALT 165 H Alkaline Phosphatase 706 H D Total Protein 5.7 L Albumin 2.8 L Globulin 2.9 Albumin/Globulin Ratio 1.0 PFSH Medical History Asthma (~1999) BPPV (benign paroxysmal positional vertigo) Cataracts, bilateral (~2017) Chicken pox Chronic back pain (~2011) Chronic pain Colon polyps (~1994) Essential hypertension Foot pain Gastric ulcer (~1969) Hyperlipidemia Measles Mumps Retinal detachment Seasonal allergies (~1987) Shoulder pain (~2011) Tinnitus Surgical History Anesthesia History of appendectomy (~1953) History of cataract removal with insertion of prosthetic lens History of gastric bypass (~1977) Family History Grandmother Stroke Father High cholesterol Mother Breast cancer Sister Hyperlipidemia Grandmother No problems noted. Grandfather No problems noted. Social History marital status: number of children: 0 household members: spouse lives independently: Yes caregiver/support person: No housing: house education level: college occupational status: employed Smoking Status: Never smoker second hand exposure: No alcohol intake: current substance use type: does not use Assessment & Plan Assessment & Plan narrative: Postop day 4. Status post laparoscopic cholecystectomy and laparoscopic common bile duct exploration with finding of a stone and not able to remove it. The patient has had a gastric bypass and has a retained common bile duct stone. He is continuing to have pain though his labs are looking better. It seems to me that some method for removal of the stone from the common bile duct needs to be sought after; tomorrow my plan is to contact some physicians at outside facilities to get some additional advice. Otherwise I will continue DVT prophylaxis, continue clear liquid diet, restart any of the home meds that he needs, and saline lock his insert. Time Spent With Patient Critical Care time: I spent a total of [] minutes of critical care time on this patient's care today; this time is exclusive of procedural time. Quality VTE Deep Vein Thrombosis/Pulmonary Embolism Present on Admission: No
[2022-06-19] MEDS: LORazepam 2 MG/ML INJ 0.5 MG IV (21:37)
[2022-06-20] VITALS (8 sets, daily range): BP systolic 138–169; BP diastolic 65–83; PULSE 56–100; RESP 16–20; TEMP 36.3–38.2; O2SAT 90–95
--- NOTE | 2022-06-20 | DI.RAD.S_ITS ---
PROCEDURE: XR CHEST 1V INDICATIONS: tachycardia TECHNIQUE: One view of the chest was acquired. COMPARISON: [facility], CR, XR CHEST 1V, 06/10/2022, 14:23. FINDINGS: Surgical changes and devices: Surgical clips are again noted in the left upper and midline abdomen. Lungs and pleura: Lung volumes are diminished bilaterally. Patchy bibasilar opacities likely representing atelectasis. Eventration of the right hemidiaphragm accentuated secondary to diminished lung volumes. No focal consolidation seen. No pneumothorax. Mild blunting of the costophrenic angles may represent pleural thickening versus small pleural effusions. Mediastinum: Mediastinal contours appear stable. Heart size is normal. Bones and chest wall: No suspicious bony lesions. Overlying soft tissues appear unremarkable. IMPRESSION: Streaky bibasilar opacities with diminished lung volumes likely representing atelectasis. Early airspace disease/pneumonia not excluded if clinically appropriate. Dictated by: Abdiel Mueller M.D. on 06/20/2022 at 17:34 Approved by: Abdiel Mueller M.D. on 06/20/2022 at 17:36
[2022-06-20] MEDS: HYDROMORPHONE 1 MG INJ IV ×5 (00:20→21:27)
--- NOTE | 2022-06-20 01:50 | PC.NURSE ---
Pt. said if he is asleep don't wake him, he just wanted to sleep
[2022-06-20] MEDS: LORazepam 2 MG/ML INJ 0.5 MG IV ×2 (04:05→22:49)
[2022-06-20] MEDS: metroNIDAZOLE 500 MG/100 ML PIGGYBACK 100 MG IV ×2 (05:10→13:20)
[2022-06-20 06:42] LABS: Alanine Aminotransferase 169 IU/L (<50); Albumin 2.7 g/dL (3.5-5.0); Alkaline Phosphatase 1112 U/L (38-126); Aspartate Aminotransferase 147 IU/L (17-59); Bilirubin Total 1.1 mg/dL (0.2-1.3); Bilirubin Unconjugated 0.6 mg/dL (0.0-1.1); Globulin 2.7 g/dL (1.7-4.1); HEMOLYSIS < 15 (0-50); Total Protein 5.4 g/dL (6.3-8.2)
[2022-06-20] MEDS: ENOXAPARIN 40 MG/0.4 ML SYRINGE SUBCUT ×2 (08:48→20:30)
[2022-06-20] MEDS: CHOLECALCIFEROL (VITAMIN D3) 1,000 UNIT TABLET 2500 UNIT PO (08:49)
[2022-06-20] MEDS: FLUTICASONE 120 SPRAY/16 GM SPRAY.SUSP NASAL ×2 (08:50→20:30)
[2022-06-20] MEDS: hydroCHLOROthiazide 25 MG TABLET 12.5 MG PO (08:50)
[2022-06-20] MEDS: ASPIRIN 81 MG CHEW TAB PO (08:51)
[2022-06-20] MEDS: MULTIVITAMIN 1 TABLET 1 TAB PO (08:51)
[2022-06-20] MEDS: LORATADINE 10 MG TABLET PO (08:53)
[2022-06-20] MEDS: MONTELUKAST 10 MG TABLET PO (08:54)
[2022-06-20] MEDS: cefTRIAXone 2,000 MG in SODIUM CHLORIDE 0.9% 100 ML 200 MG IV (08:54)
[2022-06-20] MEDS: HYDROMORPHONE 0.5 MG INJ IV ×2 (10:19→14:45)
[2022-06-20] MEDS: OLOPATADINE 0.1% OPHTH DROPS 5 ML 1 DROPS EYE-BOTH (10:21)
--- NOTE | 2022-06-20 14:35 | PT-IP ANOTE ---
Pt refused. States he just received pain medication and is too sleepy and has no energy. Asked that he be able to wait until tomorrow between doses of pain meds so not so groggy.
[2022-06-20] MEDS: GABAPENTIN 300 MG CAPSULE 900 MG PO (14:45)
--- NOTE | 2022-06-20 16:53 | PC.NURSE ---
Contacted Dr. Maki about the pt's change in vital signs, pt's change in the breathing pattern becoming more pale, HR jumping at times, sudden spike in temperature and this RN's concern about possible sepsis starting in the pt. The pt has also been having more pain. Provider stated she is currently waiting on a call from .
[2022-06-20] MEDS: IBUPROFEN 200 MG TABLET PO (17:00)
--- NOTE | 2022-06-20 17:13 | P.PN_ITS ---
Subjective Subjective Date Patient Seen: 06/20/22 Time Patient Seen: 09:00 Interval history: Mr. Bull says that he is doing ok. He is having a little more pain, but the medication is helping. He really can't eat and isnt drinking much he says. He thinks he is urinating a normal amount, but it is dark colored. He denies nausea. Exam Vital Signs (past 8 hours): - 06/20/22 12:00 06/20/22 16:40 06/20/22 17:00 Temperature 98.2 F 100.7 F H 100.7 F H Pulse Rate 62 100 H Respiratory Rate 17 20 Blood Pressure 138/70 161/78 H Pulse Oximetry 93 93 Oxygen Flow Rate 0 0 06/20/22 17:00 Temperature 100.7 F H Pulse Rate Respiratory Rate Blood Pressure Pulse Oximetry Oxygen Flow Rate Fraction of Inspired Oxygen 28 SaO2/FiO2 Ratio 306 Oxygen Delivery Method Room Air,Nasal Cannula Oxygen Flow Rate 0 Narrative Exam Narrative: He is awake, and oriented. 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 His abdomen remains tender in a non localized pattern. The wounds are clean and dry. His oral mucous membranes are somewhat dry. His breathing is non labored on room air. Objective Labs Result Diagrams: 06/19/22 05:43 06/19/22 05:43 Labs: Laboratory Results - last 24 hr 06/20/22 06:15 Total Bilirubin 1.1 Conjugated Bilirubin 0.0 Unconjugated Bilirubin 0.6 AST 147 H ALT 169 H Alkaline Phosphatase 1112 H D Total Protein 5.4 L Albumin 2.7 L Globulin 2.7 Albumin/Globulin Ratio 1.0 PFSH Medical History Asthma (~1999) BPPV (benign paroxysmal positional vertigo) Cataracts, bilateral (~2017) Chicken pox Chronic back pain (~2011) Chronic pain Colon polyps (~1994) Essential hypertension Foot pain Gastric ulcer (~1969) Hyperlipidemia Measles Mumps Retinal detachment Seasonal allergies (~1987) Shoulder pain (~2011) Tinnitus Surgical History Anesthesia History of appendectomy (~1953) History of cataract removal with insertion of prosthetic lens History of gastric bypass (~1977) Family History Grandmother Stroke Father High cholesterol Mother Breast cancer Sister Hyperlipidemia Grandmother No problems noted. Grandfather No problems noted. Social History marital status: number of children: 0 household members: spouse lives independently: Yes caregiver/support person: No housing: house education level: college occupational status: employed Smoking Status: Never smoker second hand exposure: No alcohol intake: current substance use type: does not use Assessment & Plan Assessment & Plan narrative: T bili remains normal but AlkPhos trending up. Not tolerating clears even very well. Will restart IVFs. I discussed again the option of open surgery and patient prefers to continue to pursue transfer for minimally invasive options. Will work on this today. Cont. IV pain control as needed and DVT ppx. Time Spent With Patient Critical Care time: I spent a total of [] minutes of critical care time on this patient's care today; this time is exclusive of procedural time. Quality VTE Deep Vein Thrombosis/Pulmonary Embolism Present on Admission: No
[2022-06-20 17:33] LABS: Appearance Urine UA CLEAR; Bilirubin Urine UA NEGATIVE (NEGATIVE); Color Urine UA YELLOW; Glucose Urine UA NEGATIVE (Negative); Ketones Urine UA 1+ (NEGATIVE); Leukocyte Esterase Urine UA TRACE (NEGATIVE); Nitrite Urine UA NEGATIVE (Negative); Occult Blood Urine UA NEGATIVE (Negative); Protein Urine UA NEGATIVE (Negative); Urobilinogen Urine UA 0.2 E.U./dL (0.2)
[2022-06-20 17:40] LABS: Bacteria Urine None Seen; Culture Indicated Urine Cult Not Indicated; RBC Urine 0-1/HPF (0-5/HPF); WBC Urine 0-1/HPF (0-5/HPF)
[2022-06-20] MEDS: SODIUM CHLORIDE 0.9% 1,000 ML 1000 ML IV (17:55)
[2022-06-20 17:58] LABS: Hematocrit 34.1 % (41-53); Hemoglobin 11.7 g/dL (13.5-17.5); Mean Corpuscular HGB Conc 34.3 % (30-36); Mean Corpuscular Volume 90.3 fL (80-100); Platelet Count 382 X10^3/uL (150-400); Red Blood Cell Count 3.77 X10^6/uL (4.5-5.9); Red Cell Distribution Width 13.6 % (11.6-14.8); White Blood Cell Count 9.2 X10^3/uL (4.5-11.0)
[2022-06-20] MEDS: MEROPENEM 500 MG in SODIUM CHLORIDE 0.9% 100 ML 200 MG IV (18:00)
[2022-06-20 18:11] LABS: Lactate (Lactic Acid) 0.8 mmol/L (0.7-2.1)
[2022-06-20 18:13] LABS: Alanine Aminotransferase 205 IU/L (<50); Alkaline Phosphatase 1399 U/L (38-126); Aspartate Aminotransferase 253 IU/L (17-59); BUN Creatinine Ratio 15.8 (6-22); Bilirubin Total 1.4 mg/dL (0.2-1.3); Blood Urea Nitrogen 9 mg/dL (9-20); Calcium 8.6 mg/dL (8.4-10.2); Carbon Dioxide 29 mmol/L (22-32); Chloride 97 mmol/L (98-107); Estimated Glomerular Filt Rate > 60 mL/min (>60); Glucose 89 mg/dL (80-110); HEMOLYSIS < 15 (0-50); Magnesium 1.5 mg/dL (1.6-2.3); Phosphorous 3.4 mg/dL (2.3-3.7); Potassium 3.5 mmol/L (3.4-5.1); Sodium 135 mmol/L (137-145)
[2022-06-20] MEDS: ATORVASTATIN 20 MG TABLET PO (20:30)
[2022-06-20] MEDS: TRAZODONE 50 MG TABLET 25 MG PO (20:31)
[2022-06-20] MEDS: GABAPENTIN 300 MG CAPSULE 600 MG PO (20:31)
[2022-06-21] VITALS (7 sets, daily range): BP systolic 142–165; BP diastolic 64–77; PULSE 60–70; RESP 14–18; TEMP 36.7–37.1; O2SAT 94–100
[2022-06-21] MEDS: MEROPENEM 500 MG in SODIUM CHLORIDE 0.9% 100 ML 200 MG IV ×3 (01:23→17:40)
[2022-06-21] MEDS: HYDROMORPHONE 0.5 MG INJ IV ×2 (08:06→17:40)
[2022-06-21] MEDS: FLUTICASONE 120 SPRAY/16 GM SPRAY.SUSP NASAL ×2 (08:07→22:06)
[2022-06-21] MEDS: CHOLECALCIFEROL (VITAMIN D3) 1,000 UNIT TABLET 2500 UNIT PO (08:07)
[2022-06-21] MEDS: ENOXAPARIN 40 MG/0.4 ML SYRINGE SUBCUT ×2 (08:07→22:08)
[2022-06-21] MEDS: OLOPATADINE 0.1% OPHTH DROPS 5 ML 1 DROPS EYE-BOTH (08:07)
[2022-06-21] MEDS: MONTELUKAST 10 MG TABLET PO (08:08)
[2022-06-21] MEDS: LORATADINE 10 MG TABLET PO (08:08)
[2022-06-21] MEDS: ASPIRIN 81 MG CHEW TAB PO (08:08)
[2022-06-21] MEDS: MULTIVITAMIN 1 TABLET 1 TAB PO (08:08)
[2022-06-21] MEDS: hydroCHLOROthiazide 25 MG TABLET 12.5 MG PO (08:08)
[2022-06-21] MEDS: HYDROCODONE/ACET 5/325 TABLET 1 TAB PO ×3 (10:19→19:24)
[2022-06-21 12:16] LABS: Add Manual Diff / Slide Review NO; Basophils Absolute Auto 100 /uL (0-100); Basophils Percent Auto 0.8 % (0-2); Eosinophils Absolute Auto 200 /uL (0-450); Eosinophils Percent Auto 1.8 % (2-4); Hematocrit 32.5 % (41-53); Hemoglobin 11.1 g/dL (13.5-17.5); Lymphocytes Absolute Auto 1400 /uL (1100-4500); Lymphocytes Percent Auto 12.5 % (25-40); Mean Corpuscular HGB Conc 34.3 % (30-36); Mean Corpuscular Volume 90.3 fL (80-100); Monocytes Absolute Auto 1100 /uL (0-900); Monocytes Percent Auto 9.7 % (3-14); Neutrophils Absolute Auto 8200 /uL (1500-7000); Neutrophils Percent Auto 75.2 % (50-75); Platelet Count 369 X10^3/uL (150-400); Red Cell Distribution Width 13.6 % (11.6-14.8); White Blood Cell Count 10.9 X10^3/uL (4.5-11.0)
[2022-06-21] MEDS: MAGNESIUM CHLORIDE 64 MG TABLET 128 MG PO (12:19)
[2022-06-21] MEDS: KCL 20 MEQ IN NS 1,000 ML 84 MEQ IV (12:19)
[2022-06-21] MEDS: POTASSIUM CHLORIDE 20 MEQ TAB PO (12:19)
[2022-06-21 12:33] LABS: Alanine Aminotransferase 209 IU/L (<50); Albumin 2.6 g/dL (3.5-5.0); Albumin Globulin Ratio 1.1 (1.0-2.8); Aspartate Aminotransferase 323 IU/L (17-59); BUN Creatinine Ratio 14.8 (6-22); Bilirubin Total 2.6 mg/dL (0.2-1.3); Blood Urea Nitrogen 9 mg/dL (9-20); Calcium 8.3 mg/dL (8.4-10.2); Carbon Dioxide 29 mmol/L (22-32); Chloride 99 mmol/L (98-107); Estimated Glomerular Filt Rate > 60 mL/min (>60); Globulin 2.3 g/dL (1.7-4.1); Glucose 88 mg/dL (80-110); HEMOLYSIS < 15 (0-50); Potassium 3.6 mmol/L (3.4-5.1); Sodium 136 mmol/L (137-145); Total Protein 4.9 g/dL (6.3-8.2)
[2022-06-21 12:39] LABS: Alkaline Phosphatase 1458 U/L (38-126)
--- NOTE | 2022-06-21 13:56 | PM.PN.1 ---
Subjective Subjective Date Patient Seen: 06/21/22 Interval history: Mr. Inman is feeling pretty slow and groggy today. He is talkative. He endorses the desire to get out of bed today for a little while. He would be interested in a shower. He continues to not tolerate oral food very well. Clear liquids is all that he can take an even then just a few bites. The medication is helping for the pain. Exam Vital Signs (past 8 hours): - 06/21/22 07:00 06/21/22 11:00 Temperature 98.6 F 98.1 F Pulse Rate 64 61 Respiratory Rate 18 18 Blood Pressure 156/77 H 155/64 H Pulse Oximetry 94 95 Oxygen Flow Rate 2 2 Fraction of Inspired Oxygen 28 SaO2/FiO2 Ratio 306 Oxygen Delivery Method Room Air,Nasal Cannula Oxygen Flow Rate 2 Narrative Exam Narrative: Patient is awake alert and oriented though he appears groggy and tired He is supine in bed. His oral mucous membranes appear moist His abdomen is soft with tenderness about the same severity as yesterday, though more focused in the epigastric right upper quadrant today. His wounds are clean dry and intact. Objective Labs Result Diagrams: 06/21/22 12:10 06/21/22 12:10 Labs: Laboratory Results - last 24 hr 06/20/22 06/20/22 06/20/22 17:00 17:40 17:40 WBC 9.2 RBC 3.77 L Hgb 11.7 L Hct 34.1 L MCV 90.3 MCH 31.0 MCHC 34.3 RDW 13.6 Plt Count 382 Neut % (Auto) Lymph % (Auto) Leon % (Auto) Eos % (Auto) Baso % (Auto) Neut # (Auto) Lymph # (Auto) Leon # (Auto) Eos # (Auto) Baso # (Auto) Sodium 135 L Potassium 3.5 Chloride 97 L Carbon Dioxide 29 BUN 9 Creatinine 0.57 L Estimated GFR > 60 BUN/Creatinine Ratio 15.8 Glucose 89 Lactate Calcium 8.6 Phosphorus 3.4 Magnesium 1.5 L Total Bilirubin 1.4 H AST 253 H ALT 205 H Alkaline Phosphatase 1399 H Total Protein 6.0 L Albumin 3.0 L Globulin 3.0 Albumin/Globulin Ratio 1.0 Urine Color Yellow Urine Appearance Clear Urine pH 7.0 Ur Specific [place] 1.010 Urine Protein Negative Urine Glucose (UA) Negative Urine Ketones 1+ H Urine Occult Blood Negative Urine Nitrate Negative Urine Bilirubin Negative Urine Urobilinogen 0.2 Ur Leukocyte Esterase Trace H Urine RBC 0-1/hpf Urine WBC 0-1/hpf Urine Bacteria None seen Ur Culture Indicated? Cult not indicated 06/20/22 06/21/22 06/21/22 17:40 12:10 12:10 WBC 10.9 RBC 3.60 L Hgb 11.1 L Hct 32.5 L MCV 90.3 MCH 31.0 MCHC 34.3 RDW 13.6 Plt Count 369 Neut % (Auto) 75.2 H Lymph % (Auto) 12.5 L Leon % (Auto) 9.7 Eos % (Auto) 1.8 L Baso % (Auto) 0.8 Neut # (Auto) 8200 H Lymph # (Auto) 1400 Leon # (Auto) 1100 H Eos # (Auto) 200 Baso # (Auto) 100 Sodium 136 L Potassium 3.6 Chloride 99 Carbon Dioxide 29 BUN 9 Creatinine 0.61 L Estimated GFR > 60 BUN/Creatinine Ratio 14.8 Glucose 88 Lactate 0.8 Calcium 8.3 L Phosphorus Magnesium Total Bilirubin 2.6 H AST 323 H ALT 209 H Alkaline Phosphatase 1458 H Total Protein 4.9 L Albumin 2.6 L Globulin 2.3 Albumin/Globulin Ratio 1.1 Urine Color Urine Appearance Urine pH Ur Specific [place] Urine Protein Urine Glucose (UA) Urine Ketones Urine Occult Blood Urine Nitrate Urine Bilirubin Urine Urobilinogen Ur Leukocyte Esterase Urine RBC Urine WBC Urine Bacteria Ur Culture Indicated? FOR[facility]LY [facility], [facility] Medical History Asthma (~1999) BPPV (benign paroxysmal positional vertigo) Cataracts, bilateral (~2017) Chicken pox Chronic back pain (~2011) Chronic pain Colon polyps (~1994) Essential hypertension Foot pain Gastric ulcer (~1969) Hyperlipidemia Measles Mumps Retinal detachment Seasonal allergies (~1987) Shoulder pain (~2011) Tinnitus Surgical History Anesthesia History of appendectomy (~1953) History of cataract removal with insertion of prosthetic lens History of gastric bypass (~1977) Family History Grandmother Stroke Father High cholesterol Mother Breast cancer Sister Hyperlipidemia Grandmother No problems noted. Grandfather No problems noted. Social History marital status: number of children: 0 household members: spouse lives independently: Yes caregiver/support person: No housing: house education level: college occupational status: employed Smoking Status: Never smoker second hand exposure: No alcohol intake: current substance use type: does not use Assessment & Plan Assessment and plan (1) Biliary calculi, common bile duct: Status: Acute Assessment & Plan narrative: I have discussed his case with a general surgeon at [facility]. At this institution they routinely do laparoscopic-assisted ERCP as well as the EDGE procedure. The patient has been accepted and placed on a wait list for a bed. Additionally I spoke with [facility] and at this institution they do not have the capacity to provide an ERCP on a patient who has had a Brooks-en-Y gastric bypass. They did suggest that [facility] and [facility] would be institutions to try. I was able to speak with the automatic pattern edger on-call for [facility] this morning and we are planning to pursue a treat and transfer protocol. They do provide both laparoscopic assisted ERCP and edge procedures and would like to help care for the patient. I was told that he has a full endoscopy schedule on Wednesday but that if the patient is very ill or starts to develop worsening cholangitis picture he may be able to bump some of the scheduled cases and get this patient done as soon as tomorrow, but given the labs and vital signs and clinical picture that I provided for him he admitted that he may not be able to schedule this patient until Wednesday or Wednesday this week. However overall this prospect sounds more promising than anything else that we have encountered thus far. Therefore, by the GI doc's suggestion, I am keeping the patient NPO after midnight and I understand that we will hear back from them by no later than 11:00 a.m. if they will be able to do the procedure tomorrow so that we do not have to keep him NPO all day. Further, I have held his baby aspirin since I forgot to ask the endoscopist if a baby aspirin daily would inhibit this plan-I sincerely hope not since I routinely will do open surgery on patients who have been taking a baby aspirin! but each physician and hospital has its own protocol and unfortunately the patient did receive a baby aspirin today. They do know that he has been on DVT prophylaxis, and this was ok with the endoscopist. I discussed all this above with Marla, our nurse funds transfer clerk and she said she had spoken to [place] and they did not sound promising, but I did offer to talk to a automatic pattern edger or surgeon over there if needed. I updated Mr. Inman on all this. No other changes. Will check labs in AM, encourage him to be out of bed and to shower today. Time Spent With Patient Critical Care time: I spent a total of [] minutes of critical care time on this patient's care today; this time is exclusive of procedural time. Quality VTE Deep Vein Thrombosis/Pulmonary Embolism Present on Admission: No
--- NOTE | 2022-06-21 16:00 | PT-IP ANOTE ---
Pt was elevated in bed when arrived, looking pretty tired, not on supplimental O2 with SaO2 94% on RA and HR 64. Pt refused tx stating I really don't have the energy after just getting back in bed 15 min ago, was up in chair for 1-1.5 hrs after getting shower and walking around room with nursing and really wiped out. I might be transferred to another hospital tomorrow for my procedure then come right back afterward. Nursing confirmed. PHLEBOTOMY DIRECTOR reviewed benefits of PT and pt verbalized understanding and welcoming to PT tomorrow if haven't left for procedure. Pt not seen for tx, will continue to assess progress in mobility, may need to be reevalled by PT after returns from procedure.
[2022-06-21] MEDS: TRAZODONE 50 MG TABLET 25 MG PO (22:07)
[2022-06-21] MEDS: ATORVASTATIN 20 MG TABLET PO (22:07)
[2022-06-21] MEDS: LORazepam 2 MG/ML INJ 0.5 MG IV (22:08)
[2022-06-21] MEDS: GABAPENTIN 300 MG CAPSULE 600 MG PO (22:08)
[2022-06-22] MEDS: KCL 20 MEQ IN NS 1,000 ML 84 MEQ IV ×2 (01:16→01:26)
[2022-06-22] MEDS: MEROPENEM 500 MG in SODIUM CHLORIDE 0.9% 100 ML 200 MG IV ×3 (01:17→21:31)
[2022-06-22] MEDS: GABAPENTIN 300 MG CAPSULE 900 MG PO (01:28)
[2022-06-22] MEDS: HYDROMORPHONE 1 MG INJ IV (01:29)
[2022-06-22 02:56] VITALS: BP 149/77; PULSE 62; RESP 17; TEMP 37.2; O2SAT 95
[2022-06-22 05:57] LABS: Add Manual Diff / Slide Review NO; Basophils Absolute Auto 100 /uL (0-100); Basophils Percent Auto 0.8 % (0-2); Eosinophils Absolute Auto 200 /uL (0-450); Eosinophils Percent Auto 2.4 % (2-4); Hematocrit 32.2 % (41-53); Hemoglobin 11.1 g/dL (13.5-17.5); Lymphocytes Absolute Auto 1400 /uL (1100-4500); Lymphocytes Percent Auto 13.7 % (25-40); Mean Corpuscular HGB Conc 34.7 % (30-36); Mean Corpuscular Hemoglobin 31.4 PG (26-34); Mean Corpuscular Volume 90.6 fL (80-100); Monocytes Absolute Auto 1000 /uL (0-900); Monocytes Percent Auto 9.6 % (3-14); Neutrophils Absolute Auto 7400 /uL (1500-7000); Neutrophils Percent Auto 73.5 % (50-75); Platelet Count 390 X10^3/uL (150-400); Red Blood Cell Count 3.55 X10^6/uL (4.5-5.9); White Blood Cell Count 10.1 X10^3/uL (4.5-11.0)
[2022-06-22 06:13] LABS: Alanine Aminotransferase 174 IU/L (<50); Albumin 2.8 g/dL (3.5-5.0); Alkaline Phosphatase 1280 U/L (38-126); Aspartate Aminotransferase 144 IU/L (17-59); BUN Creatinine Ratio 10.6 (6-22); Blood Urea Nitrogen 7 mg/dL (9-20); Calcium 8.3 mg/dL (8.4-10.2); Carbon Dioxide 31 mmol/L (22-32); Chloride 98 mmol/L (98-107); Estimated Glomerular Filt Rate > 60 mL/min (>60); Globulin 2.8 g/dL (1.7-4.1); Glucose 87 mg/dL (80-110); HEMOLYSIS < 15 (0-50); Sodium 137 mmol/L (137-145); Total Protein 5.6 g/dL (6.3-8.2)
[2022-06-22 07:00] VITALS: BP 149/70; PULSE 55; RESP 16; TEMP 36.9; O2SAT 97
[2022-06-22] MEDS: OLOPATADINE 0.1% OPHTH DROPS 5 ML 1 DROPS EYE-BOTH (09:30)
[2022-06-22] MEDS: hydroCHLOROthiazide 25 MG TABLET 12.5 MG PO (09:36)
--- NOTE | 2022-06-22 10:31 | PC.NURSE ---
@ 1035 pt was loaded on to stretcher and taken via [facility] to [facility]. At this time pt is stable VSS and has no complaints of nausea or pain.
--- NOTE | 2022-06-22 10:36 | P.PN_ITS ---
Subjective Subjective Date Patient Seen: 06/22/22 Time Patient Seen: 10:00 Interval history: Mr. Inman says he is feeling all right today no significant change in his clinical symptoms. He has heard the plan for treat and transfer protocol through [facility] to have ERCP using a technique that is possible for a patient who has had a Brooks-en-Y gastric bypass. He has no questions or concerns at this time. Exam Vital Signs (past 8 hours): - 06/22/22 02:56 06/22/22 07:00 Temperature 99.0 F 98.5 F Pulse Rate 62 55 L Respiratory Rate 17 16 Blood Pressure 149/77 H 149/70 H Pulse Oximetry 95 97 Oxygen Flow Rate 0 2 Fraction of Inspired Oxygen 94 SaO2/FiO2 Ratio 306 Oxygen Delivery Method Nasal Cannula Oxygen Flow Rate 2 Narrative Exam Narrative: He is awake alert and oriented and in no acute distress. He is supine in bed. He still seems lethargic and unwell. His breathing is nonlabored on room air His abdomen is soft tender in the right upper quadrant epigastric region. His wounds are clean dry and intact. Objective Labs Result Diagrams: 06/22/22 05:15 06/22/22 05:15 Labs: Laboratory Results - last 24 hr 06/21/22 06/21/22 06/22/22 12:10 12:10 05:15 WBC 10.9 10.1 RBC 3.60 L 3.55 L Hgb 11.1 L 11.1 L Hct 32.5 L 32.2 L MCV 90.3 90.6 MCH 31.0 31.4 MCHC 34.3 34.7 RDW 13.6 14.0 Plt Count 369 390 Neut % (Auto) 75.2 H 73.5 Lymph % (Auto) 12.5 L 13.7 L [place] % (Auto) 9.7 9.6 Eos % (Auto) 1.8 L 2.4 Baso % (Auto) 0.8 0.8 Neut # (Auto) 8200 H 7400 H Lymph # (Auto) 1400 1400 [place] # (Auto) 1100 H 1000 H Eos # (Auto) 200 200 Baso # (Auto) 100 100 Sodium 136 L Potassium 3.6 Chloride 99 Carbon Dioxide 29 BUN 9 Creatinine 0.61 L Estimated GFR > 60 BUN/Creatinine Ratio 14.8 Glucose 88 Calcium 8.3 L Total Bilirubin 2.6 H AST 323 H ALT 209 H Alkaline Phosphatase 1458 H Total Protein 4.9 L Albumin 2.6 L Globulin 2.3 Albumin/Globulin Ratio 1.1 06/22/22 05:15 WBC RBC Hgb Hct MCV MCH MCHC RDW Plt Count Neut % (Auto) Lymph % (Auto) [place] % (Auto) Eos % (Auto) Baso % (Auto) Neut # (Auto) Lymph # (Auto) [place] # (Auto) Eos # (Auto) Baso # (Auto) Sodium 137 Potassium 4.0 Chloride 98 Carbon Dioxide 31 BUN 7 L Creatinine 0.66 Estimated GFR > 60 BUN/Creatinine Ratio 10.6 Glucose 87 Calcium 8.3 L Total Bilirubin 1.0 AST 144 H ALT 174 H Alkaline Phosphatase 1280 H Total Protein 5.6 L Albumin 2.8 L Globulin 2.8 Albumin/Globulin Ratio 1.0 PFSH Medical History Asthma (~1999) BPPV (benign paroxysmal positional vertigo) Cataracts, bilateral (~2017) Chicken pox Chronic back pain (~2011) Chronic pain Colon polyps (~1994) Essential hypertension Foot pain Gastric ulcer (~1969) Hyperlipidemia Measles Mumps Retinal detachment Seasonal allergies (~1987) Shoulder pain (~2011) Tinnitus Surgical History Anesthesia History of appendectomy (~1953) History of cataract removal with insertion of prosthetic lens History of gastric bypass (~1977) Family History Grandmother Stroke Father High cholesterol Mother Breast cancer Sister Hyperlipidemia Grandmother No problems noted. Grandfather No problems noted. Social History marital status: number of children: 0 household members: spouse lives independently: Yes caregiver/support person: No housing: house education level: college occupational status: employed Smoking Status: Never smoker second hand exposure: No alcohol intake: current substance use type: does not use Assessment & Plan Assessment and plan (1) Biliary calculi, common bile duct: Status: Acute (2) Fever: Status: Acute (3) Cholangitis: Status: Acute (4) Hepatitis: Status: Acute Assessment & Plan narrative: He has been NPO after midnight we held his morning Lovenox dose. Received his normal home medications with a sip this morning for blood pressure and we were advised a baby aspirin is okay for him to take as well. Plan is for him to transfer to [facility] today to have a procedure and will be coming back this evening. I anticipate that he will begin to improve clinically relatively quickly after removal of this common bile duct stone and so we will just see how he does postoperatively and possibly anticipate discharge home in the next day or 2. I would like to obtain a copy of the procedure note from [facility] if possible for my information, and I think it would be helpful to place a copy of this in his medical record here at [facility]. I will discuss this with the nurse coordinator. Time Spent With Patient Critical Care time: I spent a total of [] minutes of critical care time on this patient's care today; this time is exclusive of procedural time. Quality VTE Deep Vein Thrombosis/Pulmonary Embolism Present on Admission: No
--- NOTE | 2022-06-22 11:13 | PT-IP ANOTE ---
Pt being taken to [facility] for [facility]. Scheduled to return tonight.
[2022-06-22 20:10] VITALS: BP 171/83; PULSE 69; RESP 17; TEMP 36.4; O2SAT 96
[2022-06-22] MEDS: ENOXAPARIN 40 MG/0.4 ML SYRINGE SUBCUT (21:31)
[2022-06-22] MEDS: ATORVASTATIN 20 MG TABLET PO (21:32)
[2022-06-22] MEDS: FLUTICASONE 120 SPRAY/16 GM SPRAY.SUSP NASAL (21:33)
--- NOTE | 2022-06-22 22:16 | PC.NURSE ---
Pt arrived via EMS at 2009 in stretcher, pivoted to bed. A little dizziness noted, steady on feet. Pain 07/24.
[2022-06-22] MEDS: LORazepam 2 MG/ML INJ 0.5 MG IV (22:34)
[2022-06-22] MEDS: GABAPENTIN 300 MG CAPSULE 600 MG PO (22:34)
[2022-06-22] MEDS: TRAZODONE 50 MG TABLET 25 MG PO (22:34)
[2022-06-23] VITALS (9 sets, daily range): BP systolic 120–143; BP diastolic 55–70; PULSE 50–69; RESP 16–20; TEMP 36–36.8; O2SAT 91–96
[2022-06-23] MEDS: MEROPENEM 500 MG in SODIUM CHLORIDE 0.9% 100 ML 200 MG IV ×3 (04:14→20:15)
[2022-06-23 08:31] LABS: Hematocrit 36.4 % (41-53); Hemoglobin 11.8 g/dL (13.5-17.5); Mean Corpuscular HGB Conc 32.6 % (30-36); Mean Corpuscular Hemoglobin 30.1 PG (26-34); Mean Corpuscular Volume 92.4 fL (80-100); Platelet Count 476 X10^3/uL (150-400); Red Blood Cell Count 3.93 X10^6/uL (4.5-5.9); Red Cell Distribution Width 14.2 % (11.6-14.8); White Blood Cell Count 13.9 X10^3/uL (4.5-11.0)
[2022-06-23 08:53] LABS: HEMOLYSIS < 15 (0-50); Potassium 3.9 mmol/L (3.4-5.1)
[2022-06-23 08:54] LABS: Alanine Aminotransferase 146 IU/L (<50); Albumin 3.1 g/dL (3.5-5.0); Alkaline Phosphatase 1188 U/L (38-126); Aspartate Aminotransferase 73 IU/L (17-59); BUN Creatinine Ratio 15.6 (6-22); Bilirubin Total 0.9 mg/dL (0.2-1.3); Blood Urea Nitrogen 10 mg/dL (9-20); Calcium 8.8 mg/dL (8.4-10.2); Carbon Dioxide 31 mmol/L (22-32); Chloride 97 mmol/L (98-107); Estimated Glomerular Filt Rate > 60 mL/min (>60); Globulin 3.2 g/dL (1.7-4.1); Glucose 99 mg/dL (80-110); Sodium 138 mmol/L (137-145); Total Protein 6.3 g/dL (6.3-8.2)
--- NOTE | 2022-06-23 09:40 | PT.IPRE ---
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) Calculus of bile duct without cholangitis or cholecystitis without obstruction (06/13/22) Other cholangitis (06/13/22) Retention of urine, unspecified (06/13/22) Fever, unspecified (06/13/22) Surgery Performed Operation Date: 06/14/22 14:30 <No data on this case meets the specified criteria> Operation Date: 06/15/22 14:00 Actual Procedures p Laparoscopic Cholecystectomy(Not Applicable) - Vasyl Vasquez MD Surgical History (Last Reviewed 01/13/22 @ 08:49 by Aspen Silva PA-C) Anesthesia History of appendectomy (~1953) History of cataract removal with insertion of prosthetic lens History of gastric bypass (~1977) Medical History (Last Reviewed 06/11/22 @ 02:53 by Ricardo Barry DO) Asthma (~1999) BPPV (benign paroxysmal positional vertigo) Cataracts, bilateral (~2017) Chicken pox Chronic back pain (~2011) Chronic pain Colon polyps (~1994) Essential hypertension Foot pain Gastric ulcer (~1969) Hyperlipidemia Measles Mumps Retinal detachment Seasonal allergies (~1987) Shoulder pain (~2011) Tinnitus Physical Therapy Inpatient Evaluation/Re-Eval M1 PT/OT-IP Prior Functional Status Start: 06/18/22 13:41 Freq: Status: Active Protocol: Document 06/23/22 09:40 AB (Rec: 06/23/22 12:11 AB [id number]) Medical Review Prior Functional Status Medical History Reviewed Yes Mobility and Gait pt stated that he is independent with all mobilities and ambulation without AD Activities of Daily Living and IADL's Independent Prior Functional Level (Other details) Exercises 3x/wk; 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 Home is two story with gym/office upstairs, able to live on main floor. M2 PT-IP Current Condition Start: 06/18/22 13:41 Freq: Status: Active Protocol: Document 06/19/22 09:50 DCW (Rec: 06/19/22 10:29 DCW [id number]) Physical Therapy Current Condition Current Condition Evaluation Date 06/18/22 Treatment Diagnosis S/P cholecystectomy; difficulty with ambulation Onset Date 06/16/22 M3 PT-IP Subjective Start: 06/18/22 13:41 Freq: Status: Active Protocol: Document 06/23/22 09:40 AB (Rec: 06/23/22 12:09 AB [id number]) Subjective Physical Therapy Visit Type Type Treatment Note Visit Start Time 09:40 Visit Stop Time 10:06 Total Visit Minutes 26 Number of GARDEN MACHINERY MECHANIC Visits 0 Physical Therapy Visit Comments Patient Comments agreeable to do PT Therapy Pain Assessment Pain When Pain Assessed At Rest Pain Present Pain Present Pain Reported Location abdomen Intensity 2 Scale Used Numeric (0 - 10) Pain Management Techniques Distraction,Modification of Treatment,Re-positioning, Timing of Activity with Medications M4 PT-IP Mobility and Gait Start: 06/18/22 13:41 Freq: Status: Active Protocol: Document 06/23/22 09:40 AB (Rec: 06/23/22 12:09 AB [id number]) PT-Bed Mobility Assessment Rolling Type of Rolling Log Rolling Level of Assist Standby Assistance Supine to Sit Supine to Sit Standby Assistance PT-Transfer Assessment Sit to and From Stand Sit to and from Stand Minimal Assistance,1 Person Assistance,Use of Upper Extremities Equipment Transfer Assistive Device Gait Belt,Front Wheeled Walker Orthotic/Prosthetic Devices or Brace: No Transfers Transfer Destination Toilet Transfer Technique ambulated Transfer Ability Level of Assist Minimal Assistance,1 Person Assistance,Use of Upper Extremities Comments Mobility Comments pt went to [facility] yesterday for an abdominal procedure and admitted back afterwards to [facility]. pt aware of his abdominal precautions. completed log roll supine to sit using bed rail and HOB elevated per pt's request. pt with LOB in sitting needing to grab PT to assist. completed sit to stand min A and cues. pt requested to use the toilet. ambulated to the toilet m in A and cues. presents with unsteady gait. completed toileting needs SBA. sit to stand from the toilet min A and cues. ambulated in room ~ 75 ft using FWW min A. unsteady gait with decrease LE elevation. increase body shakiness towards end of ambulation. pt agreed to sit on the chair. positioned pt on the chair. call light and table placed within reach. Gait Assessment Gait Gait Assistance Required: Minimum Assistance Distance (Feet) 75 Able to Maintain Weight Bearing Status Yes During Gait Assistive Devices Assistive Device Gait Belt,Front Wheeled Walker Orthotic/Prosthetic Devices or Brace: No Gait Deviations General Gait Pattern Decreased Stride Length, Decreased Feet Clearance,Step- to Gait Factors Limiting Gait Function Factors Limiting Gait Function Decreased Activity Tolerance, Decreased Strength,Limited Range of Motion,Pain,Poor Balance,Poor Safety Awareness PT-Balance Assessment Sitting Balance and Reactions Static Sitting Balance Ability Fair Dynamic Sitting Balance Ability Fair Standing Balance and Reactions Static Standing Balance Ability Fair Dynamic Standing Balance Ability Fair Device Used FWW M5 PT-IP Objective Assessments Start: 06/18/22 13:41 Freq: Status: Active Protocol: Document 06/18/22 13:41 BC (Rec: 06/18/22 13:55 [id number]) Orientation Orientation/Cognition Level of Alertness Alert Orientation Name,Date,Place,Situation Language Function Ability No Deficits Noted Safety Awareness Understands Safety Issues Gross Range of Motion Upper Extremity ROM Assessment Within Functional Limits Lower Extremity ROM Assessment Within Functional Limits Strength Upper Extremity Strength Assessment Within Functional Limits Lower Extremity Strength Assessment Within Functional Limits Comments Strength Comments Pt demonstrates with functional strength for basic transfers/ambulation. He fatigues quickly, needing frequent rest breaks. Sensation Assessment Sensation Gross Sensation WNL Light Touch Intact Proprioception (Position) Intact M6 PT-IP Treatment Start: 06/18/22 13:41 Freq: Status: Active Protocol: Document 06/23/22 09:40 AB (Rec: 06/23/22 12:09 AB [id number]) Physical Therapy Treatment Education Education Provided Precautions,Safety M7 PT-IP Assessment and Plan Start: 06/18/22 13:41 Freq: Status: Active Protocol: Document 06/23/22 09:40 AB (Rec: 06/23/22 12:09 AB [email or web address]) PT Summary Assessment and Plan Potential Rehabilitation Potential Fair Summary Impairments Pain,ROM,Strength,Balance, Coordination,Bed Mobility, Transfers,Gait,Activity Tolerance Assessment Summary pt admitted to the hospital for biliary calculi s/p Laparoscopic cholecystectomy and PT evaluated 06/18/22. pt was doing well initially but continues to c/o pain and with generalized weakness. pt transferred to [facility] yesterday for further laparoscopic cholecystectomy due to pt's h/o gastic bypass needing appropriate equipement that is not available in the hospital. Pt admitted back to [facility] after procedure. PT re-eval completed. pt needing min A at this time using FWW. pt stated that his spouse has balance issues and will not be able to assist him but they have homehealth services and if needed, they can provide 24 /7 assist. pt has decrease activity tolerance affecting mobility independence. will continue to assess progress. Goals Bed Mobility Goal Independent Transfer Goal Independent Gait Goal Standby Assistance Gait Distance 150 Other Goals Ascend/descend 2 steps with SBA Days to Meet Goals 3 Frequency of Treatment Frequency Of Treatment Once a Day Treatment Plan Physical Therapy Treatment Plan Bed Mobility Training,Transfer Training,Gait Training, Therapeutic Exercise,Balance Retraining,Post Op Education, Discharge Planning, Neuromuscular Re-ed Discharge Recommendations PT Discharge Recommendations Home vs SNF Transportation Needs at Discharge Private Vehicle,Wheelchair/ Cabulance
[2022-06-23] MEDS: LORATADINE 10 MG TABLET PO (09:46)
[2022-06-23] MEDS: CHOLECALCIFEROL (VITAMIN D3) 1,000 UNIT TABLET 2500 UNIT PO (09:46)
[2022-06-23] MEDS: ENOXAPARIN 40 MG/0.4 ML SYRINGE SUBCUT ×2 (09:46→20:15)
[2022-06-23] MEDS: IBUPROFEN 200 MG TABLET PO (09:46)
[2022-06-23] MEDS: FLUTICASONE 120 SPRAY/16 GM SPRAY.SUSP NASAL ×2 (09:47→20:16)
[2022-06-23] MEDS: MULTIVITAMIN 1 TABLET 1 TAB PO (09:49)
[2022-06-23] MEDS: hydroCHLOROthiazide 25 MG TABLET 12.5 MG PO (09:49)
[2022-06-23] MEDS: MONTELUKAST 10 MG TABLET PO (13:50)
[2022-06-23] MEDS: OLOPATADINE 0.1% OPHTH DROPS 5 ML 1 DROPS EYE-BOTH (13:50)
--- NOTE | 2022-06-23 17:11 | PM.PN.1 ---
Subjective Subjective Date Patient Seen: 06/23/22 Interval history: Jasmeet had his ERCP procedure successfully completed yesterday at [facility] and a sphincterotomy and stone retrieval was performed. He is feeling a little groggy today. He is passing gas has not had a bowel movement. Exam Vital Signs (past 8 hours): - 06/23/22 11:59 Temperature 97.0 F L Pulse Rate 52 L Respiratory Rate 16 Blood Pressure 120/55 L Pulse Oximetry 91 Oxygen Flow Rate 0 Fraction of Inspired Oxygen 94 SaO2/FiO2 Ratio 306 Oxygen Delivery Method Room Air Oxygen Flow Rate 0 Narrative Exam Narrative: Abdomen soft Incision is well healed Objective Labs Result Diagrams: 06/23/22 08:15 06/23/22 08:15 Labs: Laboratory Results - last 24 hr 06/23/22 06/23/22 08:15 08:15 WBC 13.9 H RBC 3.93 L Hgb 11.8 L Hct 36.4 L MCV 92.4 MCH 30.1 MCHC 32.6 RDW 14.2 Plt Count 476 H Sodium 138 Potassium 3.9 Chloride 97 L Carbon Dioxide 31 BUN 10 Creatinine 0.64 L Estimated GFR > 60 BUN/Creatinine Ratio 15.6 Glucose 99 Calcium 8.8 Total Bilirubin 0.9 AST 73 H ALT 146 H Alkaline Phosphatase 1188 H Total Protein 6.3 Albumin 3.1 L Globulin 3.2 Albumin/Globulin Ratio 1.0 PFSH Medical History Asthma (~1999) BPPV (benign paroxysmal positional vertigo) Cataracts, bilateral (~2017) Chicken pox Chronic back pain (~2011) Chronic pain Colon polyps (~1994) Essential hypertension Foot pain Gastric ulcer (~1969) Hyperlipidemia Measles Mumps Retinal detachment Seasonal allergies (~1987) Shoulder pain (~2011) Tinnitus Surgical History Anesthesia History of appendectomy (~1953) History of cataract removal with insertion of prosthetic lens History of gastric bypass (~1977) Family History Grandmother Stroke Father High cholesterol Mother Breast cancer Sister Hyperlipidemia Grandmother No problems noted. Grandfather No problems noted. Social History marital status: number of children: 0 household members: spouse lives independently: Yes caregiver/support person: No housing: house education level: college occupational status: employed Smoking Status: Never smoker second hand exposure: No alcohol intake: current substance use type: does not use Assessment & Plan Assessment and plan (1) Biliary calculi, common bile duct: Status: Acute Plan It may take him a while to recover from the anesthetic He is also quite debilitated. He will work with PT today. We will start to consider disposition based on how he does over the next 24 hours or so. Time Spent With Patient Critical Care time: I spent a total of [] minutes of critical care time on this patient's care today; this time is exclusive of procedural time. Quality VTE Deep Vein Thrombosis/Pulmonary Embolism Present on Admission: No
[2022-06-23] MEDS: ATORVASTATIN 20 MG TABLET PO (20:16)
[2022-06-23] MEDS: TIZANIDINE 4 MG TABLET PO (20:23)
[2022-06-23] MEDS: GABAPENTIN 300 MG CAPSULE 600 MG PO (20:23)
[2022-06-23] MEDS: TRAZODONE 50 MG TABLET 25 MG PO (20:23)
[2022-06-23] MEDS: LORazepam 2 MG/ML INJ 0.5 MG IV (22:17)
[2022-06-24 03:35] VITALS: BP 139/61; PULSE 54; RESP 17; TEMP 36.3; O2SAT 90
--- NOTE | 2022-06-24 04:08 | PC.NURSE ---
Pt is AxOx4, needs 1 person assistance and cooperative. VSS, pt requested PRN Trazodone, Tizainide and Gabapentin at bedtime with good effect. Pt also requested PRN IV Ativan for anxiety. It was effective. Otherwise, pt slept well, BS x4, and pt is drinking well. Pt uses his urinal and it is clear and yellow urine output. No other change. Continue monitor.
[2022-06-24] MEDS: MEROPENEM 500 MG in SODIUM CHLORIDE 0.9% 100 ML 200 MG IV ×2 (04:30→14:08)
[2022-06-24 06:14] LABS: Hematocrit 34.7 % (41-53); Hemoglobin 11.4 g/dL (13.5-17.5); Mean Corpuscular HGB Conc 32.8 % (30-36); Mean Corpuscular Hemoglobin 30.2 PG (26-34); Mean Corpuscular Volume 92.1 fL (80-100); Platelet Count 487 X10^3/uL (150-400); Red Blood Cell Count 3.77 X10^6/uL (4.5-5.9); Red Cell Distribution Width 14.3 % (11.6-14.8); White Blood Cell Count 9.9 X10^3/uL (4.5-11.0)
[2022-06-24 06:21] LABS: Alanine Aminotransferase 122 IU/L (<50); Albumin 2.8 g/dL (3.5-5.0); Albumin Globulin Ratio 1.1 (1.0-2.8); Alkaline Phosphatase 868 U/L (38-126); Aspartate Aminotransferase 65 IU/L (17-59); BUN Creatinine Ratio 14.9 (6-22); Bilirubin Total 0.9 mg/dL (0.2-1.3); Blood Urea Nitrogen 11 mg/dL (9-20); Calcium 8.5 mg/dL (8.4-10.2); Carbon Dioxide 34 mmol/L (22-32); Chloride 98 mmol/L (98-107); Estimated Glomerular Filt Rate > 60 mL/min (>60); Globulin 2.5 g/dL (1.7-4.1); Glucose 89 mg/dL (80-110); HEMOLYSIS < 15 (0-50); Potassium 3.9 mmol/L (3.4-5.1); Sodium 138 mmol/L (137-145); Total Protein 5.3 g/dL (6.3-8.2)
[2022-06-24] MEDS: FLUTICASONE 120 SPRAY/16 GM SPRAY.SUSP NASAL ×2 (08:50→20:46)
[2022-06-24] MEDS: ENOXAPARIN 40 MG/0.4 ML SYRINGE SUBCUT ×2 (08:51→20:45)
[2022-06-24] MEDS: MULTIVITAMIN 1 TABLET 1 TAB PO (08:51)
[2022-06-24] MEDS: OLOPATADINE 0.1% OPHTH DROPS 5 ML 1 DROPS EYE-BOTH (08:51)
[2022-06-24] MEDS: hydroCHLOROthiazide 25 MG TABLET 12.5 MG PO (08:52)
[2022-06-24] MEDS: CHOLECALCIFEROL (VITAMIN D3) 1,000 UNIT TABLET 2500 UNIT PO (08:52)
[2022-06-24] MEDS: MONTELUKAST 10 MG TABLET PO (08:52)
[2022-06-24] MEDS: LORATADINE 10 MG TABLET PO (08:52)
--- NOTE | 2022-06-24 09:43 | PT.IPTN ---
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) Calculus of bile duct without cholangitis or cholecystitis without obstruction (06/13/22) Other cholangitis (06/13/22) Retention of urine, unspecified (06/13/22) Fever, unspecified (06/13/22) Surgery Performed Operation Date: 06/14/22 14:30 <No data on this case meets the specified criteria> Operation Date: 06/15/22 14:00 Actual Procedures p Laparoscopic Cholecystectomy(Not Applicable) - Vasyl Vasquez MD Physical Therapy Treatment Note M2 PT-IP Current Condition Start: 06/18/22 13:41 Freq: Status: Active Protocol: Document 06/19/22 09:50 DCW (Rec: 06/19/22 10:29 DCW [id number]) Physical Therapy Current Condition Current Condition Evaluation Date 06/18/22 Treatment Diagnosis S/P cholecystectomy; difficulty with ambulation Onset Date 06/16/22 M3 PT-IP Subjective Start: 06/18/22 13:41 Freq: Status: Active Protocol: Document 06/24/22 09:30 LJ (Rec: 06/24/22 09:42 LJ [id number]) Subjective Physical Therapy Visit Type Type Treatment Note Visit Start Time 08:58 Visit Stop Time 09:23 Total Visit Minutes 25 Number of COLLAR SEPARATOR Visits 1 Physical Therapy Visit Comments Patient Comments agreeable to do PT Patient Goals Get stronger and go home Therapy Pain Assessment Pain When Pain Assessed At Rest Pain Present Pain Present Pain Reported Location abdomen Intensity 2 Scale Used Numeric (0 - 10) Pain Management Techniques Distraction,Modification of Treatment,Re-positioning, Timing of Activity with Medications M4 PT-IP Mobility and Gait Start: 06/18/22 13:41 Freq: Status: Active Protocol: Document 06/24/22 09:30 LJ (Rec: 06/24/22 09:42 LJ [id number]) PT-Bed Mobility Assessment Rolling Type of Rolling Log Rolling Level of Assist Standby Assistance Supine to Sit Supine to Sit Standby Assistance Sit to Supine Sit to Supine Standby Assistance,Head of Bed Elevated Scooting Scooting to Edge of Bed Standby Assistance PT-Transfer Assessment Sit to and From Stand Sit to and from Stand Standby Assistance,Use of Upper Extremities Equipment Transfer Assistive Device Gait Belt,Front Wheeled Walker Orthotic/Prosthetic Devices or Brace: No Transfers Transfer Destination Bed,Toilet Transfer Technique ambulated Transfer Ability Level of Assist Standby Assistance,Use of Upper Extremities Comments Mobility Comments Pt sitting in chair finishing breakfast. Wanting to luse the toilet before walking in hallway. Pt SBA for all bed and transfer mobility using UEs to push up from chair and grab bar to stand from toilet. Pt requested to return to bed after ambulation in hallway. Able to get into and position self in bed SBA. Pt left in room lying in bed all needs within reach. Gait Assessment Gait Gait Assistance Required: Standby Assistance,Contact Guard Assist Distance (Feet) 150 Able to Maintain Weight Bearing Status Yes During Gait Assistive Devices Assistive Device Gait Belt,Front Wheeled Walker Orthotic/Prosthetic Devices or Brace: No Gait Deviations General Gait Pattern Decreased Stride Length, Decreased Feet Clearance,Step- to Gait Factors Limiting Gait Function Factors Limiting Gait Function Decreased Activity Tolerance, Decreased Strength,Limited Range of Motion,Pain,Poor Balance Comments Gait Comments Pt able to walk in hallway CGA -SBA with one self-corrected LOB to right during a reat break. Pt pacing himself taking 3 short ~15 sec rest breaks. Cues to straighten trunk more due to pt complaint of sore back. Pt managing FWW well. He is ok to ambulatte in hallway SBA with nursing. Stair Climbing Assessment Comments Stair Climbing Comments Not assessed due to pain/ weakness M5 PT-IP Objective Assessments Start: 06/18/22 13:41 Freq: Status: Active Protocol: Document 06/18/22 13:41 BC (Rec: 06/18/22 13:55 [id number]) Orientation Orientation/Cognition Level of Alertness Alert Orientation Name,Date,Place,Situation Language Function Ability No Deficits Noted Safety Awareness Understands Safety Issues Gross Range of Motion Upper Extremity ROM Assessment Within Functional Limits Lower Extremity ROM Assessment Within Functional Limits Strength Upper Extremity Strength Assessment Within Functional Limits Lower Extremity Strength Assessment Within Functional Limits Comments Strength Comments Pt demonstrates with functional strength for basic transfers/ambulation. He fatigues quickly, needing frequent rest breaks. Sensation Assessment Sensation Gross Sensation WNL Light Touch Intact Proprioception (Position) Intact M6 PT-IP Treatment Start: 06/18/22 13:41 Freq: Status: Active Protocol: Document 06/24/22 09:30 LJ (Rec: 06/24/22 09:42 ABIDA [id number]) Physical Therapy Treatment Education Education Provided Precautions,Safety M7 PT-IP Assessment and Plan Start: 06/18/22 13:41 Freq: Status: Active Protocol: Document 06/24/22 09:30 ABIDA (Rec: 06/24/22 09:42 ABIDA [id number]) PT Summary Assessment and Plan Potential Rehabilitation Potential Good Summary Impairments Pain,Strength,Balance,Gait, Activity Tolerance Progress Towards Goals Progressing Toward Goals Assessment Summary Pt improving with mobility and activity tolerance. Still feeling quite weak but incouraged to walk in hallway with nursing as PT is only 1xday. Goals Bed Mobility Goal Independent Transfer Goal Independent Gait Goal Standby Assistance Gait Distance 150 Other Goals Ascend/descend 2 steps with SBA Days to Meet Goals 3 Frequency of Treatment Frequency Of Treatment Once a Day Treatment Plan Physical Therapy Treatment Plan Bed Mobility Training,Transfer Training,Gait Training, Therapeutic Exercise,Balance Retraining,Post Op Education, Discharge Planning, Neuromuscular Re-ed Other Recommendations and Next Treatment stair climbing when ready. Focus Discharge Recommendations PT Discharge Recommendations Home vs SNF Transportation Needs at Discharge Private Vehicle,Wheelchair/ Cabulance
[2022-06-24] MEDS: GABAPENTIN 300 MG CAPSULE 900 MG PO (14:20)
--- NOTE | 2022-06-24 14:49 | CM.DPNOTE ---
Addendum entered by LIZ Ravi 06/24/22 15:34: ADD: [facility] are at least one week out from start of care. nichole MARIE has this referral, f/u expected Wednesday the . DIALLO Price, kindly agreed to fax this referral, completed F2F and HH order included Plan: DC home w/nichole MARIE RN/PT/OT/CARLOS/LIZ when cleared for discharge by surgical team PRO Original Note: DCP Note According to discussion in team rounds this morning, patient is nearing medical stability. Therapies have been working with patient and although weak and deconditioned, patient improving functionally and plans to return home Met w/patient this afternoon to review dispo; patient explains he has coordinated caregivers to assist his spouse while he has been at the hospital Discussed HH services and patient agreeable, appreciative for the option. Reviewed HH options via [facility] choice list and patient states he has no agency preference. Per calendar rotation, [facility] will likely receive this referral. Patient requests RN/PT/OT/CARLOS/LIZ MAST
[2022-06-24 15:00] VITALS: BP 145/68; PULSE 60; RESP 16; TEMP 36.3; O2SAT 95
[2022-06-24] MEDS: IBUPROFEN 200 MG TABLET PO (17:40)
--- NOTE | 2022-06-24 18:05 | PM.PN.1 ---
Subjective Subjective Date Patient Seen: 06/24/22 Time Patient Seen: 18:05 Interval history: Jasmeet has made much progress since yesterday. He has been up ambulating with PT. He is tolerating his diet. He is not requiring any oral narcotic pain medications. Exam Vital Signs (past 8 hours): - 06/24/22 15:00 Temperature 97.3 F L Pulse Rate 60 Respiratory Rate 16 Blood Pressure 145/68 H Pulse Oximetry 95 Fraction of Inspired Oxygen 94 SaO2/FiO2 Ratio 306 Oxygen Delivery Method Room Air Oxygen Flow Rate 0 Const General: No acute distress Objective Labs Result Diagrams: 06/24/22 05:57 06/24/22 05:57 Labs: Laboratory Results - last 24 hr 06/24/22 06/24/22 05:57 05:57 WBC 9.9 RBC 3.77 L Hgb 11.4 L Hct 34.7 L MCV 92.1 MCH 30.2 MCHC 32.8 RDW 14.3 Plt Count 487 H Sodium 138 Potassium 3.9 Chloride 98 Carbon Dioxide 34 H BUN 11 Creatinine 0.74 Estimated GFR > 60 BUN/Creatinine Ratio 14.9 Glucose 89 Calcium 8.5 Total Bilirubin 0.9 AST 65 H ALT 122 H Alkaline Phosphatase 868 H Total Protein 5.3 L Albumin 2.8 L Globulin 2.5 Albumin/Globulin Ratio 1.1 PFSH Medical History Asthma (~1999) BPPV (benign paroxysmal positional vertigo) Cataracts, bilateral (~2017) Chicken pox Chronic back pain (~2011) Chronic pain Colon polyps (~1994) Essential hypertension Foot pain Gastric ulcer (~1969) Hyperlipidemia Measles Mumps Retinal detachment Seasonal allergies (~1987) Shoulder pain (~2011) Tinnitus Surgical History Anesthesia History of appendectomy (~1953) History of cataract removal with insertion of prosthetic lens History of gastric bypass (~1977) Family History Grandmother Stroke Father High cholesterol Mother Breast cancer Sister Hyperlipidemia Grandmother No problems noted. Grandfather No problems noted. Social History marital status: number of children: 0 household members: spouse lives independently: Yes caregiver/support person: No housing: house education level: college occupational status: employed Smoking Status: Never smoker second hand exposure: No alcohol intake: current substance use type: does not use Assessment & Plan Assessment and plan (1) Biliary calculi, common bile duct: Status: Acute Plan Hopefully home tomorrow Time Spent With Patient Critical Care time: I spent a total of [] minutes of critical care time on this patient's care today; this time is exclusive of procedural time. Quality VTE Deep Vein Thrombosis/Pulmonary Embolism Present on Admission: No
[2022-06-24 20:30] VITALS: BP 129/70; PULSE 56; RESP 18; TEMP 36.6; O2SAT 94
[2022-06-24] MEDS: TRAZODONE 50 MG TABLET 25 MG PO (20:46)
[2022-06-24] MEDS: TIZANIDINE 4 MG TABLET PO (20:46)
[2022-06-24] MEDS: GABAPENTIN 300 MG CAPSULE 600 MG PO (20:46)
[2022-06-24] MEDS: ATORVASTATIN 20 MG TABLET PO (20:46)
[2022-06-24 23:20] VITALS: BP 109/60; PULSE 51; RESP 16; TEMP 35.9; O2SAT 95
[2022-06-25 04:00] VITALS: BP 119/62; PULSE 49; RESP 17; TEMP 36.7; O2SAT 95
[2022-06-25 06:24] LABS: Hematocrit 33.6 % (41-53); Hemoglobin 11.3 g/dL (13.5-17.5); Mean Corpuscular HGB Conc 33.6 % (30-36); Mean Corpuscular Hemoglobin 30.8 PG (26-34); Mean Corpuscular Volume 91.6 fL (80-100); Platelet Count 467 X10^3/uL (150-400); Red Blood Cell Count 3.67 X10^6/uL (4.5-5.9); Red Cell Distribution Width 14.2 % (11.6-14.8); White Blood Cell Count 7.8 X10^3/uL (4.5-11.0)
--- NOTE | 2022-06-25 06:31 | PC.NURSE ---
Pt is AxOx4, needs 1-2 person assistance and cooperative. VSS, pt requested PRN Gabapenting, Trazodone and Tizainide at bedtime with good effect. No BM overnight. Pt is urinating well. Pt slept well. No other changes. Continue monitor.
[2022-06-25 06:48] LABS: Alanine Aminotransferase 104 IU/L (<50); Alkaline Phosphatase 699 U/L (38-126); Aspartate Aminotransferase 51 IU/L (17-59); BUN Creatinine Ratio 16.9 (6-22); Bilirubin Total 0.8 mg/dL (0.2-1.3); Blood Urea Nitrogen 14 mg/dL (9-20); Calcium 8.7 mg/dL (8.4-10.2); Carbon Dioxide 34 mmol/L (22-32); Chloride 99 mmol/L (98-107); Estimated Glomerular Filt Rate > 60 mL/min (>60); Glucose 97 mg/dL (80-110); HEMOLYSIS < 15 (0-50); Potassium 3.9 mmol/L (3.4-5.1); Sodium 137 mmol/L (137-145)
[2022-06-25 09:00] VITALS: BP 113/60; PULSE 64; RESP 16; TEMP 36.6; O2SAT 95
[2022-06-25] MEDS: hydroCHLOROthiazide 25 MG TABLET 12.5 MG PO (09:50)
[2022-06-25] MEDS: LORATADINE 10 MG TABLET PO (09:50)
[2022-06-25] MEDS: CHOLECALCIFEROL (VITAMIN D3) 1,000 UNIT TABLET 2500 UNIT PO (09:50)
[2022-06-25] MEDS: MULTIVITAMIN 1 TABLET 1 TAB PO (09:50)
[2022-06-25] MEDS: MONTELUKAST 10 MG TABLET PO (09:50)
[2022-06-25] MEDS: ASPIRIN 81 MG CHEW TAB PO (09:50)
[2022-06-25] MEDS: ENOXAPARIN 40 MG/0.4 ML SYRINGE SUBCUT ×2 (09:51→20:22)
[2022-06-25] MEDS: FLUTICASONE 120 SPRAY/16 GM SPRAY.SUSP NASAL ×2 (09:51→20:22)
[2022-06-25] MEDS: OLOPATADINE 0.1% OPHTH DROPS 5 ML 1 DROPS EYE-BOTH (09:51)
--- NOTE | 2022-06-25 12:00 | PT-IP ANOTE ---
Attempted to work with pt at 1140. He had just returned from a walk around the nurses station and was too fatigued to participate with PT. He asked for a later visit. Will follow up this PM.
[2022-06-25 13:00] VITALS: BP 108/66; PULSE 75; RESP 16; TEMP 36.4; O2SAT 92
--- NOTE | 2022-06-25 14:20 | PT.IPTN ---
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) Calculus of bile duct without cholangitis or cholecystitis without obstruction (06/13/22) Other cholangitis (06/13/22) Retention of urine, unspecified (06/13/22) Fever, unspecified (06/13/22) Surgery Performed Operation Date: 06/14/22 14:30 <No data on this case meets the specified criteria> Operation Date: 06/15/22 14:00 Actual Procedures p Laparoscopic Cholecystectomy(Not Applicable) - Vasyl Vasquez MD Physical Therapy Treatment Note M2 PT-IP Current Condition Start: 06/18/22 13:41 Freq: Status: Active Protocol: Document 06/19/22 09:50 DCW (Rec: 06/19/22 10:29 DCW [id number]) Physical Therapy Current Condition Current Condition Evaluation Date 06/18/22 Treatment Diagnosis S/P cholecystectomy; difficulty with ambulation Onset Date 06/16/22 M3 PT-IP Subjective Start: 06/18/22 13:41 Freq: Status: Active Protocol: Document 06/25/22 14:10 AW (Rec: 06/25/22 14:20 AW [id number]) Subjective Physical Therapy Visit Type Type Treatment Note Visit Start Time 13:45 Visit Stop Time 14:10 Number of RETAIL AREA MANAGER Visits 0 Physical Therapy Visit Comments Patient Comments agreeable to do PT Patient Goals Get stronger and go home Therapy Pain Assessment Pain When Pain Assessed At Rest Pain Present Pain Present Pain Reported Location Back Intensity 7 Scale Used Numeric (0 - 10) M4 PT-IP Mobility and Gait Start: 06/18/22 13:41 Freq: Status: Active Protocol: Document 06/25/22 14:10 AW (Rec: 06/25/22 14:20 AW [id number]) PT-Bed Mobility Assessment Sit to Supine Sit to Supine Standby Assistance,Head of Bed Elevated PT-Transfer Assessment Sit to and From Stand Sit to and from Stand Standby Assistance,Use of Upper Extremities Equipment Transfer Assistive Device Gait Belt,Front Wheeled Walker Transfers Transfer Destination Bed,Chair Transfer Ability Level of Assist Standby Assistance,Use of Upper Extremities Comments Mobility Comments Pt was sitting up in the chair as PT arrived. He stood SBA and used FWW to ambulate into the hallway. He agreed to stair climbing and entered the stairwell with FWW. Using B rails, he descended SBA and ascended CGA due to increasing fatigue with step-to pattern both directions. He ambulated another 150 feet with FWW SBA before returning to the room. He sat on the chair and completed 5 Time Sit to Stand using arms to push off the chair and FWW to steady self in standing; time was 21.8 seconds. Pt then transferred to the bed with FWW SBA. Gait Assessment Gait Gait Assistance Required: Standby Assistance,Contact Guard Assist Distance (Feet) 150 Able to Maintain Weight Bearing Status Yes During Gait Assistive Devices Assistive Device Gait Belt,Front Wheeled Walker Gait Deviations General Gait Pattern Decreased Stride Length, Decreased Feet Clearance,Step- to Gait Factors Limiting Gait Function Factors Limiting Gait Function Decreased Activity Tolerance, Decreased Strength,Limited Range of Motion,Pain,Poor Balance Comments Gait Comments See mobility comments for details. Just one short standing rest break today after stair climbing. Main barriers were back pain, quick approach to fatigue, and SOB during and after stairs. Stair Climbing Assessment Evaluation Level of Assist On Stairs Standby Assistance,Contact Guard Assistance Devices Stair Climbing Assistive Devices Left Railing,Right Railing Technique/Endurance Stair Climbing Direction Ascend and Descend Stair Climbing Technique Step to Step Number of Steps Climbed 13 Stair Climbing Set # Repetitions (reps) 1 Comments Stair Climbing Comments Pt was able to alternate leading leg going up. See mobility comments for details. Functional Assessments Functional Tests 5 Times Sit to Stand 21.8 sec M5 PT-IP Objective Assessments Start: 06/18/22 13:41 Freq: Status: Active Protocol: Document 06/18/22 13:41 (Rec: 06/18/22 13:55 [id number]) Orientation Orientation/Cognition Level of Alertness Alert Orientation Name,Date,Place,Situation Language Function Ability No Deficits Noted Safety Awareness Understands Safety Issues Gross Range of Motion Upper Extremity ROM Assessment Within Functional Limits Lower Extremity ROM Assessment Within Functional Limits Strength Upper Extremity Strength Assessment Within Functional Limits Lower Extremity Strength Assessment Within Functional Limits Comments Strength Comments Pt demonstrates with functional strength for basic transfers/ambulation. He fatigues quickly, needing frequent rest breaks. Sensation Assessment Sensation Gross Sensation WNL Light Touch Intact Proprioception (Position) Intact M6 PT-IP Treatment Start: 06/18/22 13:41 Freq: Status: Active Protocol: Document 06/25/22 14:10 AW (Rec: 06/25/22 14:20 AW [id number]) Physical Therapy Treatment Education Education Provided Precautions,Safety M7 PT-IP Assessment and Plan Start: 06/18/22 13:41 Freq: Status: Active Protocol: Document 06/25/22 14:10 AW (Rec: 06/25/22 14:20 AW [id number]) PT Summary Assessment and Plan Potential Rehabilitation Potential Good Summary Impairments Pain,Strength,Balance,Gait, Activity Tolerance Progress Towards Goals Progressing Toward Goals Assessment Summary Pt continues to improve his mobillity and endurance but is still requiring FWW for ambulation. Main barriers were back pain, quick approach to fatigue, and SOB during and after stairs. Goals Bed Mobility Goal Independent Transfer Goal Independent Gait Goal Standby Assistance Gait Distance 150 Other Goals Ascend/descend 2 steps with SBA Days to Meet Goals 3 Frequency of Treatment Frequency Of Treatment Once a Day Treatment Plan Physical Therapy Treatment Plan Bed Mobility Training,Transfer Training,Gait Training, Therapeutic Exercise,Balance Retraining,Post Op Education, Discharge Planning, Neuromuscular Re-ed Other Recommendations and Next Treatment repeat stair climbing. Focus repeated sit to stands. Discharge Recommendations PT Discharge Recommendations Home vs SNF Transportation Needs at Discharge Private Vehicle
[2022-06-25] MEDS: IBUPROFEN 200 MG TABLET PO (15:16)
[2022-06-25] MEDS: GABAPENTIN 300 MG CAPSULE 900 MG PO (15:17)
[2022-06-25 18:32] VITALS: BP 115/69; PULSE 53; RESP 16; TEMP 35.9; O2SAT 95
[2022-06-25 19:50] VITALS: BP 146/74; PULSE 68; RESP 18; TEMP 36.2; O2SAT 96
[2022-06-25] MEDS: ATORVASTATIN 20 MG TABLET PO (20:22)
[2022-06-25] MEDS: GABAPENTIN 300 MG CAPSULE 600 MG PO (21:46)
[2022-06-25] MEDS: TIZANIDINE 4 MG TABLET PO (21:46)
[2022-06-26 00:10] VITALS: BP 128/68; PULSE 56; RESP 16; TEMP 36.1; O2SAT 98
[2022-06-26] MEDS: TRAZODONE 50 MG TABLET 25 MG PO (00:20)
[2022-06-26] MEDS: LORazepam 2 MG/ML INJ 0.5 MG IV (01:23)
[2022-06-26 04:27] VITALS: BP 131/73; PULSE 57; RESP 17; TEMP 36.3; O2SAT 95
[2022-06-26 06:39] LABS: Hematocrit 32.7 % (41-53); Hemoglobin 11.2 g/dL (13.5-17.5); Mean Corpuscular HGB Conc 34.3 % (30-36); Mean Corpuscular Volume 90.5 fL (80-100); Platelet Count 460 X10^3/uL (150-400); Red Blood Cell Count 3.61 X10^6/uL (4.5-5.9); Red Cell Distribution Width 14.2 % (11.6-14.8); White Blood Cell Count 9.9 X10^3/uL (4.5-11.0)
[2022-06-26 06:45] LABS: Alanine Aminotransferase 82 IU/L (<50); Alkaline Phosphatase 587 U/L (38-126); Aspartate Aminotransferase 47 IU/L (17-59); BUN Creatinine Ratio 18.4 (6-22); Bilirubin Total 0.8 mg/dL (0.2-1.3); Blood Urea Nitrogen 14 mg/dL (9-20); Calcium 8.3 mg/dL (8.4-10.2); Carbon Dioxide 31 mmol/L (22-32); Chloride 99 mmol/L (98-107); Estimated Glomerular Filt Rate > 60 mL/min (>60); Globulin 3.1 g/dL (1.7-4.1); Glucose 103 mg/dL (80-110); HEMOLYSIS < 15 (0-50); Potassium 3.7 mmol/L (3.4-5.1); Sodium 136 mmol/L (137-145); Total Protein 6.1 g/dL (6.3-8.2)
[2022-06-26 07:57] VITALS: BP 119/69; PULSE 58; RESP 18; TEMP 36.4; O2SAT 94
--- NOTE | 2022-06-26 08:38 | PT-IP ANOTE ---
Pt unavailable for treatment due to eating breakfast. Pt declines saying he can walk with nursing staff. States he has been up/down flight of 15 stairs yesterday, can walk with a walker, has walk in shower that he feels he can manage. His biggest yvonne may be getting in/out of house due to tall steps. Pt states he has his 's home health caregivers that he is hoping they will be able to stay with he and his for a few days until he is stronger. He wants to go home to get stronger. Notes indicate pt is SBA<>CGA with ambulation and stair ambulation; therefore pt would be a candidate for Home Health PT if going home today and is recommended based on past PT note and pt report. Nsg notified.
[2022-06-26] MEDS: polyethylene glycoL 3350 17 GM POWD.PACK 34 GM PO (09:27)
[2022-06-26] MEDS: CHOLECALCIFEROL (VITAMIN D3) 1,000 UNIT TABLET 2500 UNIT PO (09:30)
[2022-06-26] MEDS: MULTIVITAMIN 1 TABLET 1 TAB PO (09:30)
[2022-06-26] MEDS: ASPIRIN 81 MG CHEW TAB PO (09:30)
[2022-06-26] MEDS: ENOXAPARIN 40 MG/0.4 ML SYRINGE SUBCUT (09:31)
[2022-06-26] MEDS: MONTELUKAST 10 MG TABLET PO (09:31)
[2022-06-26] MEDS: LORATADINE 10 MG TABLET PO (09:31)
[2022-06-26] MEDS: hydroCHLOROthiazide 25 MG TABLET 12.5 MG PO (09:31)
[2022-06-26] MEDS: FLUTICASONE 120 SPRAY/16 GM SPRAY.SUSP NASAL (09:32)
[2022-06-26] MEDS: OLOPATADINE 0.1% OPHTH DROPS 5 ML 1 DROPS EYE-BOTH (09:32)
--- NOTE | 2022-06-26 10:22 | ST.IPSCREEN ---
Pt returned from bathroom and was seated upright in chair when CHASER TAR arrived. 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 Pt was alert, oriented, and able to recount medical events leading to current state with high accuracy. NSG reported pt has transient episodes of slurred speech, right eye droop, and weakness, though symptoms were not present during this CHASER TAR's screen. NSG stated MRI and CT have come back negative for any acute processes. Completed oral motor exam. Pt presented with symmetrical features at rest and in motion. Right jaw popped upon opening and pt stated this has been a long-term symptom that does not bother him or cause pain. Tongue, lips, and jaw strength and ROM were WNL. Dentition present and WNL, pt stated he is missing 1 rear right tooth on the bottom and has a food pocket where there is a gap between teeth on the left that food can get stuck in. Pt stated he clears food from this area using his tongue and liquid wash with no difficulty. Structure and function of oral mechanism appears WNL for the purposes of speech and swallowing. Speech therapy is not indicated at this time. If episodes of slurred speech worsen, pt may benefit from referral for outpatient speech therapy.
--- NOTE | 2022-06-26 14:44 | CM.DPNOTE ---
DC Note DC home today w/nichole MARIE services. Patient remains agreeable to this plan. Close outpatient f/u recommended DIALLO Price, kindly agreed to update nichole MARIE w/patient's discharge JW
--- NOTE | 2022-06-26 14:44 | PC.NURSE ---
Pt is A&Ox3, VSS, afebrile on RA. He is able to ambulate using FWW in the web[place] and in his room with SBA, he reports feeling slightly weak. He acknowledges that he always uses FWW, and changes positions slowly. Patient has a large BM this a.m. and is medically cleared for discharge home with home health. He verbalizes understanding of medications, activity limitations, diet, site care, s/sx of infection or complications as well as acknowledgement of the need to follow up with MD Griffin's office and PCP. He is escorted to private vehicle with friend/remelt furnace expediter at approximately 1320 for discharge home with all of his belongings (Note remelt furnace expediter found cell phone pier master assistant, placed at nurse's station with pt name, and he was notified).
--- NOTE | 2022-06-29 08:55 | PM.DS.1 ---
History of Present Illness History of Present Illness Chief complaint: Extreme chills Narrative: Jasmeet is a 77-year-old man who presented to the emergency department about 3 days ago for chills and was found to have a distended gallbladder and elevated LFTs. He underwent an MRCP which showed a common bile duct stone in the distal CBD. His bilirubin has remained relatively flat at around 4 since he has been here. He is a past history of a open gastric bypass with some sort of complication that required a return to the operating room for what sounds like a bowel obstruction. He denies right upper quadrant pain. He has received antibiotics since he has been here in the ER. He has been on the wait list for transfer to a facility that can perform a laparoscopically assisted ERCP however no beds are available at any facility with this capability at this time. Discharge Providers Provider Date of admission: 06/13/22 18:27 Discharge Date: 06/26/22 Primary care physician: Vicky Whalen MD Consults: 06/11/22 05:52 Consult to SENIOR CASE MANAGER - [employer] Manufacturing Technician Stat Comment: SENIOR CASE MANAGER Consult needed for:: Community Health Res Need 06/18/22 11:55 Consult to Physical Therapy Evaluate & Treat Comment: Physician Instructions: Evaluate and Treat 06/24/22 15:03 Consult to Home Health Routine Comment: Reason For Exam: Home health services upon discharge 06/24/22 18:06 Consult to Home Health Routine Comment: Reason For Exam: Debilitation 06/26/22 08:33 Consult to Speech Therapy Evaluate & Treat Comment: Physician Instructions: Evaluate and treat Discharge provider: Vasyl Vasquez MD Summary Hospital Course Discharge Diagnosis: Cholelithiasis and choledocholithiasis status post cholecystectomy and ERCP Hospital Course: The patient underwent a laparoscopic cholecystectomy with an intraoperative cholangiogram and an attempt at a common bile duct exploration for a common bile duct stone. See operative note for details. He was eventually transferred to [facility] for a ERCP utilizing double balloon techniques due to his Brooks-en-Y anatomy. He successfully had clearance of his common bile duct stone a sphincterotomy. Transferred back to hospital after his procedure. He was rather debilitated and required several additional days to regain his strength but he was eventually discharged home with home health support. Pleural effusions were reported on his MRCP but indicate no clinical significance beyond what is stated above. Exam Vital Signs (past 8 hours): Fraction of Inspired Oxygen 94 SaO2/FiO2 Ratio 306 Oxygen Delivery Method Room Air Oxygen Flow Rate 0 Objective Labs Result Diagrams: 06/26/22 06:08 06/26/22 06:08 [facility] Medical History Asthma (~1999) BPPV (benign paroxysmal positional vertigo) Cataracts, bilateral (~2017) Chicken pox Chronic back pain (~2011) Chronic pain Colon polyps (~1994) Essential hypertension Foot pain Gastric ulcer (~1969) Hyperlipidemia Measles Mumps Retinal detachment Seasonal allergies (~1987) Shoulder pain (~2011) Tinnitus Surgical History Anesthesia History of appendectomy (~1953) History of cataract removal with insertion of prosthetic lens History of gastric bypass (~1977) Family History Grandmother Stroke Father High cholesterol Mother Breast cancer Sister Hyperlipidemia Grandmother No problems noted. Grandfather No problems noted. Social History marital status: number of children: 0 household members: spouse lives independently: Yes caregiver/support person: No housing: house education level: college occupational status: employed Smoking Status: Never smoker second hand exposure: No alcohol intake: current substance use type: does not use Discharge Plan Discharge Plan Patient Disposition: Home Discharge orders & Medications Prescriptions: New hydrocodone-acetaminophen 5-325 mg Tablet 1 tab PO Q4HR PRN (Reason: Pain, Moderate (4-6)) Qty: 20 0RF Continued montelukast [Singulair] 10 mg tablet 10 mg PO DAILY aspirin 81 MG tablet,chewable 81 mg PO QDAY Qty: 0 diclofenac sodium [Voltaren] 1 % gel 1 ea topical PRN PRN (Reason: Pain (Scale Score 1-3)) Qty: 0 ibuprofen 200 MG capsule 200 mg PO Q4-6H PRN (Reason: Pain (Scale Score 1-3)) Qty: 0 cholecalciferol (vitamin D3) [Vitamin D3] 2,000 UNIT tablet 2,500 iu PO DAILY Qty: 0 multivitamin [Multiple Vitamins] 1 EACH tablet 1 tab PO DAILY Qty: 0 olopatadine 0.7 % drops 1 drop EYE-BOTH DAILY Qty: 2.5 0RF fexofenadine [Theresa Allergy] 180 mg tablet 180 mg PO DAILY fluticasone propionate 50 mcg/actuation spray,suspension See Rx Instructions .ROUTE .COMPLEX Qty: 1440 3RF Dose Instruction: USE 1 SPRAY NASALLY TWICE A DAY Rx Instructions: USE 1 SPRAY NASALLY TWICE A DAY (DME) disabled parking permit See Rx Instructions .ROUTE .MEDSUPPLY Qty: 1 0RF Rx Instructions: My patient cannot walk 200 feet without stopping to rest or must use assistive device. Walking is severely limited due to arthritic, neurological or orthopedic condition. Uses portable oxygen or walking restricted by lung disease tizanidine 4 mg tablet See Rx Instructions .ROUTE .COMPLEX Qty: 90 11RF Dose Instruction: TAKE 1 TABLET EVERY 6 TO 8 HOURS NEEDED FOR MUSCLE SPASTICITY, DO NOT EXCEED 3 DOSES PER 24 HOURS Rx Instructions: TAKE 1 TABLET EVERY 6 TO 8 HOURS NEEDED FOR MUSCLE SPASTICITY, DO NOT EXCEED 3 DOSES PER 24 HOURS gabapentin 300 mg capsule See Rx Instructions .ROUTE .COMPLEX Qty: 180 3RF Dose Instruction: TAKE 2 CAPSULES AT BEDTIME NEEDED FOR PAIN Rx Instructions: TAKE 2 CAPSULES AT BEDTIME NEEDED FOR PAIN atorvastatin 40 mg tablet See Rx Instructions .ROUTE .COMPLEX Qty: 90 3RF Dose Instruction: TAKE 1 TABLET AT BEDTIME Rx Instructions: TAKE 1 TABLET AT BEDTIME hydrochlorothiazide 12.5 mg capsule See Rx Instructions .ROUTE .COMPLEX Qty: 90 3RF Dose Instruction: TAKE 1 CAPSULE DAILY Rx Instructions: TAKE 1 CAPSULE DAILY albuterol sulfate 90 mcg/actuation HFA aerosol inhaler See Rx Instructions .ROUTE .COMPLEX Qty: 17 4RF Dose Instruction: USE 2 INHALATIONS EVERY 4 TO 6 HOURS NEEDED FOR SHORTNESS OF BREATHOR WHEEZING Rx Instructions: USE 2 INHALATIONS EVERY 4 TO 6 HOURS NEEDED FOR SHORTNESS OF BREATHOR WHEEZING Follow up/Referrals: Vicky Whalen MD [Primary Care Provider] - Diet/Activity/Treatments Diet: Diet as Tolerated Visit Report/Discharge Packet Instructions: DI for Open Cholecystectomy, DI for Endoscopic Retrograde Cholangiopancreatography, DI for Laparoscopy, DI for Taking Pain Medication, [facility]: Wound Care Stand Alone Forms: Patient Portal/API, Stroke Signs & Symptoms, Surgery Discharge Discharge Data Primary Care Provider: Vicky Whalen VTE Deep Vein Thrombosis/Pulmonary Embolism Present on Admission: No
--- NOTE | 2022-07-03 08:24 | CM.DPNOTE ---
HH Update Received email from Dr Vasquez's office explaining that patient contacted their office asking about HH follow up. [facility] was contacted and said they required a F2F. According to review of Care Management notes, F2F was faxed 06.24.22, patient discharged 06.26.22 and DC summary was signed 06.29.22 Placed call to [facility] and spoke to Ame, lead intake. She explained that the F2F and HH order was received but the DC Summary had not been , which acts as the confirmation and order that starts HH services. DIALLO Price kindly agreed to fax the completed DC summary to [facility] and Ame agreed to call Jasmeet today to discuss and schedule follow up. LIZ Ramires
== END 2022-06-26 13:20 | disposition home or self-care (01) | DRG 419 ==
LOC: ED 06-13 07:00 → SSU 06-13 18:29 → AC 06-13 19:06
PROVIDERS: Emergency Medicine; Surgery; Admitting Provider Surgery; Emergency Provider Emergency Medicine; PCP Family Medicine; Referring Provider Emergency Medicine; Visit Provider Surgery
PROC: 0FT44ZZ Resection of Gallbladder, Percutaneous Endoscopic Approach (ICD-10-PCS; CPT 47562; principal; 2022-06-15 14:00)
DX: K80.71 Calculus of gallbladder and bile duct without cholecystitis with obstruction (principal); K80.31 Calculus of bile duct with cholangitis, unspecified, with obstruction; M54.9 Dorsalgia, unspecified; G89.29 Other chronic pain; I10 Essential (primary) hypertension; E78.5 Hyperlipidemia, unspecified; J45.909 Unspecified asthma, uncomplicated; Z20.822 Contact with and (suspected) exposure to COVID-19
CPT/HCPCS: 0241U; 36415; 36592; 47564; 71045; 74183; 74300; 76705; 80053; 80076; 81001; 81003; 82550; 82962; 83605; 83690; 83735; 83880; 84100; 84484; 85025; 85027; 85610; 87040; 87635; 93005; 93010; 94640; 94760; 96365; 96366; 96367; 96368; 96375; 96376; 97116; 97161; 97530; 99222; 99285; 99291; C9803; A9579; J0696; J1100; J1170; J1610; J1650; J2060; J2185; J2270; J2405; J2704; J3010; J7613

== ENCOUNTER → 2023-03-09 11:28 | Outpatient (CLI) | payer MEDICARE, OTHER, SELFPAY ==
[2022-06-13 20:21] VITALS: BMI 43.7
--- NOTE | 2023-03-09 11:30 | DI.RAD.S_ITS ---
PROCEDURE: XR FINGER RT MIN 2V INDICATIONS: pain TECHNIQUE: AP hand, 2 views of the 1st finger(s) acquired. COMPARISON: None. FINDINGS: Bones: Moderate to severe 1st CMC degenerative changes. Mild degenerative changes are seen elsewhere. Subchondral lucencies, particularly at the base of the 1st metacarpal, is likely a geode, differential includes prior inflammatory erosion. Adjacent bone fragments are likely nonacute, representing degenerative changes. Soft tissues: No suspicious calcifications. IMPRESSION: Scattered degenerative changes, most significant at the base of the thumb. 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 If there is high concern for further derangement, consider MRI evaluation. Dictated by: Mark Ferreira M.D. on 03/09/2023 at 14:08 Approved by: Mark Ferreira M.D. on 03/09/2023 at 14:09
--- NOTE | 2023-03-09 11:30 | DI.RAD.S_ITS ---
PROCEDURE: XR FINGER LT MIN 2V INDICATIONS: pain TECHNIQUE: AP hand, 2 views of the 1st finger(s) acquired. COMPARISON: None. FINDINGS: Bones: [id number] degenerative changes at the STT and 1st CMC. No displaced fracture or dislocation. Degenerative changes are also seen elsewhere, overall mild, for example at the 2nd and 3rd PIP. Subchondral lucencies likely represent degenerative geodes, differential includes prior inflammatory erosion. Soft tissues: No suspicious calcifications. IMPRESSION: Scattered degenerative changes as above. If there is high concern for further derangement, consider MRI evaluation. Dictated by: Mark Ferreira M.D. on 03/09/2023 at 14:06 Approved by: Mark Ferreira M.D. on 03/09/2023 at 14:08
== END ==
PROVIDERS: PCP Family Medicine; Referring Provider Family Medicine; Visit Provider Family Medicine
DX: M79.645 Pain in left finger(s) (principal); M79.644 Pain in right finger(s)
CPT/HCPCS: 73140

== ENCOUNTER 2023-10-21 13:43 | Emergency (ER) | payer MEDICARE, OTHER, SELFPAY ==
[2022-06-13 20:21] VITALS: BMI 43.7
[2023-10-21] VITALS (12 sets, daily range): BP systolic 159–205; BP diastolic 75–92; PULSE 50–62; RESP 14–25; TEMP 36.9; O2SAT 93–98; BMI 34.1
--- NOTE | 2023-10-21 13:52 | DI.RAD.S_ITS ---
PROCEDURE: XR CHEST 1V INDICATIONS: Shortness of breath TECHNIQUE: One view of the chest was acquired. COMPARISON: [facility], CR, XR CHEST 1V, 06/20/2022, 16:56. FINDINGS: Surgical changes and devices: None. Lungs and pleura: Lungs are clear. No pleural effusions or pneumothorax. Mediastinum: Mediastinal contours appear normal. Heart size is enlarged. Bones and chest wall: No suspicious bony lesions. Overlying soft tissues appear unremarkable. IMPRESSION: No acute pulmonary process. Dictated by: Arielle Mcallister M.D. on 10/21/2023 at 14:36 Approved by: Arielle Mcallister M.D. on 10/21/2023 at 14:36
[2023-10-21 14:41] LABS: Add Manual Diff / Slide Review NO; Basophils Absolute Auto 100 /uL (0-100); Basophils Percent Auto 1.2 % (0-2); Eosinophils Absolute Auto 300 /uL (0-450); Eosinophils Percent Auto 2.9 % (2-4); Hematocrit 39.3 % (41-53); Hemoglobin 13.3 g/dL (13.5-17.5); Lymphocytes Absolute Auto 2300 /uL (1100-4500); Lymphocytes Percent Auto 23.1 % (25-40); Mean Corpuscular HGB Conc 33.9 % (30-36); Mean Corpuscular Hemoglobin 30.9 PG (26-34); Monocytes Absolute Auto 1100 /uL (0-900); Monocytes Percent Auto 11.4 % (3-14); Neutrophils Absolute Auto 6200 /uL (1500-7000); Neutrophils Percent Auto 61.4 % (50-75); Platelet Count 280 X10^3/uL (150-400); Red Blood Cell Count 4.32 X10^6/uL (4.5-5.9); Red Cell Distribution Width 14.2 % (11.6-14.8)
[2023-10-21 14:44] LABS: Prothrombin Time 11.3 SECONDS (9.4-12.5)
[2023-10-21 14:50] LABS: Lactate (Lactic Acid) 1.4 mmol/L (0.7-2.1)
[2023-10-21 14:51] LABS: Alanine Aminotransferase 21 IU/L (<50); Albumin 4.2 g/dL (3.5-5.0); Albumin Globulin Ratio 1.4 (1.0-2.8); Alkaline Phosphatase 80 U/L (38-126); Aspartate Aminotransferase 22 IU/L (17-59); BUN Creatinine Ratio 27.8 (6-22); Bilirubin Total 0.4 mg/dL (0.2-1.3); Blood Urea Nitrogen 20 mg/dL (9-20); Calcium 9.2 mg/dL (8.4-10.2); Carbon Dioxide 25 mmol/L (22-32); Chloride 106 mmol/L (98-107); Estimated Glomerular Filt Rate > 60 mL/min (>60); Glucose 124 mg/dL (80-110); HEMOLYSIS 22 (0-50); Potassium 3.9 mmol/L (3.4-5.1); Sodium 139 mmol/L (137-145); Total Protein 7.2 g/dL (6.3-8.2)
[2023-10-21 15:02] LABS: NT-proBNP (BNP-Adult 18+) 79 pg/mL (<450); Troponin I < 0.012 ng/mL (0.01-0.034)
[2023-10-21 15:04] LABS: Adenovirus Not Detected (Not Detect); B. parapertussis Not Detected (Not Detecte); Bordetella pertussis Not Detected (Not Detect); Chlamydophila pneumoniae Not Detected (Not Detect); Coronavirus 229E Not Detected (Not Detect); Coronavirus HKU1 Not Detected (Not Detect); Coronavirus NL 63 Not Detected (Not Detect); Coronavirus OC43 Not Detected (Not Detect); Human Metapneumovirus Not Detected (Not Detect); Human Rhinovirus/Enterovirus Not Detected (Not Detect); Influenza A Not Detected (Not Detect); Influenza B Not Detected (Not Detect); Mycoplasma pneumoniae Not Detected (Not Detect); Parainfluenza Virus 1 Not Detected (Not Detect); Parainfluenza Virus 2 Not Detected (Not Detect); Parainfluenza Virus 3 Not Detected (Not Detect); Parainfluenza Virus 4 Not Detected (Not Detect); Respiratory Syncytial Virus Not Detected (Not Detect)
[2023-10-21 15:27] LABS: SARS- CoV-2 Detected (Not Detecte)
--- NOTE | 2023-10-21 16:46 | ED.ASTHMA ---
HPI - Asthma General Chief Complaint: Asthma Stated Complaint: asthma Time Seen by Provider: 10/21/23 16:46 Source: patient Mode of arrival: Family Vehicle History of Present Illness HPI Narrative: 78-year-old male with history of asthma, dyslipidemia, osteoarthritis, seasonal allergies who presents with complaint of his flare of asthma. Patient states his had a cold about a week ago he then got cold-like symptoms. Since then he has had a little bit of burning in his chest and has been using his inhaler but without much improvement. He states he does not really feel short of breath he denies any other pain. No syncope. No nausea vomiting GI or urinary symptoms reported. Patient states that his tested negative for COVID last week. He is about 7 or 8 days into symptoms. He does have Advair but does not regularly use it. He also notes that he has seasonal allergies and thought that maybe flaring his symptoms. Related Data Home Medications Medication Instructions Recorded Confirmed aspirin 81 mg chewable tablet 81 mg PO QDAY ##0 05/19/17 09/21/23 cholecalciferol (vitamin D3) 50 2,500 iu PO DAILY ##0 05/19/17 09/21/23 mcg (2,000 unit) tablet (Vitamin D3) diclofenac sodium 1 % topical gel 1 ea topical PRN PRN Pain (Scale 05/19/17 09/21/23 (Voltaren) Score 1-3) ##0 ibuprofen 200 mg capsule 200 mg PO Q4-6H PRN Pain (Scale 05/19/17 09/21/23 Score 1-3) ##0 multivitamin (Multiple Vitamins 1 tab PO DAILY ##0 05/19/17 09/21/23 tablet) fexofenadine 180 mg tablet 180 mg PO DAILY 05/24/20 09/21/23 (Theresa Allergy) Previous Rx's Medication Instructions Recorded olopatadine 0.7 % eye drops 1 drop EYE-BOTH DAILY #2.5 mL 11/27/19 fluticasone propionate 50 See Rx Instructions .Route 10/23/20 mcg/actuation nasal .COMPLEX #1,440 grams spray,suspension disabled parking permit #1 ea 06/03/21 hydrocodone 5 mg-acetaminophen 325 1 tab PO Q4HR PRN Pain, Moderate 06/26/22 mg tablet (4-6) #20 tabs hydrochlorothiazide 12.5 mg capsule See Rx Instructions .Route 12/17/22 .COMPLEX #90 caps tizanidine 4 mg tablet See Rx Instructions .Route 12/17/22 .COMPLEX #90 tabs montelukast 10 mg tablet 10 mg PO DAILY #90 tabs 01/15/23 (Singulair) atorvastatin 40 mg tablet See Rx Instructions .Route 04/13/23 .COMPLEX #90 tabs triamcinolone acetonide 0.5 % 1 applic topical BID #15 grams 06/02/23 topical ointment albuterol sulfate 90 mcg/actuation See Rx Instructions .Route 06/15/23 aerosol inhaler .COMPLEX #17 grams gabapentin 300 mg capsule 600 mg (2 x 300 mg) PO BID PRN for 09/21/23 pain #360 caps prednisone 10 mg tablets in a dose See Rx Instructions PO .COMPLEX 10/21/23 pack #21 ea Allergies Allergy/AdvReac Type Severity Reaction Status Date / Time Penicillins [PENICILLINS] Allergy Intermediate rash, Verified 09/21/23 09:45 blows up Review of Systems Review of Systems ROS Unobtainable: All systems reviewed & are unremarkable except as noted in HPI and below Patient History Medical History BPPV (benign paroxysmal positional vertigo) Hyperlipidemia Essential hypertension Measles Gastric ulcer (~1969) Colon polyps (~1994) Chronic pain Asthma (~1999) Seasonal allergies (~1987) Shoulder pain (~2011) Foot pain Chronic back pain (~2011) Mumps Chicken pox Tinnitus Retinal detachment Cataracts, bilateral (~2017) Surgical History Anesthesia History of cataract removal with insertion of prosthetic lens History of appendectomy (~1953) History of gastric bypass (~1977) Family History Grandmother Stroke Father High cholesterol Mother Breast cancer Sister Hyperlipidemia Grandmother No problems noted. Grandfather No problems noted. Social History marital status: number of children: 0 household members: spouse lives independently: Yes caregiver/support person: No housing: house education level: college occupational status: employed Smoking Status: Never smoker second hand exposure: No alcohol intake: current substance use type: does not use Smoking Status: Never smoker alcohol intake frequency: a few times a week Substance Use Type: does not use Exam Narrative Exam Narrative: GENERAL: Alert and oriented x three, male in mild distress. HEENT: Head normocephalic, atraumatic, EOMI, pupils reactive, face symmetric, moist mucous membranes NECK: Supple, full range of motion CARDIOVASCULAR: Regular rate and rhythm without murmurs, rubs or gallops. No JVD. No edema bilateral lower extremities. RESPIRATORY: Breath sounds equal bilaterally, no wheezes rales or rhonchi. No tachypnea or accessory muscle use. Speaks in full sentences. ABDOMEN: Soft, nontender. Normoactive bowel sounds all 4 quadrants. No guarding or rebound, rigidity, no mass : No CVA tenderness EXTREMITIES: Normal range of motion, no clubbing or edema. Neurovascularly intact NEUROLOGICAL: Cranial nerves II through XII grossly intact. Moving all extremities SKIN: Warm, dry, no petechiae, no rashes or lesions. Initial Vital Signs Initial Vital Signs: Vital Signs Temperature 98.5 F 10/21/23 13:53 Pulse Rate 62 10/21/23 13:53 Respiratory Rate 18 10/21/23 13:53 Blood Pressure 178/83 H 10/21/23 13:53 Pulse Oximetry 98 10/21/23 13:53 Oxygen Delivery Method Room Air 10/21/23 13:53 Course Orders Ordered: ED Orders 10/21/23 13:52 XR chest 1V Stat Measure peak expiratory flow ONCE RT Consult Eval and Treat NOW 10/21/23 14:11 Respiratory Panel (Film Array) Stat 10/21/23 14:24 Complete Blood Count AUTO DIFF Stat Comprehensive Metabolic Panel Stat Lactate (Lactic Acid) Stat NT-proBNP (BNP-Adult 18+) Stat Prothrombin Time INR Stat Troponin I Stat Vital Signs Vital signs: Vital Signs - 8 hr 10/21/23 13:53 10/21/23 14:00 10/21/23 14:00 Temperature 98.5 F Pulse Rate 62 58 L Respiratory Rate 18 24 Blood Pressure 178/83 H 159/75 H Pulse Oximetry 98 98 Oxygen Delivery Method Room Air Room Air 10/21/23 14:30 10/21/23 14:31 10/21/23 14:31 Temperature Pulse Rate 50 L 51 L Respiratory Rate 23 22 Blood Pressure 162/77 H Pulse Oximetry 97 97 Oxygen Delivery Method 10/21/23 15:00 10/21/23 15:00 10/21/23 15:30 Temperature Pulse Rate 55 L 54 L Respiratory Rate 14 21 Blood Pressure 170/78 H Pulse Oximetry 94 93 Oxygen Delivery Method Room Air 10/21/23 15:30 10/21/23 16:00 10/21/23 16:00 Temperature Pulse Rate 58 L Respiratory Rate 25 H Blood Pressure 179/80 H 184/91 H Pulse Oximetry 93 Oxygen Delivery Method 10/21/23 16:30 10/21/23 16:31 10/21/23 16:31 Temperature Pulse Rate 56 L 55 L Respiratory Rate 21 20 Blood Pressure 196/86 H Pulse Oximetry 96 95 Oxygen Delivery Method 10/21/23 17:00 10/21/23 17:01 10/21/23 17:01 Temperature Pulse Rate 54 L 55 L Respiratory Rate 22 17 Blood Pressure 200/91 H Pulse Oximetry 96 97 Oxygen Delivery Method 10/21/23 17:03 10/21/23 17:03 Temperature Pulse Rate 53 L Respiratory Rate 15 Blood Pressure 205/92 H Pulse Oximetry 98 Oxygen Delivery Method Room Air MDM - Asthma Lab Data 10/21/23 14:24 10/21/23 14:24 Labs: Lab Results 10/21/23 10/21/23 Range/Units 14:11 14:24 WBC 10.0 (4.5-11.0) X10^3/uL RBC 4.32 L (4.5-5.9) X10^6/uL Hgb 13.3 L (13.5-17.5) g/dL Hct 39.3 L (41-53) % MCV 91.0 (80-100) fL MCH 30.9 (26-34) PG MCHC 33.9 (30-36) % RDW 14.2 (11.6-14.8) % Plt Count 280 (150-400) X10^3/uL Neut % (Auto) 61.4 (50-75) % Lymph % (Auto) 23.1 L (25-40) % [place] % (Auto) 11.4 (3-14) % Eos % (Auto) 2.9 (2-4) % Baso % (Auto) 1.2 (0-2) % Neut # (Auto) 6200 (5905-1550) /uL Lymph # (Auto) 2300 (3436-2164) /uL [place] # (Auto) 1100 H (0-900) /uL Eos # (Auto) 300 (0-450) /uL Baso # (Auto) 100 (0-100) /uL PT 11.3 (9.4-12.5) SECONDS INR 1.0 (0.9-1.3) Sodium 139 (137-145) mmol/L Potassium 3.9 (3.4-5.1) mmol/L Chloride 106 (98-107) mmol/L Carbon Dioxide 25 (22-32) mmol/L BUN 20 (9-20) mg/dL Creatinine 0.72 (0.66-1.25) mg/dL Estimated GFR > 60 (>60) mL/min BUN/Creatinine Ratio 27.8 H (6-22) Glucose 124 H (80-110) mg/dL Lactate 1.4 (0.7-2.1) mmol/L Calcium 9.2 (8.4-10.2) mg/dL Total Bilirubin 0.4 (0.2-1.3) mg/dL AST 22 (17-59) IU/L ALT 21 (<50) IU/L Alkaline Phosphatase 80 (38-126) U/L Troponin I < 0.012 (0.01-0.034) ng/mL NT-Pro-B Natriuret Pep 79 (<450) pg/mL Total Protein 7.2 (6.3-8.2) g/dL Albumin 4.2 (3.5-5.0) g/dL Globulin 3.0 (1.7-4.1) g/dL Albumin/Globulin Ratio 1.4 (1.0-2.8) Chlamy pneumoniae PCR Not detected (Not Detect) Adenovirus (PCR) Not detected (Not Detect) B.parapertussis DNA PCR Not detected (Not Detecte) Coronavirus OC43 (PCR) Not detected (Not Detect) Coronavirus HKU1 (PCR) Not detected (Not Detect) Coronavirus 229E (PCR) Not detected (Not Detect) SARS-CoV-2 (PCR) Detected H (Not Detecte) Coronavirus NL63 (PCR) Not detected (Not Detect) Human Metapneumovir PCR Not detected (Not Detect) Influenza Type A (PCR) Not detected (Not Detect) Influenza Type B (PCR) Not detected (Not Detect) M. pneumoniae (PCR) Not detected (Not Detect) Parainfluenza 1 (PCR) Not detected (Not Detect) Parainfluenza 2 (PCR) Not detected (Not Detect) Parainfluenza 3 (PCR) Not detected (Not Detect) Parainfluenza 4 (PCR) Not detected (Not Detect) RSV (PCR) Not detected (Not Detect) Entero/Rhino (PCR) Not detected (Not Detect) Imaging Data Chest x-ray: Radiologist's Impression: Close Chest X-Ray (Signed) Arielle Mcallister - 10/21/23 Finger X-Ray (Signed) Mark Ferreira - 03/09/23 Finger X-Ray (Signed) Mark Ferreira - 03/09/23 Chest X-Ray (Signed) Abdiel Mueller - 06/20/22 Abdomen MRI (Signed) SahilYanick - 06/17/22 Cholangiogram,Operative (Signed) Bernard Okeefe - 06/15/22 Abdomen MRI (Signed) Riaz Kaur - 06/10/22 Abdomen Ultrasound (Signed) Abelardo Raymond - 06/10/22 Chest X-Ray (Signed) Suzanna Alcantara - 06/10/22 Knee MRI (Signed) Jeannette Alvarenga - 08/09/21 Knee X-Ray (Signed) Abelardo Raymond - 07/07/21 Brain MRI (Signed) Hugh Palmer - 11/25/20 Carotid Doppler Study (Signed) Bernard Okeefe - 11/19/20 Chest X-Ray (Signed) Sandy Boswell - 06/27/[address] (Signed) Pravin Chan - 06/01/19 Shoulder X-Ray (Signed) Sandy Boswell - 03/08/18 Shoulder X-Ray (Signed) Sandy Boswell - 03/08/[address] [address] XRay Report Signed Patient: Jasmeet Inman MR#: [id number] : 1945 Acct:[id number] Age/Sex: 78 / M Date of Service: 10/21/23 Loc: ED Accession Number: [id number] Procedure: XR chest 1V Ordering Provider: Shelli Berkowitz D.O. PROCEDURE: XR CHEST 1V INDICATIONS: Shortness of breath TECHNIQUE: One view of the chest was acquired. COMPARISON: [facility], CR, XR CHEST 1V, 06/20/2022, 16:56. FINDINGS: Surgical changes and devices: None. Lungs and pleura: Lungs are clear. No pleural effusions or pneumothorax. Mediastinum: Mediastinal contours appear normal. Heart size is enlarged. Bones and chest wall: No suspicious bony lesions. Overlying soft tissues appear unremarkable. IMPRESSION: No acute pulmonary process. Dictated by: Arielle Mcallister M.D. on 10/21/2023 at 14:36 Approved by: Arielle Mcallister M.D. on 10/21/2023 at 14:36 ECG Data Attestation: I personally reviewed and interpreted this ECG as follows: MDM Narrative Medical decision making narrative: Labs show white count of 10, hemoglobin of 13 platelets of 280. Sodium is 139 potassium 3 9 chloride 106 CO2 is 25 BUN 20 creatinine 0.72 glucose of 124 lactate normal 1.4- troponin BNP is 79. Patient is COVID positive on respiratory panel Chest x-ray is negative Patient defers EKG. Discussed with patient he is positive for COVID likely source of his sensation in his chest. He is clear on exam was also seen by respiratory therapy and was clear. Patient very much desire discharge home it does not wish for EKG. He is primary caregiver for his . Patient and I discussed his findings he is about 7-8 days in his symptoms would not be Paxlovid candidate. We will give a prescription for oral prednisone if he has worsening of his asthma but otherwise symptomatic treatment. Discussed return precautions. Discharge Plan Departure Patient Disposition: Home Clinical Impression: COVID-19 virus infection Instructions: DI for COVID-19 (Suspected or Confirmed ) Activity Restrictions/Additional Instructions: You have tested positive for COVID-19. This is a viral illness that typically last 7-10 days total. Continue your home medications as prescribed. If you are finding your asthma seems flared you can take prednisone as prescribed. There has a printed prescription included. Please return for new or worsening symptoms increasing chest pain, shortness of breath, passing out, persistent vomiting, new swelling in extremities, increasing difficulty breathing or other new or concerning changes. Prescriptions: New prednisone 10 mg tablets,dose pack See Rx Instructions .ROUTE .COMPLEX Qty: 21 0RF Rx Instructions: 6 tabs p.o. x1 day, then 5 tabs p.o. x1 day, then 4 tablets p.o. x1 day, then 3 tabs p.o. x1 day, then 2 tabs p.o. x1 day, then 1 tab p.o. x1 day No Action triamcinolone acetonide 0.5 % ointment 1 applic topical BID Qty: 15 2RF gabapentin 300 mg capsule 600 mg PO BID PRN (Reason: for pain) Qty: 360 3RF aspirin 81 MG tablet,chewable 81 mg PO QDAY Qty: 0 diclofenac sodium [Voltaren] 1 % gel 1 ea topical PRN PRN (Reason: Pain (Scale Score 1-3)) Qty: 0 ibuprofen 200 MG capsule 200 mg PO Q4-6H PRN (Reason: Pain (Scale Score 1-3)) Qty: 0 cholecalciferol (vitamin D3) [Vitamin D3] 2,000 UNIT tablet 2,500 iu PO DAILY Qty: 0 multivitamin [Multiple Vitamins] 1 EACH tablet 1 tab PO DAILY Qty: 0 olopatadine 0.7 % drops 1 drop EYE-BOTH DAILY Qty: 2.5 0RF fexofenadine [Theresa Allergy] 180 mg tablet 180 mg PO DAILY fluticasone propionate 50 mcg/actuation spray,suspension See Rx Instructions .ROUTE .COMPLEX Qty: 1440 3RF Dose Instruction: USE 1 SPRAY NASALLY TWICE A DAY Rx Instructions: USE 1 SPRAY NASALLY TWICE A DAY (DME) disabled parking permit See Rx Instructions .ROUTE .MEDSUPPLY Qty: 1 0RF Rx Instructions: My patient cannot walk 200 feet without stopping to rest or must use assistive device. Walking is severely limited due to arthritic, neurological or orthopedic condition. Uses portable oxygen or walking restricted by lung disease tizanidine 4 mg tablet See Rx Instructions .ROUTE .COMPLEX Qty: 90 11RF Dose Instruction: TAKE 1 TABLET EVERY 6 TO 8 HOURS NEEDED FOR MUSCLE SPASTICITY, DO NOT EXCEED 3 DOSES PER 24 HOURS Rx Instructions: TAKE 1 TABLET EVERY 6 TO 8 HOURS NEEDED FOR MUSCLE SPASTICITY, DO NOT EXCEED 3 DOSES PER 24 HOURS hydrochlorothiazide 12.5 mg capsule See Rx Instructions .ROUTE .COMPLEX Qty: 90 3RF Dose Instruction: TAKE 1 CAPSULE DAILY Rx Instructions: TAKE 1 CAPSULE DAILY atorvastatin 40 mg tablet See Rx Instructions .ROUTE .COMPLEX Qty: 90 3RF Dose Instruction: TAKE 1 TABLET AT BEDTIME Rx Instructions: TAKE 1 TABLET AT BEDTIME albuterol sulfate 90 mcg/actuation HFA aerosol inhaler See Rx Instructions .ROUTE .COMPLEX Qty: 17 4RF Dose Instruction: USE 2 INHALATIONS EVERY 4 TO 6 HOURS NEEDED FOR SHORTNESS OF BREATHOR WHEEZING Rx Instructions: USE 2 INHALATIONS EVERY 4 TO 6 HOURS NEEDED FOR SHORTNESS OF BREATHOR WHEEZING hydrocodone-acetaminophen 5-325 mg Tablet 1 tab PO Q4HR PRN (Reason: Pain, Moderate (4-6)) Qty: 20 0RF montelukast [Singulair] 10 mg tablet 10 mg PO DAILY Qty: 90 3RF Referrals: Vicky Whalen MD [Primary Care Provider] - Stand Alone Forms: Patient Portal/API
--- NOTE | 2023-10-21 16:54 | PC.NURSE ---
Patient refused EKG, RN and Doctor notified
== END 2023-10-21 17:10 | disposition home or self-care (01) ==
PROVIDERS: Emergency Provider Emergency Medicine; PCP Family Medicine
DX: U07.1 COVID-19 (principal); R07.89 Other chest pain; R06.02 Shortness of breath
CPT/HCPCS: 36415; 71045; 80053; 83605; 83880; 84484; 85025; 85610; 87633; 99284

== ENCOUNTER 2023-11-09 09:17 | Emergency (ER) | payer MEDICARE, OTHER, SELFPAY ==
[2022-06-13 20:21] VITALS: BMI 43.7
[2023-11-09] VITALS (9 sets, daily range): BP systolic 175–210; BP diastolic 75–92; PULSE 50–57; RESP 17–39; O2SAT 93–99; BMI 34.1
--- NOTE | 2023-11-09 09:23 | DI.RAD.S_ITS ---
PROCEDURE: XR CHEST 1V INDICATIONS: Chest pain TECHNIQUE: One view of the chest was acquired. COMPARISON: [facility], CR, XR CHEST 1V, 10/21/2023, 14:11. FINDINGS: Surgical changes and devices: Stable left upper abdomen surgical clips. Lungs and pleura: Lungs are clear. No pleural effusions or pneumothorax. Mediastinum: Mediastinal contours appear normal. Heart size is normal. Bones and chest wall: No suspicious bony lesions. Overlying soft tissues appear unremarkable. IMPRESSION: No acute cardiopulmonary abnormality is seen. Dictated by: Sandy Boswell MD, PhD on 11/09/2023 at 9:59 Approved by: Sandy Boswell MD, PhD on 11/09/2023 at 10:00
--- NOTE | 2023-11-09 09:36 | ED_ITS ---
HPI - Chest Pain General Chief Complaint: Chest Pain Stated Complaint: SEVERE MUSCLE PAIN AND CHEST PAIN Time Seen by Provider: 11/09/23 09:23 Source: patient Mode of arrival: Ambulatory Limitations: no limitations History of Present Illness HPI narrative: Patient is a 78-year-old here for evaluation of 10 days of muscle pain that he states starts in his back and radiates around to the front of his chest. It has been consistent for the past 10 days. It is reproducible with palpation specifically on the right side. No specific trauma. No history of cardiac issues. He was seen here in the emergency department about the time of the onset of the discomfort for other issues and was diagnosed with a respiratory infection. Has a follow-up with his primary doctor in approximately 2 weeks from now. He states last night the pain got worse to the point where he needed to come to the emergency department for further evaluation. Related Data Home Medications Medication Instructions Recorded Confirmed aspirin 81 mg chewable tablet 81 mg PO QDAY ##0 05/19/17 09/21/23 cholecalciferol (vitamin D3) 50 2,500 iu PO DAILY ##0 05/19/17 09/21/23 mcg (2,000 unit) tablet (Vitamin D3) diclofenac sodium 1 % topical gel 1 ea topical PRN PRN Pain (Scale 05/19/17 09/21/23 (Voltaren) Score 1-3) ##0 ibuprofen 200 mg capsule 200 mg PO Q4-6H PRN Pain (Scale 05/19/17 09/21/23 Score 1-3) ##0 multivitamin (Multiple Vitamins 1 tab PO DAILY ##0 05/19/17 09/21/23 tablet) fexofenadine 180 mg tablet 180 mg PO DAILY 05/24/20 09/21/23 (Theresa Allergy) Previous Rx's Medication Instructions Recorded olopatadine 0.7 % eye drops 1 drop EYE-BOTH DAILY #2.5 mL 11/27/19 fluticasone propionate 50 See Rx Instructions .Route 10/23/20 mcg/actuation nasal .COMPLEX #1,440 grams spray,suspension disabled parking permit #1 ea 06/03/21 hydrocodone 5 mg-acetaminophen 325 1 tab PO Q4HR PRN Pain, Moderate 06/26/22 mg tablet (4-6) #20 tabs hydrochlorothiazide 12.5 mg capsule See Rx Instructions .Route 12/17/22 .COMPLEX #90 caps tizanidine 4 mg tablet See Rx Instructions .Route 12/17/22 .COMPLEX #90 tabs montelukast 10 mg tablet 10 mg PO DAILY #90 tabs 01/15/23 (Singulair) atorvastatin 40 mg tablet See Rx Instructions .Route 04/13/23 .COMPLEX #90 tabs triamcinolone acetonide 0.5 % 1 applic topical BID #15 grams 06/02/23 topical ointment albuterol sulfate 90 mcg/actuation See Rx Instructions .Route 06/15/23 aerosol inhaler .COMPLEX #17 grams gabapentin 300 mg capsule 600 mg (2 x 300 mg) PO BID PRN for 09/21/23 pain #360 caps benzonatate 200 mg capsule 200 mg PO BID-TID PRN cough #21 10/29/23 caps hydrocodone 5 mg-acetaminophen 325 1 tab PO Q6H PRN pain #14 tabs 11/09/23 mg tablet Allergies Allergy/AdvReac Type Severity Reaction Status Date / Time Penicillins [PENICILLINS] Allergy Intermediate rash, Verified 11/09/23 09:28 blows up Review of Systems Review of Systems Narrative: See HPI Patient History Medical History BPPV (benign paroxysmal positional vertigo) Hyperlipidemia Essential hypertension Measles Gastric ulcer (~1969) Colon polyps (~1994) Chronic pain Asthma (~1999) Seasonal allergies (~1987) Shoulder pain (~2011) Foot pain Chronic back pain (~2011) Mumps Chicken pox Tinnitus Retinal detachment Cataracts, bilateral (~2017) Surgical History Anesthesia History of cataract removal with insertion of prosthetic lens History of appendectomy (~1953) History of gastric bypass (~1977) Family History Grandmother Stroke Father High cholesterol Mother Breast cancer Sister Hyperlipidemia Grandmother No problems noted. Grandfather No problems noted. Social History marital status: number of children: 0 household members: spouse lives independently: Yes caregiver/support person: No housing: house education level: college occupational status: employed Smoking Status: Never smoker second hand exposure: No alcohol intake: current substance use type: does not use Smoking Status: Never smoker alcohol intake frequency: 0-2 drinks per day Substance Use Type: does not use Exam Initial Vital Signs Initial Vital Signs: Vital Signs Pulse Rate 56 L 11/09/23 09:18 Respiratory Rate 20 11/09/23 09:18 Blood Pressure 182/84 H 11/09/23 09:18 Pulse Oximetry 97 11/09/23 09:18 Oxygen Delivery Method Room Air 11/09/23 09:18 Const General: cooperative, comfortable and No ill appearing HENMT Head: normal to inspection and normocephalic Chest Chest: No crepitus and tenderness (Right-sided chest wall) Resp Effort & Inspection: normal respiratory effort Auscultation: clear to auscultation bilaterally Cardio Rate: regular rate Rhythm: regular rhythm GI Inspection: normal to inspection Skin General: no rashes or lesions noted Neuro General: patient alert and patient awake Extrem General: No edema Course Orders Ordered: ED Orders 11/09/23 09:23 XR chest 1V Stat EKG-12 Lead Stat 11/09/23 09:35 Complete Blood Count AUTO DIFF Stat Comprehensive Metabolic Panel Stat Lipase Stat Troponin & CK Cardiac Panel Stat 11/09/23 09:47 Covid-19 + FLU A/B + RSV - PCR Stat Vital Signs Vital signs: Vital Signs - 8 hr 11/09/23 09:18 Pulse Rate 56 L Respiratory Rate 20 Blood Pressure 182/84 H Pulse Oximetry 97 Oxygen Delivery Method Room Air MDM - Chest Pain Medical Records Data Attestation: I reviewed the patient's medical records. Lab Data Attestation: I reviewed the patient's lab results. 11/09/23 09:35 11/09/23 09:35 Labs: Lab Results 11/09/23 11/09/23 Range/Units 09:35 09:47 WBC 11.3 H (4.5-11.0) X10^3/uL RBC 4.36 L (4.5-5.9) X10^6/uL Hgb 13.2 L (13.5-17.5) g/dL Hct 39.8 L (41-53) % MCV 91.1 (80-100) fL MCH 30.3 (26-34) PG MCHC 33.2 (30-36) % RDW 14.1 (11.6-14.8) % Plt Count 257 (150-400) X10^3/uL Neut % (Auto) 71.6 (50-75) % Lymph % (Auto) 16.0 L (25-40) % Shannon % (Auto) 10.2 (3-14) % Eos % (Auto) 1.5 L (2-4) % Baso % (Auto) 0.7 (0-2) % Neut # (Auto) 8100 H (1196-0236) /uL Lymph # (Auto) 1800 (2735-9837) /uL Shannon # (Auto) 1200 H (0-900) /uL Eos # (Auto) 200 (0-450) /uL Baso # (Auto) 100 (0-100) /uL Sodium 137 (137-145) mmol/L Potassium 3.9 (3.4-5.1) mmol/L Chloride 104 (98-107) mmol/L Carbon Dioxide 31 (22-32) mmol/L BUN 18 (9-20) mg/dL Creatinine 0.75 (0.66-1.25) mg/dL Estimated GFR > 60 (>60) mL/min BUN/Creatinine Ratio 24.0 H (6-22) Glucose 99 (80-110) mg/dL Calcium 8.7 (8.4-10.2) mg/dL Total Bilirubin 0.9 (0.2-1.3) mg/dL AST 25 (17-59) IU/L ALT 26 (<50) IU/L Alkaline Phosphatase 65 (38-126) U/L Total Creatine Kinase 51 L (55-170) U/L Troponin I < 0.012 (0.01-0.034) ng/mL Total Protein 6.5 (6.3-8.2) g/dL Albumin 3.8 (3.5-5.0) g/dL Globulin 2.7 (1.7-4.1) g/dL Albumin/Globulin Ratio 1.4 (1.0-2.8) Lipase 70 (23-300) U/L SARS-CoV-2 (PCR) Negative (Negative) Influenza A (RT-PCR) Flu a negative (NEGATIVE) Influenza B (RT-PCR) Flu b negative (NEGATIVE) RSV (PCR) Negative (Negative) Imaging Data Chest x-ray: Radiologist's Impression: PROCEDURE: XR CHEST 1V INDICATIONS: Chest pain TECHNIQUE: One view of the chest was acquired. COMPARISON: [facility], CR, XR CHEST 1V, 10/21/2023, 14:11. FINDINGS: Surgical changes and devices: Stable left upper abdomen surgical clips. Lungs and pleura: Lungs are clear. No pleural effusions or pneumothorax. Mediastinum: Mediastinal contours appear normal. Heart size is normal. Bones and chest wall: No suspicious bony lesions. Overlying soft tissues appear unremarkable. IMPRESSION: No acute cardiopulmonary abnormality is seen. ECG Data Attestation: I personally reviewed and interpreted this ECG as follows: Interpretation: Sinus rhythm Ventricular rate of 44 Normal axis Normal QRS Normal QTC No ST T wave changes MDM Narrative Medical decision making narrative: Ten days of symptoms. Nonischemic EKG. Troponin negative. Reproducible right- sided chest discomfort. Low suspicion for ACS. Low suspicion for PE. No indication for pneumonia on the chest x-ray. No skin rashes concerning for zoster. I do suspect musculoskeletal. He has taking a muscle relaxer and also anti-inflammatories. Will add pain medication to his regimen. He has a follow- up with his primary doctor in approximately 2 weeks from now. Will discharge patient home with return precautions. He expressed understanding and agreement with plan. Discharge Plan Departure Patient Disposition: Home Clinical Impression: Chest wall pain Instructions: DI for Atypical Chest Pain Activity Restrictions/Additional Instructions: Continue to take all of your medications as directed. I recommend that you keep your scheduled appointment with your primary doctor coming up at the beginning of next month. Return to the emergency department for new symptoms. Prescriptions: New hydrocodone-acetaminophen 5-325 mg tablet 1 tab PO Q6H PRN (Reason: pain) Qty: 14 0RF No Action triamcinolone acetonide 0.5 % ointment 1 applic topical BID Qty: 15 2RF gabapentin 300 mg capsule 600 mg PO BID PRN (Reason: for pain) Qty: 360 3RF aspirin 81 MG tablet,chewable 81 mg PO QDAY Qty: 0 diclofenac sodium [Voltaren] 1 % gel 1 ea topical PRN PRN (Reason: Pain (Scale Score 1-3)) Qty: 0 ibuprofen 200 MG capsule 200 mg PO Q4-6H PRN (Reason: Pain (Scale Score 1-3)) Qty: 0 cholecalciferol (vitamin D3) [Vitamin D3] 2,000 UNIT tablet 2,500 iu PO DAILY Qty: 0 multivitamin [Multiple Vitamins] 1 EACH tablet 1 tab PO DAILY Qty: 0 olopatadine 0.7 % drops 1 drop EYE-BOTH DAILY Qty: 2.5 0RF fexofenadine [Theresa Allergy] 180 mg tablet 180 mg PO DAILY fluticasone propionate 50 mcg/actuation spray,suspension See Rx Instructions .ROUTE .COMPLEX Qty: 1440 3RF Dose Instruction: USE 1 SPRAY NASALLY TWICE A DAY Rx Instructions: USE 1 SPRAY NASALLY TWICE A DAY (DME) disabled parking permit See Rx Instructions .ROUTE .MEDSUPPLY Qty: 1 0RF Rx Instructions: My patient cannot walk 200 feet without stopping to rest or must use assistive device. Walking is severely limited due to arthritic, neurological or orthopedic condition. Uses portable oxygen or walking restricted by lung disease tizanidine 4 mg tablet See Rx Instructions .ROUTE .COMPLEX Qty: 90 11RF Dose Instruction: TAKE 1 TABLET EVERY 6 TO 8 HOURS NEEDED FOR MUSCLE SPASTICITY, DO NOT EXCEED 3 DOSES PER 24 HOURS Rx Instructions: TAKE 1 TABLET EVERY 6 TO 8 HOURS NEEDED FOR MUSCLE SPASTICITY, DO NOT EXCEED 3 DOSES PER 24 HOURS hydrochlorothiazide 12.5 mg capsule See Rx Instructions .ROUTE .COMPLEX Qty: 90 3RF Dose Instruction: TAKE 1 CAPSULE DAILY Rx Instructions: TAKE 1 CAPSULE DAILY atorvastatin 40 mg tablet See Rx Instructions .ROUTE .COMPLEX Qty: 90 3RF Dose Instruction: TAKE 1 TABLET AT BEDTIME Rx Instructions: TAKE 1 TABLET AT BEDTIME albuterol sulfate 90 mcg/actuation HFA aerosol inhaler See Rx Instructions .ROUTE .COMPLEX Qty: 17 4RF Dose Instruction: USE 2 INHALATIONS EVERY 4 TO 6 HOURS NEEDED FOR SHORTNESS OF BREATHOR WHEEZING Rx Instructions: USE 2 INHALATIONS EVERY 4 TO 6 HOURS NEEDED FOR SHORTNESS OF BREATHOR WHEEZING benzonatate 200 mg capsule 200 mg PO BID-TID PRN (Reason: cough) Qty: 21 0RF hydrocodone-acetaminophen 5-325 mg Tablet 1 tab PO Q4HR PRN (Reason: Pain, Moderate (4-6)) Qty: 20 0RF montelukast [Singulair] 10 mg tablet 10 mg PO DAILY Qty: 90 3RF Referrals: Vicky Whalen MD [Primary Care Provider] - Stand Alone Forms: Patient Portal/API
--- NOTE | 2023-11-09 09:46 | PC.NURSE ---
Started on prednisone two weeks ago since starting patient has been constipated. Patient reports pain in his mid spine wrapping around to the front on both side. pain reproducible with palpation and deep breath. Pain comes in waves of intensity.
[2023-11-09 09:47] LABS: Add Manual Diff / Slide Review NO; Basophils Absolute Auto 100 /uL (0-100); Basophils Percent Auto 0.7 % (0-2); Eosinophils Absolute Auto 200 /uL (0-450); Eosinophils Percent Auto 1.5 % (2-4); Hematocrit 39.8 % (41-53); Hemoglobin 13.2 g/dL (13.5-17.5); Lymphocytes Absolute Auto 1800 /uL (1100-4500); Mean Corpuscular HGB Conc 33.2 % (30-36); Mean Corpuscular Hemoglobin 30.3 PG (26-34); Mean Corpuscular Volume 91.1 fL (80-100); Monocytes Absolute Auto 1200 /uL (0-900); Monocytes Percent Auto 10.2 % (3-14); Neutrophils Absolute Auto 8100 /uL (1500-7000); Neutrophils Percent Auto 71.6 % (50-75); Platelet Count 257 X10^3/uL (150-400); Red Blood Cell Count 4.36 X10^6/uL (4.5-5.9); Red Cell Distribution Width 14.1 % (11.6-14.8); White Blood Cell Count 11.3 X10^3/uL (4.5-11.0)
[2023-11-09 09:59] LABS: Alanine Aminotransferase 26 IU/L (<50); Albumin 3.8 g/dL (3.5-5.0); Albumin Globulin Ratio 1.4 (1.0-2.8); Alkaline Phosphatase 65 U/L (38-126); Aspartate Aminotransferase 25 IU/L (17-59); Bilirubin Total 0.9 mg/dL (0.2-1.3); Blood Urea Nitrogen 18 mg/dL (9-20); Calcium 8.7 mg/dL (8.4-10.2); Carbon Dioxide 31 mmol/L (22-32); Chloride 104 mmol/L (98-107); Creatine Kinase 51 U/L (55-170); Estimated Glomerular Filt Rate > 60 mL/min (>60); Globulin 2.7 g/dL (1.7-4.1); Glucose 99 mg/dL (80-110); HEMOLYSIS 25 (0-50); Lipase 70 U/L (23-300); Potassium 3.9 mmol/L (3.4-5.1); Sodium 137 mmol/L (137-145); Total Protein 6.5 g/dL (6.3-8.2)
[2023-11-09 10:10] LABS: Troponin I < 0.012 ng/mL (0.01-0.034)
[2023-11-09 10:28] LABS: Influenza A - CEPHEID Flu A NEGATIVE (NEGATIVE); Influenza B - CEPHEID Flu B NEGATIVE (NEGATIVE); Respiratory Syncytial Virus Negative (Negative)
[2023-11-09 10:29] LABS: COVID-19 CEPHEID 4-PLEX PCR Negative (Negative)
== END 2023-11-09 10:53 | disposition home or self-care (01) ==
LOC: ED 10:39
PROVIDERS: Emergency Provider Emergency Medicine; PCP Family Medicine
DX: R07.89 Other chest pain (principal)
CPT/HCPCS: 0241U; 36415; 71045; 80053; 82550; 83690; 84484; 85025; 93005; 99284

== ENCOUNTER 2023-11-10 12:09 | Emergency (ER) | payer MEDICARE, OTHER, SELFPAY ==
[2022-06-13 20:21] VITALS: BMI 43.7
[2023-11-10 12:13] VITALS: BP 123/67; PULSE 75; RESP 18; TEMP 36.6; O2SAT 97; BMI 34.1
--- NOTE | 2023-11-10 12:55 | PC.NURSE ---
Pt came to emergency dept today because he is having persistent muscle pain and back pain. Pt in ED on 11/09/2023 and full cp work up done. Pt prescribed hydrocodone/acetaminophen and states that it has not been working. Pt currently states that he has recently had a cold and believes that his cough is what is causing his muscle aches and back pain. Pt a&Ox4.
--- NOTE | 2023-11-10 13:10 | ED.BACK ---
HPI - Back Pain/Injury <Sully Singer PA-C - Last Filed: 11/10/23 14:46> General Chief Complaint: Back Pain/Injury Stated Complaint: Pain throughout Time Seen by Provider: 11/10/23 12:44 History of Present Illness HPI Narrative: 78-year-old male returns to the emergency department for back pain. He had an extensive workup yesterday by Dr. Barry for chest wall pain that was reproducible. He states that the hydrocodone isn't working in fact he has been taking it every 2 hours instead of the prescribed 6 hours. He is denying any new symptoms, he states in the past ?prednisone helps?. He states his pain is in the mid-spine wraps around to his ribs and sternum and has right neck muscle spasm. He has tried ice and heat today. He took ibuprofen 400 mg, 2 his Licha Tomy and his gabapentin at 4:00 a.m.. He is denying any fever, chills, body aches or joint pains. His history is significant for chronic pain, hypertension, appendectomy, cholecystectomy and gastric bypass. He has an appointment with his doctor next week. He states he performs physical therapy exercises at home but was not able to complete these. 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 Lastly he reports that this all began 3 weeks ago when he got a terrible cough from his and has had coughing fits lasting several minutes. He self reports a history of asthma but has not endorsed any shortness of breath or wheezing. He has been using cough syrup, honey/lemon and lozenges. All other systems are reviewed and are negative. Related Data Home Medications Medication Instructions Recorded Confirmed aspirin 81 mg chewable tablet 81 mg PO QDAY ##0 05/19/17 09/21/23 cholecalciferol (vitamin D3) 50 2,500 iu PO DAILY ##0 05/19/17 09/21/23 mcg (2,000 unit) tablet (Vitamin D3) diclofenac sodium 1 % topical gel 1 ea topical PRN PRN Pain (Scale 05/19/17 09/21/23 (Voltaren) Score 1-3) ##0 ibuprofen 200 mg capsule 200 mg PO Q4-6H PRN Pain (Scale 05/19/17 09/21/23 Score 1-3) ##0 multivitamin (Multiple Vitamins 1 tab PO DAILY ##0 05/19/17 09/21/23 tablet) fexofenadine 180 mg tablet 180 mg PO DAILY 05/24/20 09/21/23 (Theresa Allergy) Previous Rx's Medication Instructions Recorded olopatadine 0.7 % eye drops 1 drop EYE-BOTH DAILY #2.5 mL 11/27/19 fluticasone propionate 50 See Rx Instructions .Route 10/23/20 mcg/actuation nasal .COMPLEX #1,440 grams spray,suspension disabled parking permit #1 ea 06/03/21 hydrocodone 5 mg-acetaminophen 325 1 tab PO Q4HR PRN Pain, Moderate 06/26/22 mg tablet (4-6) #20 tabs hydrochlorothiazide 12.5 mg capsule See Rx Instructions .Route 12/17/22 .COMPLEX #90 caps tizanidine 4 mg tablet See Rx Instructions .Route 12/17/22 .COMPLEX #90 tabs montelukast 10 mg tablet 10 mg PO DAILY #90 tabs 01/15/23 (Singulair) atorvastatin 40 mg tablet See Rx Instructions .Route 04/13/23 .COMPLEX #90 tabs triamcinolone acetonide 0.5 % 1 applic topical BID #15 grams 06/02/23 topical ointment albuterol sulfate 90 mcg/actuation See Rx Instructions .Route 06/15/23 aerosol inhaler .COMPLEX #17 grams gabapentin 300 mg capsule 600 mg (2 x 300 mg) PO BID PRN for 09/21/23 pain #360 caps benzonatate 200 mg capsule 200 mg PO BID-TID PRN cough #21 10/29/23 caps hydrocodone 5 mg-acetaminophen 325 1 tab PO Q6H PRN pain #14 tabs 11/09/23 mg tablet prednisone 20 mg tablet 40 mg (2 x 20 mg) PO DAILY 5 days 11/10/23 #10 tabs Allergies Allergy/AdvReac Type Severity Reaction Status Date / Time Penicillins [PENICILLINS] Allergy Intermediate rash, Verified 11/09/23 09:28 blows up Review of Systems <Sully Singer PA-C - Last Filed: 11/10/23 14:46> Review of Systems Narrative: All other systems reviewed and are negative. Patient History <Sully Singer PA-C - Last Filed: 11/10/23 14:46> Medical History BPPV (benign paroxysmal positional vertigo) Hyperlipidemia Essential hypertension Measles Gastric ulcer (~1969) Colon polyps (~1994) Chronic pain Asthma (~1999) Seasonal allergies (~1987) Shoulder pain (~2011) Foot pain Chronic back pain (~2011) Mumps Chicken pox Tinnitus Retinal detachment Cataracts, bilateral (~2017) Surgical History Anesthesia History of cataract removal with insertion of prosthetic lens History of appendectomy (~1953) History of gastric bypass (~1977) Family History Grandmother Stroke Father High cholesterol Mother Breast cancer Sister Hyperlipidemia Grandmother No problems noted. Grandfather No problems noted. Social History marital status: number of children: 0 household members: spouse lives independently: Yes caregiver/support person: No housing: house education level: college occupational status: employed Smoking Status: Never smoker second hand exposure: No alcohol intake: current substance use type: does not use Smoking Status: Never smoker alcohol intake frequency: 0-2 drinks per day Substance Use Type: does not use Exam <Sully Singer PA-C - Last Filed: 11/10/23 14:46> Initial Vital Signs Initial Vital Signs: Vital Signs Temperature 97.9 F 11/10/23 12:13 Pulse Rate 75 11/10/23 12:13 Respiratory Rate 18 11/10/23 12:13 Blood Pressure 123/67 11/10/23 12:13 Pulse Oximetry 97 11/10/23 12:13 Oxygen Delivery Method Room Air 11/10/23 12:13 Vital signs reviewed and are normal. Const Other: Ambulatory, seated, no distress, speaks in full uninterrupted sentences. Work of breathing is normal. Nontoxic appearing. HENMT Ears: hearing grossly normal bilaterally, external ears normal, EAC's normal, mastoids normal and no periauricular adenopathy Eyes Other: PERRLA Neck Other: No adenopathy, full range of motion of the neck though he has reproducible pain with lateral bending and rotation to the right more so than the left. Chest Chest: normal inspection of the chest Other: No swelling, no discoloration, barrel hoop test negative of the ribcage, intercostal spaces are nontender. Resp Effort & Inspection: normal respiratory effort and able to speak in complete sentences Auscultation: clear to auscultation bilaterally Cardio Palpation: normal PMI Rate: regular rate Rhythm: regular rhythm Heart Sounds: S1 normal and S2 normal Back/Spine/Pelvis Other: Ambulatory, no focal bony midline tenderness of the spine, no guarding with compression of his sternum, barrel hoop test negative of his ribcage, intercostal spaces are nontender. He has tenderness in the paraspinous tissues on his upper back, upper and lower rhomboids have some small spasms, upper trapezium also tender. He is tenderness in the paracervical muscles of his neck but without guarding, no meningeal signs. Active range of motion of his neck is within normal limits. Pain is reproduced with lateral rotation and bending to the right more so than the left. No issues with forward flexion or hyperextension. He is ambulatory without antalgic gait. Full weightbear to both lower extremities. Moves upper extremities equally. Forms Examiner strength is intact. Skin Other: Normal color, turgor, temperature. No rash. Neuro Other: No focal neurologic deficits. Extrem Other: Moves all extremities well, no edema, no focal deficits. Strength is equal and intact. <Ricardo Barry DO - Last Filed: 11/10/23 14:58> Initial Vital Signs Initial Vital Signs: Vital Signs Temperature 97.9 F 11/10/23 12:13 Pulse Rate 75 11/10/23 12:13 Respiratory Rate 18 11/10/23 12:13 Blood Pressure 123/67 11/10/23 12:13 Pulse Oximetry 97 11/10/23 12:13 Oxygen Delivery Method Room Air 11/10/23 12:13 Course <Sully Singer PA-C - Last Filed: 11/10/23 14:46> Orders Ordered: Discontinued Medications Ketorolac Tromethamine (Ketorolac 30 Mg/Ml Vial) 30 mg IM NOW ONE Stop: 11/10/23 13:13 Last Admin: 11/10/23 13:19 Dose: 30 mg Documented By: MPO Reevaluation(s) Reevaluation #1: No adverse reaction to the Toradol injection. He would like to go home. Consultations Consultation #1: I discussed the case with Dr. Sai Granados who saw him yesterday. Treatment plan includes Toradol intramuscularly 30 mg today, and prednisone burst for home. Vital Signs Vital signs: Vital Signs - 8 hr 11/10/23 12:13 11/10/23 13:55 Temperature 97.9 F 98 F Pulse Rate 75 100 H Respiratory Rate 18 Blood Pressure 123/67 165/70 H Pulse Oximetry 97 99 Oxygen Delivery Method Room Air Room Air <Ricardo Barry DO - Last Filed: 11/10/23 14:58> Orders Ordered: Discontinued Medications Ketorolac Tromethamine (Ketorolac 30 Mg/Ml Vial) 30 mg IM NOW ONE Stop: 11/10/23 13:13 Last Admin: 11/10/23 13:19 Dose: 30 mg Documented By: HOMERO Vital Signs Vital signs: Vital Signs - 8 hr 11/10/23 12:13 11/10/23 13:55 Temperature 97.9 F 98 F Pulse Rate 75 100 H Respiratory Rate 18 Blood Pressure 123/67 165/70 H Pulse Oximetry 97 99 Oxygen Delivery Method Room Air Room Air MDM - Back Pain/Injury <Sully Singer PA-C - Last Filed: 11/10/23 14:46> Medical Records Attestation: I reviewed the patient's medical records. MDM Narrative Medical decision making narrative: Patient's pain is reproducible, he has chronic pain involving his back, neck. He believes the current pain issue is related to his cough from 3 weeks ago and he still has a subacute cough. There are no clinical findings to suggest acute infection, his lungs are clear. He had an extensive workup yesterday there are no new complaints today, he is afebrile and has normal vital signs. 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 I have started him on a prednisone burst 40 mg daily for the next 5 days. He had normal glucose yesterday and no history of diabetes. He must schedule a follow up with his doctor he believes he has an appointment next week. If he has any recurrent pain he will return. Discussed strategies to minimize his coughing such as lozenges, cough syrup, hydration, steam therapy, tea with honey and lemon. Also pillow splinting if he does cough or hiccups. He declined any topicals as he is used in the past without significant relief. He can also continue anti-inflammatory starting tomorrow [id number] ibuprofen 400 mg t.i.d. with food. Red flag warning signs reviewed in great detail. Please come back to the emergency department if you have new symptoms, any worrisome symptoms any worsening pain. Discharge Plan Departure Patient Disposition: Home Clinical Impression: Chronic back pain, Chest wall pain Instructions: DI for Chronic Pain -- Adult Activity Restrictions/Additional Instructions: Please continue to use ice and heat therapy. You may start an ibuprofen course tomorrow 400 mg 3 times daily with food for the next 3-5 days. I have prescribed prednisone for the next 5 days. I recommend taking this in the morning as this can keep you up at night. You may continue the hydrocodone but please do not take it more than every 6 hours. It does contain Tylenol and too much Tylenol can be harmful. Please follow up with your doctor in the next available soonest appointment. Please return to the emergency department if you have any worsening pain, any new symptoms or any other concerns. Prescriptions: New prednisone 20 mg tablet 40 mg PO DAILY 5 Days Qty: 10 0RF No Action triamcinolone acetonide 0.5 % ointment 1 applic topical BID Qty: 15 2RF gabapentin 300 mg capsule 600 mg PO BID PRN (Reason: for pain) Qty: 360 3RF aspirin 81 MG tablet,chewable 81 mg PO QDAY Qty: 0 diclofenac sodium [Voltaren] 1 % gel 1 ea topical PRN PRN (Reason: Pain (Scale Score 1-3)) Qty: 0 ibuprofen 200 MG capsule 200 mg PO Q4-6H PRN (Reason: Pain (Scale Score 1-3)) Qty: 0 cholecalciferol (vitamin D3) [Vitamin D3] 2,000 UNIT tablet 2,500 iu PO DAILY Qty: 0 multivitamin [Multiple Vitamins] 1 EACH tablet 1 tab PO DAILY Qty: 0 olopatadine 0.7 % drops 1 drop EYE-BOTH DAILY Qty: 2.5 0RF fexofenadine [Theresa Allergy] 180 mg tablet 180 mg PO DAILY fluticasone propionate 50 mcg/actuation spray,suspension See Rx Instructions .ROUTE .COMPLEX Qty: 1440 3RF Dose Instruction: USE 1 SPRAY NASALLY TWICE A DAY Rx Instructions: USE 1 SPRAY NASALLY TWICE A DAY (DME) disabled parking permit See Rx Instructions .ROUTE .MEDSUPPLY Qty: 1 0RF Rx Instructions: My patient cannot walk 200 feet without stopping to rest or must use assistive device. Walking is severely limited due to arthritic, neurological or orthopedic condition. Uses portable oxygen or walking restricted by lung disease tizanidine 4 mg tablet See Rx Instructions .ROUTE .COMPLEX Qty: 90 11RF Dose Instruction: TAKE 1 TABLET EVERY 6 TO 8 HOURS NEEDED FOR MUSCLE SPASTICITY, DO NOT EXCEED 3 DOSES PER 24 HOURS Rx Instructions: TAKE 1 TABLET EVERY 6 TO 8 HOURS NEEDED FOR MUSCLE SPASTICITY, DO NOT EXCEED 3 DOSES PER 24 HOURS hydrochlorothiazide 12.5 mg capsule See Rx Instructions .ROUTE .COMPLEX Qty: 90 3RF Dose Instruction: TAKE 1 CAPSULE DAILY Rx Instructions: TAKE 1 CAPSULE DAILY atorvastatin 40 mg tablet See Rx Instructions .ROUTE .COMPLEX Qty: 90 3RF Dose Instruction: TAKE 1 TABLET AT BEDTIME Rx Instructions: TAKE 1 TABLET AT BEDTIME albuterol sulfate 90 mcg/actuation HFA aerosol inhaler See Rx Instructions .ROUTE .COMPLEX Qty: 17 4RF Dose Instruction: USE 2 INHALATIONS EVERY 4 TO 6 HOURS NEEDED FOR SHORTNESS OF BREATHOR WHEEZING Rx Instructions: USE 2 INHALATIONS EVERY 4 TO 6 HOURS NEEDED FOR SHORTNESS OF BREATHOR WHEEZING benzonatate 200 mg capsule 200 mg PO BID-TID PRN (Reason: cough) Qty: 21 0RF hydrocodone-acetaminophen 5-325 mg Tablet 1 tab PO Q4HR PRN (Reason: Pain, Moderate (4-6)) Qty: 20 0RF hydrocodone-acetaminophen 5-325 mg tablet 1 tab PO Q6H PRN (Reason: pain) Qty: 14 0RF montelukast [Singulair] 10 mg tablet 10 mg PO DAILY Qty: 90 3RF Referrals: Vicky Whalen MD [Primary Care Provider] - Stand Alone Forms: Patient Portal/API ED Sign-out <Ricardo Barry DO - Last Filed: 11/10/23 14:58> Cosign ED Attending Cosignature Attestation: Dr Barry Co-Sign Statement: I was available for consultation during this patient's emergency department visit. This chart is signed by myself for administrative purposes only. I did not have direct contact with this patient during this visit. They were seen independently by the APC.
[2023-11-10] MEDS: KETOROLAC 30 MG/ML VIAL IM (13:19)
[2023-11-10 13:55] VITALS: BP 165/70; PULSE 100; TEMP 36.6; O2SAT 99
== END 2023-11-10 13:49 | disposition home or self-care (01) ==
PROVIDERS: Emergency Provider Physician Assistant Medical; PCP Family Medicine
DX: M54.9 Dorsalgia, unspecified (principal); R07.89 Other chest pain; G89.29 Other chronic pain
CPT/HCPCS: 96372; 99283; J1885

== ENCOUNTER 2023-11-13 19:16 | Emergency (ER) | payer MEDICARE, OTHER, SELFPAY ==
[2022-06-13 20:21] VITALS: BMI 43.7
[2023-11-13 19:19] VITALS: BP 198/83; PULSE 58; RESP 18; TEMP 36.6; O2SAT 98; BMI 34.0
--- NOTE | 2023-11-13 19:45 | ED_ITS ---
HPI - Back Pain/Injury General Chief Complaint: Back Pain/Injury Stated Complaint: Extreme Back/Rib/Sternum Pain Time Seen by Provider: 11/13/23 19:25 Source: patient Mode of arrival: Ambulatory History of Present Illness HPI Narrative: [age] year male who I evaluated here in the emergency department approximately 1 week ago for thoracic back pain that was radiating to his upper abdomen and chest. Had a relatively unremarkable workup. I thought that the symptoms were musculoskeletal in origin. He returned a couple days later and was seen by an APC. Once again this was considered to be musculoskeletal. He returns to the emergency department today for the same discomfort that he has been having. States it is in his upper back. It radiates around to his front of his chest in his upper abdomen. It has not worsened although it has not improved with current medications. He is 1 more dose of steroids that was prescribed during his 2nd evaluation. He states that the discomfort is always there but there are times when it is worse. It is worse with palpation. It is worse with movement. He is on gabapentin at night. He also takes a muscle relaxer at night. He also has a lidocaine patch over the area. He has an appointment with his primary doctor scheduled for 10 days from now. He is out of his pain medication Related Data Home Medications Medication Instructions Recorded Confirmed aspirin 81 mg chewable tablet 81 mg PO QDAY ##0 05/19/17 09/21/23 cholecalciferol (vitamin D3) 50 2,500 iu PO DAILY ##0 05/19/17 09/21/23 mcg (2,000 unit) tablet (Vitamin D3) diclofenac sodium 1 % topical gel 1 ea topical PRN PRN Pain (Scale 05/19/17 09/21/23 (Voltaren) Score 1-3) ##0 ibuprofen 200 mg capsule 200 mg PO Q4-6H PRN Pain (Scale 05/19/17 09/21/23 Score 1-3) ##0 multivitamin (Multiple Vitamins 1 tab PO DAILY ##0 05/19/17 09/21/23 tablet) fexofenadine 180 mg tablet 180 mg PO DAILY 05/24/20 09/21/23 (Theresa Allergy) Previous Rx's Medication Instructions Recorded olopatadine 0.7 % eye drops 1 drop EYE-BOTH DAILY #2.5 mL 11/27/19 fluticasone propionate 50 See Rx Instructions .Route 05/12/21 mcg/actuation nasal .COMPLEX #1,440 grams spray,suspension disabled parking permit #1 ea 06/03/21 hydrocodone 5 mg-acetaminophen 325 1 tab PO Q4HR PRN Pain, Moderate 06/26/22 mg tablet (4-6) #20 tabs hydrochlorothiazide 12.5 mg capsule See Rx Instructions .Route 12/17/22 .COMPLEX #90 caps tizanidine 4 mg tablet See Rx Instructions .Route 12/17/22 .COMPLEX #90 tabs montelukast 10 mg tablet 10 mg PO DAILY #90 tabs 01/15/23 (Singulair) atorvastatin 40 mg tablet See Rx Instructions .Route 04/13/23 .COMPLEX #90 tabs triamcinolone acetonide 0.5 % 1 applic topical BID #15 grams 06/02/23 topical ointment albuterol sulfate 90 mcg/actuation See Rx Instructions .Route 06/15/23 aerosol inhaler .COMPLEX #17 grams gabapentin 300 mg capsule 600 mg (2 x 300 mg) PO BID PRN for 09/21/23 pain #360 caps benzonatate 200 mg capsule 200 mg PO BID-TID PRN cough #21 10/29/23 caps hydrocodone 5 mg-acetaminophen 325 1 tab PO Q6H PRN pain #14 tabs 11/09/23 mg tablet prednisone 20 mg tablet 40 mg (2 x 20 mg) PO DAILY 5 days 11/10/23 #10 tabs cyclobenzaprine 10 mg tablet 10 mg PO TID PRN muscle spasm #25 11/13/23 tabs oxycodone-acetaminophen 5 mg-325 1 tab PO Q8H PRN pain #20 tabs 11/13/23 mg tablet (Percocet) Allergies Allergy/AdvReac Type Severity Reaction Status Date / Time Penicillins [PENICILLINS] Allergy Intermediate rash, Verified 11/13/23 19:23 blows up Review of Systems Review of Systems Narrative: See HPI Patient History Medical History BPPV (benign paroxysmal positional vertigo) Hyperlipidemia Essential hypertension Measles Gastric ulcer (~1969) Colon polyps (~1994) Chronic pain Asthma (~1999) Seasonal allergies (~1987) Shoulder pain (~2011) Foot pain Chronic back pain (~2011) Mumps Chicken pox Tinnitus Retinal detachment Cataracts, bilateral (~2018) Surgical History Anesthesia History of cataract removal with insertion of prosthetic lens History of appendectomy (~195) History of gastric bypass (~1977) Family History Grandmother Stroke Father High cholesterol Mother Breast cancer Sister Hyperlipidemia Grandmother No problems noted. Grandfather No problems noted. Social History marital status: number of children: 0 household members: spouse lives independently: Yes caregiver/support person: No housing: house education level: college occupational status: employed Smoking Status: Never smoker second hand exposure: No alcohol intake: current substance use type: does not use Smoking Status: Never smoker alcohol intake frequency: 0-2 drinks per day Substance Use Type: does not use Exam Initial Vital Signs Initial Vital Signs: Vital Signs Temperature 97.9 F 11/13/23 19:19 Pulse Rate 58 L 11/13/23 19:19 Respiratory Rate 18 11/13/23 19:19 Blood Pressure 198/83 H 11/13/23 19:19 Pulse Oximetry 98 11/13/23 19:19 Oxygen Delivery Method Room Air 11/13/23 19:19 Chest Chest: No crepitus and tenderness Resp Effort & Inspection: normal respiratory effort Auscultation: clear to auscultation bilaterally Cardio Rate: regular rate Rhythm: regular rhythm Back/Spine/Pelvis Cervical Spine: No cervical spinal tenderness Thoracic/Lumbar Spine: paraspinal tenderness, thoracic spinal tenderness and No lumbar spinal tenderness Skin General: no rashes or lesions noted Neuro General: patient alert, patient awake and moves all extremities Course Orders Ordered: ED Orders 11/13/23 19:45 EKG-12 Lead Stat 11/13/23 19:46 CT angio chest PE protocol Stat 11/13/23 19:59 Complete Blood Count AUTO DIFF Stat Comprehensive Metabolic Panel Stat Lipase Stat Troponin & CK Cardiac Panel Stat Discontinued Medications Cyclobenzaprine HCl (Cyclobenzaprine 10 Mg Prepack) 1 bottle MISC DIRECTED ONE Stop: 11/13/23 21:02 Last Admin: 11/13/23 21:12 Dose: 1 bottle Documented By: TERRY Hydromorphone HCl (Hydromorphone 0.5 Mg Inj) 0.5 mg IV NOW ONE Stop: 11/13/23 19:46 Last Admin: 11/13/23 20:10 Dose: 0.5 mg Documented By: TERRY Oxycodone/Acetaminophen (Oxycodone/Apap 5/325 Prepack) 1 bottle MISC DIRECTED ONE Stop: 11/13/23 21:02 Last Admin: 11/13/23 21:12 Dose: 1 bottle Documented By: TERRY Vital Signs Vital signs: Vital Signs - 8 hr 11/13/23 19:19 11/13/23 21:16 Temperature 97.9 F Pulse Rate 58 L 60 Respiratory Rate 18 18 Blood Pressure 198/83 H 152/67 H Pulse Oximetry 98 100 Oxygen Delivery Method Room Air Room Air MDM - Back Pain/Injury Medical Records Attestation: I reviewed the patient's medical records. Lab Data Attestation: I reviewed the patient's lab results. 11/13/23 19:59 11/13/23 19:59 Labs: Lab Results 11/13/23 Range/Units 19:59 WBC 11.9 H (4.5-11.0) X10^3/uL RBC 3.87 L (4.5-5.9) X10^6/uL Hgb 11.8 L (13.5-17.5) g/dL Hct 35.2 L (41-53) % MCV 91.1 (80-100) fL MCH 30.6 (26-34) PG MCHC 33.6 (30-36) % RDW 14.3 (11.6-14.8) % Plt Count 229 (150-400) X10^3/uL Neut % (Auto) 82.0 H (50-75) % Lymph % (Auto) 10.8 L (25-40) % Mcculloch % (Auto) 6.6 (3-14) % Eos % (Auto) 0.1 L (2-4) % Baso % (Auto) 0.5 (0-2) % Neut # (Auto) 9700 H (8106-5138) /uL Lymph # (Auto) 1300 (7801-7284) /uL [place] # (Auto) 800 (0-900) /uL Eos # (Auto) 0 (0-450) /uL Baso # (Auto) 100 (0-100) /uL Sodium 136 L (137-145) mmol/L Potassium 4.2 (3.4-5.1) mmol/L Chloride 104 (98-107) mmol/L Carbon Dioxide 28 (22-32) mmol/L BUN 23 H (9-20) mg/dL Creatinine 0.84 (0.66-1.25) mg/dL Estimated GFR > 60 (>60) mL/min BUN/Creatinine Ratio 27.4 H (6-22) Glucose 115 H (80-110) mg/dL Calcium 8.5 (8.4-10.2) mg/dL Total Bilirubin 0.5 (0.2-1.3) mg/dL AST 32 (17-59) IU/L ALT 44 (<50) IU/L Alkaline Phosphatase 68 (38-126) U/L Total Creatine Kinase 76 (55-170) U/L Troponin I < 0.012 (0.01-0.034) ng/mL Total Protein 6.4 (6.3-8.2) g/dL Albumin 3.8 (3.5-5.0) g/dL Globulin 2.6 (1.7-4.1) g/dL Albumin/Globulin Ratio 1.5 (1.0-2.8) Lipase 47 (23-300) U/L Imaging Data CT scan - chest: Radiologist's Impression: PROCEDURE: CT ANGIO CHEST PE PROTOCOL INDICATIONS: Chest pain, shortness of breath, tachycardia TECHNIQUE: After the administration of intravenous contrast, 2 mm thick sections acquired from the pulmonary apices to the posterior costophrenic angles. 3-dimensional maximum intensity projection (MIP) coronal and sagittal reformats were then acquired through the thorax. For radiation dose reduction, the following was used: automated exposure control, adjustment of mA and/or kV according to patient size. COMPARISON: None. FINDINGS: Image quality: Diagnostic. Pulmonary arteries: Pulmonary arteries are normal in size, and demonstrate no intraluminal filling defects to suggest central pulmonary embolism. Lower Neck: No enlarged lymph nodes. Thyroid: Left inferior thyroid lobe nodule measuring 2.7 cm. Axillae: No enlarged lymph nodes. Chest Wall: Unremarkable. Bones: Unremarkable. Lungs and Pleura: No pneumothorax or pleural effusions. No consolidation or suspicious nodules. Linear atelectasis versus scarring in the bilateral lower lobes and right middle lobe. Heart: Heart size is normal. Severe coronary artery calcifications. No pericardial effusion. Thoracic Vessels: No aortic aneurysm. Atherosclerotic vascular calcifications. Mediastinum and [place]: No enlarged lymph nodes. Esophagus: No wall thickening. No hiatal hernia. Upper Abdomen: Cholecystectomy. Postsurgical changes in the stomach. IMPRESSION: No pulmonary embolus. No acute cardiopulmonary process. Inferior left thyroid lobe nodule measuring 2.7 cm. Recommend nonurgent thyroid ultrasound for further evaluation. [facility] Narrative Medical decision making narrative: Given his presentation today once again convinced this is musculoskeletal in origin. CT scan of his chest shows no acute pathology. Low suspicion for ACS. There was no signs of vascular pathology in his chest. There was no skin changes over the area concerning for zoster. The pain is clearly reproducible with palpation. Feel that the pain in his chest and his upper abdomen is radiating from his back. I also do not feel that this is an abdominal issue that is radiating to his upper back and chest as well. I will refill his muscle relaxers and also pain medication. Recommended that he keep his appointment with his primary doctor. He was given return precautions. He expressed understanding and agreement. Discharge Plan Departure Patient Disposition: Home Clinical Impression: Left thyroid nodule, Back pain, thoracic Instructions: DI for Thyroid Nodule, DI for Back Strain or Sprain Activity Restrictions/Additional Instructions: Take the medications as directed. Further pain control will need to come from your primary care provider. There was the incidental finding of the thyroid nodule on the CT scan today. Talk with your primary care doctor about this and further workup of it. Return to the emergency department for new symptoms. Prescriptions: New cyclobenzaprine 10 mg tablet 10 mg PO TID PRN (Reason: muscle spasm) Qty: 25 0RF oxycodone-acetaminophen [Percocet] 5-325 mg tablet 1 tab PO Q8H PRN (Reason: pain) Qty: 20 0RF No Action triamcinolone acetonide 0.5 % ointment 1 applic topical BID Qty: 15 2RF gabapentin 300 mg capsule 600 mg PO BID PRN (Reason: for pain) Qty: 360 3RF aspirin 81 MG tablet,chewable 81 mg PO QDAY Qty: 0 diclofenac sodium [Voltaren] 1 % gel 1 ea topical PRN PRN (Reason: Pain (Scale Score 1-3)) Qty: 0 ibuprofen 200 MG capsule 200 mg PO Q4-6H PRN (Reason: Pain (Scale Score 1-3)) Qty: 0 cholecalciferol (vitamin D3) [Vitamin D3] 2,000 UNIT tablet 2,500 iu PO DAILY Qty: 0 multivitamin [Multiple Vitamins] 1 EACH tablet 1 tab PO DAILY Qty: 0 olopatadine 0.7 % drops 1 drop EYE-BOTH DAILY Qty: 2.5 0RF fexofenadine [Theresa Allergy] 180 mg tablet 180 mg PO DAILY fluticasone propionate 50 mcg/actuation spray,suspension See Rx Instructions .ROUTE .COMPLEX Qty: 1440 3RF Dose Instruction: USE 1 SPRAY NASALLY TWICE A DAY Rx Instructions: USE 1 SPRAY NASALLY TWICE A DAY (DME) disabled parking permit See Rx Instructions .ROUTE .MEDSUPPLY Qty: 1 0RF Rx Instructions: My patient cannot walk 200 feet without stopping to rest or must use assistive device. Walking is severely limited due to arthritic, neurological or orthopedic condition. Uses portable oxygen or walking restricted by lung disease tizanidine 4 mg tablet See Rx Instructions .ROUTE .COMPLEX Qty: 90 11RF Dose Instruction: TAKE 1 TABLET EVERY 6 TO 8 HOURS NEEDED FOR MUSCLE SPASTICITY, DO NOT EXCEED 3 DOSES PER 24 HOURS Rx Instructions: TAKE 1 TABLET EVERY 6 TO 8 HOURS NEEDED FOR MUSCLE SPASTICITY, DO NOT EXCEED 3 DOSES PER 24 HOURS hydrochlorothiazide 12.5 mg capsule See Rx Instructions .ROUTE .COMPLEX Qty: 90 3RF Dose Instruction: TAKE 1 CAPSULE DAILY Rx Instructions: TAKE 1 CAPSULE DAILY atorvastatin 40 mg tablet See Rx Instructions .ROUTE .COMPLEX Qty: 90 3RF Dose Instruction: TAKE 1 TABLET AT BEDTIME Rx Instructions: TAKE 1 TABLET AT BEDTIME albuterol sulfate 90 mcg/actuation HFA aerosol inhaler See Rx Instructions .ROUTE .COMPLEX Qty: 17 4RF Dose Instruction: USE 2 INHALATIONS EVERY 4 TO 6 HOURS NEEDED FOR SHORTNESS OF BREATHOR WHEEZING Rx Instructions: USE 2 INHALATIONS EVERY 4 TO 6 HOURS NEEDED FOR SHORTNESS OF BREATHOR WHEEZING benzonatate 200 mg capsule 200 mg PO BID-TID PRN (Reason: cough) Qty: 21 0RF prednisone 20 mg tablet 40 mg PO DAILY 5 Days Qty: 10 0RF hydrocodone-acetaminophen 5-325 mg Tablet 1 tab PO Q4HR PRN (Reason: Pain, Moderate (4-6)) Qty: 20 0RF hydrocodone-acetaminophen 5-325 mg tablet 1 tab PO Q6H PRN (Reason: pain) Qty: 14 0RF montelukast [Singulair] 10 mg tablet 10 mg PO DAILY Qty: 90 3RF Referrals: Vicky Whalen MD [Primary Care Provider] - Stand Alone Forms: Patient Portal/API
[2023-11-13 20:07] LABS: Add Manual Diff / Slide Review NO; Basophils Absolute Auto 100 /uL (0-100); Basophils Percent Auto 0.5 % (0-2); Eosinophils Absolute Auto 0 /uL (0-450); Eosinophils Percent Auto 0.1 % (2-4); Hematocrit 35.2 % (41-53); Hemoglobin 11.8 g/dL (13.5-17.5); Lymphocytes Absolute Auto 1300 /uL (1100-4500); Lymphocytes Percent Auto 10.8 % (25-40); Mean Corpuscular HGB Conc 33.6 % (30-36); Mean Corpuscular Hemoglobin 30.6 PG (26-34); Mean Corpuscular Volume 91.1 fL (80-100); Monocytes Absolute Auto 800 /uL (0-900); Monocytes Percent Auto 6.6 % (3-14); Neutrophils Absolute Auto 9700 /uL (1500-7000); Platelet Count 229 X10^3/uL (150-400); Red Blood Cell Count 3.87 X10^6/uL (4.5-5.9); Red Cell Distribution Width 14.3 % (11.6-14.8); White Blood Cell Count 11.9 X10^3/uL (4.5-11.0)
[2023-11-13] MEDS: HYDROMORPHONE 0.5 MG INJ IV (20:10)
[2023-11-13 20:17] LABS: Alanine Aminotransferase 44 IU/L (<50); Albumin 3.8 g/dL (3.5-5.0); Albumin Globulin Ratio 1.5 (1.0-2.8); Alkaline Phosphatase 68 U/L (38-126); Aspartate Aminotransferase 32 IU/L (17-59); BUN Creatinine Ratio 27.4 (6-22); Bilirubin Total 0.5 mg/dL (0.2-1.3); Blood Urea Nitrogen 23 mg/dL (9-20); Calcium 8.5 mg/dL (8.4-10.2); Carbon Dioxide 28 mmol/L (22-32); Chloride 104 mmol/L (98-107); Creatine Kinase 76 U/L (55-170); Estimated Glomerular Filt Rate > 60 mL/min (>60); Globulin 2.6 g/dL (1.7-4.1); Glucose 115 mg/dL (80-110); HEMOLYSIS 20 (0-50); Lipase 47 U/L (23-300); Potassium 4.2 mmol/L (3.4-5.1); Sodium 136 mmol/L (137-145); Total Protein 6.4 g/dL (6.3-8.2)
[2023-11-13 20:28] LABS: Troponin I < 0.012 ng/mL (0.01-0.034)
[2023-11-13] MEDS: OXYCODONE/APAP 5/325 PREPACK 1 BOTTLE MISC (21:12)
[2023-11-13] MEDS: CYCLOBENZAPRINE 10 MG PREPACK 1 BOTTLE MISC (21:12)
[2023-11-13 21:16] VITALS: BP 152/67; PULSE 60; RESP 18; O2SAT 100
== END 2023-11-13 21:17 | disposition home or self-care (01) ==
PROVIDERS: Emergency Provider Emergency Medicine; PCP Family Medicine
DX: E04.1 Nontoxic single thyroid nodule (principal); M54.6 Pain in thoracic spine; R07.9 Chest pain, unspecified; R06.02 Shortness of breath; R00.0 Tachycardia, unspecified
CPT/HCPCS: 36415; 71275; 80053; 82550; 83690; 84484; 85025; 96374; 99284; J1170; Q9967

== ENCOUNTER 2023-11-14 17:54 | Emergency (ER) | payer MEDICARE, OTHER, SELFPAY ==
[2022-06-13 20:21] VITALS: BMI 43.7
[2023-11-14 17:56] VITALS: BP 144/71; PULSE 63; RESP 16; TEMP 36.5; O2SAT 96; BMI 34.0
--- NOTE | 2023-11-14 18:16 | ED_ITS ---
HPI - Back Pain/Injury <FRANCESCO Escalona - Last Filed: 11/14/23 19:24> General Chief Complaint: Back Pain/Injury Stated Complaint: Returning; Extreme Pain Back/Ribs, Muscle Spasms Time Seen by Provider: 11/14/23 18:16 Source: patient History of Present Illness HPI Narrative: 78-year-old male presents to the emergency department with persistent right- sided thoracic back pain. Patient states symptoms started from coughing, secondary to a respiratory illness, and results in intermittent spasms that start on right thoracic chest and wraparound bilaterally to his lower sternum. Patient has been worked up extensively in the emergency department through several visits to include CTA. Patient is currently taking oxycodone and cyclobenzaprine, but states that this is not mitigating the pain nor eliminating the spasms. Spasms are visible and palpable when they occur in the presence of the provider. Patient does have a lidocaine patch on site. Patient was driven to the ER by a friend. Related Data Home Medications Medication Instructions Recorded Confirmed aspirin 81 mg chewable tablet 81 mg PO QDAY ##0 05/19/17 09/21/23 cholecalciferol (vitamin D3) 50 2,500 iu PO DAILY ##0 05/19/17 09/21/23 mcg (2,000 unit) tablet (Vitamin D3) diclofenac sodium 1 % topical gel 1 ea topical PRN PRN Pain (Scale 05/19/17 09/21/23 (Voltaren) Score 1-3) ##0 ibuprofen 200 mg capsule 200 mg PO Q4-6H PRN Pain (Scale 05/19/17 09/21/23 Score 1-3) ##0 multivitamin (Multiple Vitamins 1 tab PO DAILY ##0 05/19/17 09/21/23 tablet) fexofenadine 180 mg tablet 180 mg PO DAILY 05/24/20 09/21/23 (Theresa Allergy) Previous Rx's Medication Instructions Recorded olopatadine 0.7 % eye drops 1 drop EYE-BOTH DAILY #2.5 mL 11/27/19 fluticasone propionate 50 See Rx Instructions .Route 10/23/20 mcg/actuation nasal .COMPLEX #1,440 grams spray,suspension disabled parking permit #1 ea 06/03/21 hydrocodone 5 mg-acetaminophen 325 1 tab PO Q4HR PRN Pain, Moderate 06/26/22 mg tablet (4-6) #20 tabs hydrochlorothiazide 12.5 mg capsule See Rx Instructions .Route 12/17/22 .COMPLEX #90 caps tizanidine 4 mg tablet See Rx Instructions .Route 12/17/22 .COMPLEX #90 tabs montelukast 10 mg tablet 10 mg PO DAILY #90 tabs 01/15/23 (Singulair) atorvastatin 40 mg tablet See Rx Instructions .Route 04/13/23 .COMPLEX #90 tabs triamcinolone acetonide 0.5 % 1 applic topical BID #15 grams 06/02/23 topical ointment albuterol sulfate 90 mcg/actuation See Rx Instructions .Route 06/15/23 aerosol inhaler .COMPLEX #17 grams gabapentin 300 mg capsule 600 mg (2 x 300 mg) PO BID PRN for 09/21/23 pain #360 caps benzonatate 200 mg capsule 200 mg PO BID-TID PRN cough #21 10/29/23 caps hydrocodone 5 mg-acetaminophen 325 1 tab PO Q6H PRN pain #14 tabs 11/09/23 mg tablet prednisone 20 mg tablet 40 mg (2 x 20 mg) PO DAILY 5 days 11/10/23 #10 tabs cyclobenzaprine 10 mg tablet 10 mg PO TID PRN muscle spasm #25 11/13/23 tabs oxycodone-acetaminophen 5 mg-325 1 tab PO Q8H PRN pain #20 tabs 11/13/23 mg tablet (Percocet) hydromorphone 4 mg tablet 4 mg PO Q6H PRN pain #10 tabs 11/14/23 (Dilaudid) Allergies Allergy/AdvReac Type Severity Reaction Status Date / Time Penicillins [PENICILLINS] Allergy Intermediate rash, Verified 11/13/23 19:23 blows up Review of Systems <Ricardo Mendenhall BILL OF MATERIALS CLERK - Last Filed: 11/14/23 19:24> Review of Systems Narrative: Narrative: See HPI. GENERAL: Denies chills, fatigue, fever, sweats. HEENT: Denies sinus pain, ear pain, sore throat, difficulty swallowing, dizziness. RESPIRATORY: Denies dyspnea, cough, wheezing, sputum. CARDIOVASCULAR: Denies chest pain, palpitations, edema. GASTROINTESTINAL: Denies vomiting, abdominal pain, diarrhea, constipation. Endorses intermittent nausea with the pain medication. : Denies dysuria, frequency, incontinence, hematuria, urinary retention, flank pain. MSK: Denies weakness, joint pain, or bony pain. Endorses right thoracic spasms and pain. SKIN: Denies rash, skin lesions, or pruritis. NEUROLOGIC: Denies weakness, dizziness, headache, numbness, confusion. PSYCHIATRIC: No concerning psychosocial issues. Patient History <FRANCESCO Escalona - Last Filed: 11/14/23 19:24> Medical History BPPV (benign paroxysmal positional vertigo) Hyperlipidemia Essential hypertension Measles Gastric ulcer (~1969) Colon polyps (~1994) Chronic pain Asthma (~1999) Seasonal allergies (~1987) Shoulder pain (~2011) Foot pain Chronic back pain (~2011) Mumps Chicken pox Tinnitus Retinal detachment Cataracts, bilateral (~2017) Surgical History Anesthesia History of cataract removal with insertion of prosthetic lens History of appendectomy (~1953) History of gastric bypass (~1977) Family History Grandmother Stroke Father High cholesterol Mother Breast cancer Sister Hyperlipidemia Grandmother No problems noted. Grandfather No problems noted. Social History marital status: number of children: 0 household members: spouse lives independently: Yes caregiver/support person: No housing: house education level: college occupational status: employed Smoking Status: Never smoker second hand exposure: No alcohol intake: current substance use type: does not use Smoking Status: Never smoker alcohol intake frequency: 0-2 drinks per day Substance Use Type: does not use Exam <FRANCESCO Escalona - Last Filed: 11/14/23 19:24> Narrative Exam Narrative: Exam Narrative: GENERAL: This is a well-nourished, well-developed patient, in no acute distress. HEAD: Atraumatic. Normocephalic. No C-spine tenderness. EYES: Pupils equal round and reactive. Extraocular motions intact. No scleral icterus, injection or drainage. ENT: Nose without bleeding, purulent drainage. Airway patent. CARDIOVASCULAR: Regular rate and rhythm without murmurs, peripheral pulses intact, cap refill <2 sec. RESPIRATORY: Breath sounds equal and clear bilaterally. No wheezes, rales, or rhonchi. No cough. No increased respiratory effort. No accessory muscle use. MSK: Moves all extremities. Normal range of motion, no clubbing or edema. Neurovascularly intact. NEURO: A&O x 3. SKIN: Warm, dry, no rashes or lesions noted. BACK weigh box tender but free of any obvious external abnormalities. There is no asymmetry, swelling, bruising or wound. There is paraspinal tenderness but no CVA tenderness. SI joints nontender. Pain over thoracic spinous processes. No symptoms of cauda equina such as saddle anesthesia. Sensation is grossly intact. ROM is limited due to pain. Initial Vital Signs Initial Vital Signs: Vital Signs Temperature 97.7 F 11/14/23 17:56 Pulse Rate 63 11/14/23 17:56 Respiratory Rate 16 11/14/23 17:56 Blood Pressure 144/71 H 11/14/23 17:56 Pulse Oximetry 96 11/14/23 17:56 Oxygen Delivery Method Room Air 11/14/23 17:56 Reviewed <Ricardo Barry DO - Last Filed: 11/14/23 19:43> Initial Vital Signs Initial Vital Signs: Vital Signs Temperature 97.7 F 11/14/23 17:56 Pulse Rate 63 11/14/23 17:56 Respiratory Rate 16 11/14/23 17:56 Blood Pressure 144/71 H 11/14/23 17:56 Pulse Oximetry 96 11/14/23 17:56 Oxygen Delivery Method Room Air 11/14/23 17:56 Course <FRANCESCO Escalona - Last Filed: 11/14/23 19:24> Orders Ordered: Discontinued Medications Hydromorphone HCl (Hydromorphone 1 Mg Inj) 1 mg IM NOW ONE Stop: 11/14/23 19:04 Last Admin: 11/14/23 19:17 Dose: 1 mg Documented By: TESSIE Vital Signs Vital signs: Vital Signs - 8 hr 11/14/23 17:56 11/14/23 19:21 Temperature 97.7 F Pulse Rate 63 58 L Respiratory Rate 16 16 Blood Pressure 144/71 H 168/72 H Pulse Oximetry 96 97 Oxygen Delivery Method Room Air Room Air <DO Stacia Flores Last Filed: 11/14/23 19:43> Orders Ordered: Discontinued Medications Hydromorphone HCl (Hydromorphone 1 Mg Inj) 1 mg IM NOW ONE Stop: 11/14/23 19:04 Last Admin: 11/14/23 19:17 Dose: 1 mg Documented By: TESSIE Vital Signs Vital signs: Vital Signs - 8 hr 11/14/23 17:56 11/14/23 19:21 Temperature 97.7 F Pulse Rate 63 58 L Respiratory Rate 16 16 Blood Pressure 144/71 H 168/72 H Pulse Oximetry 96 97 Oxygen Delivery Method Room Air Room Air MDM - Back Pain/Injury <Ricardo HerrmannFRANCESCO madsen - Last Filed: 11/14/23 19:24> Differential Diagnosis Differential diagnosis: Likely thoracic back pain and other (Back spasms) MDM Narrative Medical decision making narrative: 78-year-old male with persistent back spasms and pain. Patient has been seen multiple times in the emergency department with extensive workups and no revelation of a cause. Discussed case with Dr. Barry. Assessment was inconclusive and revealed visible back spasms of right thoracic region and the patient's visible discomfort. As patient has had success with Dilaudid in the emergency department, I have provided single IM injection in the ED and will send home patient with short course of oral Dilaudid. Strongly recommended patient do not take the oxycodone while taking the Dilaudid, to prevent respiratory depression and . Patient verbalized understanding and was agreeable to course of action. Patient to continue taking his cyclobenzaprine to mitigate muscle spasms. Patient has a appointment with his family doctor in 8 days and will seek referrals for pain management or neurosurgery at that time. Patient will have a friend pick him up from the emergency department. Discharge Plan Departure Patient Disposition: Home Clinical Impression: Back pain, thoracic Qualifiers: Chronicity: acute Back pain laterality: right Qualified Code(s): M54.6 - Pain in thoracic spine Instructions: DI for Back Spasm Activity Restrictions/Additional Instructions: *You have been diagnosed with back pain and spasms. You have been seen multiple times in the emergency department for these symptoms and worked up extensively. I am not really sure what is causing your discomfort but we will try to mitigate her symptoms. I strongly recommend that when you have your appointment with your family doctor, you get a referral for pain management or neurosurgery. Since you have had good luck with Dilaudid, we have given you a single IM injection of Dilaudid today and will prescribe a short course of oral Dilaudid. You should not take the Dilaudid along with your oxycodone, as this can cause respiratory distress and . Please make sure you are taking your muscle relaxer, cyclobenzaprine, as prescribed. Continue with the hot or cold compresses to the affected site, along with your physical therapy exercises. *What to do: *Please continue to take your regular medications as directed. [ x] New medication prescriptions sent to your pharmacy: [[facility]] [ ] New medication written as a paper prescription [ ] No new medications given *Please follow up with your primary care provider in 2-3 days, call for an appointment. Let them know you were seen in the Emergency Department and that we ask that you be seen in follow up. We will electronically transmit a record of today's note if your PCP is in our system *If you do not have a primary care provider please contact the [facility] Resource line at [phone]. They will ask some questions about your medical history and help get you set up with a doctor in the community. ? Return to ER if you should have any new, worsening or concerning symptoms, such as worsening pain, severe headache, confusion, chest pain, difficulty breathing, fever greater than 101 F, shaking chills, persistent vomiting to the point that you cannot drink fluids, or other new or worsening symptoms. Prescriptions: New hydromorphone [Dilaudid] 4 mg tablet 4 mg PO Q6H PRN (Reason: pain) Qty: 10 0RF No Action triamcinolone acetonide 0.5 % ointment 1 applic topical BID Qty: 15 2RF gabapentin 300 mg capsule 600 mg PO BID PRN (Reason: for pain) Qty: 360 3RF aspirin 81 MG tablet,chewable 81 mg PO QDAY Qty: 0 diclofenac sodium [Voltaren] 1 % gel 1 ea topical PRN PRN (Reason: Pain (Scale Score 1-3)) Qty: 0 ibuprofen 200 MG capsule 200 mg PO Q4-6H PRN (Reason: Pain (Scale Score 1-3)) Qty: 0 cholecalciferol (vitamin D3) [Vitamin D3] 2,000 UNIT tablet 2,500 iu PO DAILY Qty: 0 multivitamin [Multiple Vitamins] 1 EACH tablet 1 tab PO DAILY Qty: 0 olopatadine 0.7 % drops 1 drop EYE-BOTH DAILY Qty: 2.5 0RF fexofenadine [Theresa Allergy] 180 mg tablet 180 mg PO DAILY fluticasone propionate 50 mcg/actuation spray,suspension See Rx Instructions .ROUTE .COMPLEX Qty: 1440 3RF Dose Instruction: USE 1 SPRAY NASALLY TWICE A DAY Rx Instructions: USE 1 SPRAY NASALLY TWICE A DAY (DME) disabled parking permit See Rx Instructions .ROUTE .MEDSUPPLY Qty: 1 0RF Rx Instructions: My patient cannot walk 200 feet without stopping to rest or must use assistive device. Walking is severely limited due to arthritic, neurological or orthopedic condition. Uses portable oxygen or walking restricted by lung disease tizanidine 4 mg tablet See Rx Instructions .ROUTE .COMPLEX Qty: 90 11RF Dose Instruction: TAKE 1 TABLET EVERY 6 TO 8 HOURS NEEDED FOR MUSCLE SPASTICITY, DO NOT EXCEED 3 DOSES PER 24 HOURS Rx Instructions: TAKE 1 TABLET EVERY 6 TO 8 HOURS NEEDED FOR MUSCLE SPASTICITY, DO NOT EXCEED 3 DOSES PER 24 HOURS hydrochlorothiazide 12.5 mg capsule See Rx Instructions .ROUTE .COMPLEX Qty: 90 3RF Dose Instruction: TAKE 1 CAPSULE DAILY Rx Instructions: TAKE 1 CAPSULE DAILY atorvastatin 40 mg tablet See Rx Instructions .ROUTE .COMPLEX Qty: 90 3RF Dose Instruction: TAKE 1 TABLET AT BEDTIME Rx Instructions: TAKE 1 TABLET AT BEDTIME albuterol sulfate 90 mcg/actuation HFA aerosol inhaler See Rx Instructions .ROUTE .COMPLEX Qty: 17 4RF Dose Instruction: USE 2 INHALATIONS EVERY 4 TO 6 HOURS NEEDED FOR SHORTNESS OF BREATHOR WHEEZING Rx Instructions: USE 2 INHALATIONS EVERY 4 TO 6 HOURS NEEDED FOR SHORTNESS OF BREATHOR WHEEZING benzonatate 200 mg capsule 200 mg PO BID-TID PRN (Reason: cough) Qty: 21 0RF prednisone 20 mg tablet 40 mg PO DAILY 5 Days Qty: 10 0RF cyclobenzaprine 10 mg tablet 10 mg PO TID PRN (Reason: muscle spasm) Qty: 25 0RF oxycodone-acetaminophen [Percocet] 5-325 mg tablet 1 tab PO Q8H PRN (Reason: pain) Qty: 20 0RF hydrocodone-acetaminophen 5-325 mg Tablet 1 tab PO Q4HR PRN (Reason: Pain, Moderate (4-6)) Qty: 20 0RF hydrocodone-acetaminophen 5-325 mg tablet 1 tab PO Q6H PRN (Reason: pain) Qty: 14 0RF montelukast [Singulair] 10 mg tablet 10 mg PO DAILY Qty: 90 3RF Referrals: Vicky Whalen MD [Primary Care Provider] - Stand Alone Forms: Patient Portal/API ED Sign-out <Ricardo Barry, - Last Filed: 11/14/23 19:43> Cosign ED Attending [facility] Attestation: Dr Barry Co-Sign Statement: I was available for consultation during this patient's emergency department visit. This chart is signed by myself for administrative purposes only. I did not have direct contact with this patient during this visit. They were seen independently by the APC.
[2023-11-14] MEDS: HYDROMORPHONE 1 MG INJ IM (19:17)
[2023-11-14 19:21] VITALS: BP 168/72; PULSE 58; RESP 16; O2SAT 97
== END 2023-11-14 19:21 | disposition home or self-care (01) ==
PROVIDERS: Emergency Provider Registered Nurse; PCP Family Medicine
DX: M54.6 Pain in thoracic spine (principal)
CPT/HCPCS: 96372; 99283; J1170

== ENCOUNTER 2023-11-15 14:52 | Emergency (ER) | payer MEDICARE, OTHER, SELFPAY ==
[2022-06-13 20:21] VITALS: BMI 43.7
[2023-11-15 15:14] VITALS: BP 217/95; PULSE 56; RESP 18; TEMP 37.1; O2SAT 97; BMI 34.1
--- NOTE | 2023-11-15 15:56 | PC.NURSE ---
Patient states to this RN he is going to go home and take oxycodone he is prescribed.
--- NOTE | 2023-11-15 20:58 | ED.RECABL ---
HPI - Recheck/Abnormal Lab/Rx General Chief Complaint: Recheck/Abnormal Lab/Rx Stated Complaint: back pain, spasms Source: patient Mode of arrival: Ambulatory History of Present Illness HPI narrative: Pt left without being seen by provider Related Data Home Medications Medication Instructions Recorded Confirmed aspirin 81 mg chewable tablet 81 mg PO QDAY ##0 05/19/17 09/21/23 cholecalciferol (vitamin D3) 50 2,500 iu PO DAILY ##0 05/19/17 09/21/23 mcg (2,000 unit) tablet (Vitamin D3) diclofenac sodium 1 % topical gel 1 ea topical PRN PRN Pain (Scale 05/19/17 09/21/23 (Voltaren) Score 1-3) ##0 ibuprofen 200 mg capsule 200 mg PO Q4-6H PRN Pain (Scale 05/19/17 09/21/23 Score 1-3) ##0 multivitamin (Multiple Vitamins 1 tab PO DAILY ##0 05/19/17 09/21/23 tablet) fexofenadine 180 mg tablet 180 mg PO DAILY 05/24/20 09/21/23 (Theresa Allergy) Previous Rx's Medication Instructions Recorded olopatadine 0.7 % eye drops 1 drop EYE-BOTH DAILY #2.5 mL 11/27/19 fluticasone propionate 50 See Rx Instructions .Route 10/23/20 mcg/actuation nasal .COMPLEX #1,440 grams spray,suspension disabled parking permit #1 ea 06/03/21 hydrocodone 5 mg-acetaminophen 325 1 tab PO Q4HR PRN Pain, Moderate 06/26/22 mg tablet (4-6) #20 tabs hydrochlorothiazide 12.5 mg capsule See Rx Instructions .Route 12/17/22 .COMPLEX #90 caps tizanidine 4 mg tablet See Rx Instructions .Route 12/17/22 .COMPLEX #90 tabs montelukast 10 mg tablet 10 mg PO DAILY #90 tabs 01/15/23 (Singulair) atorvastatin 40 mg tablet See Rx Instructions .Route 04/13/23 .COMPLEX #90 tabs triamcinolone acetonide 0.5 % 1 applic topical BID #15 grams 06/02/23 topical ointment albuterol sulfate 90 mcg/actuation See Rx Instructions .Route 06/15/23 aerosol inhaler .COMPLEX #17 grams gabapentin 300 mg capsule 600 mg (2 x 300 mg) PO BID PRN for 09/21/23 pain #360 caps benzonatate 200 mg capsule 200 mg PO BID-TID PRN cough #21 10/29/23 caps hydrocodone 5 mg-acetaminophen 325 1 tab PO Q6H PRN pain #14 tabs 11/09/23 mg tablet cyclobenzaprine 10 mg tablet 10 mg PO TID PRN muscle spasm #25 11/13/23 tabs oxycodone-acetaminophen 5 mg-325 1 tab PO Q8H PRN pain #20 tabs 11/13/23 mg tablet (Percocet) hydromorphone 4 mg tablet 4 mg PO Q6H PRN pain #10 tabs 11/14/23 (Dilaudid) Allergies Allergy/AdvReac Type Severity Reaction Status Date / Time Penicillins [PENICILLINS] Allergy Intermediate rash, Verified 11/15/23 15:14 blows up Patient History Medical History BPPV (benign paroxysmal positional vertigo) Hyperlipidemia Essential hypertension Measles Gastric ulcer (~1969) Colon polyps (~1994) Chronic pain Asthma (~1999) Seasonal allergies (~1987) Shoulder pain (~2011) Foot pain Chronic back pain (~2011) Mumps Chicken pox Tinnitus Retinal detachment Cataracts, bilateral (~2017) Surgical History Anesthesia History of cataract removal with insertion of prosthetic lens History of appendectomy (~1953) History of gastric bypass (~1977) Family History Grandmother Stroke Father High cholesterol Mother Breast cancer Sister Hyperlipidemia Grandmother No problems noted. Grandfather No problems noted. Social History marital status: number of children: 0 household members: spouse lives independently: Yes caregiver/support person: No housing: house education level: college occupational status: employed Smoking Status: Never smoker second hand exposure: No alcohol intake: current substance use type: does not use Smoking Status: Never smoker alcohol intake frequency: 0-2 drinks per day Substance Use Type: does not use Exam Initial Vital Signs Initial Vital Signs: Vital Signs Temperature 98.7 F 11/15/23 15:14 Pulse Rate 56 L 11/15/23 15:14 Respiratory Rate 18 11/15/23 15:14 Blood Pressure 217/95 H 11/15/23 15:14 Pulse Oximetry 97 11/15/23 15:14 Oxygen Delivery Method Room Air 11/15/23 15:14 Course Vital Signs Vital signs: Vital Signs - 8 hr 11/15/23 15:14 Temperature 98.7 F Pulse Rate 56 L Respiratory Rate 18 Blood Pressure 217/95 H Pulse Oximetry 97 Oxygen Delivery Method Room Air Discharge Plan Departure Patient Disposition: Left Without Being Seen Clinical Impression: Patient left without being seen Prescriptions: No Action triamcinolone acetonide 0.5 % ointment 1 applic topical BID Qty: 15 2RF gabapentin 300 mg capsule 600 mg PO BID PRN (Reason: for pain) Qty: 360 3RF aspirin 81 MG tablet,chewable 81 mg PO QDAY Qty: 0 diclofenac sodium [Voltaren] 1 % gel 1 ea topical PRN PRN (Reason: Pain (Scale Score 1-3)) Qty: 0 ibuprofen 200 MG capsule 200 mg PO Q4-6H PRN (Reason: Pain (Scale Score 1-3)) Qty: 0 cholecalciferol (vitamin D3) [Vitamin D3] 2,000 UNIT tablet 2,500 iu PO DAILY Qty: 0 multivitamin [Multiple Vitamins] 1 EACH tablet 1 tab PO DAILY Qty: 0 olopatadine 0.7 % drops 1 drop EYE-BOTH DAILY Qty: 2.5 0RF fexofenadine [Theresa Allergy] 180 mg tablet 180 mg PO DAILY fluticasone propionate 50 mcg/actuation spray,suspension See Rx Instructions .ROUTE .COMPLEX Qty: 1440 3RF Dose Instruction: USE 1 SPRAY NASALLY TWICE A DAY Rx Instructions: USE 1 SPRAY NASALLY TWICE A DAY (DME) disabled parking permit See Rx Instructions .ROUTE .MEDSUPPLY Qty: 1 0RF Rx Instructions: My patient cannot walk 200 feet without stopping to rest or must use assistive device. Walking is severely limited due to arthritic, neurological or orthopedic condition. Uses portable oxygen or walking restricted by lung disease tizanidine 4 mg tablet See Rx Instructions .ROUTE .COMPLEX Qty: 90 11RF Dose Instruction: TAKE 1 TABLET EVERY 6 TO 8 HOURS NEEDED FOR MUSCLE SPASTICITY, DO NOT EXCEED 3 DOSES PER 24 HOURS Rx Instructions: TAKE 1 TABLET EVERY 6 TO 8 HOURS NEEDED FOR MUSCLE SPASTICITY, DO NOT EXCEED 3 DOSES PER 24 HOURS hydrochlorothiazide 12.5 mg capsule See Rx Instructions .ROUTE .COMPLEX Qty: 90 3RF Dose Instruction: TAKE 1 CAPSULE DAILY Rx Instructions: TAKE 1 CAPSULE DAILY atorvastatin 40 mg tablet See Rx Instructions .ROUTE .COMPLEX Qty: 90 3RF Dose Instruction: TAKE 1 TABLET AT BEDTIME Rx Instructions: TAKE 1 TABLET AT BEDTIME albuterol sulfate 90 mcg/actuation HFA aerosol inhaler See Rx Instructions .ROUTE .COMPLEX Qty: 17 4RF Dose Instruction: USE 2 INHALATIONS EVERY 4 TO 6 HOURS NEEDED FOR SHORTNESS OF BREATHOR WHEEZING Rx Instructions: USE 2 INHALATIONS EVERY 4 TO 6 HOURS NEEDED FOR SHORTNESS OF BREATHOR WHEEZING benzonatate 200 mg capsule 200 mg PO BID-TID PRN (Reason: cough) Qty: 21 0RF cyclobenzaprine 10 mg tablet 10 mg PO TID PRN (Reason: muscle spasm) Qty: 25 0RF oxycodone-acetaminophen [Percocet] 5-325 mg tablet 1 tab PO Q8H PRN (Reason: pain) Qty: 20 0RF hydromorphone [Dilaudid] 4 mg tablet 4 mg PO Q6H PRN (Reason: pain) Qty: 10 0RF hydrocodone-acetaminophen 5-325 mg Tablet 1 tab PO Q4HR PRN (Reason: Pain, Moderate (4-6)) Qty: 20 0RF hydrocodone-acetaminophen 5-325 mg tablet 1 tab PO Q6H PRN (Reason: pain) Qty: 14 0RF montelukast [Singulair] 10 mg tablet 10 mg PO DAILY Qty: 90 3RF
== END 2023-11-15 15:57 | disposition left against medical advice (07) ==
PROVIDERS: Emergency Provider Emergency Medicine; PCP Family Medicine
CPT/HCPCS: 99281

== ENCOUNTER 2023-11-26 09:19 | Emergency (ER) | payer MEDICARE, OTHER, SELFPAY ==
[2022-06-13 20:21] VITALS: BMI 43.7
[2023-11-26] VITALS (17 sets, daily range): BP systolic 173–239; BP diastolic 73–106; PULSE 51–87; RESP 14–36; TEMP 36.6; O2SAT 92–99; BMI 35.2
--- NOTE | 2023-11-26 09:37 | ED_ITS ---
HPI - General Adult General Chief complaint: Chest Pain Stated complaint: Middle Back Pain Time Seen by Provider: 11/26/23 09:27 History of Present Illness HPI narrative: 78-year-old male presents by private vehicle from home for thoracic back pain that wraps around to his chest. Patient has been seen numerous times by his primary and in the emergency department for this complaint. Most recently saw primary on 11/22/2023 and was given tizanidine, Dilaudid tablets, and Toradol tablets. Related Data Home Medications Medication Instructions Recorded Confirmed aspirin 81 mg chewable tablet 81 mg PO QDAY ##0 05/19/17 11/22/23 cholecalciferol (vitamin D3) 50 2,500 iu PO DAILY ##0 05/19/17 11/22/23 mcg (2,000 unit) tablet (Vitamin D3) diclofenac sodium 1 % topical gel 1 ea topical PRN PRN Pain (Scale 05/19/17 11/22/23 (Voltaren) Score 1-3) ##0 ibuprofen 200 mg capsule 200 mg PO Q4-6H PRN Pain (Scale 05/19/17 11/22/23 Score 1-3) ##0 multivitamin (Multiple Vitamins 1 tab PO DAILY ##0 05/19/17 11/22/23 tablet) fexofenadine 180 mg tablet 180 mg PO DAILY 05/24/20 11/22/23 (Theresa Allergy) Previous Rx's Medication Instructions Recorded olopatadine 0.7 % eye drops 1 drop EYE-BOTH DAILY #2.5 mL 11/27/19 fluticasone propionate 50 See Rx Instructions .Route 10/23/20 mcg/actuation nasal .COMPLEX #1,440 grams spray,suspension disabled parking permit #1 ea 06/03/21 hydrocodone 5 mg-acetaminophen 325 1 tab PO Q4HR PRN Pain, Moderate 06/26/22 mg tablet (4-6) #20 tabs hydrochlorothiazide 12.5 mg capsule See Rx Instructions .Route 12/17/22 .COMPLEX #90 caps tizanidine 4 mg tablet See Rx Instructions .Route 12/17/22 .COMPLEX #90 tabs montelukast 10 mg tablet 10 mg PO DAILY #90 tabs 01/15/23 (Singulair) atorvastatin 40 mg tablet See Rx Instructions .Route 04/13/23 .COMPLEX #90 tabs triamcinolone acetonide 0.5 % 1 applic topical BID #15 grams 06/02/23 topical ointment albuterol sulfate 90 mcg/actuation See Rx Instructions .Route 06/15/23 aerosol inhaler .COMPLEX #17 grams gabapentin 300 mg capsule 600 mg (2 x 300 mg) PO BID PRN for 09/21/23 pain #360 caps benzonatate 200 mg capsule 200 mg PO BID-TID PRN cough #21 10/29/23 caps hydrocodone 5 mg-acetaminophen 325 1 tab PO Q6H PRN pain #14 tabs 11/09/23 mg tablet cyclobenzaprine 10 mg tablet 10 mg PO TID PRN muscle spasm #25 11/13/23 tabs oxycodone-acetaminophen 5 mg-325 1 tab PO Q8H PRN pain #20 tabs 11/13/23 mg tablet (Percocet) hydromorphone 4 mg tablet 4 mg PO Q6H PRN pain #20 tabs 11/22/23 (Dilaudid) ketorolac 10 mg tablet 10 mg PO Q6H PRN pain #20 tabs 11/22/23 tizanidine 2 mg capsule 2 mg PO TID PRN muscle spasticity 11/22/23 #30 caps Allergies Allergy/AdvReac Type Severity Reaction Status Date / Time Penicillins [PENICILLINS] Allergy Intermediate rash, Verified 11/26/23 09:35 blows up Patient History Medical History BPPV (benign paroxysmal positional vertigo) Hyperlipidemia Essential hypertension Measles Gastric ulcer (~1969) Colon polyps (~1994) Chronic pain Asthma (~1999) Seasonal allergies (~1987) Shoulder pain (~2011) Foot pain Chronic back pain (~2011) Mumps Chicken pox Tinnitus Retinal detachment Cataracts, bilateral (~2017) Surgical History Anesthesia History of cataract removal with insertion of prosthetic lens History of appendectomy (~1953) History of gastric bypass (~1977) Family History Grandmother Stroke Father High cholesterol Mother Breast cancer Sister Hyperlipidemia Grandmother No problems noted. Grandfather No problems noted. Social History marital status: number of children: 0 household members: spouse lives independently: Yes caregiver/support person: No housing: house education level: college occupational status: employed Smoking Status: Never smoker second hand exposure: No alcohol intake: current substance use type: does not use Smoking Status: Never smoker alcohol intake frequency: 0-2 drinks per day Substance Use Type: does not use Exam Initial Vital Signs Initial Vital Signs: Vital Signs Temperature 97.9 F 11/26/23 09:24 Pulse Rate 65 11/26/23 09:24 Respiratory Rate 14 11/26/23 09:24 Blood Pressure 228/98 H 11/26/23 09:24 Pulse Oximetry 99 11/26/23 09:24 Oxygen Delivery Method Room Air 11/26/23 09:24 Const: Awake, alert, uncomfortable Cardiac: regular rate, regular rhythm RESP: unlabored, clear bilaterally, no wheezing Skin: Warm, Dry, intact, no rashes Neuro: AO x3, CN II-XII grossly intact, moves all extremities Course Orders Ordered: Discontinued Medications Aspirin (Aspirin 81 Mg Chew Tab) 324 mg PO NOW ONE Stop: 11/26/23 09:35 Last Admin: 11/26/23 09:51 Dose: 324 mg Documented By: CHEL Droperidol (Droperidol 5 Mg/2 Ml Vial) 2.5 mg IV NOW ONE Stop: 11/26/23 11:42 Last Admin: 11/26/23 11:54 Dose: 2.5 mg Documented By: CHEL Hydralazine HCl (Hydralazine 20 Mg/Ml Vial) 10 mg IV NOW ONE Stop: 11/26/23 10:28 Last Admin: 11/26/23 10:49 Dose: 10 mg Documented By: CHEL Vital Signs Vital signs: Vital Signs - 8 hr 11/26/23 09:24 11/26/23 09:31 11/26/23 09:33 Temperature 97.9 F Pulse Rate 65 55 L Respiratory Rate 14 32 H Blood Pressure 228/98 H Pulse Oximetry 99 97 98 Oxygen Delivery Method Room Air 11/26/23 09:33 11/26/23 10:00 11/26/23 10:30 Temperature Pulse Rate 56 L 51 L Respiratory Rate 21 Blood Pressure 228/98 H Pulse Oximetry 99 97 Oxygen Delivery Method 11/26/23 10:31 11/26/23 10:31 11/26/23 10:48 Temperature Pulse Rate 54 L Respiratory Rate 28 H Blood Pressure 235/100 H 239/106 H Pulse Oximetry 94 Oxygen Delivery Method 11/26/23 10:48 11/26/23 10:49 11/26/23 10:56 Temperature Pulse Rate 67 65 56 L Respiratory Rate 36 H 25 H Blood Pressure 239/106 H Pulse Oximetry 92 97 Oxygen Delivery Method 11/26/23 10:56 11/26/23 11:09 11/26/23 11:10 Temperature Pulse Rate 76 76 Respiratory Rate 30 H 22 Blood Pressure 231/97 H Pulse Oximetry 96 Oxygen Delivery Method 11/26/23 11:10 11/26/23 11:15 11/26/23 11:15 Temperature Pulse Rate 72 Respiratory Rate 19 Blood Pressure 195/90 H 195/90 H Pulse Oximetry 96 Oxygen Delivery Method 11/26/23 11:20 11/26/23 11:20 11/26/23 11:25 Temperature Pulse Rate 73 73 Respiratory Rate 19 Blood Pressure 179/88 H Pulse Oximetry 98 96 Oxygen Delivery Method 11/26/23 11:25 11/26/23 11:30 11/26/23 11:30 Temperature Pulse Rate 73 Respiratory Rate 24 Blood Pressure 192/89 H 178/85 H Pulse Oximetry 96 Oxygen Delivery Method Medical Decision Making Lab Data 11/26/23 09:47 11/26/23 09:47 Labs: Lab Results 11/26/23 11/26/23 Range/Units 09:47 10:01 WBC 10.7 (4.5-11.0) X10^3/uL RBC 3.80 L (4.5-5.9) X10^6/uL Hgb 11.7 L (13.5-17.5) g/dL Hct 34.3 L (41-53) % MCV 90.2 (80-100) fL MCH 30.8 (26-34) PG MCHC 34.1 (30-36) % RDW 14.1 (11.6-14.8) % Plt Count 361 (150-400) X10^3/uL Neut % (Auto) 71.3 (50-75) % Lymph % (Auto) 15.3 L (25-40) % [place] % (Auto) 10.1 (3-14) % Eos % (Auto) 2.4 (2-4) % Baso % (Auto) 0.9 (0-2) % Neut # (Auto) 7700 H (4999-0386) /uL Lymph # (Auto) 1600 (7921-9047) /uL [place] # (Auto) 1100 H (0-900) /uL Eos # (Auto) 300 (0-450) /uL Baso # (Auto) 100 (0-100) /uL PT 11.5 (9.4-12.5) SECONDS INR 1.0 (0.9-1.3) APTT 34 (25.1-36.5) SECONDS Sodium 134 L (137-145) mmol/L Potassium 4.1 (3.4-5.1) mmol/L Chloride 102 (98-107) mmol/L Carbon Dioxide 28 (22-32) mmol/L BUN 15 (9-20) mg/dL Creatinine 0.76 (0.66-1.25) mg/dL Estimated GFR > 60 (>60) mL/min BUN/Creatinine Ratio 19.7 (6-22) Glucose 99 (80-110) mg/dL Calcium 9.4 (8.4-10.2) mg/dL Magnesium 1.8 (1.6-2.3) mg/dL Total Bilirubin 1.0 (0.2-1.3) mg/dL AST 23 (17-59) IU/L ALT 21 (<50) IU/L Alkaline Phosphatase 73 (38-126) U/L Total Creatine Kinase 74 (55-170) U/L Troponin I < 0.012 (0.01-0.034) ng/mL Total Protein 6.7 (6.3-8.2) g/dL Albumin 4.0 (3.5-5.0) g/dL Globulin 2.7 (1.7-4.1) g/dL Albumin/Globulin Ratio 1.5 (1.0-2.8) Lipase 52 (23-300) U/L Urine Dip Bedside Urine Glucose Negative Bedside Urine Bilirubin - Negative Bedside Urine Ketone +/- 5 Urine Specific [place] 1.015 Bedside Urine Occult Blood - Negative Bedside Urine pH 6.0 Bedside Urine Protein - Negative Bedside Urine Urobilinogen - Negative Bedside Urine Nitrite - Negative Bedside Urine Leukocytes - Negative Esterase Point of care testing: Urine Dip Bedside Urine Glucose Negative Bedside Urine Bilirubin - Negative Bedside Urine Ketone +/- 5 Urine Specific [place] 1.015 Bedside Urine Occult Blood - Negative Bedside Urine pH 6.0 Bedside Urine Protein - Negative Bedside Urine Urobilinogen - Negative Bedside Urine Nitrite - Negative Bedside Urine Leukocytes - Negative Esterase Imaging Data CT scan - chest: My Impression: PROCEDURE: CT ANGIO CHEST INDICATIONS: chest pain TECHNIQUE: After the administration of intravenous contrast, 2 mm thick sections acquired from the pulmonary apices to the posterior costophrenic angles. 3-dimensional maximum intensity projection (MIP) coronal and sagittal reformats were then acquired through the thorax. For radiation dose reduction, the following was used: automated exposure control, adjustment of mA and/or kV according to patient size. COMPARISON: [facility], CT, CT ANGIO CHEST PE PROTOCOL, 11/13/2023, 19:52. FINDINGS: Image quality: Diagnostic. Pulmonary arteries: Pulmonary arteries are mildly prominent in size, and demonstrate no intraluminal filling defects to suggest central pulmonary embolism. Lower Neck: No enlarged lymph nodes. Thyroid: 2.7 cm hypodense nodule in inferior left thyroid lobe is again seen unchanged from prior study. Axillae: No enlarged lymph nodes. Chest Wall: Unremarkable. Bones: Unremarkable. Lungs and Pleura: No pneumothorax or pleural effusions. Ill-defined airspace opacity and ground-glass opacity in posterior and lateral periphery of bilateral lower lobes are seen slightly more prominent compared to 11/13/2023 study concerning for small bilateral lower lobe infiltrates. No suspicious pulmonary nodule. Central and peripheral airway is patent. Heart: Heart size is normal. No pericardial effusion. Thoracic Vessels: Borderline ascending thoracic aortic aneurysm measures up to 4.2 cm in largest AP diameter. No descending thoracic aortic aneurysm. Sxvx-am-[id number] coronary artery atherosclerotic calcifications are seen. Mediastinum and [place]: No enlarged lymph nodes. Esophagus: No wall thickening. No hiatal hernia. Upper Abdomen: Postsurgical changes are again seen in epigastric region. Visualized upper abdomen solid organs and bowel loops appear normal. IMPRESSION: 1. No pulmonary embolus. Borderline prominent size of main pulmonary artery which can be seen associated with mild pulmonary vascular hypertension. 2. Mild ascending thoracic aortic aneurysm measures up to 4.2 cm in largest AP diameter. No aortic dissection. 3. Scattered airspace opacities and ground-glass opacities in bilateral lower lobes increased compared to 11/13/2023 study concerning for small bibasilar infiltrates. No pleural effusion or pneumothorax. 4. No mediastinal or hilar lymphadenopathy by size criteria. [id number]-[id number] coronary artery atherosclerotic calcifications. Dictated by: Michael Coreas M.D. on 11/26/2023 at 11:14 Approved by: Michael Coreas M.D. on 11/26/2023 at 11:19 MDM Narrative Additional Information: Presenting again for thoracic back pain and chest pain. Already on Dilaudid, Toradol, tizanidine at home. Patient does seem to be quite uncomfortable on exam and is very hypertensive. He had a PE study performed 2 weeks ago, but now we will order aortic study to assess for dissection or other acute pathology. Pain improved with droperidol. Angio negative for dissection. A small 4.2 cm diameter ascending thoracic aneurysm was found. They report an increase of basilar airspace opacities, however patient has no leukocytosis, no left shift, no respiratory symptoms. I have low suspicion for infection at this time. Patient advised to continue to follow up with his primary doctor and to take his previously prescribed medications for pain. I will not be refilling Dilaudid at this time, particularly in light of multiple negative workups. Discharge Plan Departure Patient Disposition: Home Clinical Impression: Back pain, thoracic Instructions: DI for Thoracic Back Pain Activity Restrictions/Additional Instructions: Your laboratory work and CT imaging today was normal. I do not know the cause of your back pain, but I encourage you to continue to follow up with the specialist and your primary care doctor. Prescriptions: No Action triamcinolone acetonide 0.5 % ointment 1 applic topical BID Qty: 15 2RF gabapentin 300 mg capsule 600 mg PO BID PRN (Reason: for pain) Qty: 360 3RF hydromorphone [Dilaudid] 4 mg tablet 4 mg PO Q6H PRN (Reason: pain) Qty: 20 0RF ketorolac 10 mg tablet 10 mg PO Q6H PRN (Reason: pain) Qty: 20 0RF Rx Instructions: maximum total duration of 5 days from all oral, intranasal, or parenteral formulations tizanidine 2 mg capsule 2 mg PO TID PRN (Reason: muscle spasticity) Qty: 30 0RF aspirin 81 MG tablet,chewable 81 mg PO QDAY Qty: 0 diclofenac sodium [Voltaren] 1 % gel 1 ea topical PRN PRN (Reason: Pain (Scale Score 1-3)) Qty: 0 ibuprofen 200 MG capsule 200 mg PO Q4-6H PRN (Reason: Pain (Scale Score 1-3)) Qty: 0 cholecalciferol (vitamin D3) [Vitamin D3] 2,000 UNIT tablet 2,500 iu PO DAILY Qty: 0 multivitamin [Multiple Vitamins] 1 EACH tablet 1 tab PO DAILY Qty: 0 olopatadine 0.7 % drops 1 drop EYE-BOTH DAILY Qty: 2.5 0RF fexofenadine [Theresa Allergy] 180 mg tablet 180 mg PO DAILY fluticasone propionate 50 mcg/actuation spray,suspension See Rx Instructions .ROUTE .COMPLEX Qty: 1440 3RF Dose Instruction: USE 1 SPRAY NASALLY TWICE A DAY Rx Instructions: USE 1 SPRAY NASALLY TWICE A DAY (DME) disabled parking permit See Rx Instructions .ROUTE .MEDSUPPLY Qty: 1 0RF Rx Instructions: My patient cannot walk 200 feet without stopping to rest or must use assistive device. Walking is severely limited due to arthritic, neurological or orthopedic condition. Uses portable oxygen or walking restricted by lung disease tizanidine 4 mg tablet See Rx Instructions .ROUTE .COMPLEX Qty: 90 11RF Dose Instruction: TAKE 1 TABLET EVERY 6 TO 8 HOURS NEEDED FOR MUSCLE SPASTICITY, DO NOT EXCEED 3 DOSES PER 24 HOURS Rx Instructions: TAKE 1 TABLET EVERY 6 TO 8 HOURS NEEDED FOR MUSCLE SPASTICITY, DO NOT EXCEED 3 DOSES PER 24 HOURS hydrochlorothiazide 12.5 mg capsule See Rx Instructions .ROUTE .COMPLEX Qty: 90 3RF Dose Instruction: TAKE 1 CAPSULE DAILY Rx Instructions: TAKE 1 CAPSULE DAILY atorvastatin 40 mg tablet See Rx Instructions .ROUTE .COMPLEX Qty: 90 3RF Dose Instruction: TAKE 1 TABLET AT BEDTIME Rx Instructions: TAKE 1 TABLET AT BEDTIME albuterol sulfate 90 mcg/actuation HFA aerosol inhaler See Rx Instructions .ROUTE .COMPLEX Qty: 17 4RF Dose Instruction: USE 2 INHALATIONS EVERY 4 TO 6 HOURS NEEDED FOR SHORTNESS OF BREATHOR WHEEZING Rx Instructions: USE 2 INHALATIONS EVERY 4 TO 6 HOURS NEEDED FOR SHORTNESS OF BREATHOR WHEEZING benzonatate 200 mg capsule 200 mg PO BID-TID PRN (Reason: cough) Qty: 21 0RF cyclobenzaprine 10 mg tablet 10 mg PO TID PRN (Reason: muscle spasm) Qty: 25 0RF Hold Instructions: Home Medication placed on hold at Doctor's office oxycodone-acetaminophen [Percocet] 5-325 mg tablet 1 tab PO Q8H PRN (Reason: pain) Qty: 20 0RF hydrocodone-acetaminophen 5-325 mg Tablet 1 tab PO Q4HR PRN (Reason: Pain, Moderate (4-6)) Qty: 20 0RF hydrocodone-acetaminophen 5-325 mg tablet 1 tab PO Q6H PRN (Reason: pain) Qty: 14 0RF montelukast [Singulair] 10 mg tablet 10 mg PO DAILY Qty: 90 3RF Referrals: Vicky Whalen MD [Primary Care Provider] - Stand Alone Forms: Patient Portal/API
--- NOTE | 2023-11-26 09:48 | EKG_ITS ---
[place] [id number] [place] [id number] Test Date: 2023-11-26 Pat Name: Jasmeet Inman Department: [facility] Room: Gender: Male Program Director: FRANNY : 1945 Requested By: Order Number: [id number] Reading MD: Ang Gatica MD Measurements Intervals [place] Rate: 51 P: 15 GA: 158 QRS: -4 QRSD: 86 T: 41 QT: 434 QTc: 400 Interpretive Statements Sinus bradycardia Minimal voltage criteria for LVH, may be normal variant ( R in aVL ) Electronically Signed On 11-26-2023 11:48:57 PDT by Ang Gatica MD
[2023-11-26] MEDS: ASPIRIN 81 MG CHEW TAB 324 MG PO (09:51)
[2023-11-26 10:02] LABS: Add Manual Diff / Slide Review NO; Basophils Absolute Auto 100 /uL (0-100); Basophils Percent Auto 0.9 % (0-2); Eosinophils Absolute Auto 300 /uL (0-450); Eosinophils Percent Auto 2.4 % (2-4); Hematocrit 34.3 % (41-53); Hemoglobin 11.7 g/dL (13.5-17.5); Lymphocytes Absolute Auto 1600 /uL (1100-4500); Lymphocytes Percent Auto 15.3 % (25-40); Mean Corpuscular HGB Conc 34.1 % (30-36); Mean Corpuscular Hemoglobin 30.8 PG (26-34); Mean Corpuscular Volume 90.2 fL (80-100); Monocytes Absolute Auto 1100 /uL (0-900); Monocytes Percent Auto 10.1 % (3-14); Neutrophils Absolute Auto 7700 /uL (1500-7000); Neutrophils Percent Auto 71.3 % (50-75); Platelet Count 361 X10^3/uL (150-400); Red Cell Distribution Width 14.1 % (11.6-14.8); White Blood Cell Count 10.7 X10^3/uL (4.5-11.0)
--- NOTE | 2023-11-26 10:05 | PC.NURSE ---
Pt feels that pain is acute on chronic and feels it is muscular w/ no organ involvment. Pt states that his rx medicines for pain have not helped. Pt states pain woke him up at 3am.
[2023-11-26 10:14] LABS: Alanine Aminotransferase 21 IU/L (<50); Albumin Globulin Ratio 1.5 (1.0-2.8); Alkaline Phosphatase 73 U/L (38-126); Aspartate Aminotransferase 23 IU/L (17-59); BUN Creatinine Ratio 19.7 (6-22); Blood Urea Nitrogen 15 mg/dL (9-20); Calcium 9.4 mg/dL (8.4-10.2); Carbon Dioxide 28 mmol/L (22-32); Chloride 102 mmol/L (98-107); Creatine Kinase 74 U/L (55-170); Estimated Glomerular Filt Rate > 60 mL/min (>60); Globulin 2.7 g/dL (1.7-4.1); Glucose 99 mg/dL (80-110); HEMOLYSIS < 15 (0-50); Lipase 52 U/L (23-300); Magnesium 1.8 mg/dL (1.6-2.3); Potassium 4.1 mmol/L (3.4-5.1); Sodium 134 mmol/L (137-145); Total Protein 6.7 g/dL (6.3-8.2)
[2023-11-26 10:16] LABS: Prothrombin Time 11.5 SECONDS (9.4-12.5)
[2023-11-26 10:18] LABS: PTT Partial Thromboplastin Tim 34 SECONDS (25.1-36.5)
[2023-11-26 10:26] LABS: Troponin I < 0.012 ng/mL (0.01-0.034)
[2023-11-26] MEDS: HYDRALAZINE 20 MG/ML VIAL 10 MG IV (10:49)
[2023-11-26] MEDS: DROPERIDOL 5 MG/2 ML VIAL 2.5 MG IV (11:54)
== END 2023-11-26 12:25 | disposition home or self-care (01) ==
PROVIDERS: Emergency Provider Emergency Medicine; PCP Family Medicine
DX: M54.6 Pain in thoracic spine (principal)
CPT/HCPCS: 71275; 80053; 81003; 82550; 83690; 83735; 84484; 85025; 85610; 85730; 93005; 93010; 96374; 96375; 99284; J0360; J1790; Q9967

== ENCOUNTER → 2023-11-29 07:01 | Outpatient (CLI) | payer MEDICARE, OTHER, SELFPAY ==
[2022-06-13 20:21] VITALS: BMI 43.7
--- NOTE | 2023-11-29 07:03 | DI.US.S_ITS ---
PROCEDURE: US THYROID INDICATIONS: nodules TECHNIQUE: Real-time scanning was performed of the thyroid gland, with image documentation. COMPARISON: None. FINDINGS: Thyroid: Right lobe measures 3.4 x 1.3 x 1.5 cm. Left lobe measures 5.0 x 2.5 x 2.1 cm. Isthmus is 0.5 cm thick. Echotexture is homogeneous. Nodule number: 1 Location: Right mid Size: 1.1 x 0.9 x 1.1 cm. Composition: Solid Echogenicity: Hypoechoic Shape: wider than tall. Margins: Smear Echogenic foci: None Total points: 4 ACR TI-RADS category: 4 Nodule number: 2 Location: Left inferior Size: 1.9 x 2.0 x 1.6 cm. Composition: Solid Echogenicity: Hypoechoic Shape: wider than tall. Margins: Smooth Echogenic foci: None Total points: 4 ACR TI-RADS category: 4 IMPRESSION: Lesions 1 and 2 are considered category 4. Lesion 2 meets the criteria for FNA. Lesion 1 recommend follow-up at 1, 2, 3 and 5 years. ACR TI-RADS definitions and recommendations: TI-RADS 1 (benign): 0 points. FNA not needed. TI-RADS 2 (not suspicious): 2 points. FNA not needed. TI-RADS 3 (mildly suspicious): 3 points. * FNA if 2.5 cm or larger, follow up if 1.5 cm or larger (at 1, 3, and 5 years). TI-RADS 4 (moderately suspicious): 4-6 points. * FNA if 1.5 cm or larger, follow up if 1 cm or larger (at 1, 2, 3, and 5 years). TI-RADS 5 (highly suspicious): 7 points or more. * FNA if 1 cm or larger, follow up if 0.5 cm or larger (every year for 5 years). Dictated by: Arielle Mcallister M.D. on 11/29/2023 at 11:48 Approved by: Arielle Mcallister M.D. on 11/29/2023 at 11:50
--- NOTE | 2023-11-29 07:03 | DI.RAD.S_ITS ---
PROCEDURE: XR THORACIC SPINE 3V INDICATIONS: RIB PAIN TECHNIQUE: 3 views of the thoracic spine were acquired. COMPARISON: None. FINDINGS: Bones: No fractures or dislocations. No suspicious bony lesions. There is mild, diffuse intervertebral disc space narrowing and osteophytosis. 12 pairs of ribs are noted, and appear intact where visualized. Soft tissues: No paravertebral stripe thickening. Multiple surgical sutures are visualized throughout the upper abdomen. IMPRESSION: No acute bony abnormality. Degenerative change of the thoracic spine. Dictated by: Suzanna Alcantara M.D. on 11/29/2023 at 8:21 Approved by: Suzanna Alcantara M.D. on 11/29/2023 at 8:22
== END ==
PROVIDERS: PCP Family Medicine; Referring Provider Family Medicine; Visit Provider Family Medicine
DX: E04.2 Nontoxic multinodular goiter (principal); M47.814 Spondylosis without myelopathy or radiculopathy, thoracic region; R07.89 Other chest pain; M54.6 Pain in thoracic spine
CPT/HCPCS: 72072; 76536; 99214

== ENCOUNTER → 2023-12-03 11:48 | Outpatient (CLI) | payer MEDICARE, OTHER, SELFPAY ==
[2022-06-13 20:21] VITALS: BMI 43.7
--- NOTE | 2023-12-03 11:50 | DI.MRI.S_ITS ---
PROCEDURE: MR LUMBAR SPINE WO CON INDICATIONS: Thoracic back pain, bilateral leg weakness TECHNIQUE: Noncontrast sagittal T1 spin echo and T2 fast echo, sagittal STIR, and T2 fast spin echo through the lumbar spine. In cases with scoliosis, additional coronal T2 fast spin echo may be performed. COMPARISON: None. FINDINGS: Image quality: Excellent. Alignment and Curvature: There is minimal retrolisthesis seen at L2-L3 and L3-L4. Bone Marrow: Marrow is of normal overall signal. Scattered foci are seen, which are hyperintense on T1-weighted and T2-weighted imaging, which are most consistent with benign vertebral body hemangiomas. No acute vertebral body compression fractures. Spinal Cord: Conus medullaris terminates at the L1 level. Visualized cord demonstrates normal signal and size. Paraspinous Soft Tissues: No paravertebral masses. T12-L1: Moderate loss of disc height is seen. Loss of disc signal is seen. Mild generalized disc bulge is seen. There is a superimposed central disc protrusion. No neural foraminal narrowing is seen. Minimal central canal narrowing is seen. L1-L2: Mild loss of disc height is seen. Loss of disc signal is seen. Mild generalized disc bulge is seen. Mild facet joint hypertrophy is seen. Mild bilateral neural foraminal narrowing is seen. Minimal central canal narrowing is seen. L2-L3: Pjvd-um-qjxzpyox loss of disc height and disc signal can be seen. Moderate generalized disc bulge is seen. There is a superimposed central disc protrusion. Mild facet joint hypertrophy is seen. Moderate bilateral neural foraminal narrowing is seen. Moderate central canal narrowing is seen. L3-L4: The disc height is well-preserved. Loss of disc signal is seen at this level. Mild to moderate disc bulge is seen, with a central disc protrusion. Moderate bilateral neural foraminal narrowing is seen. Moderate central canal narrowing is seen. L4-L5: The disc height is well-preserved. Loss of disc signal is seen at this level. Moderate generalized disc bulge is seen. There is a superimposed central disc protrusion. Moderate facet joint hypertrophy is seen. There is moderate to severe bilateral neural foraminal narrowing seen, with an associated degree of compression seen upon the exiting nerve roots. Moderate to severe central canal narrowing is seen, as on series 8, image 25. L5-S1: The disc height and disk signal are relatively well-preserved. Mild generalized disc bulge is seen. There is mild right-sided and sego-lr-smhvzhvs left-sided facet hypertrophy. Sjyk-zv-zuiofbiu bilateral neural foraminal narrowing is seen. No central canal narrowing is seen. IMPRESSION: Multiple levels of lumbar spine degenerative change can be seen, which are worst at the L4-L5 level. Dictated by: Bernard Okeefe M.D. on 12/03/2023 at 13:03 Approved by: Bernard Okeefe M.D. on 12/03/2023 at 13:06
--- NOTE | 2023-12-03 11:50 | DI.MRI.S_ITS ---
PROCEDURE: MR THORACIC SPINE WO CON INDICATIONS: Thoracic back pain, bilateral leg weakness TECHNIQUE: Noncontrast sagittal T1 spine echo and T2 fast spin echo, sagittal STIR, and T2 fast spin echo through the thoracic spine. COMPARISON: [facility], US, US THYROID, 11/29/2023, 7:27. [facility], CT, CT ANGIO CHEST, 11/26/2023, 10:44. [facility], MR, MR LUMBAR SPINE WO CON, 12/03/2023, 12:26. FINDINGS: Image quality: Excellent. Alignment and Curvature: Mild dextroconvex scoliotic curvature is seen. Accentuated thoracic kyphosis is seen. No focal AP alignment abnormality is seen. Bone Marrow: Marrow is of normal overall signal. Scattered foci are seen, which are hyperintense on T1-weighted and T2-weighted imaging, which are most consistent with benign vertebral body hemangiomas. No acute vertebral body compression fractures. Spinal Cord: Visualized spinal cord is normal in size and signal. Paraspinous Soft Tissues: A 2 cm left thyroid nodule is noted, as on series 9, image 8. Miscellaneous: A few levels of mild neural foraminal narrowing can be seen inferiorly. No central canal narrowing is seen. IMPRESSION: Thoracic spine MRI within normal limits for age. Additional findings: Left thyroid nodule again seen. Dictated by: Bernard Okeefe M.D. on 12/03/2023 at 13:00 Approved by: Bernard Okeefe M.D. on 12/03/2023 at 13:03
== END ==
LOC: MRI 11:49
PROVIDERS: PCP Family Medicine; Referring Provider Anesthesiology; Visit Provider Anesthesiology
DX: M47.24 Other spondylosis with radiculopathy, thoracic region (principal); M47.26 Other spondylosis with radiculopathy, lumbar region; M47.27 Other spondylosis with radiculopathy, lumbosacral region; M54.6 Pain in thoracic spine; R29.898 Other symptoms and signs involving the musculoskeletal system; E04.1 Nontoxic single thyroid nodule
CPT/HCPCS: 72146; 72148

== ENCOUNTER 2023-12-09 15:09 | Emergency (ER) | payer MEDICARE, OTHER, SELFPAY ==
[2022-06-13 20:21] VITALS: BMI 43.7
--- NOTE | 2023-12-09 15:14 | PC.NURSE ---
EMS reports that patient has back pain and wraps around the thoracic. Started a few months ago after URI. Patient has been seen several times and was prescribed hydromorphone last week. Patient switched back to oxycodone 3 days ago and patient reports that he has increased pain over the past two days since the switch.
[2023-12-09 15:26] VITALS: BP 131/69; PULSE 71; RESP 28; TEMP 36.8; O2SAT 99; BMI 34.0
[2023-12-09 16:24] VITALS: BP 184/87; PULSE 66; RESP 18; O2SAT 99
[2023-12-09] MEDS: KETOROLAC 30 MG/ML VIAL IM (17:34)
[2023-12-09] MEDS: HYDROMORPHONE 1 MG INJ IM (17:35)
--- NOTE | 2023-12-09 20:24 | PC.NURSE ---
Patient concerned about being prescribed pain medication. Patient states someone told me I would leave soon and no one has told me about my prescriptions. I'm worried my pain will come back and my doctor wont prescribe me anything without seeing me. Patient explained that MD has not seen him yet and will have a plan of care upon assessment. Patient verbalizes understanding and states at this time will stay for evaluation.
[2023-12-09 21:00] VITALS: BP 179/86; PULSE 60; RESP 16; O2SAT 97
--- NOTE | 2023-12-09 22:19 | ED_ITS ---
HPI - Back Pain/Injury General Chief Complaint: Back Pain/Injury Stated Complaint: Back Pain Time Seen by Provider: 12/09/23 17:24 Source: EMS History of Present Illness HPI Narrative: 78-year-old male with chronic right-sided low back pain requesting pain medicat ion, had previously been prescribed Dilaudid and Percocet an outpatient basis, requests opiate analgesic medication refills by brand name, not currently using any muscle relaxant, although he feels that muscle relaxants have helped in the past. Denies dysuria frequency, denies flank area discomfort, denies dark urine. No nausea or vomiting. No weakness to either leg. No incontinence urine or stool. Related Data Home Medications Medication Instructions Recorded Confirmed aspirin 81 mg chewable tablet 81 mg PO QDAY ##0 05/19/17 12/07/23 cholecalciferol (vitamin D3) 50 2,500 iu PO DAILY ##0 05/19/17 12/07/23 mcg (2,000 unit) tablet (Vitamin D3) diclofenac sodium 1 % topical gel 1 ea topical PRN PRN Pain (Scale 05/19/17 12/07/23 (Voltaren) Score 1-3) ##0 ibuprofen 200 mg capsule 200 mg PO Q4-6H PRN Pain (Scale 05/19/17 12/07/23 Score 1-3) ##0 multivitamin (Multiple Vitamins 1 tab PO DAILY ##0 05/19/17 12/07/23 tablet) fexofenadine 180 mg tablet 180 mg PO DAILY 05/24/20 12/07/23 (Theresa Allergy) Previous Rx's Medication Instructions Recorded olopatadine 0.7 % eye drops 1 drop EYE-BOTH DAILY #2.5 mL 11/27/19 fluticasone propionate 50 See Rx Instructions .Route 10/23/20 mcg/actuation nasal .COMPLEX #1,440 grams spray,suspension disabled parking permit #1 ea 06/03/21 hydrocodone 5 mg-acetaminophen 325 1 tab PO Q4HR PRN Pain, Moderate 06/26/22 mg tablet (4-6) #20 tabs hydrochlorothiazide 12.5 mg capsule See Rx Instructions .Route 12/17/22 .COMPLEX #90 caps tizanidine 4 mg tablet See Rx Instructions .Route 12/17/22 .COMPLEX #90 tabs montelukast 10 mg tablet 10 mg PO DAILY #90 tabs 01/15/23 (Singulair) atorvastatin 40 mg tablet See Rx Instructions .Route 04/13/23 .COMPLEX #90 tabs triamcinolone acetonide 0.5 % 1 applic topical BID #15 grams 06/02/23 topical ointment albuterol sulfate 90 mcg/actuation See Rx Instructions .Route 06/15/23 aerosol inhaler .COMPLEX #17 grams gabapentin 300 mg capsule 600 mg (2 x 300 mg) PO BID PRN for 09/21/23 pain #360 caps benzonatate 200 mg capsule 200 mg PO BID-TID PRN cough #21 10/29/23 caps hydrocodone 5 mg-acetaminophen 325 1 tab PO Q6H PRN pain #14 tabs 11/09/23 mg tablet cyclobenzaprine 10 mg tablet 10 mg PO TID PRN muscle spasm #25 11/13/23 tabs hydromorphone 4 mg tablet 4 mg PO Q6H PRN pain #20 tabs 11/22/23 (Dilaudid) ketorolac 10 mg tablet 10 mg PO Q6H PRN pain #20 tabs 11/22/23 duloxetine 30 mg capsule,delayed 30 mg PO DAILY #30 caps 11/29/23 release (Cymbalta) oxycodone-acetaminophen 5 mg-325 1 tab PO Q8H PRN pain #20 tabs 11/30/23 mg tablet (Percocet) tizanidine 2 mg capsule 2 mg PO TID PRN muscle spasticity 12/07/23 #30 caps cyclobenzaprine 10 mg tablet 10 mg PO TID #30 tabs 12/09/23 Allergies Allergy/AdvReac Type Severity Reaction Status Date / Time Penicillins [PENICILLINS] Allergy Intermediate rash, Verified 12/09/23 15:29 blows up Patient History Medical History (Updated 12/09/23 @ 22:23 by Nathan Bess MD) Intercostal neuralgia Thoracic spondylosis Leg weakness Thoracic radiculopathy BPPV (benign paroxysmal positional vertigo) Hyperlipidemia Essential hypertension Measles Gastric ulcer (~1969) Colon polyps (~1994) Chronic pain Asthma (~1999) Seasonal allergies (~1987) Shoulder pain (~2011) Foot pain Chronic back pain (~2011) Mumps Chicken pox Tinnitus Retinal detachment Cataracts, bilateral (~2017) Surgical History Anesthesia History of cataract removal with insertion of prosthetic lens History of appendectomy (~1953) History of gastric bypass (~1977) Family History Grandmother Stroke Father High cholesterol Mother Breast cancer Sister Hyperlipidemia Grandmother No problems noted. Grandfather No problems noted. Social History marital status: number of children: 0 household members: spouse lives independently: Yes caregiver/support person: No housing: house education level: college occupational status: employed Smoking Status: Never smoker second hand exposure: No alcohol intake: current substance use type: does not use Smoking Status: Never smoker alcohol intake frequency: 0-2 drinks per day Substance Use Type: does not use Exam Narrative Exam Narrative: GENERAL:Well-developed patient, in mild distress. HEAD: Atraumatic. Normocephalic. EYES: Pupils equal round and reactive. Extraocular motions intact. No scleral icterus. No injection or drainage. ENT: Nose without bleeding, purulent drainage. Throat without erythema, tonsillar hypertrophy or exudate. Airway patent. NECK: Trachea midline. Non tender CARDIOVASCULAR: Regular rate and rhythm without murmurs, gallops, or rubs. RESPIRATORY: Clear to auscultation. Breath sounds equal bilaterally. No wheezes, rales, or rhonchi. GASTROINTESTINAL: Abdomen soft, non-tender, nondistended. EXTREMITIES: No edema or joint tenderness. BACK: Nontender without deformity or crepitance. No flank tenderness. Patient seems to flinch before even any subtle contact to his skin in the right lower back NEURO: AOx3. Straight leg raise in seated position however done without much discomfort SKIN: No rash or erythema of visible areas Initial Vital Signs Initial Vital Signs: Vital Signs Temperature 98.3 F 12/09/23 15:26 Pulse Rate 71 12/09/23 15:26 Respiratory Rate 28 H 12/09/23 15:26 Blood Pressure 131/69 12/09/23 15:26 Pulse Oximetry 99 12/09/23 15:26 Oxygen Delivery Method Room Air 12/09/23 15:26 Course Orders Ordered: Discontinued Medications Cyclobenzaprine HCl (Cyclobenzaprine 10 Mg Tablet) 10 mg PO NOW ONE Stop: 12/09/23 22:25 Last Admin: 12/09/23 22:31 Dose: 10 mg Documented By: ANGELINA Cyclobenzaprine HCl (Cyclobenzaprine 10 Mg Prepack) 1 bottle MISC DIRECTED ONE Stop: 12/09/23 22:25 Last Admin: 12/09/23 22:32 Dose: 1 bottle Documented By: ANGELINA Hydromorphone HCl (Hydromorphone 1 Mg Inj) 1 mg IM NOW ONE Stop: 12/09/23 17:26 Last Admin: 12/09/23 17:35 Dose: 1 mg Documented By: SKYLER Ketorolac Tromethamine (Ketorolac 30 Mg/Ml Vial) 30 mg IM NOW ONE Stop: 12/09/23 17:26 Last Admin: 12/09/23 17:34 Dose: 30 mg Documented By: SKYLER Vital Signs Vital signs: Vital Signs - 8 hr 12/09/23 23:06 Pulse Rate 60 Respiratory Rate 16 Blood Pressure 154/72 H Pulse Oximetry 97 Oxygen Delivery Method Room Air MDM - Back Pain/Injury MDM Narrative Medical decision making narrative: 78-year-old male with ongoing low back pain, requesting opiate pain medication, previously prescribed Dilaudid orally, previously prescribed Percocet orally, apparently not prescribed by his PCP. He has had response reported to muscle relaxants in the past, and willing to try a muscle relaxant. Oral cyclobenzaprine. Prescription sent to his pharmacy for further cyclobenzaprine. Follow up with his PCP advised Discharge Plan Departure Patient Disposition: Home Clinical Impression: Chronic back pain Activity Restrictions/Additional Instructions: Ongoing low back pain, no obvious neuro deficits on exam tonight, initial respo nse to Dilaudid and Toradol doses. Trial of muscle relaxant, which has been helpful before, oral cyclobenzaprine/Flexeril dose in the emergency department, home pack, also prescription sent to your pharmacy. Recheck with your regular primary care physician on Wednesday. Return to this/nearest emergency department for any change worsening symptoms or any concerns prior Prescriptions: New cyclobenzaprine 10 mg tablet 10 mg PO TID Qty: 30 0RF No Action triamcinolone acetonide 0.5 % ointment 1 applic topical BID Qty: 15 2RF gabapentin 300 mg capsule 600 mg PO BID PRN (Reason: for pain) Qty: 360 3RF hydromorphone [Dilaudid] 4 mg tablet 4 mg PO Q6H PRN (Reason: pain) Qty: 20 0RF ketorolac 10 mg tablet 10 mg PO Q6H PRN (Reason: pain) Qty: 20 0RF Rx Instructions: maximum total duration of 5 days from all oral, intranasal, or parenteral formulations aspirin 81 MG tablet,chewable 81 mg PO QDAY Qty: 0 diclofenac sodium [Voltaren] 1 % gel 1 ea topical PRN PRN (Reason: Pain (Scale Score 1-3)) Qty: 0 ibuprofen 200 MG capsule 200 mg PO Q4-6H PRN (Reason: Pain (Scale Score 1-3)) Qty: 0 cholecalciferol (vitamin D3) [Vitamin D3] 2,000 UNIT tablet 2,500 iu PO DAILY Qty: 0 multivitamin [Multiple Vitamins] 1 EACH tablet 1 tab PO DAILY Qty: 0 olopatadine 0.7 % drops 1 drop EYE-BOTH DAILY Qty: 2.5 0RF fexofenadine [Theresa Allergy] 180 mg tablet 180 mg PO DAILY fluticasone propionate 50 mcg/actuation spray,suspension See Rx Instructions .ROUTE .COMPLEX Qty: 1440 3RF Dose Instruction: USE 1 SPRAY NASALLY TWICE A DAY Rx Instructions: USE 1 SPRAY NASALLY TWICE A DAY (DME) disabled parking permit See Rx Instructions .ROUTE .MEDSUPPLY Qty: 1 0RF Rx Instructions: My patient cannot walk 200 feet without stopping to rest or must use assistive device. Walking is severely limited due to arthritic, neurological or orthopedic condition. Uses portable oxygen or walking restricted by lung disease tizanidine 4 mg tablet See Rx Instructions .ROUTE .COMPLEX Qty: 90 11RF Dose Instruction: TAKE 1 TABLET EVERY 6 TO 8 HOURS NEEDED FOR MUSCLE SPASTICITY, DO NOT EXCEED 3 DOSES PER 24 HOURS Rx Instructions: TAKE 1 TABLET EVERY 6 TO 8 HOURS NEEDED FOR MUSCLE SPASTICITY, DO NOT EXCEED 3 DOSES PER 24 HOURS hydrochlorothiazide 12.5 mg capsule See Rx Instructions .ROUTE .COMPLEX Qty: 90 3RF Dose Instruction: TAKE 1 CAPSULE DAILY Rx Instructions: TAKE 1 CAPSULE DAILY atorvastatin 40 mg tablet See Rx Instructions .ROUTE .COMPLEX Qty: 90 3RF Dose Instruction: TAKE 1 TABLET AT BEDTIME Rx Instructions: TAKE 1 TABLET AT BEDTIME albuterol sulfate 90 mcg/actuation HFA aerosol inhaler See Rx Instructions .ROUTE .COMPLEX Qty: 17 4RF Dose Instruction: USE 2 INHALATIONS EVERY 4 TO 6 HOURS NEEDED FOR SHORTNESS OF BREATHOR WHEEZING Rx Instructions: USE 2 INHALATIONS EVERY 4 TO 6 HOURS NEEDED FOR SHORTNESS OF BREATHOR WHEEZING benzonatate 200 mg capsule 200 mg PO BID-TID PRN (Reason: cough) Qty: 21 0RF oxycodone-acetaminophen [Percocet] 5-325 mg tablet 1 tab PO Q8H PRN (Reason: pain) Qty: 20 0RF tizanidine 2 mg capsule 2 mg PO TID PRN (Reason: muscle spasticity) Qty: 30 0RF cyclobenzaprine 10 mg tablet 10 mg PO TID PRN (Reason: muscle spasm) Qty: 25 0RF Hold Instructions: Home Medication placed on hold at Doctor's office hydrocodone-acetaminophen 5-325 mg Tablet 1 tab PO Q4HR PRN (Reason: Pain, Moderate (4-6)) Qty: 20 0RF hydrocodone-acetaminophen 5-325 mg tablet 1 tab PO Q6H PRN (Reason: pain) Qty: 14 0RF duloxetine [Cymbalta] 30 mg capsule,delayed release(DR/EC) 30 mg PO DAILY MDD 2 Qty: 30 3RF montelukast [Singulair] 10 mg tablet 10 mg PO DAILY Qty: 90 3RF Referrals: Vicky Whalen MD [Primary Care Provider] - Stand Alone Forms: Patient Portal/API
[2023-12-09] MEDS: CYCLOBENZAPRINE 10 MG TABLET PO (22:31)
[2023-12-09] MEDS: CYCLOBENZAPRINE 10 MG PREPACK 1 BOTTLE MISC (22:32)
[2023-12-09 23:06] VITALS: BP 154/72; PULSE 60; RESP 16; O2SAT 97
== END 2023-12-09 23:07 | disposition home or self-care (01) ==
PROVIDERS: Emergency Provider Emergency Medicine; PCP Family Medicine
DX: M54.50 Low back pain, unspecified (principal); G89.29 Other chronic pain
CPT/HCPCS: 96372; 99283; J1170; J1885

== ENCOUNTER 2023-12-10 14:28 | Emergency (ER) | payer MEDICARE, OTHER, SELFPAY ==
[2022-06-13 20:21] VITALS: BMI 43.7
[2023-12-10 14:45] VITALS: BP 204/86; PULSE 60; RESP 16; TEMP 36.8; O2SAT 99; BMI 34.0
--- NOTE | 2023-12-10 14:49 | ED.BACK ---
HPI - Back Pain/Injury <Karen Garcia PA-C - Last Filed: 12/10/23 15:42> General Chief Complaint: Back Pain/Injury Stated Complaint: back pain sent by Dr Whalen Time Seen by Provider: 12/10/23 14:45 Source: patient, RN notes reviewed, old records reviewed and other History of Present Illness HPI Narrative: This is a 78-year-old male with chronic thoracic back pain who presents sent by PCP with concern for persistent acute on chronic back pain and spasming needing pain medications not available to be administered in clinic. Per PCP patient may need IM Dilaudid and Toradol, this usually helps to resolve his pain and back spasming symptoms. Patient states his pain feels the same as it always does when he has an exacerbation he was actually in his ER last night but states he did not get his pain treated and only got a muscle relaxer. He states he has pain up high in the middle of his back and get spasms that cause the pain to wrap around underneath his ribs on both sides towards his sternum. He denies any new or different symptoms from his typical back pains. He states he has a lot of grab bars in the house to get around and does occasionally use a cane at home. He has family who will pick him up and bring him home today. Related Data Home Medications Medication Instructions Recorded Confirmed aspirin 81 mg chewable tablet 81 mg PO QDAY ##0 05/19/17 12/07/23 cholecalciferol (vitamin D3) 50 2,500 iu PO DAILY ##0 05/19/17 12/07/23 mcg (2,000 unit) tablet (Vitamin D3) diclofenac sodium 1 % topical gel 1 ea topical PRN PRN Pain (Scale 05/19/17 12/07/23 (Voltaren) Score 1-3) ##0 ibuprofen 200 mg capsule 200 mg PO Q4-6H PRN Pain (Scale 05/19/17 12/07/23 Score 1-3) ##0 multivitamin (Multiple Vitamins 1 tab PO DAILY ##0 05/19/17 12/07/23 tablet) fexofenadine 180 mg tablet 180 mg PO DAILY 05/24/20 12/07/23 (Theresa Allergy) Previous Rx's Medication Instructions Recorded olopatadine 0.7 % eye drops 1 drop EYE-BOTH DAILY #2.5 mL 11/27/19 fluticasone propionate 50 See Rx Instructions .Route 10/23/20 mcg/actuation nasal .COMPLEX #1,440 grams spray,suspension disabled parking permit #1 ea 06/03/21 hydrocodone 5 mg-acetaminophen 325 1 tab PO Q4HR PRN Pain, Moderate 06/26/22 mg tablet (4-6) #20 tabs hydrochlorothiazide 12.5 mg capsule See Rx Instructions .Route 12/17/22 .COMPLEX #90 caps tizanidine 4 mg tablet See Rx Instructions .Route 12/17/22 .COMPLEX #90 tabs montelukast 10 mg tablet 10 mg PO DAILY #90 tabs 01/15/23 (Singulair) atorvastatin 40 mg tablet See Rx Instructions .Route 04/13/23 .COMPLEX #90 tabs triamcinolone acetonide 0.5 % 1 applic topical BID #15 grams 06/02/23 topical ointment albuterol sulfate 90 mcg/actuation See Rx Instructions .Route 06/15/23 aerosol inhaler .COMPLEX #17 grams gabapentin 300 mg capsule 600 mg (2 x 300 mg) PO BID PRN for 09/21/23 pain #360 caps benzonatate 200 mg capsule 200 mg PO BID-TID PRN cough #21 10/29/23 caps hydrocodone 5 mg-acetaminophen 325 1 tab PO Q6H PRN pain #14 tabs 11/09/23 mg tablet cyclobenzaprine 10 mg tablet 10 mg PO TID PRN muscle spasm #25 11/13/23 tabs ketorolac 10 mg tablet 10 mg PO Q6H PRN pain #20 tabs 11/22/23 duloxetine 30 mg capsule,delayed 30 mg PO DAILY #30 caps 11/29/23 release (Cymbalta) oxycodone-acetaminophen 5 mg-325 1 tab PO Q8H PRN pain #20 tabs 11/30/23 mg tablet (Percocet) tizanidine 2 mg capsule 2 mg PO TID PRN muscle spasticity 12/07/23 #30 caps cyclobenzaprine 10 mg tablet 10 mg PO TID #30 tabs 12/10/23 hydromorphone 4 mg tablet 4 mg PO Q6H PRN pain #30 tabs 12/10/23 (Dilaudid) Allergies Allergy/AdvReac Type Severity Reaction Status Date / Time Penicillins [PENICILLINS] Allergy Intermediate rash, Verified 12/09/23 15:29 blows up Review of Systems <Karen Garcia PA-C - Last Filed: 12/10/23 15:42> Review of Systems Narrative: See HPI Patient History <Karen Garcia PA-C - Last Filed: 12/10/23 15:42> Medical History Intercostal neuralgia Thoracic spondylosis Leg weakness Thoracic radiculopathy BPPV (benign paroxysmal positional vertigo) Hyperlipidemia Essential hypertension Measles Gastric ulcer (~1969) Colon polyps (~1994) Chronic pain Asthma (~1999) Seasonal allergies (~1987) Shoulder pain (~2011) Foot pain Chronic back pain (~2011) Mumps Chicken pox Tinnitus Retinal detachment Cataracts, bilateral (~2017) Surgical History Anesthesia History of cataract removal with insertion of prosthetic lens History of appendectomy (~1953) History of gastric bypass (~1977) Family History Grandmother Stroke Father High cholesterol Mother Breast cancer Sister Hyperlipidemia Grandmother No problems noted. Grandfather No problems noted. Social History marital status: number of children: 0 household members: spouse lives independently: Yes caregiver/support person: No housing: house education level: college occupational status: employed Smoking Status: Never smoker second hand exposure: No alcohol intake: current substance use type: does not use Smoking Status: Never smoker alcohol intake frequency: 0-2 drinks per day Substance Use Type: does not use Exam <Karen Garcia PA-C - Last Filed: 12/10/23 15:42> Narrative Exam Narrative: GENERAL: 78 year old patient appears stated age. Well-developed patient, in mild distress. HEAD: Atraumatic. Normocephalic. EYES: Pupils equal round and reactive. Extraocular motions intact. No scleral icterus. No injection or drainage. ENT: Nose without bleeding, purulent drainage. Airway patent. NECK: Trachea midline. Non tender CARDIOVASCULAR: Regular rate and rhythm without murmurs, gallops, or rubs. RESPIRATORY: Clear to auscultation. Breath sounds equal bilaterally. No wheezes, rales, or rhonchi. GASTROINTESTINAL: Abdomen soft, non-tender, nondistended. EXTREMITIES: No edema or joint tenderness. BACK: There is midline spinous process tenderness and paraspinal tenderness with tight muscles at proximally T 4 through 6. Otherwise Nontender without deformity or crepitance. No flank tenderness. NEURO: AOx3. SKIN: No rash or erythema of visible areas Initial Vital Signs Initial Vital Signs: Vital Signs Temperature 98.3 F 12/10/23 14:45 Pulse Rate 60 12/10/23 14:45 Respiratory Rate 16 12/10/23 14:45 Blood Pressure 204/86 H 12/10/23 14:45 Pulse Oximetry 99 12/10/23 14:45 Oxygen Delivery Method Room Air 12/10/23 14:45 <Ricardo Barry DO - Last Filed: 12/10/23 16:44> Initial Vital Signs Initial Vital Signs: Vital Signs Temperature 98.3 F 12/10/23 14:45 Pulse Rate 60 12/10/23 14:45 Respiratory Rate 16 12/10/23 14:45 Blood Pressure 204/86 H 12/10/23 14:45 Pulse Oximetry 99 12/10/23 14:45 Oxygen Delivery Method Room Air 12/10/23 14:45 Course <Karen Garcia PA-C - Last Filed: 12/10/23 15:42> Orders Ordered: Discontinued Medications Hydromorphone HCl (Hydromorphone 1 Mg Inj) 1 mg IM NOW ONE Stop: 12/10/23 14:48 Last Admin: 12/10/23 14:57 Dose: 1 mg Documented By: VIPIN Ketorolac Tromethamine (Ketorolac 30 Mg/Ml Vial) 30 mg IM NOW ONE Stop: 12/10/23 14:48 Last Admin: 12/10/23 14:59 Dose: 30 mg Documented By: VIPIN Vital Signs Vital signs: Vital Signs - 8 hr 12/10/23 14:45 Temperature 98.3 F Pulse Rate 60 Respiratory Rate 16 Blood Pressure 204/86 H Pulse Oximetry 99 Oxygen Delivery Method Room Air <DO Stacia Flores Last Filed: 12/10/23 16:44> Orders Ordered: Discontinued Medications Hydromorphone HCl (Hydromorphone 1 Mg Inj) 1 mg IM NOW ONE Stop: 12/10/23 14:48 Last Admin: 12/10/23 14:57 Dose: 1 mg Documented By: VIPIN Ketorolac Tromethamine (Ketorolac 30 Mg/Ml Vial) 30 mg IM NOW ONE Stop: 12/10/23 14:48 Last Admin: 12/10/23 14:59 Dose: 30 mg Documented By: VIPIN Vital Signs Vital signs: Vital Signs - 8 hr 12/10/23 14:45 Temperature 98.3 F Pulse Rate 60 Respiratory Rate 16 Blood Pressure 204/86 H Pulse Oximetry 99 Oxygen Delivery Method Room Air MDM - Back Pain/Injury <Karen Garcia PA-C - Last Filed: 12/10/23 15:42> Differential Diagnosis Differential diagnosis: Likely lumbar radiculopathy, sciatica, thoracic back pain and other (Acute on chronic back pain, muscle spasm) MDM Narrative Medical decision making narrative: 78-year-old male with chronic back pain thoracic spondylosis radiculopathy and muscle spasms who presents with concern for acute worsening of his chronic back pain sent by his PCP needing assistance with pain control. Patient already has prescriptions for muscle relaxer sent in by PCP and provider in the ER last night. Today only for assistance with pain control for his immediate back pain and spasming problem. His pain and symptoms feel similar to previous exacerbations he has no new or concerning symptoms and workup with labs and imaging is not obtained today as he has had extensive workup previously. He is a frequent visitor to this ER. Patient comes in with 10/10 back pain and is improved after receiving 30 mg Toradol IM and 1 mg Dilaudid IM down to a 4/10 he feels comfortable and overall much better. Return precautions provided, follow-up plan discussed, all questions answered. Discharge Plan Departure Patient Disposition: Home Clinical Impression: Acute exacerbation of chronic low back pain, Muscle spasm Activity Restrictions/Additional Instructions: *You have been diagnosed with [acute on chronic back pain] *What to do: *Please continue to take your regular medications as directed. [ ] New medication prescriptions sent to your pharmacy: [ ] [ ] New medication written as a paper prescription [X ] No new medications given *Please follow up with your primary care provider in 2-3 days, call for an appointment. Let them know you were seen in the Emergency Department and that we ask that you be seen in follow up. We will electronically transmit a record of today's note if your PCP is in our system. You came to the ER today after being seen by her PCP and she felt you need more assistance with pain control, she has already ordered prescriptions for you as an outpatient, we gave you IM Toradol as well as IM Dilaudid today in the emergency department to help with your acute on chronic back pain. We did not perform labs or imaging as you up had extensive workup already for your pain. Course if you do develop new or concerning symptoms make sure you seek re-evaluation. Otherwise follow up with your PCP and pain provider. *If you do not have a primary care provider please contact the [facility] Resource line at [phone]. They will ask some questions about your medical history and help get you set up with a doctor in the community. *Return to Emergency Department if you should have any new, worsening or concerning symptoms, such as [fever greater than 101 F, shaking chills, worsening pain, persistent vomiting or other bothersome symptoms] Prescriptions: No Action triamcinolone acetonide 0.5 % ointment 1 applic topical BID Qty: 15 2RF gabapentin 300 mg capsule 600 mg PO BID PRN (Reason: for pain) Qty: 360 3RF ketorolac 10 mg tablet 10 mg PO Q6H PRN (Reason: pain) Qty: 20 0RF Rx Instructions: maximum total duration of 5 days from all oral, intranasal, or parenteral formulations hydromorphone [Dilaudid] 4 mg tablet 4 mg PO Q6H PRN (Reason: pain) Qty: 30 0RF cyclobenzaprine 10 mg tablet 10 mg PO TID Qty: 30 0RF aspirin 81 MG tablet,chewable 81 mg PO QDAY Qty: 0 diclofenac sodium [Voltaren] 1 % gel 1 ea topical PRN PRN (Reason: Pain (Scale Score 1-3)) Qty: 0 ibuprofen 200 MG capsule 200 mg PO Q4-6H PRN (Reason: Pain (Scale Score 1-3)) Qty: 0 cholecalciferol (vitamin D3) [Vitamin D3] 2,000 UNIT tablet 2,500 iu PO DAILY Qty: 0 multivitamin [Multiple Vitamins] 1 EACH tablet 1 tab PO DAILY Qty: 0 olopatadine 0.7 % drops 1 drop EYE-BOTH DAILY Qty: 2.5 0RF fexofenadine [Theresa Allergy] 180 mg tablet 180 mg PO DAILY fluticasone propionate 50 mcg/actuation spray,suspension See Rx Instructions .ROUTE .COMPLEX Qty: 1440 3RF Dose Instruction: USE 1 SPRAY NASALLY TWICE A DAY Rx Instructions: USE 1 SPRAY NASALLY TWICE A DAY (DME) disabled parking permit See Rx Instructions .ROUTE .MEDSUPPLY Qty: 1 0RF Rx Instructions: My patient cannot walk 200 feet without stopping to rest or must use assistive device. Walking is severely limited due to arthritic, neurological or orthopedic condition. Uses portable oxygen or walking restricted by lung disease tizanidine 4 mg tablet See Rx Instructions .ROUTE .COMPLEX Qty: 90 11RF Dose Instruction: TAKE 1 TABLET EVERY 6 TO 8 HOURS NEEDED FOR MUSCLE SPASTICITY, DO NOT EXCEED 3 DOSES PER 24 HOURS Rx Instructions: TAKE 1 TABLET EVERY 6 TO 8 HOURS NEEDED FOR MUSCLE SPASTICITY, DO NOT EXCEED 3 DOSES PER 24 HOURS hydrochlorothiazide 12.5 mg capsule See Rx Instructions .ROUTE .COMPLEX Qty: 90 3RF Dose Instruction: TAKE 1 CAPSULE DAILY Rx Instructions: TAKE 1 CAPSULE DAILY atorvastatin 40 mg tablet See Rx Instructions .ROUTE .COMPLEX Qty: 90 3RF Dose Instruction: TAKE 1 TABLET AT BEDTIME Rx Instructions: TAKE 1 TABLET AT BEDTIME albuterol sulfate 90 mcg/actuation HFA aerosol inhaler See Rx Instructions .ROUTE .COMPLEX Qty: 17 4RF Dose Instruction: USE 2 INHALATIONS EVERY 4 TO 6 HOURS NEEDED FOR SHORTNESS OF BREATHOR WHEEZING Rx Instructions: USE 2 INHALATIONS EVERY 4 TO 6 HOURS NEEDED FOR SHORTNESS OF BREATHOR WHEEZING benzonatate 200 mg capsule 200 mg PO BID-TID PRN (Reason: cough) Qty: 21 0RF oxycodone-acetaminophen [Percocet] 5-325 mg tablet 1 tab PO Q8H PRN (Reason: pain) Qty: 20 0RF tizanidine 2 mg capsule 2 mg PO TID PRN (Reason: muscle spasticity) Qty: 30 0RF cyclobenzaprine 10 mg tablet 10 mg PO TID PRN (Reason: muscle spasm) Qty: 25 0RF Hold Instructions: Home Medication placed on hold at Doctor's office hydrocodone-acetaminophen 5-325 mg Tablet 1 tab PO Q4HR PRN (Reason: Pain, Moderate (4-6)) Qty: 20 0RF hydrocodone-acetaminophen 5-325 mg tablet 1 tab PO Q6H PRN (Reason: pain) Qty: 14 0RF duloxetine [Cymbalta] 30 mg capsule,delayed release(DR/EC) 30 mg PO DAILY MDD 2 Qty: 30 3RF montelukast [Singulair] 10 mg tablet 10 mg PO DAILY Qty: 90 3RF Referrals: Vicky Whalen MD [Primary Care Provider] - Stand Alone Forms: Patient Portal/API ED Sign-out <Ricardo Barry, - Last Filed: 12/10/23 16:44> Cosign ED Attending Cosignature Attestation: Dr Barry Co-Sign Statement: I was available for consultation during this patient's emergency department visit. This chart is signed by myself for administrative purposes only. I did not have direct contact with this patient during this visit. They were seen independently by the APC.
[2023-12-10] MEDS: HYDROMORPHONE 1 MG INJ IM (14:57)
[2023-12-10] MEDS: KETOROLAC 30 MG/ML VIAL IM (14:59)
== END 2023-12-10 15:38 | disposition home or self-care (01) ==
PROVIDERS: Emergency Provider Student in an Organized Health Care Education/Training Program; PCP Family Medicine
DX: M62.830 Muscle spasm of back (principal)
CPT/HCPCS: 96372; 99283; J1170; J1885

== ENCOUNTER → 2023-12-24 12:36 | Outpatient (CLI) | payer MEDICARE, OTHER, SELFPAY ==
[2022-06-13 20:21] VITALS: BMI 43.7
--- NOTE | 2023-12-24 | PATH_ITS ---
Note [facility] Accession Number: [id number] TESTS RESULT FLAG UNITS REF RANGE LAB Clinician Provided Cytology Information No. of containers..06 Previously Prepared Cytology Slide 35 Unknown Storage/container code(s) Source: LEFT INFERIOR THYROID NODULE #2 DIAGNOSIS: LEFT INFERIOR THYROID NODULE #2 BENIGN. BETHESDA CATEGORY II. SPECIMEN CONSISTS OF BENIGN FOLLICULAR CELLS, HEMOSIDERIN-LADEN MACROPHAGES, COLLOID, AND BLOOD. THIS PATTERN IS CONSISTENT WITH FOLLICULAR NODULAR DISEASE. Pathologist ICD10: E04.1 Signed out by: Lilia Ferro MD, Pathologist NPI- [id number] Performed by: Romie Rod, Desktop Support Engineer ([facility]) Gross description: 30 CC, PINK, CLEAR RECIEVED: IN CYTOLYT WITH 8 ALCOHOL FIXED AND 8 QUICK STAINED SLIDES ALSO 1 RNA VIAL WILL ON 03-26-2025.VO /VDU 12/27/2023 0730 Local FLAG LEGEND: L-Low Normal,H-High Normal,LL-Alert Low,HH-Alert High <-Panic Low,>-Panic High,A-Abnormal,AA-Critical Abnormal Performed at: 01 [address] [facility] [facility], [place] [address] Fransisco Blanco MD, Performed at: [address], [place], [place] [id number] MD Fransisco Blanco MD Phone: [phone]
--- NOTE | 2023-12-24 12:37 | DI.US.S_ITS ---
PROCEDURE: US FINE NEEDLE ASPIRATION INDICATIONS: LEFT THYROID NODULE TECHNIQUE: The indications, alternatives, benefits, risks, and complications of the procedure were explained to the patient. Written informed consent was obtained and placed in the chart. The thyroid region was examined sonographically and a site was chosen for ultrasound guided percutaneous sampling. The skin was prepared and draped in the usual fashion, and anesthetized with 1% lidocaine infiltrated from the skin down to the thyroid gland. Multiple passes were then performed, with contents emptied into an appropriate pathology specimen container. A bandage was applied to the area of access at completion of the study. COMPARISON: None. FINDINGS: Location(s) of lesion(s) sampled: Lower pole left thyroid lobe nodule Davis: 22 and 25 gauge hypodermic needles. Number of passes: 9 Medications: 1% lidocaine for local anaesthesia. Complications: None. IMPRESSION: Successful ultrasound-guided thyroid nodule fine needle aspiration, with cytology results pending. Please see chart below for management recommendations based on cytology results. [place] [facility] ReportingRecommendationsNon-diagnostic* Repeat US-guided FNA, with on-site cytology evaluation if possible. * Repeated non-diagnostic nodules without high suspicion US features: close observation vs surgical consult. * Consider surgery if nodule has high suspicion US features, grows >20% in 2 dimensions on followup, or patient has clinical risk factors for malignancy. Benign* If nodule has high suspicion US features: repeat US and FNA within 12 months. * If nodule has low to intermediate suspicion US features: repeat US at 12-24 months. If nodule grows (20% increase in at least 2 dimensions, with minimal increase of 2 mm or >50% change in volume), or development of new suspicious US features, then repeat FNA or continue followup. * If nodule has very low suspicion US features: followup US at >24 months. Atypia of undetermined significance, follicular lesion of undetermined significanceRepeat FNA, molecular testing, followup US, or surgical consult.Follicular neoplasm, suspicious for follicular neoplasmSurgical consult; also consider molecular testing. Suspicious for malignancySurgical consult.MalignantSurgical consult. Dictated by: Michael Coreas M.D. on 12/24/2023 at 18:00 Approved by: Michael Coreas M.D. on 12/24/2023 at 18:01
== END ==
LOC: US 12:36
PROVIDERS: PCP Family Medicine; Referring Provider Family Medicine; Visit Provider Family Medicine
DX: E04.1 Nontoxic single thyroid nodule (principal)
CPT/HCPCS: 10005

== ENCOUNTER 2023-12-29 12:51 | Outpatient (CLI) | payer MEDICARE, OTHER, SELFPAY ==
[2022-06-13 20:21] VITALS: BMI 43.7
[2023-12-29] VITALS (9 sets, daily range): BP systolic 134–187; BP diastolic 76–98; PULSE 67–73; RESP 15–17; TEMP 36.9; O2SAT 94–99
--- NOTE | 2023-12-29 13:30 | DI.RAD.S_ITS ---
PROCEDURE: PAIN INTERCOSTAL NRV BLK MULT INDICATIONS: Left 7, 8, 9 intercostal nerve block COMPARISON: None. FINDINGS: Fluoroscopic spot filming was performed to verify placement of spinal needles at the left 7th and 9th intercostal regions as labeled on the films. Appropriate location(s) of the needle tip(s) was confirmed by injection of iodinated contrast. There is partially seen surgical material in the upper abdomen. IMPRESSION: Left 7th and 9th intercostal region injections. Please see operative note full details. Dictated by: Mark Ferreira M.D. on 12/29/2023 at 16:40 Approved by: Mark Ferreira M.D. on 12/29/2023 at 16:41
[2023-12-29] MEDS: MIDAZOLAM 2 MG/2 ML VIAL 1 MG IV ×2 (13:44→13:50)
[2023-12-29] MEDS: BUPIVACAINE 0.25% (PF) VIAL 10 ML INJ (13:52)
[2023-12-29] MEDS: DEXAMETHASONE 10 MG/ML VIAL 20 MG INJ (13:52)
--- NOTE | 2023-12-29 15:18 | P.PCN_ITS ---
Date/Time/Diagnoses Date of procedure: 12/29/23 Time of procedure: 13:30 Procedure Notes Physician: Wilbur Burrows Total Fluoroscopy time (seconds): 7 Total sedation minutes: 15 Procedure in detail & Post-procedure care: Right 7, 8, 9 Intercostal Nerve Injection Indications: Jasmeet is presenting for treatment of intercostal neuralgia with chest/thoracic back pain. Preoperative diagnosis: Intercostal neuralgia Postoperative diagnosis: Same Focused Examination: Ax3 Mood and affect are normal Vital Signs: VSS ASA: 2 Consent: Following review of allergies and potential side effects/complications, including, but not necessarily limited to, infection, allergic reaction, local tissue breakdown, stroke, temporary or permanent nerve injury, paralysis, and possible , the patient indicated that they understood and agreed to proceed.? An informed consent document was signed by the patient, witnessed by a nurse and placed in the patient's chart.? Additionally, other treatment options including medications and physical therapy were reviewed with the patient. All questions were answered. Site was then marked. Anesthesia: After review of previous anesthetic history and IV conscious sedation, the patient was deemed safe to proceed with today's procedure with IV conscious sedation. IV sedation was accomplished with midazolam 2 mg administered by the RN after order by Dr. Burrows. Sedation was titrated to patient comfort during the course of the procedure. Patient remained responsive to all verbal commands. Position: Prone Monitoring: NIBP, Pulse oximetry, 3 lead EKG Needle used: 22 gauge, 2 in echogenic needle Contrast: None Injectate: Dexamethasone 5 mg with 1.5 mL 1% lidocaine - per site Technique: The the right 7, 8, 9 ribs were identified, numbered and marked using fluoroscopy. The skin was then prepped with chloraprep and then draped in a sterile fashion. Time out was performed as per protocol. Oxygen applied via NC. The desired ribs were identified using real-time ultrasound guidance in the sagittal plane. Using an echogenic needle, the tip was advanced in a caudocranial direction and was placed inferior to the rib. Pleura was visualized at all times and care taken to avoid this region. After negative aspiration, the above-mentioned injectate was then slowly administered and the needle withdrawn. This process was then repeated for the remaining sites. The patient expressed no unusual discomfort or paresthesias during the injection. Band-Aids applied to injection sites. EBL: less than 1 ml Complications: None Post Procedure: Patient was taken to the recovery and monitored. The patient was provided a Pain Log to continue to record the patient's response to the target- specific procedure prior to the patient's follow-up visit with the referring physician. Patient was stable upon discharge. Detailed post procedure instructions were provided. Patient was asked to call in the event of worsening pain, fever, weakness, numbness or bladder/bowel incontinence.
== END 2023-12-29 14:30 | disposition home or self-care (01) ==
PROVIDERS: PCP Family Medicine; Referring Provider Anesthesiology; Visit Provider Anesthesiology
DX: G58.8 Other specified mononeuropathies (principal)
CPT/HCPCS: 64420; 64421; 99152; J1100; J2250; J3490

== ENCOUNTER → 2024-03-25 07:47 | Outpatient (CLI) | payer MEDICARE, OTHER, SELFPAY ==
[2022-06-13 20:21] VITALS: BMI 43.7
[2024-03-25 10:04] LABS: Alanine Aminotransferase 19 IU/L (<50); Albumin 3.8 g/dL (3.5-5.0); Albumin Globulin Ratio 1.3 (1.0-2.8); Alkaline Phosphatase 95 U/L (38-126); Aspartate Aminotransferase 26 IU/L (17-59); BUN Creatinine Ratio 10.1 (6-22); Bilirubin Total 0.5 mg/dL (0.2-1.3); Blood Urea Nitrogen 10 mg/dL (9-20); Calcium 9.4 mg/dL (8.4-10.2); Carbon Dioxide 29 mmol/L (22-32); Chloride 98 mmol/L (98-107); Estimated Glomerular Filt Rate > 60 mL/min (>60); Globulin 2.9 g/dL (1.7-4.1); Glucose 104 mg/dL (80-110); HEMOLYSIS < 15 (0-50); Potassium 3.6 mmol/L (3.4-5.1); Sodium 136 mmol/L (137-145); Total Protein 6.7 g/dL (6.3-8.2)
[2024-03-25 11:55] LABS: Hemoglobin A1C% w Est Avg Glu 5.7 % (4.0-6.0)
== END ==
PROVIDERS: PCP Family Medicine; Referring Provider Family Medicine; Visit Provider Family Medicine
DX: R25.2 Cramp and spasm (principal); E66.9 Obesity, unspecified
CPT/HCPCS: 36415; 80053; 83036; 83735

== ENCOUNTER → 2024-04-17 15:58 | Outpatient (CLI) | payer MEDICARE, OTHER, SELFPAY ==
[2022-06-13 20:21] VITALS: BMI 43.7
[2024-04-17 16:42] LABS: Influenza A - CEPHEID Flu A NEGATIVE (NEGATIVE); Influenza B - CEPHEID Flu B NEGATIVE (NEGATIVE); Respiratory Syncytial Virus Negative (Negative)
[2024-04-17 16:50] LABS: COVID-19 CEPHEID 4-PLEX PCR Negative (Negative)
== END ==
PROVIDERS: PCP Family Medicine; Visit Provider Nurse Practitioner Family
DX: R68.83 Chills (without fever) (principal); H10.33 Unspecified acute conjunctivitis, bilateral
CPT/HCPCS: 0241U

== ENCOUNTER → 2025-01-18 07:28 | Outpatient (CLI) | payer MEDICARE, OTHER, SELFPAY ==
[2022-06-13 20:21] VITALS: BMI 43.7
[2025-01-18 08:27] LABS: Hemoglobin A1C% w Est Avg Glu 5.9 % (4.0-6.0)
[2025-01-18 08:49] LABS: Alanine Aminotransferase 24 IU/L (<50); Albumin 4.0 g/dL (3.5-5.0); Albumin Globulin Ratio 1.4 (1.0-2.8); Alkaline Phosphatase 100 U/L (38-126); Blood Urea Nitrogen 19 mg/dL (9-20); Calcium 9.5 mg/dL (8.4-10.2); Carbon Dioxide 28 mmol/L (22-32); Chloride 102 mmol/L (98-107); Cholesterol 130 mg/dL (140-199); Estimated Glomerular Filt Rate > 60 mL/min (>60); Globulin 2.9 g/dL (1.7-4.1); Glucose 99 mg/dL (70-99); HDL Cholesterol 65 mg/dL (40-60); HEMOLYSIS < 15 (0-50); Potassium 4.6 mmol/L (3.4-5.1); Sodium 139 mmol/L (137-145); Total Protein 6.9 g/dL (6.3-8.2); Triglycerides 78 mg/dL (35-150)
[2025-01-18 09:14] LABS: Thyroid Stimulating Hormone 1.29 uIU/mL (0.47-4.68)
[2025-01-18 15:03] LABS: Microalbumi Creatinin Ratio Ur 5.0 ug/mg CR (<30)
== END ==
LOC: LAB 07:29
PROVIDERS: PCP Family Medicine; Referring Provider Family Medicine; Visit Provider Family Medicine
DX: E66.09 Other obesity due to excess calories (principal); R53.83 Other fatigue; Z68.34 Body mass index [BMI] 34.0-34.9, adult; I10 Essential (primary) hypertension
CPT/HCPCS: 80053; 80061; 82043; 82570; 83036; 84443

== ENCOUNTER 2025-04-23 11:22 | Emergency (ER) | payer OTHER, MEDICARE, SELFPAY ==
[2025-03-21 09:13] VITALS: BMI 43.7
[2025-04-23] VITALS (10 sets, daily range): BP systolic 143–174; BP diastolic 65–85; PULSE 61–67; RESP 16–24; TEMP 36.6; O2SAT 93–99; BMI 32.1
--- NOTE | 2025-04-23 11:42 | ED_ITS ---
HPI - Back Pain/Injury
--- NOTE | 2025-04-23 11:42 | DI.CT.S_ITS ---
PROCEDURE: CT CERVICAL SPINE WO CON
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
--- NOTE | 2025-04-23 11:44 | DI.CT.S_ITS ---
PROCEDURE: CT HEAD/BRAIN WO CON
[2025-04-23 11:57] LABS: Add Manual Diff / Slide Review NO; Hematocrit 37.1 % (41-53); Hemoglobin 12.4 g/dL (13.5-17.5); Lymphocytes Absolute Auto 1800 /uL (1100-4500); Mean Corpuscular HGB Conc 33.4 % (30-36); Mean Corpuscular Hemoglobin 28.0 PG (26-34); Mean Corpuscular Volume 83.8 fL (80-100); Platelet Count 388 X10^3/uL (150-400)
[2025-04-23 12:07] LABS: INR 1.1 (0.9-1.3); Prothrombin Time 11.9 SECONDS (9.4-12.5)
[2025-04-23 12:12] LABS: Alanine Aminotransferase 17 IU/L (<50); Albumin 4.0 g/dL (3.5-5.0); Albumin Globulin Ratio 1.2 (1.0-2.8); Alkaline Phosphatase 105 U/L (38-126); Blood Urea Nitrogen 20 mg/dL (9-20); Calcium 8.9 mg/dL (8.4-10.2); Carbon Dioxide 25 mmol/L (22-32); Chloride 102 mmol/L (98-107); Estimated Glomerular Filt Rate > 60 mL/min (>60); Globulin 3.4 g/dL (1.7-4.1); Glucose 104 mg/dL (70-99); HEMOLYSIS < 15 (0-50); Potassium 3.8 mmol/L (3.4-5.1); Sodium 139 mmol/L (137-145); Total Protein 7.4 g/dL (6.3-8.2)
[2025-04-23] MEDS: SODIUM CHLORIDE 0.9% 1,000 ML 75 ML IV (13:52)
== END 2025-04-23 14:22 | disposition short-term general hospital (02) ==
PROVIDERS: Emergency Provider Emergency Medicine; PCP Family Medicine
DX: S36.115A Moderate laceration of liver, initial encounter (principal); S12.600A Unspecified displaced fracture of seventh cervical vertebra, initial encounter for closed fracture; M54.2 Cervicalgia; M54.6 Pain in thoracic spine; V89.2XXA Person injured in unspecified motor-vehicle accident, traffic, initial encounter
CPT/HCPCS: 36415; 70450; 71260; 72125; 74177; 80053; 85025; 85610; 86850; 86900; 86901; 96374; 99284; 99291; G0390; J1171; J7030; Q9967

== ENCOUNTER 2025-05-31 07:55 | Emergency (ER) | payer MEDICARE, OTHER, SELFPAY ==
[2025-03-21 09:13] VITALS: BMI 43.7
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
[2025-05-31 08:03] VITALS: BP 128/77; PULSE 84; RESP 12; TEMP 36.6; O2SAT 99; BMI 29.8
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
--- NOTE | 2025-05-31 08:15 | PC.NURSE ---
Patient presents with [place] c-collar in place with chin plastic piece popped out. Dr Montgomery brought to chair side. Able to snap plastic piece back in place. No breaks in hardware.
== END 2025-05-31 08:19 | disposition home or self-care (01) ==
PROVIDERS: Emergency Provider Emergency Medicine; PCP Family Medicine
DX: S12.600A Unspecified displaced fracture of seventh cervical vertebra, initial encounter for closed fracture (principal); Z71.1 Person with feared health complaint in whom no diagnosis is made; V89.2XXA Person injured in unspecified motor-vehicle accident, traffic, initial encounter
CPT/HCPCS: 99281